=== PATIENT | female | born 1975 | race African-American/Black ===

== ENCOUNTER 2020-12-02 12:15 | Inpatient (IN) | payer OTHER ==
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
--- OUTSIDE RECORDS SUMMARY | 2020-12-02 21:16 | XMS REPORT | Clinical Summary ---
:1975 Author Organization [facility] Address [address] [place] [address] Care Team Providers Name Role Phone Kana Pablo Primary Care Provider Unavailable Allergies No Known Active Allergies Medications Medication Sig Dispensed Refills Start Date End Date Status insulin lispro Inject 4-7 Units 0 10/23/2018 Active (ADMELOG) 100 unit/mL under the skin. injection pen Tresiba FlexTouch U-100 0 10/27/2020 Active 100 unit/mL (3 mL) insulin pen rosuvastatin (CRESTOR) 10 mg nightly. 0 08/16/2020 Active 10 mg tablet amLODIPine (NORVASC) 10 0 11/02/2020 Active mg tablet metoprolol succinate XL TAKE 1 TABLET BY 0 7 Active (TOPROL-XL) 50 mg 24 hr MOUTH EVERY DAY tablet sevelamer (RENVELA) 800 Take 800 mg by 0 Active mg tablet mouth. minocycline (MINOCIN) TAKE 1 CAPSULE BY 0 10/28/2020 Active 100 MG capsule MOUTH EVERY 12 (TWELVE) HOURS FOR 90 DAYS. pregabalin (LYRICA) 75 Take 75 mg by 0 10/16/2020 Active MG capsule mouth daily. esomeprazole (NexIUM) Take 20 mg by 0 Active 20 MG capsule mouth daily before breakfast. Active Problems Problem Noted Date ESRD (end stage renal disease) 11/03/2020 Overview: Added automatically from request for bobby clinton [id number] Dialysis AV fistula malfunction, initial encounter Overview: Added automatically from request for bobby carlosy [id number] Encounters Date Type Specialty Care Team Description 11/30/2020 Telephone Cardiovascular Amanda Hamilton RN 11/03/2020 Office Visit Cardiovascular Rubén Clark Encounter r egrosa Rios MD vascular acces s for dialysis for en d-stage renal disease ( HCC) (Primary Dx) 11/03/2020 Prep for Surgery Cardiovascular Amanda Hamilton ESR D (end stage renal disease) (HCC) (Primary Dx); ceo ziff davis AV bartolo hudson malfunction, initial encounter (HCC) 11/03/2020 Travel 10/20/2020 Telephone Cardiovascular Amanda Hamilton RN after 12/02/2019 Medical History Medical History Date Comments HTN (hypertension) HLD (hyperlipidemia) DM (diabetes mellitus) (HCC) Social History Tobacco Use Types Packs/Day Years Used Date Never Assessed Sex Assigned at Date Recorded Not on file COVID-19 Exposure Response Date Recorded In the last month, have you been in contact with No / Unsure 11/03/2020 9:37 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 Respiratory Rate - - Oxygen Saturation 100% 11/03/2020 9:44 AM 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 Inhaled Oxygen Concentration - - Weight 104 kg (229 lb) 11/03/2020 9:44 AM 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 Height 167.6 cm (5' 6") 11/03/2020 9:44 AM 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 Body Mass Index 36.96 11/03/2020 9:44 AM 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 Plan of Treatment Health Maintenance Due Date Last Done Comments DIABETES: RETINAL EYE EXAM 1984 DIABETIC FOOT EXAM 1984 COVID-19 VACCINE (1 of 2) 1990 CERVICAL CANCER SCREENING 1995 INFLUENZA VACCINE 06/19/2020 Results Not on fileafter 12/02/2019 Insurance Payer Benefit Plan / Subscriber ID Effective Dates Phone Addre ss Type Group CIGNA CIGNA OPEN [id number] 2019-Present HMO ACCESS/NETWORK MEDICARE MEDICARE PART A [id number] 2020-Present [place], [place] Medicare AND B Advance Directives For more information, please contact: [phone] Type Date Recorded Patient Mri Special Procedures Technologist Explanati on Advance Directives, Living Will and Medical Power of Costume Seamstress
--- OUTSIDE RECORDS SUMMARY | 2020-12-02 21:17 | XMS REPORT | Clinical Summary ---
:1975 Author Organization [facility] Address [address] [place] [address] Care Team Providers Name Role Phone Meliza Pablo MD Primary Care Provider Allergies No Known Allergies Medications Medication Sig Dispensed Refills Start End Date Status Date metoprolol Take 50 mg by 0 Activ e succinate mouth daily. (TOPROL-XL) 50 MG 24 hr tablet insulin degludec Inject 44 Units 0 Active (TRESIBA FLEXTOUCH subcutaneously U-100 SUBQ) daily . rosuvastatin Take 10 mg by 0 Act nathan (CRESTOR) 10 MG mouth daily. tablet insulin lispro Inject 0 Activ e (HUMALOG) 100 subcutaneously 3 unit/mL InPn (three) times daily before meals Sliding scale . amLODIPine Take 10 mg by 0 Activ e (NORVASC) 10 MG mouth daily. tablet allopurinoL Take 100 mg by 0 Act nathan (ZYLOPRIM) 100 MG mouth daily. tablet fluticasone Inhale 1 puff by 0 A ctive propion-salmeteroL mouth via inhaler (ADVAIR) 100-50 every 12 (twelve) mcg/dose diskus hours. inhaler pregabalin (LYRICA) Take 75 mg by 0 Active 75 MG capsule mouth 2 (two) times daily. sevelamer (RENVELA) Take 800 mg by 0 Active 800 mg tablet mouth 3 (three) times daily with meals. esomeprazole Take 20 mg by 0 Act nathan (NexIUM) 20 MG mouth every other capsule day. mINOCYCLine Take 100 mg by 0 Act nathan (MINOCIN,DYNACIN) mouth 2 (two) 100 MG capsule times daily. hydrALAZINE Take 25 mg by 0 09/15/20 Disc ontinued (APRESOLINE) 25 MG mouth 3 (three) 20 tablet times daily. ondansetron Take 4 mg by mouth 0 09/15/20 Discontinued (ZOFRAN) 4 MG 2 (two) times 20 tablet daily as needed for Nausea. gabapentin Take 300 mg by 0 09/15/20 Disc ontinued (NEURONTIN) 300 MG mouth 3 (three) 20 capsule times daily. promethazine Place 25 mg 0 09/15/20 Disco ntinued (PHENERGAN) 25 MG rectally every 6 20 suppository (six) hours as needed for Nausea. traMADoL (ULTRAM) Take 50 mg by 0 09/15/20 Discontinued 50 mg tablet mouth every 6 20 (six) hours as needed for Pain. cyclobenzaprine Take 5 mg by mouth 0 09/15 Discontinued (FLEXERIL) 5 MG 3 (three) times 20 tablet daily as needed for Muscle spasms. magnesium gluconate Take 500 mg by 0 09/15 Discontinued (MAGONATE) 27.5 mg mouth 2 (two) 20 magne- sium (500 times daily. mg) tablet aspirin 81 MG EC Take 81 mg by 0 09/15/20 Discontinued tablet mouth daily. 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 09/21/2020 diabetes mellitus, unspecified proliferative retinopat hy type Secondary hyperparathyroidism of renal origin 09/21/20 20 Rheumatoid arthritis involving multiple sites, unspeci fied whether 09/21/2020 rheumatoid factor present H/O: gout 09/21/2020 Hydradenitis 09/21/2020 Hyperlipidemia, unspecified hyperlipidemia type 2019 Encounters Date Type Specialty Care Team Description 11/17/2020 Documentation Transplant Sim, Na Y 10/22/2020 Telephone Transplant Ginna Gagnon, Kidney Long splarmin RN Pre-evaluation 09/15/2020 Evaluation Transplant Marshall, Pre-transplant evaluation for chronic kidney disease (Primary Dx); Bhamidipati ESRD (end stage renal disease) ([facility]); MD Chilango Type 2 diabetes mellitus with other kidney complication, unspecified whether ad terminal makeup operator insulin use (HCC); Essential hyper tension; Proliferative d iabetic retinopathy of both eyes associated with type 2 diabetes mellitus, unspecified proliferative retinopathy type (HCC); Secondary hyper parathyroidism of renal origin (HCC); Rheumatoid arth ritis involving multiple sites, unspecified whether rheumatoid factor present (HCC); H/O: gout; Hydradenitis; Hyperlipidemia, unspecified hyperlipidemia type 09/15/2020 Orders Only Transplant Marshall, Pre-transplant evaluation for chronic kidney disease; Hepatology Bhamidipati Anemia of renal disease; MD [place] Type 2 diabetes mellitus with other kidney complication, unspecified whether ad terminal makeup operator insulin use (HCC); Hypertensive re nal disease 09/15/2020 Evaluation Transplant Marshall, Pre-transplant Bhamidipati evaluation for chronic MD [place]ilango kidney disease (Primary Teodoro, Rose Dx) ROULA Serrano 09/14/2020 Telephone Transplant Govea, Appointment (Isac ledbetter Mrs. Karla Song she will attend the appt on and she's aware true t she can bring one perso n with her to the appt and they both will need to wear there face mask to the appt. I went ov er the address for the appt.) 09/01/2020 Telephone Transplant Yuliet Ramirez Appointment L 09/01/2020 Telephone Transplant Yuliet Ramirez Appointment L 09/01/2020 Telephone Transplant Ирина Spencer Appointment (Pt called to r/s missed a ppt on 08/11/2020, for warded message to cortes [facility]. ) 08/12/2020 Documentation Transplant Lorena Joy 08/10/2020 Telephone Transplant Yuliet Ramirez Appointment L 07/28/2020 Documentation Pharmacy Shannan Goss, [facility] 07/20/2020 Telephone Transplant Yuliet Ramirez Appointment L 07/20/2020 Telephone Transplant Yuliet Ramirez Appointment L 07/18/2020 Video - Transplant Marshall, Pre-transplant Telemedicine Bhamidipati evaluation for chronic MD [place] kidney disease (Primary Dx) 07/15/2020 Documentation Transplant Ginna Gagnon, Pre-transp lant evaluation for chronic kidney disease (Primary Dx); RN Anemia of renal disease; Type 2 diabetes mellitus with other kidney complication, unspecified whether mcfp insulin use (HCC); Hypertensive re nal disease 07/15/2020 Documentation Transplant Cornelio Tristan 07/14/2020 Documentation Transplant Salcido, Tannereila 07/14/2020 Telephone Transplant Omari, Ladnoel Kidney Transp lant Pre-evaluation 07/12/2020 Documentation Transplant Salcido, Ladeila 07/12/2020 Telephone Transplant Salcido, Ladeila Kidney Transp lant Pre-evaluation 07/12/2020 Telephone Transplant Salcido, Ladonel Kidney Transp lant Pre-evaluation 07/02/2020 Documentation Transplant Salcido, Ladeila 07/02/2020 Telephone Transplant Salcido, Ladeitrina Kidney Transp lant Pre-evaluation 06/23/2020 Video - Transplant No Show Telemedicine 06/22/2020 Documentation Transplant Anjana Mabry 06/03/2020 Documentation Transplant Salcido, Darylla 06/03/2020 Telephone Transplant Salcido, Ladonel Kidney Transp lant Pre-evaluation 05/27/2020 Documentation Transplant Salcido, Ladeila 05/27/2020 Abstract Transplant Salcido, Ladeila 05/27/2020 Documentation Transplant Evonne Palacios RN 05/18/2020 Documentation Transplant Salcido, Ladeila 05/18/2020 Documentation Transplant Salcido, Ladeila 05/13/2020 Abstract Transplant Salcido, Ladeila 05/13/2020 Abstract Transplant Salcido, Ladjorjela after 12/02/2019 Family History Medical History Relation Name Comments Diabetes Brother Hypertension Brother Ulcers Father toe ulcer / gang diana Cancer Mother pancreatic Diabetes Mother Heart failure Mother Hyperlipidemia Mother Cancer Sister throat Hypertension Sister Diabetes Son Diabetes Son Relation Name Status Comments Brother Father Mother Sister Son Son Social History Tobacco Use Types Packs/Day Years Used Date Never Smoker Smokeless Tobacco: Never Used Alcohol Use Drinks/Week oz/Week Comments Never Alcohol Habits Answer Date Recorded How often do you have a drink containing alcohol? Never 09/15/2020 How many drinks containing alcohol do you have on a typical Not asked day when you are drinking? How often do you have six or more drinks on one occasion? No t asked Sex Assigned at Date Recorded Not on file Last Filed Vital Signs Vital Sign Reading Time Taken Comments Blood Pressure 113/73 09/15/2020 1:40 PM CDT Pulse 62 09/15/2020 1:40 PM CDT Temperature 36.5 C (97.7 F) 09/15/2020 1:40 PM CDT Respiratory Rate 16 09/15/2020 1:40 PM CDT Oxygen Saturation 100% 09/15/2020 1:40 PM CDT Inhaled Oxygen Concentration - - Weight 100.3 kg (221 lb 1.6 oz) 09/15/2020 1:40 PM CDT Height 166.5 cm (5' 5.55") 09/15/2020 1:40 PM CDT Body Mass Index 36.18 09/15/2020 1:40 PM CDT Plan of Treatment Not on file Procedures Procedure Name Priority Date/Time Associated Comments Diagnosis CBC W/PLT COUNT & AUTO Routine 09/15/2020 1:24 Pre-transplant Results for this DIFFERENTIAL PM CDT evaluation for procedure are in chronic kidney the results disease section. Anemia of renal disease Type 2 diabetes mellitus with other kidney complication, unspecified whether mcfp insulin use (HCC) Hypertensive renal disease DIRECT AHG (KATIE)/DIRECT Routine 09/15/2020 1:24 Pre-transplan t Results for this CARMINE PM CDT evaluation for procedure are in chronic kidney the results disease section. Anemia of renal disease Type 2 diabetes mellitus with other kidney complication, unspecified whether mcfp insulin use (HCC) Hypertensive renal disease TYPE AND SCREEN, Routine 09/15/2020 1:24 Pre-transplant Resul ts for this AUTOMATED PM CDT evaluation for procedure are in chronic kidney the results disease section. Anemia of renal disease Type 2 diabetes mellitus with other kidney complication, unspecified whether mcfp insulin use (HCC) Hypertensive renal disease HEMOGLOBIN A1C Routine 09/15/2020 1:24 Pre-transplant Results for this PM CDT evaluation for procedure are in chronic kidney the results disease section. Anemia of renal disease Type 2 diabetes mellitus with other kidney complication, unspecified whether mcfp insulin use (HCC) Hypertensive renal disease LIPID PANEL Routine 09/15/2020 1:24 Pre-transplant Results f or this PM CDT evaluation for procedure are in chronic kidney the results disease section. Anemia of renal disease Type 2 diabetes mellitus with other kidney complication, unspecified whether mcfp insulin use (HCC) Hypertensive renal disease URINALYSIS W/ Routine 09/15/2020 1:24 Pre-transplant Results for this MICROSCOPIC PM CDT evaluation for procedure are in chronic kidney the results disease section. Anemia of renal disease Type 2 diabetes mellitus with other kidney complication, unspecified whether ad terminal makeup operator insulin use (HCC) Hypertensive renal disease URIC ACID Routine 09/15/2020 1:24 Pre-transplant Results f or this PM CDT evaluation for procedure are in chronic kidney the results disease section. Anemia of renal disease Type 2 diabetes mellitus with other kidney complication, unspecified whether ad terminal makeup operator insulin use (HCC) Hypertensive renal disease T SPOT TB Routine 09/15/2020 1:24 Pre-transplant Results f or this PM CDT evaluation for procedure are in chronic kidney the results disease section. Anemia of renal disease Type 2 diabetes mellitus with other kidney complication, unspecified whether mcfp insulin use (HCC) Hypertensive renal disease PTH, INTACT Routine 09/15/2020 1:24 Pre-transplant Results f or this PM CDT evaluation for procedure are in chronic kidney the results disease section. Anemia of renal disease Type 2 diabetes mellitus with other kidney complication, unspecified whether mcfp insulin use (HCC) Hypertensive renal disease PHOSPHORUS Routine 09/15/2020 1:24 Pre-transplant Results f or this PM CDT evaluation for procedure are in chronic kidney the results disease section. Anemia of renal disease Type 2 diabetes mellitus with other kidney complication, unspecified whether ad terminal makeup operator insulin use (HCC) Hypertensive renal disease GAMMA GLUTAMYL Routine 09/15/2020 1:24 Pre-transplant Results for this TRANSFERASE (GGT) PM CDT evaluation for procedur e are in chronic kidney the results disease section. Anemia of renal disease Type 2 diabetes mellitus with other kidney complication, unspecified whether ad terminal makeup operator insulin use (HCC) Hypertensive renal disease COMPREHENSIVE METABOLIC Routine 09/15/2020 1:24 Pre-transplan t Results for this PANEL PM CDT evaluation for procedure are in chronic kidney the results disease section. Anemia of renal disease Type 2 diabetes mellitus with other kidney complication, unspecified whether ad terminal makeup operator insulin use (HCC) Hypertensive renal disease CBC W/PLT COUNT & AUTO Routine 09/15/2020 1:24 Pre-transplant Results for this DIFFERENTIAL PM CDT evaluation for procedure are in chronic kidney the results disease section. Anemia of renal disease Type 2 diabetes mellitus with other kidney complication, unspecified whether ad terminal makeup operator insulin use (HCC) Hypertensive renal disease HLA TYPING CI Routine 09/15/2020 1:24 Pre-transplant Results for this PM CDT evaluation for procedure are in chronic kidney the results disease section. Anemia of renal disease Type 2 diabetes mellitus with other kidney complication, unspecified whether mcfp insulin use (HCC) Hypertensive renal disease HLA TYPING CII Routine 09/15/2020 1:24 Pre-transplant Results for this PM CDT evaluation for procedure are in chronic kidney the results disease section. Anemia of renal disease Type 2 diabetes mellitus with other kidney complication, unspecified whether ad terminal makeup operator insulin use (HCC) Hypertensive renal disease URINE CULTURE Routine 09/15/2020 1:24 Pre-transplant Results for this PM CDT evaluation for procedure are in chronic kidney the results disease section. Anemia of renal disease Type 2 diabetes mellitus with other kidney complication, unspecified whether ad terminal makeup operator insulin use (HCC) Hypertensive renal disease AB SPECIFICITY CLASS I Routine 09/15/2020 1:23 Pre-transplant Results for this PM CDT evaluation for procedure are in chronic kidney the results disease section. Anemia of renal disease Type 2 diabetes mellitus with other kidney complication, unspecified whether mcfp insulin use (HCC) Hypertensive renal disease FLOW PRA CLASS II WITH Routine 09/15/2020 1:23 Pre-transplant Results for this REFLEX TO ANTIBODY PM CDT evaluation for procedu re are in SPECIFICITY chronic kidney the results disease section. Anemia of renal disease Type 2 diabetes mellitus with other kidney complication, unspecified whether mcfp insulin use (HCC) Hypertensive renal disease VARICELLA ZOSTER Routine 09/15/2020 1:23 Pre-transplant Resul ts for this ANTIBODY, IGG PM CDT evaluation for procedure ar e in chronic kidney the results disease section. Anemia of renal disease Type 2 diabetes mellitus with other kidney complication, unspecified whether mcfp insulin use (HCC) Hypertensive renal disease RPR Routine 09/15/2020 1:23 Pre-transplant Results f or this PM CDT evaluation for procedure are in chronic kidney the results disease section. Anemia of renal disease Type 2 diabetes mellitus with other kidney complication, unspecified whether ad terminal makeup operator insulin use (HCC) Hypertensive renal disease PT/APTT Routine 09/15/2020 1:23 Pre-transplant Results f or this PM CDT evaluation for procedure are in chronic kidney the results disease section. Anemia of renal disease Type 2 diabetes mellitus with other kidney complication, unspecified whether ad terminal makeup operator insulin use (HCC) Hypertensive renal disease HC LAB HIV-1 AG Routine 09/15/2020 1:23 Pre-transplant Result s for this W/HIV-1&2 AB PM CDT evaluation for procedure are in chronic kidney the results disease section. Anemia of renal disease Type 2 diabetes mellitus with other kidney complication, unspecified whether mcfp insulin use (HCC) Hypertensive renal disease HEPATITIS C ANTIBODY Routine 09/15/2020 1:23 Pre-transplant R esults for this PM CDT evaluation for procedure are in chronic kidney the results disease section. Anemia of renal disease Type 2 diabetes mellitus with other kidney complication, unspecified whether mcfp insulin use (HCC) Hypertensive renal disease HEPATITIS B CORE Routine 09/15/2020 1:23 Pre-transplant Resul ts for this ANTIBODY, IGM PM CDT evaluation for procedure ar e in chronic kidney the results disease section. Anemia of renal disease Type 2 diabetes mellitus with other kidney complication, unspecified whether ad terminal makeup operator insulin use (HCC) Hypertensive renal disease HEPATITIS B SURFACE Routine 09/15/2020 1:23 Pre-transplant Re sults for this ANTIGEN PM CDT evaluation for procedure are in chronic kidney the results disease section. Anemia of renal disease Type 2 diabetes mellitus with other kidney complication, unspecified whether mcfp insulin use (HCC) Hypertensive renal disease HEPATITIS B SURFACE Routine 09/15/2020 1:23 Pre-transplant Re sults for this ANTIBODY PM CDT evaluation for procedure are in chronic kidney the results disease section. Anemia of renal disease Type 2 diabetes mellitus with other kidney complication, unspecified whether mcfp insulin use (HCC) Hypertensive renal disease EBV ANTIBODY, IGM Routine 09/15/2020 1:23 Pre-transplant Resu lts for this PM CDT evaluation for procedure are in chronic kidney the results disease section. Anemia of renal disease Type 2 diabetes mellitus with other kidney complication, unspecified whether mcfp insulin use (HCC) Hypertensive renal disease EBV ANTIBODY, IGG Routine 09/15/2020 1:23 Pre-transplant Resu lts for this PM CDT evaluation for procedure are in chronic kidney the results disease section. Anemia of renal disease Type 2 diabetes mellitus with other kidney complication, unspecified whether mcfp insulin use (HCC) Hypertensive renal disease CYTOMEGALOVIRUS Routine 09/15/2020 1:23 Pre-transplant Result s for this ANTIBODY, IGM PM CDT evaluation for procedure ar e in chronic kidney the results disease section. Anemia of renal disease Type 2 diabetes mellitus with other kidney complication, unspecified whether mcfp insulin use (HCC) Hypertensive renal disease CYTOMEGALOVIRUS Routine 09/15/2020 1:23 Pre-transplant Result s for this ANTIBODY, IGG PM CDT evaluation for procedure ar e in chronic kidney the results disease section. Anemia of renal disease Type 2 diabetes mellitus with other kidney complication, unspecified whether mcfp insulin use (HCC) Hypertensive renal disease FLOW PRA CLASS I WITH Routine 09/15/2020 1:23 Pre-transplant Results for this REFLEX TO ANTIBODY PM CDT evaluation for procedu re are in SPECIFICITY chronic kidney the results disease section. Anemia of renal disease Type 2 diabetes mellitus with other kidney complication, unspecified whether ad terminal makeup operator insulin use (HCC) Hypertensive renal disease BLOOD TYPING, AUTOMATED Routine 09/15/2020 1:15 Pre-transplan t Results for this PM CDT evaluation for procedure are in chronic kidney the results disease section. Anemia of renal disease Type 2 diabetes mellitus with other kidney complication, unspecified whether mcfp insulin use (HCC) Hypertensive renal disease after 12/02/2019 Results HLA TYPING CII (09/15/2020 1:24 PM CDT) Pathologist [facility] nature HLA-DR AG1 12 [facility] HLA TESTING HLA-DR AG2 1 [facility] HLA TESTING HLA-DR AG3-1 52 [facility] HLA TESTING HLA-DQA1 AG 1-1 05 [facility] HLA TESTING HLA-DQA1 AG 1-2 01 [facility] HLA TESTING HLA-DQB1 AG 1-1 7 [facility] HLA TESTING HLA-DQB1 AG 1-2 5 [facility] HLA TESTING HLA-DPA1 AG 1-1 01 [facility] HLA TESTING HLA-DPA1 AG 1-2 01 [facility] HLA TESTING HLA-DPB1 AG 1-1 02:01 [facility] HLA TESTING HLA-DPB1 AG 1-2 02:01 [facility] HLA TESTING Specimen Blood Performing Organization Address City/[facility] Phone Number [facility] HLA TESTING [address], [place]: [place] [address] [id number], CLIA#[id number] CAP#[id number] UNOS#[id number] HLA TYPING CI (09/15/2020 1:24 PM CDT) Pathologist [facility] [place] nature HLA-A AG1 66 [facility] HLA TESTING HLA-A AG2 26 [facility] HLA TESTING HLA-B AG1 45 [facility] HLA TESTING HLA-B AG2 35 [facility] HLA TESTING HLA-C AG1 16 [facility] HLA TESTING HLA-C AG2 4 [facility] HLA TESTING HLA-B BW1 6 [facility] HLA TESTING HLA-B BW2 6 [facility] HLA TESTING Specimen Blood Performing Organization Address City/[facility] Hospitalcode Phone Number [facility] HLA TESTING [address], [place]: [place] [address] [id number], CLIA#[id number] CAP#[id number] [id number] Type and Screen, Automated (09/15/2020 1:24 PM CDT) Pathologist Sig nature ABO/RH AUTOMATED O POSITIVE [facility] ([facility]) [facility] Ab Scrn NEGATIVE [facility] Specimen Blood Performing Organization Address City/State/Zipcode Phone Number [facility] [address] [place] [address] T Spot TB (09/15/2020 1:24 PM CDT) Pathologist Sig nature T-Spot TB Negative [facility] Neg Ctrl Spot Count 0 [facility] Panel A Spot 0 [facility] Panel B Spot 0 [facility] Pos Ctrl Spot Ct 0 [facility] Scan Result 0 [facility] Specimen Blood Narrative Performed At This result has an attachment that is no t available. Performing Organization Address City/State/Zipcode Phone Number [facility] [address] [place] [address] LAB[address]ATOR[address] CBC with platelet count + automated diff (09/15/2020 1:24 PM CDT) Pathologist Sig nature WBC 10.2 3.5 - 10.5 [facility] K/L [facility] RBC 3.80 (L) 3.93 - 5.22 [facility] M/L [facility] Hemoglobin 10.6 (L) 11.2 - 15.7 [facility] GM/DL [facility] Hematocrit 33.8 (L) 34.1 - 44.9 % [facility] MCV 88.9 79.4 - 94.8 fL [facility] MCH 27.9 25.6 - 32.2 pg [facility] MCHC 31.4 (L) 32.2 - 35.5 [facility] GM/DL [facility] RDW 17.1 (H) 11.7 - 14.4 % [facility] Platelets 306 150 - 450 K/CU [facility] MPV 11.2 9.4 - 12.3 fL [facility] nRBC 0 0 - 0 /100 WBC [facility] % Neutros 65 % [facility] % Lymphs 25 % [facility] % Monos 8 % [facility] % Eos 2 % [facility] % Baso 1 % [facility] # Neutros 6.61 (H) 1.56 - 6.13 [facility] # Lymphs 2.49 1.18 - 3.74 [facility] # Monos 0.79 (H) 0.24 - 0.36 [facility] # Eos 0.17 0.04 - 0.36 [facility] # Baso 0.08 0.01 - 0.08 [facility] Immature 0 0 - 1 % [facility] Specimen Blood Performing Organization Address City/State/Zipcode Phone Number [facility] [address] [place] [id number] CENTER Urinalysis, Routine (09/15/2020 1:24 PM CDT) Color, UA Light Yellow [facility] Clarity, UA Clear [facility] Specific [place], 1.012 1.001 - 1.035 [facility] pH, UA 8.0 5.0 - 8.0 [facility] Protein, UA 300 mg/dL (A) Negative [facility] Glucose, UA 50 mg/dL (A) Negative [facility] Ketones, UA Negative Negative [facility] Bilirubin, UA Negative Negative [facility] Blood, UA Trace (A) Negative [facility] Nitrite, UA Negative Negative [facility] Leukocytes, UA Negative Negative [facility] Urobilinogen, UA 0.2 0.2 - 1.0 mg/dL [facility] RBC, UA <1 /HPF [facility] WBC, UA 2 /HPF [facility] Bacteria, UA Rare [facility] Squam Epithel, UA 4 /HPF [facility] Specimen Source [facility] Specimen Urine Narrative Performed At [employer] ID - [auto] [facility] [employer] ID - tech Performing Organization Address City/State/Zipcode Phone Number [address] [address] CENTER Direct AHG (KATIE)/Direct Carmine (09/15/2020 1:24 PM CDT) Pathologist Sig nature Direct AHG-IGG NEGATIVE [facility] Direct AHG-C3B, C3D NEGATVIE [facility] Specimen Blood Performing Organization Address City/[facility]/Zipcode Phone Number [address] [address] Urine Culture (09/15/2020 1:24 PM CDT) Pathologist Sig nature Result No growth [facility] Specimen Urine - Urine (substance) Performing Organization Address City/[facility]/Zipcode Phone Number [address] [address] CENTER Uric Acid (09/15/2020 1:24 PM CDT) Pathologist Sig nature Uric Acid 6.2 2.6 - 7.2 mg/dL [facility] Specimen Blood Narrative Performed At [employer] ID - PIAYA L [facility] Performing Organization Address City/[facility]/Zipcode Phone Number [address] [address] CENTER Phosphorus (09/15/2020 1:24 PM CDT) Pathologist Sig nature Phosphorus 5.6 (H) 2.3 - 4.7 mg/dL [facility] Specimen Blood Narrative Performed At [employer] ID - MICHAEL L [facility] Performing Organization Address [facility] Phone Number [address] [address] [place] PTH, Intact (09/15/2020 1:24 PM CDT) Pathologist Sig nature PTH 1,067.5 (H) 8.5 - 72.5 pg/mL [facility] Specimen Blood Narrative Performed At [employer] ID - MICHAEL L [facility] Performing Organization Address [facility] Phone Number [address] [address] [place] Hemoglobin A1c (09/15/2020 1:24 PM CDT) Pathologist Sig nature Hemoglobin A1C 8.7 (H) 4.3 - 6.1 % [facility] Specimen Blood Performing Organization Address [facility] Phone Number [address] [address] CENTER Gamma Glutamyl Transferase (GGT) (09/15/2020 1:24 PM CDT) Pathologist Sig nature GGT 33 9 - 64 U/L [facility] Specimen Blood Narrative Performed At [employer] ID - PIXUAN L [facility] Performing Organization Address City/[facility] Phone Number [address] [address] [place] Lipid panel (09/15/2020 1:24 PM CDT) Pathologist Sig nature Triglycerides 124 mg/dL [facility] [place] Cholesterol 135 mg/dL [facility] HDL 32 mg/dL [facility] LDL Calculated 78 mg/dL [facility] Specimen Blood Narrative Performed At Triglyceride Reference Range: [facility] Low Risk <150 Borderline 150-199 High Risk 200-499 Very High Risk >=500 Cholesterol Reference Range: Low Risk <200 Borderline 200-239 High Risk >240 HDL Cholesterol Reference Range: Low Risk >=60 High Risk <40 LDL Cholesterol Reference Range: Optimal <100 Near Optimal 100-129 Borderline 130-159 High 160-189 Very High >=190 [employer] ID - PIAYA L Performing Organization Address City/State/Zipcode Phone Number [facility] [address] [place] [address] [place] Comprehensive metabolic panel (09/15/2020 1:24 PM CDT) Protein, Total 8.6 (H) 6.0 - 8.3 [facility] gm/dL [facility] Albumin 4.2 3.5 - 5.0 [facility] g/dL [facility] Alkaline 204 (H) 40 - 150 U/L [facility] Phosphatase [facility] Total Bilirubin 0.7 0.2 - 1.2 [facility] mg/dL [facility] Sodium 136 136 - 145 [facility] meq/L [facility] Potassium 4.5 3.5 - 5.1 [facility] meq/L [facility] Chloride 96 (L) 98 - 107 [facility] meq/L [facility] CO2 27 22 - 29 meq/L [facility] BUN 41 (H) 7 - 21 mg/dL [facility] Creatinine 7.15 (H) 0.57 - 1.25 [facility] mg/dL [facility] Glucose 95 70 - 105 [facility] mg/dL [facility] Calcium 8.1 (L) 8.4 - 10.2 [facility] mg/dL [facility] AST 16 5 - 34 U/L [facility] ALT 21 6 - 55 U/L [facility] EGFR 8Comment: mL/min/1.73 [facility] ESTIMATED GFR IS sq [facility] NOT ACCURATE MEDICAL CENTER CREATININE CLEARANCE IN PREDICTING GLOMERULAR FILTRATION RATE. ESTIMATED GFR IS NOT APPLICABLE FOR DIALYSIS PATIENTS. Specimen Blood Narrative Performed At [employer] ID - PIAYA L [facility] Performing Organization Address City/[facility]/Zipcode Phone Number [facility] [address] [place] [address] CENTER FLOW PRA CLASS II WITH REFLEX TO ANTIBODY SPECIFICITY (09/15/2020 1:23 PM CDT) Pathologist Sig nature Flow Class II Percent 0 [facility] HLA TESTING Positive Specimen Blood Performing Organization Address City/[facility] Phone Number [facility] HLA TESTING ONE Bannerpatric [place]reyra, [place]: [place] [address] [id number], CLIA#[id number] CAP#[id number] UNOS#[id number] FLOW PRA CLASS I WITH REFLEX TO ANTIBODY SPECIFICITY (09/15/2020 1:23 PM CDT) Pathologist Sig nature Flow Class I Percent 18 [facility] HLA TESTING Positive Specimen Blood Performing Organization Address City/[facility] Phone Number [facility] HLA TESTING ONE Bjorn Pereyra, [place]: [place] [address] [id number], CLIA#[id number] CAP#[id number] [facility]#[id number] AB SPECIFICITY CLASS I (09/15/2020 1:23 PM CDT) Pathologist Sig nature AB Specificity Class I B:15:02 [facility] HLA TESTING AB Specificity Titr MFIs > 4000 [facility] HLA TESTING Class Report Specimen Blood Performing Organization Address City/[facility]/Zipcode Phone Number [facility] HLA TESTING ONE Banner [place], [place]: [place] [address] [id number], CLIA#[id number] CAP#[id number] [facility]#[id number] PT/aPTT (09/15/2020 1:23 PM CDT) Pathologist Sig nature Protime 13.9 11.9 - 14.2 seconds [facility] INR 1.10 <=5.90 [facility] PTT 29.8 22.5 - 36.0 seconds [facility] Specimen Blood Narrative Performed At Effective 04/16/2019: PT Reference Range [facility] Change New: 11.9-14.2 Previous: 11.7-14.7 RECOMMENDED COUMADIN/WARFARIN INR THERAPY RANGES STANDARD DOSE: 2.0-3.0 Includes: PROPHYLAXIS for venous thrombosis, systemic embolization; TREATMENT for venous thrombosis and/or pulmonary embolus. HIGH RISK: Target INR is 2.5-3.5 for patients wiht mechanical heart valves. Performing Organization Address City/State/Zipcode Phone Number [facility] [address] [place] [address] CENTER HIV-1 Antigen with HIV-1/2 Antibody (09/15/2020 1:23 PM CDT) Pathologist Sig nature HIV-1 Antigen with Nonreactive Nonreactive [facility] HIV 1&2 Antibody [facility] Specimen Blood Narrative Performed At [employer] ID - PIXUAN L [facility] Performing Organization Address City/[facility] Phone Number [address] [address] CENTER Hepatitis C Antibody (09/15/2020 1:23 PM CDT) Pathologist Sig nature Hepatitis C Ab Nonreactive Nonreactive [facility] Specimen Blood Narrative Performed At [employer] ID - XUAN L [facility] Performing Organization Address City/[facility] Phone Number [facility] [address] [place] [address] CENTER Cytomegalovirus antibody, IgM (09/15/2020 1:23 PM CDT) Pathologist Sig nature CMV IGM Negative Negative, Equivocal [facility] Specimen Blood Narrative Performed At CMV IgM Result Interpretation: [facility] </= 0.8 Al Negative 0.9-1.0 Al Equivocal >/= 1.1 Al Positive Performing Organization Address City/[facility] Phone Number [address] [address] CENTER Hepatitis B core antibody, IgM (09/15/2020 1:23 PM CDT) Pathologist Sig nature Hep B C IgM Nonreactive Nonreactive [facility] Specimen Blood Narrative Performed At [employer] ID - PIAYA L [facility] Performing Organization Address City/[facility] Phone Number [address] [address] CENTER EBV-VCA antibody, IgM (09/15/2020 1:23 PM CDT) JORGE VICK VIRAL Negative Negative, Equivocal [facility] CAPSID ANTIGEN IGM [facility] Specimen Blood Narrative Performed At Jorge Vick Viral Capsid Antigen IgM Result [facility] Interpretation: </= 0.8 Al Negative 0.9-1.0 Al Equivocal >/= 1.1 Al Positive Performing Organization Address City/[facility] Phone Number [address] [address] CENTER EBV-VCA antibody, IgG (09/15/2020 1:23 PM CDT) JORGE VICK VIRAL Positive (A) Negative, [facility] CAPSID ANTIGEN IGG Equivocal [facility] Specimen Blood Narrative Performed At Jorge Vick Viral Capsid Antigen IgG Result [facility] Interpretation: </= 0.8 Al Negative 0.9-1.0 Al Equivocal >/= 1.1 Al Positive Performing Organization Address City/State/Zipcode Phone Number [address] [address] CENTER RPR (09/15/2020 1:23 PM CDT) Pathologist Sig nature RPR Nonreactive Nonreactive [facility] Specimen Blood Performing Organization Address City/[facility]/Zipcode Phone Number [address] [address] CENTER Hepatitis B surface antibody (09/15/2020 1:23 PM CDT) Pathologist Sig nature Hep B S Ab 125.4 (H) <8.0 mIU/mL [facility] Specimen Blood Narrative Performed At [employer] FRANKIE Peña [facility] Performing Organization Address City/[facility] Phone Number [address] [address] [place] Hepatitis B surface antigen (09/15/2020 1:23 PM CDT) Pathologist Sig nature HBsAg Screen Nonreactive Nonreactive [facility] Specimen Blood Narrative Performed At Specimen is considered negative for HBsA g. [facility] Performing Organization Address [facility] Phone Number [address] [address] [place] Cytomegalovirus antibody, IgG (09/15/2020 1:23 PM CDT) CYTOMEGALOVIRUS, Positive (A) Negative, [facility] IGG Equivocal [facility] Specimen Blood Narrative Performed At CMV IgG Result Interpretation: [facility] </= 0.8 Al Negative 0.9-1.0 Al Equivocal >/=1.1 Al Positive Performing Organization Address [facility] Phone Number [address] [address] [place] Varicella Zoster Antibody, IgG (09/15/2020 1:23 PM CDT) Pathologist Sig nature Varicella IgG 3.4 [facility] Specimen Blood Narrative Performed At VARICELLA ZOSTER RESULT INTERPRETATIONS: [facility] <=0.8 Al Nonreactive: Presumed non-immune to VZV 0.9-1.0 Al Equivocal >=1.1 Al Reactive: Presumed immune to VZV Performing Organization Address [facility] Phone Number [address] [address] [place] Blood typing, automated (09/15/2020 1:15 PM CDT) Pathologist Sig nature ABO/RH AUTOMATED O POSITIVE [facility] (BEAKER) [facility] Specimen Blood Performing Organization Address City/State/Zipcode Phone Number [facility] [address] [place] [address] after 12/02/2019 Insurance Payer Benefit Plan / Subscriber ID Effective Phone Address T ype Group Dates CIGNA CIGNA [id number] 2013-Pres [place] [facility] TRANSPLANT TRANSPLANT MEDICARE MEDICARE A B [id number] 2020-Pres M edicare ent CIGNA - MGD CIGNA PPO [id number] 2019-Pres PP O CARE ent ([place]) [place] [address]
--- OUTSIDE RECORDS SUMMARY | 2020-12-02 21:17 | XMS REPORT | Summary of Care ---
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 Encounter Details Date Type Department Care Team Description 09/08/2020 Orders Only [facility] Doctor Unassigned, No [address] [facility] [place] [address] [address] [place] [address] Allergies Active Allergy Reactions Severity Noted Date Comments Insect Venom Anaphylaxis 09/02/2020 ALLERGIC TO ANT BITES documented as of this encounter (statuses as of 09/14/2020) Medications Medication Sig Dispensed Refills Start Date End Date Status ciprofloxacin HCl 500 mg Take 1 tablet by 20 tablet 0 08/21/20 20 Active tabletIndications: mouth 2 (two) Hydradenitis, Abscess times daily. TRESIBA FLEXTOUCH U-100 0 06/23/2020 Active 100 unit/mL (3 mL) InPn HUMALOG KWIKPEN INSULIN 0 08/18/2020 Active 100 unit/mL injection amLODIPine 10 mg tablet Take 10 mg by 0 Active mouth. allopurinoL 100 mg Take 100 mg by 0 Active tablet mouth. metoprolol succinate XL TK 1 T PO D 0 07/01/2020 Active 50 mg 24 hr tablet rosuvastatin 10 mg 1 tablet 0 A ctive tablet pregabalin 75 mg capsule TK 1 C PO D 0 08/18/2020 Active esomeprazole magnesium Take by mouth. 0 Active (NEXIUM ORAL) methylPREDNISolone Take by mouth 21 Each 0 08/28/2020 Active (MEDROL, LASHAWN,) 4 mg SEE-INSTRUCTIONS tabletsIndications: . follow package Insect bite, unspecified directions site, initial encounter fluticasone propionate Use 2 Sprays in 16 g 0 09/02/2020 Active 50 mcg/actuation nasal each nostril sprayIndications: Viral daily. URI loratadine 10 mg Take 1 tablet by 15 tablet 0 09/02/2020 Active tabletIndications: Viral mouth every URI other day. documented as of this encounter (statuses as of 09/14/2020) Active Problems Problem Noted Date Positive anti-CCP test 07/02/2020 Troponin I above reference range 04/27/2020 Other chest pain 04/26/2020 Stage 5 chronic kidney disease not on chronic dialysis 04/25/2020 Snores 04/25/2020 Anemia 04/25/2020 History of acute congestive heart failure 04/24/2020 Fatty liver 12/17/2019 Elevated alkaline phosphatase level 12/07/2019 Hidradenitis 07/28/2019 Overview: Added automatically from request for bobby clinton [id number] Arthritis, multiple joint involvement 03/06/2019 Hyperuricemia 03/06/2019 Abscess of axilla, right 01/16/2019 Overview: Added automatically from request for bobby clinton [id number] Abscess, groin 01/16/2019 Overview: Added automatically from request for bobby clinton [id number] Vision loss, left eye 09/17/2018 Multiple sweat gland abscesses 07/01/2018 Hidradenitis suppurativa 07/01/2018 HTN (hypertension) 07/01/2018 Type 2 diabetes mellitus with hyperglycemia, with long -term current use of 07/01/2018 insulin Hyperlipidemia 07/01/2018 Hypomagnesemia 07/01/2018 Obesity (BMI 30-39.9) 01/03/2017 Renal failure 01/03/2017 ESRD on dialysis documented as of this encounter (statuses as of 09/14/2020) Resolved Problems Problem Noted Date Resolved Date CKD (chronic kidney disease) 07/01/2018 05/23/2020 Infected pilonidal cyst 07/01/2018 10/22/2018 Hyponatremia 07/01/2018 10/22/2018 documented as of this encounter (statuses as of 09/14/2020) Immunizations Name Administration Dates Next Due Influenza Virus Vaccine Quad .5 mL IM 6+ MO 02/06/2020 Influenza Virus Vaccine Quad IM Multi-dose 6+ MO 10/23/2018 documented as of this encounter Social History Tobacco Use Types Packs/Day Years Used Date Never Smoker Smokeless Tobacco: Never Used Alcohol Use Drinks/Week oz/Week Comments Yes once or twice a month Sex Assigned at Date Recorded Not on file COVID-19 Exposure Response Date Recorded In the last month, have you been in contact with No / Unsure 08/28/2020 4:30 PM CDT someone who was confirmed or suspected to have Coronavirus / COVID-19? documented as of this encounter Last Filed Vital Signs Not on filedocumented in this encounter Plan of Treatment Date Type Specialty Care Team Description 10/01/2020 Office Visit Rheumatology Lydia Rodriguez MD [address] [place] [phone] 10/27/2020 Office Visit Endocrinology Diabetes & LacyMaik MD [address] [id number] 12/20/2020 Office Visit Infectious Disease Karen Diggs MD [address] [place] [phone] Health Maintenance Due Date Last Done Comments PNEUMOCOCCAL 0-64 YEARS 1980 COMBINED SERIES (1 of 3 - PCV13) DTaP,Tdap,and Td Vaccines 1993 (1 - Tdap) PAP SMEAR 1995 Breast Cancer Screening 2014 (MAMMOGRAM) HgA1C 10/25/2020 04/25/2020, 02/01/2020, 12/03/2019, Additional history exists LDL-C 12/01/2020 12/01/2019, 07/17/2019, 12/18/2018, Additional history exists FOOT EXAM 12/03/2020 12/03/2019, 12/03/2019, 04/18/2019, Additional history exists EYE EXAM 05/06/2021 05/06/2020, 09/17/2019 INFLUENZA VACCINE (#1) 2021 02/06/2020, 10/23/2018 Po stponed from 07/20/2020 (Refu sed) CREATININE (SERUM) 08/04/2021 08/04/2020, 08/02/2020, 05/01/2020, Additional history exists Depression Screening 08/04/2021 08/04/2020 Colorectal Cancer Screening 2024 documented as of this encounter Implants Implanted Type Area Button Tacker Device Shelf Model / Identifier Expiration Serial / Date Lot Catheter, Hemosplit Hemodialysis 23cm #[id number] - Sn/A Right: Bard 03/18/2021 [id number] / Implanted: Qty: 1 on 04/29/2020 by Faviola Morgan MD at [facility] Chest N/A / [id number] documented as of this encounter Procedures Procedure Name Priority Date/Time Associated Diagnosis Comme nts AUTHORIZATION FOR RELEASE Routine 09/08/2020 12:01 AM OF PHI CDT documented in this encounter Results Not on filedocumented in this encounter Insurance Payer Benefit Plan / Subscriber ID Effective Phone Address T ype Group Dates MEDICARE MEDICARE PART [id number] 2020-Prese [phone] [place] [employer] Medicare A & B nt [id number] [place] [id number] CIGNA CIGNA II [id number] 2019-Prese HMO /PPO/POS nt documented as of this encounter
--- OUTSIDE RECORDS SUMMARY | 2020-12-02 21:17 | XMS REPORT | Summary of Care ---
:1975 Author Organization [facility] - [facility] [place] Address [address] [place] [address] Care Team Providers Name Role Phone Pcp, Does Not Have A Unavailable Meliza Pablo MD Primary Care Provider Rakel Johnson DO Advanced Manufacturing Vice President Reason for Visit Reason Comments ER F/U abcess on legs Encounter Details Date Type Department Care Team Description 08/27/2020 Office Visit [facility] Family Kana Pablo Absc ess of multiple sites (Primary Dx); Medicine - James Haider MD Hidradenitis suppurativa; [address] [place] [address] Hemodialysis-[place] [address] [phone] Allergies Active Allergy Reactions Severity Noted Date Comments Insect Venom Anaphylaxis 09/02/2020 ALLERGIC TO ANT BITES documented as of this encounter (statuses as of 09/05/2020) Medications Medication Sig Dispensed Refills Start Date End Date Status ciprofloxacin HCl Take 1 tablet 20 tablet 0 08/21/2020 Active 500 mg by mouth 2 tabletIndications: (two) times Hydradenitis, daily. Abscess clindamycin 1 % Apply to 60 mL 0 08/21/2020 09/10/2020 Ac tive lotionIndications: area(s) 2 Hydradenitis, (two) times Abscess daily for 20 days. TRESIBA FLEXTOUCH 0 06/23/2020 A ctive U-100 100 unit/mL (3 mL) InPn HUMALOG KWIKPEN 0 08/18/2020 Act nathan INSULIN 100 unit/mL injection amLODIPine 10 mg Take 10 mg by 0 Active tablet mouth. allopurinoL 100 mg Take 100 mg 0 Active tablet by mouth. metoprolol TK 1 T PO D 0 07/01/2020 Active succinate XL 50 mg 24 hr tablet rosuvastatin 10 mg 1 tablet 0 A ctive tablet pregabalin 75 mg TK 1 C PO D 0 08/18/2020 Active capsule esomeprazole Take by 0 Active magnesium (NEXIUM mouth. ORAL) cefadroxil 500 mg Take 1 10 capsule 0 08/27/2020 09/10/2020 Active capsuleIndications: capsule by Abscess of multiple mouth every sites 36 (thirty-six) hours for 10 doses. hydrALAZINE 25 mg 1 tablet with 0 02/12/2020 020 Discontinued tablet food documented as of this encounter (statuses as of 09/05/2020) Active Problems Problem Noted Date Positive anti-CCP test 07/02/2020 Troponin I above reference range 04/27/2020 Other chest pain 04/26/2020 Stage 5 chronic kidney disease not on chronic dialysis 04/25/2020 Snores 04/25/2020 Anemia 04/25/2020 History of acute congestive heart failure 04/24/2020 Fatty liver 12/17/2019 Elevated alkaline phosphatase level 12/07/2019 Hidradenitis 07/28/2019 Overview: Added automatically from request for bobby mary beth [id number] Arthritis, multiple joint involvement 03/06/2019 Hyperuricemia 03/06/2019 Abscess of axilla, right 01/16/2019 Overview: Added automatically from request for bobby mary beth [id number] Abscess, groin 01/16/2019 Overview: Added automatically from request for bobby mary beth [id number] Vision loss, left eye 09/17/2018 Multiple sweat gland abscesses 07/01/2018 Hidradenitis suppurativa 07/01/2018 HTN (hypertension) 07/01/2018 Type 2 diabetes mellitus with hyperglycemia, with long -term current use of 07/01/2018 insulin Hyperlipidemia 07/01/2018 Hypomagnesemia 07/01/2018 Obesity (BMI 30-39.9) 01/03/2017 Renal failure 01/03/2017 ESRD on dialysis documented as of this encounter (statuses as of 09/05/2020) Resolved Problems Problem Noted Date Resolved Date CKD (chronic kidney disease) 07/01/2018 05/23/2020 Infected pilonidal cyst 07/01/2018 10/22/2018 Hyponatremia 07/01/2018 10/22/2018 documented as of this encounter (statuses as of 09/05/2020) Immunizations Name Administration Dates Next Due Influenza [...] of this encounter Last Filed Vital Signs Vital Sign Reading Time Taken Comments Blood Pressure 98/60 08/27/2020 11:27 AM CDT Pulse 95 08/27/2020 11:27 AM CDT Temperature 37 C (98.6 F) 08/27/2020 11:27 AM CDT Respiratory Rate - - Oxygen Saturation - - Inhaled Oxygen Concentration - - Weight 98.8 kg (217 lb 12.8 oz) 08/27/2020 11:27 AM CDT Height 170.2 cm (5' 7") 08/27/2020 11:27 AM CDT Body Mass Index 34.11 08/27/2020 11:27 AM CDT documented in this encounter Progress Notes Kana Pablo MD - 08/27/2020 10:45 AM CDT CC: Chief Complaint Patient presents with ER F/U abscess on thighs, buttocks HPI Sonia Song is a 44 year old female who presents for an ER follow-up visit. ER follow-up The patient presented to [facility] ER on 08/21/2020 with complaint of multiple abcesses. The patient underwent the following evaluations: Physical exam only. Treatments in the ER included: I&D ofa large abscess on her left upper thigh. At discharge the patient was instructed to take/use the following medications: Ciprofloxacin (oral) and clindamycin lotion. The patient was told to follow-up with herPCP. Since the ER visit the patient has experienced the following: She is developing new abscesses on her left buttock. She also reports consistently low bp readings of <100/<60. She asks if she should decrease or stop one of her antihypertensive medications. Abscess Location: Pelvis, leg and torso Torso abscess location: L axilla and R axilla Pelvic abscess location: L buttock Leg abscess location: left thigh. Abscess quality: draining, fluctuance, induration, painful, redness and warmth Duration: 1 week Progression: Worsening Pain details: Severity: Moderate Chronicity: Recurrent Context: diabetes Context comment: And ESRD on dialysis Exacerbated by: sitting/pressure on the area. Ineffective treatments: Draining/squeezing, topical antibiotics and oral antibiotics Associated symptoms: no anorexia, no fatigue, no fever, no headaches, no nausea and no vomiting Risk factors: prior abscess Risk factors comment: The patient has hidradenitis suppurativa No Known Allergies Current Outpatient Medications on File Prior to Visit Medication Sig Dispense Refill allopurinoL 100 mg tablet Take 100 mg by mouth. amLODIPine 10 mg tablet Take 10 mg by mouth. esomeprazole magnesium (NEXIUM ORAL) Take by mouth. HUMALOG KWIKPEN INSULIN 100 unit/mL injection metoprolol succinate XL 50 mg 24 hr tablet TK 1 T PO D pregabalin 75 mg capsule TK 1 C PO D rosuvastatin 10 mg tablet 1 tablet TRESIBA FLEXTOUCH U-100 100 unit/mL (3 mL) InPn ciprofloxacin HCl 500 mg tablet Take 1 tablet by mouth 2 (two) times daily. 20 tablet 0 clindamycin 1 % lotion Apply to area(s) 2 (two) times daily for 20 days. 60 mL 0 No current facility-administered medications on file prior to visit. Past Medical History: Diagnosis Date Arthritis, multiple joint involvement 03/06/2019 CKD (chronic kidney disease), stage V Diabetes Diastolic congestive heart failure Elevated alkaline phosphatase level 12/07/2019 ESRD on dialysis Fatty liver 12/17/2019 Hidradenitis suppurativa Hyperlipemia Hypertension Hyperuricemia 03/06/2019 Hypomagnesemia 07/01/2018 Positive anti-CCP test 07/02/2020 Vision loss, left eye 09/17/2018 Past Surgical History: Procedure Laterality Date ARTERIOVENOUS FISTULA CREATION Left 08/04/2020 Surgeon: Shahzad Collado MD; Location: [facility] OR Location CENTRAL VENOUS ACCESS CATHETER PLACEMENT Left 04/29/2020 Surgeon: Faviola Hernandez MD; Location: [facility] OR [facility] HYDRADENTITIS EXCISION Left 08/08/2019 Surgeon: All Emerson MD; Location: [facility] HYSTERECTOMY INCISION AND DRAINAGE OF ABSCESS Bilateral 01/20/2019 Surgeon: All Emerson MD; Location: [facility] INCISION AND DRAINAGE OF ABSCESS N/A 02/03/2020 Surgeon: Faviola Hernandez MD; Location: [facility] Family History Problem Relation Age of Onset Diabetes Mother Heart Mother CHF High cholesterol Mother Hypertension Mother Cancer Mother pancreatic Diabetes Son Social History Socioeconomic History Marital status: Spouse name: Not on file Number of children: Not on file Years of education: Not on file Highest education level: Not on file Occupational History Not on file Social Needs Financial resource strain: Not on file Food insecurity Worry: Not on file Inability: Not on file Transportation needs Medical: Not on file Non-medical: Not on file Tobacco Use Smoking status: Never Smoker Smokeless tobacco: Never Used Substance and Sexual Activity Alcohol use: Yes Comment: once or twice a month Drug use: No Sexual activity: Not on file Lifestyle Physical activity Days per week: Not on file Minutes per session: Not on file Stress: Not on file Relationships Social connections Talks on phone: Not on file Gets together: Not on file Attends jehovah's witness service: Not on file Active member of club or organization: Not on file Attends meetings of clubs or organizations: Not on file Relationship status: Not on file Intimate partner violence Fear of current or ex partner: Not on file Emotionally abused: Not on file Physically abused: Not on file Forced sexual activity: Not on file Other Topics Concern Not on file Social History Narrative She works as a [employer]. She is . Review of Systems Constitutional: Negative. Negative for fatigue and fever. Respiratory: Negative. Cardiovascular: Negative. Gastrointestinal: Negative. Negative for anorexia, nausea and vomiting. Genitourinary: Negative. Musculoskeletal: Negative. Skin: Positive for wound. + abscesses Neurological: Negative. Negative for headaches. Psychiatric/Behavioral: Negative. Endocrine: Endocrine negative Vital signs BP 98/60 | Pulse 95 | Temp 37 C (98.6 F) (Tympanic) | Ht 5' 7" (1.702 m) | Wt 217 lb 12.8 oz(98.8 kg) | BMI 34.11 kg/m Physical Exam Vitals signs and nursing note reviewed. Constitutional: General: She is not in acute distress. Skin: Findings: Abscess (multiple, all are draining and tender to palpation) present. Neurological: Mental Status: She is alert. Psychiatric: Mood and Affect: Mood normal. Behavior: Behavior normal. LABS: CBC CMP WBC (10*3/L) Date Value 08/02/2020 13.05 (H) NA (mmol/L) Date Value 08/04/2020 139 RBC (10*6/L) Date Value 08/02/2020 4.07 K (mmol/L) Date Value 08/04/2020 5.1 (H) PLT (10*3/L) Date Value 08/02/2020 337 CALCIUM (mg/dL) Date Value 08/04/2020 8.0 (L) HGB (g/dL) Date Value 08/02/2020 10.8 (L) CL (mmol/L) Date Value 08/04/2020 100 HCT (%) Date Value 08/02/2020 34.5 (L) BUN (mg/dL) Date Value 08/04/2020 42 (H) LIPID PANEL CREATININE (mg/dL) Date Value 08/04/2020 7.60 (H) CHOL (mg/dL) Date Value 12/01/2019 220 (H) GLUCOSE (mg/dL) Date Value 08/04/2020 72 LDL CHOL (mg/dL) Date Value 12/01/2019 132 CO2 TOTAL (mmol/L) Date Value 08/04/2020 26 HDL (mg/dL) Date Value 12/01/2019 35 (L) ALBUMIN Date Value Ref Range Status 04/24/2020 4.2 3.5 - 5.0 g/dL Final TRIG (mg/dL) Date Value 12/01/2019 264 (H) T PROTEIN Date Value Ref Range Status 04/24/2020 8.2 6.3 - 8.2 g/dL Final TSH TOTAL BILI Date Value Ref Range Status 04/24/2020 0.6 0.1 - 1.1 mg/dL Final TSH (mIU/L) Date Value 04/24/2020 2.79 No components found for: BILIUNCOM BILI CONJ Date Value Ref Range Status 04/11/2019 0.0 0.0 - 0.3 mg/dL Final ALT(SGPT) Date Value Ref Range Status 07/17/2019 17 9 - 51 U/L Final ALTv Date Value Ref Range Status 04/24/2020 34 5 - 35 U/L Final AST(SGOT) Date Value Ref Range Status 04/24/2020 33 13 - 40 U/L Final ALK PHOS Date Value Ref Range Status 04/24/2020 135 (H) 34 - 122 U/L Final ASSESSMENT/PLAN Diagnoses and all orders for this visit: Abscess of multiple sites, Hidradenitis suppurativa The ER records were reviewed. A change in antibiotic treatment is warranted given the physical examfinding of new abscesses. Stop ciprofloxacin and start cefadroxil as prescribed. The patient was told to be sure to complete the full antibiotic course. Continue clindamycin lotion. A wound culturewas obtained from one of her left buttock abscess wounds. I also recommended the following: Keep the area clean and dry. Wash hands regularly and avoid sharing personal hygiene items like towels to help prevent spread of certain bacterial infections (such as MRSA and MSSA) to others. Strong ER precautions were given for worsening symptoms. Follow-up with ID as scheduled. - cefadroxil 500 mg capsule; Take 1 capsule by mouth every 36 (thirty-six) hours for 10 doses. - WOUND CULTURE Hemodialysis-associated hypotension Given her blood pressure has been consistently <100/60 since starting hemodialysis, I recommendedthat she discontinue hydralazine but continue her other antihypertensive medications. The patient was instructed to self monitor his/her blood pressure once-twice daily varying the times when it is checked and to bring the record of readings to each office visit. The patient should follow-up sooner if the blood pressure is trending >/=130/80. The patient should seek immediate ER evaluation for acute symptoms such as persistent dizziness, persistent palpitations, chest pain, SOB, syncope, etc. Plan of care, desired health behaviors, goals, Ddx, and any prescribed medications were discussed with the patient. This visit did not involve counseling and coordination that comprised more than 50% of the visit time. Education resources and self-management tools were provided and reviewed with the AVS. Patient/guardian/family verbalized understanding and agrees to the plan of care. Barriers tocare: None. Ability to manage care: Good. Advanced care planning (living will) information was not given/offered to the patient to review for discussion at a future visit. If applicable, the [facility] database was accessed to review any controlled substance prescription claims data. If the patient is taking prescribed medications, the [employer] prescription claims data in [employer] was reviewed to assess patient compliance with the medication treatment plan. COVID-19 precautions given including frequent handwashing, social distancing, cleaning and disinfecting, indications for testing, etc. Follow-up: Return as previously advised/scheduled. Follow-up sooner if any problems or concerns. Scribe Attestation Jing Ram , howard scribing for, and in the presence of, Kana Pablo MD who performed the services described here-in. Jing Jiang, August 27, 2020, 11:39 AM Physician Attestation I, Kana Pablo MD, personally performed the services described in this documentation , as scribed by, Jing Jiang in my presence and it is both accurate and complete. Kana Pablo MD August 27, 2020, 11:39 AM documented in this encounter Plan of Treatment Date Type Specialty Care Team Description 09/13/2020 Office Visit Infectious Disease Karen Diggs MD [address] [place] [phone] 10/01/2020 Office Visit Rheumatology Lydia Rodriguez MD [address] [place] [phone] 10/27/2020 Office Visit Endocrinology Diabetes & Maik Lacy MD [address] [address] [phone] Health Maintenance Due Date Last Done Comments [...] of this encounter Implants Implanted Type Area Meat Grinder Device Shelf Model / Identifier Expiration Serial / Date Lot Catheter, Hemosplit Hemodialysis 23cm #[id number] - Sn/A Right: Bard 03/18/2021 [id number] / Implanted: Qty: 1 on 04/29/2020 by Faviola Morgan MD at [facility] Chest N/A / [id number] documented as of this encounter Procedures Procedure Name Priority Date/Time Associated Diagnosis Comme nts WOUND CULTURE Routine 08/27/2020 1:18 PM Abscess of multiple Results for this CDT sites procedure are i n the results section . documented in this encounter Results WOUND CULTURE (08/27/2020 1:18 PM CDT) Wound Culture 1+ Skin ana: [facility] Commensal skin SERVICES microorganisms only. Gram stain No Organisms seen [facility] Gram stain No PMNs or Mononuclear [facility] cells observed SERVICES Specimen Swab - BUTTOCK, LEFT Narrative Performed At Bacterial pathogens associated with wound infections w ere [facility] not identified, which include Pseudomonas aeruginosa a nd Staphylococcus aureus (MRSA or MSSA). Performing Organization Address City/State/Zipcode Phone Number [facility] CLIA: [id number] [place], [place] [id number] [address] [place] [address] documented in this encounter Visit Diagnoses Diagnosis Abscess of multiple sites - Primary Cellulitis and abscess of unspecified si te Hidradenitis suppurativa Hidradenitis Hemodialysis-associated hypotension Hypotension of hemodialysis documented in this encounter Insurance Payer Benefit Plan / Subscriber ID Effective Phone Address T ype Group Dates CIGNA CIGNA II [id number] 2019-Prese HMO /PPO/POS nt MEDICARE MEDICARE PART [id number] 2020-Prese [phone] [place] [place] Medicare A & B nt [id number] [place] [id number] [phone] (Work) documented as of this encounter
--- OUTSIDE RECORDS SUMMARY | 2020-12-02 21:17 | XMS REPORT | Summary of Care ---
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 Contractor Reason for Visit Reason Comments ER F/U abcess on legs Encounter Details Date Type Department Care Team Description 08/27/2020 Office Visit [facility] Family Kana Pablo Absc ess of multiple sites (Primary Dx); Medicine - James Haider MD Hidradenitis suppurativa; [address] [place] [address] [address]odialysis-[place] [address] [phone] Allergies Active Allergy Reactions Severity Noted Date [...] automatically from request for bobby mary beth [id number] Arthritis, multiple joint involvement 03/06/2019 Hyperuricemia 03/06/2019 Abscess of axilla, right 01/16/2019 Overview: Added automatically from request for bobby mary beth [id number] Abscess, groin 01/16/2019 Overview: Added automatically from request for bobby mary beth [id number] Vision loss, left eye 09/17/2018 Multiple sweat [...] visit. ER follow-up The patient presented to [facility] ER on 08/21/2020 with complaint [...] Left 08/04/2020 Surgeon: Shahzad Collado MD; Location: [facility] OR Location CENTRAL VENOUS ACCESS CATHETER PLACEMENT Left 04/29/2020 Surgeon: Faviola Hernandez MD; Location: [facility] OR [facility] HYDRADENTITIS EXCISION Left 08/08/2019 Surgeon: All Emerson MD; Location: [facility] OR [facility] HYSTERECTOMY INCISION AND DRAINAGE OF ABSCESS Bilateral 01/20/2019 Surgeon: All Emerson MD; Location: [facility] OR [facility] INCISION AND DRAINAGE OF ABSCESS N/A 02/03/2020 Surgeon: Faviola Hernandez MD; Location: [facility] OR [facility] Family History Problem Relation Age of Onset [...] file Gets together: Not on file Attends judaism service: Not on file Active member of [...] Social History Narrative She works as a [employer]. She is . Review of Systems Constitutional: [...] at a future visit. If applicable, the [facility] database was accessed to review any controlled substance prescription claims data. If the patient is taking prescribed medications, the [employer] prescription claims data in [employer] was reviewed to assess patient compliance with [...] Office Visit Infectious Disease Karen Diggs MD [address] [place] [phone] 10/01/2020 Office Visit Rheumatology Lydia Rodriguez MD [address] [place] [phone] 10/27/2020 Office Visit Endocrinology Diabetes & Maik Lacy MD [address] [address] [phone] Health Maintenance Due Date Last Done Comments [...] of this encounter Implants Implanted Type Area Art Framing Manager Device Shelf Model / Identifier Expiration Serial / Date Lot Catheter, Hemosplit Hemodialysis 23cm #[id number] - Sn/A Right: Bard 03/18/2021 [id number] / Implanted: Qty: 1 on 04/29/2020 by Faviola Morgan MD at [facility] Chest N/A / [id number] documented as of this encounter Procedures Procedure Name Priority Date/Time Associated Diagnosis Comme nts WOUND CULTURE Routine 08/27/2020 1:18 PM Abscess of multiple Results for this CDT sites procedure are i n the results section . documented in this encounter Results WOUND CULTURE (08/27/2020 1:18 PM CDT) Wound Culture 1+ Skin ana: [facility] Commensal skin SERVICES microorganisms only. Gram stain No Organisms seen [facility] Gram stain No PMNs or Mononuclear [facility] cells observed SERVICES Specimen Swab - BUTTOCK, LEFT Narrative Performed At Bacterial pathogens associated with wound infections w ere [facility] not identified, which include Pseudomonas aeruginosa a nd Staphylococcus aureus (MRSA or MSSA). Performing Organization Address City/State/Zipcode Phone Number [facility] CLIA: [id number] [place], [place] [id number] [address] [place] [address] documented in this encounter Visit Diagnoses Diagnosis Abscess of multiple sites - Primary Cellulitis and abscess of unspecified si te Hidradenitis suppurativa Hidradenitis Hemodialysis-associated hypotension Hypotension of hemodialysis documented in this encounter Insurance Payer Benefit Plan / Subscriber ID Effective Phone Address T ype Group Dates CIGNA CIGNA II [id number] 2019-Prese HMO /PPO/POS nt MEDICARE MEDICARE PART [id number] 2020-Prese [phone] [address] [place] Medicare A & B nt 82 [id number] [place] [id number] [phone] [id number] (Work) documented as of this encounter
--- OUTSIDE RECORDS SUMMARY | 2020-12-02 21:17 | XMS REPORT | Summary of Care ---
:1975 Author Organization [facility] Address [address] [place] [address] Care Team Providers Name Role Phone Pcp, Does Not Have A Unavailable Meliza Pablo MD Primary Care Provider Rakel Johnson DO Central Office Installer Reason for Visit Reason Comments RUNNY NOSE Encounter Details Date Type Department Care Team Description 09/02/2020 Telemedicine Visit [facility] Family SamyRomeotiffany johnson Viral URI (Primary Medicine - James Haider MD Dx) [address] [place] [address] [place] [phone] Allergies Active Allergy Reactions Severity Noted Date Comments Insect Venom Anaphylaxis 09/02/2020 ALLERGIC TO ANT BITES documented as of this encounter (statuses as of 09/06/2020) Medications Medication Sig Dispensed Refills Start Date End Date Status ciprofloxacin HCl 500 mg Take 1 tablet by 20 tablet 0 08/21/20 20 Active tabletIndications: mouth 2 (two) Hydradenitis, Abscess times daily. clindamycin 1 % Apply to 60 mL 0 08/21/2020 Act nathan lotionIndications: area(s) 2 (two) 0 Hydradenitis, Abscess times daily for 20 days. TRESIBA FLEXTOUCH U-100 0 06/23/2020 Active 100 [...] Take by mouth. 0 Active (NEXIUM ORAL) cefadroxil 500 mg Take 1 capsule 10 capsule 0 08/27/202009/10 Active capsuleIndications: by mouth every 0 Abscess of multiple 36 (thirty-six) sites hours for 10 doses. methylPREDNISolone Take by mouth 21 Each 0 [...] as of this encounter (statuses as of 09/06/2020) Active Problems Problem Noted Date Positive anti-CCP test 07/02/2020 Troponin I above reference range 04/27/2020 Other chest pain 04/26/2020 Stage 5 chronic kidney disease not on chronic dialysis 04/25/2020 Snores 04/25/2020 Anemia 04/25/2020 History of acute congestive heart failure 04/24/2020 Fatty liver 12/17/2019 Elevated alkaline phosphatase level 12/07/2019 Hidradenitis 07/28/2019 Overview: Added automatically from request for bobby clinton [id number] Arthritis, multiple joint involvement 03/06/2019 Hyperuricemia 03/06/2019 Abscess of axilla, right 01/16/2019 Overview: Added automatically from request for bobby clinton [id number] Abscess, groin 01/16/2019 Overview: Added automatically from request for bobby clinton [id number] Vision loss, left eye 09/17/2018 Multiple sweat gland abscesses 07/01/2018 Hidradenitis suppurativa 07/01/2018 HTN (hypertension) 07/01/2018 Type 2 diabetes mellitus with hyperglycemia, with long -term current use of 07/01/2018 insulin Hyperlipidemia 07/01/2018 Hypomagnesemia 07/01/2018 Obesity (BMI 30-39.9) 01/03/2017 Renal failure 01/03/2017 ESRD on dialysis documented as of this encounter (statuses as of 09/06/2020) Resolved Problems Problem Noted Date Resolved Date CKD (chronic kidney disease) 07/01/2018 05/23/2020 Infected pilonidal cyst 07/01/2018 10/22/2018 Hyponatremia 07/01/2018 10/22/2018 documented as of this encounter (statuses as of 09/06/2020) Immunizations Name Administration Dates Next Due Influenza [...] Signs Not on filedocumented in this encounter Patient Instructions Patient InstructionsKana Pablo MD - 09/02/2020 4:15 PM CDT Patient Education Viral Upper Respiratory Illness (Adult) You have a viral upper respiratory illness (URI), which is another term for the common cold. This illness is contagious during the first few days. It is spread through the air by coughing and sneezing.It may also be spread by direct contact (touching the sick person and then touching your own eyes, nose, or mouth). Frequent handwashing will decrease risk of spread. Most viral illnesses go away within 7 to 10 days with rest and simple home remedies. Sometimes the illness may last for several weeks. Antibiotics will not kill a virus, and they are generally not prescribed for this condition. Home care If symptoms are severe, rest at home for the first 2 to 3 days. When you resume activity, don't let yourself get too tired. Don't smoke. If you need help stopping, talk with your healthcare provider. Avoid being exposed to cigarette smoke (yours or others). You may use acetaminophen or ibuprofen to control pain and fever, unless another medicine was prescribed.If you have chronic liver or kidney disease, have ever had a stomach ulcer or gastrointestinal bleeding, or are taking blood- thinning medicines, talk with your healthcare provider before usingthese medicines. Aspirin should never be given to anyone under 18 years of age who is ill with a viral infection or fever. It may cause severe liver or brain damage. Your appetite may be poor, so a light diet is fine. Stay well hydrated by drinking 6 to 8 glassesof fluids per day (water, soft drinks, juices, tea, or soup). Extra fluids will help loosen secretions in the nose and lungs. Itpf-dbv-fbfmsov cold medicines will not shorten the length of time youre sick, but they may be helpful for the following symptoms: cough, sore throat, and nasal and sinus congestion. If you takeprescription medicines, ask your healthcare provider or pharmacist which zfkw-ivs-bdovoui medicines are safe to use. (Note: Don't use decongestants if you have high blood pressure.) Follow-up care Follow up with your healthcare provider, or as advised. When to seek medical advice Call your healthcare provider right away if any of these occur: Cough with lots of colored sputum (mucus) Severe headache; face, neck, or ear pain Difficultyswallowingdue to throat pain Fever of 100.4F (38C) or higher, or as directed by your healthcare provider Call 911 Call 911 if any of these occur: Chest pain, shortness of breath, wheezing, or difficulty breathing Coughing up blood Very severe pain with swallowing, especially if it goes along with a muffled voice Jignesh last reviewed this educational content on 04/19/201819992307-9921 [employer]. [address] [place] [address], [place] [address]. All rights reserved. This information is not intended as a substitute for professional medical care. Always follow your healthcare professional's instructions. documented in this encounter Progress Notes Kana Pablo MD - 09/02/2020 4:15 PM CDT TELEHEALTH NOTE Verbal consent obtained from Patient: Sonia Song due to the COVID-19 pandemic for telehealth services provided below. Communication with patient was conducted via Video Call. Location of Patient: Home Location of Provider: Office Date of Service: 09/02/2020 CC: Chief Complaint Patient presents with RUNNY NOSE HPI Sonia Song is a 44 year old female who participated in a Telehealth visit today for URI symptoms. RUNNY NOSE Presenting symptoms: congestion, rhinorrhea and sore throat (described as scratchy) Presenting symptoms: no cough, no fatigue and no fever Severity: Mild Onset quality: Sudden Duration: 5 days Timing: Constant Progression: Unchanged Chronicity: New Relieved by: None tried Worsened by: Nothing Ineffective treatments: None tried Associated symptoms: sneezing Associated symptoms: no headaches and no myalgias Risk factors: chronic kidney disease, diabetes mellitus, recent illness (multiple abscesses related to hidradenitis) and sick contacts (Son and grandson with URI symptoms, they tested negative for COVID-19) Allergies Allergen Reactions Insect Venom Anaphylaxis ALLERGIC TO ANT BITES Current Outpatient Medications on File Prior to Visit Medication Sig Dispense Refill methylPREDNISolone (MEDROL, LASHAWN,) 4 mg tablets Take by mouth SEE- INSTRUCTIONS. follow package directions 21 Each 0 allopurinoL 100 mg tablet Take 100 mg by mouth. amLODIPine 10 mg tablet Take 10 mg by mouth. cefadroxil 500 mg capsule Take 1 capsule by mouth every 36 (thirty-six) hours for 10 doses. 10 capsule 0 esomeprazole magnesium (NEXIUM ORAL) Take by mouth. [...] Left 08/04/2020 Surgeon: Shahzad Collado MD; Location: [facility] Location CENTRAL VENOUS ACCESS CATHETER PLACEMENT Left 04/29/2020 Surgeon: Faviola Hernandez MD; Location: [facility] OR [facility] HYDRADENTITIS EXCISION Left 08/08/2019 Surgeon: All Emerson MD; Location: [facility] OR [facility] HYSTERECTOMY INCISION AND DRAINAGE OF ABSCESS Bilateral 01/20/2019 Surgeon: All Emerson MD; Location: [facility] OR [facility] INCISION AND DRAINAGE OF ABSCESS N/A 02/03/2020 Surgeon: Faviola Hernandez MD; Location: [facility] OR [facility] Family History Problem Relation Age of Onset [...] file Gets together: Not on file Attends temple service: Not on file Active member of [...] Social History Narrative She works as a [employer]. She is . Review of Systems Constitutional: Negative. Negative for appetite change, chills, fatigue and fever. HENT: Positive for congestion, rhinorrhea, sneezing and sore throat (described as scratchy). - loss of taste or smell Eyes: Negative for discharge, redness and itching. Respiratory: Negative. Negative for cough and shortness of breath. Cardiovascular: Negative. Gastrointestinal: Negative. Negative for diarrhea, nausea and vomiting. Genitourinary: Negative. Musculoskeletal: Negative for myalgias. Neurological: Negative for headaches. Vital signs Level of pain 0. Physical Exam Constitutional: She is oriented to person, place, and time. She appears well- developed and well-nourished. No distress. Pulmonary/Chest: Effort normal. No stridor. No respiratory distress. No audible adventitious breath sounds Neurological: She is alert and oriented to person, place, and time. Skin: No rash noted. No pallor. Psychiatric: She has a normal mood and affect. Her speech is normal and behavior is normal. Judgmentand thought content normal. Cognition and memory are normal. LABS: CBC CMP WBC (10*3/L) Date [...] Diagnoses and all orders for this visit: ICD-10-CM ICD-9-CM 1. Viral URI J06.9 465.9 She refuses COVID-19 testing given all of her household contacts tested negative for COVID-19 this week. I explained to the patient that she likely has a viral condition and antibiotic tx is not necessary. Symptomatic therapy suggested: Medications as noted below, increase intake of non-caffeinatedfluids, gargle PRN sore throat, use mist at bedside PRN congestion, apply facial warm packs PRN sinus pain, Mucinex max strength 1200mg tabs q12hr PRN congestion, and may use acetaminophen prn. Returnfor re-evaluation if the symptoms worsen or persist. Orders: - fluticasone propionate 50 mcg/actuation nasal spray; Use 2 Sprays in each nostril daily. - loratadine 10 mg tablet; Take 1 tablet by mouth every other day. Plan of care, desired health behaviors, goals, Ddx, and any prescribed medications were discussed with the patient. Education resources and self- management tools were provided in the After Visit Summary (AVS) which is accessible through [employer]. A total of 15 minutes was spent on the Video Call, chart review, and coordination of care with specialists. Patient/guardian/family verbalized understanding and agrees to the plan of care. Barriers to care: None. Ability to manage care: Good. Advanced care planning (living will) information was not given/offered to the patient to review for discussion at a future visit. If applicable, the [place] [employer] database was accessed to review any controlled substance prescription claims data. If the patient is taking prescribed medications, the [employer] prescription claims data in [place] was reviewed to assess patient compliance with the medication treatment plan. COVID-19 precautions given including frequent handwashing, social distancing, cleaning and disinfecting, indications for testing, etc. Follow-up: Return if symptoms worsen or fail to improve. Return for routine care as scheduled or previously advised. Scribe Attestation Jing Rma , am scribing for, and in the presence of, Kana Pablo MD who performed the services described here-in. Jing Jiang, September 02, 2020, 4:15 PM Physician Attestation I, Kana Pablo MD, personally performed the services described in this documentation , as scribed by, Jing Jiang in my presence and it is both accurate and complete. Kana Pablo MD September 02, 2020, 4:15 PM documented in this encounter Plan of Treatment Date Type Specialty Care Team Description 09/13/2020 Office Visit Infectious Disease Karen Diggs MD [address] [place] [phone] 10/01/2020 Office Visit Rheumatology Lydia Rodriguez MD [address] [place] [phone] 10/27/2020 Office Visit Endocrinology Diabetes & Lacy, Maik fonseca MD [address] [address] [phone] Health Maintenance Due Date Last Done Comments [...] of this encounter Implants Implanted Type Area News Content Specialist Device Shelf Model / Identifier Expiration Serial / Date Lot Catheter, Hemosplit Hemodialysis 23cm #[id number] - Sn/A Right: Bard 03/18/2021 [id number] / Implanted: Qty: 1 on 04/29/2020 by Faviola Morgan MD at [facility] Chest N/A / [id number] documented as of this encounter Results Not on filedocumented in this encounter Visit Diagnoses Diagnosis Viral URI - Primary Acute upper respiratory infections of un specified site documented in this encounter Insurance Payer Benefit Plan / Subscriber ID Effective Phone Address T ype Group Dates MEDICARE MEDICARE PART [id number] 2020-Prese [phone] [address] [place] Medicare A & B nt [id number] [place] [id number] CIGNA CIGNA II [id number] 2019-Prese HMO /PPO/POS nt [phone] [id number] (Work) documented as of this encounter
--- OUTSIDE RECORDS SUMMARY | 2020-12-02 21:18 | XMS REPORT | Summary of Care ---
:1975 Author Organization [facility] Address [address] [place] [address] Care Team Providers Name Role Phone Pcp, Does Not Have A Unavailable Meliza Pablo MD Primary Care Provider Rakel Johnson DO Nailing Machine Feeder Reason for Visit Reason Comments Establish Care Encounter Details Date Type Department Care Team Description 09/13/2020 Office Visit [facility] Joseph Diggs MD Hidradenitis Infectious Diseases- [address] [place] [address] Blvd suppurativa (Primary [place], [place] Dx) [facility] [phone] [place] [address] Drive, [address] [place] [address] Allergies Active Allergy Reactions Severity Noted Date Comments Insect Venom Anaphylaxis 09/02/2020 ALLERGIC TO ANT BITES documented as of this encounter (statuses as of 09/20/2020) Medications Medication Sig Dispensed Refills Start Date End Date Status ciprofloxacin HCl 500 mg Take 1 tablet 20 tablet 0 08/21/2020 Active tabletIndications: by mouth 2 Hydradenitis, Abscess (two) times daily. TRESIBA FLEXTOUCH U-100 0 06/23/2020 [...] 0 08/28/2020 Active (MEDROL, LASHAWN,) 4 mg SEE-INSTRUCTION tabletsIndications: S. follow Insect bite, unspecified package site, initial encounter directions fluticasone propionate Use 2 Sprays in 16 g 0 09/02/2020 Active 50 mcg/actuation nasal each nostril sprayIndications: Viral daily. URI loratadine 10 mg Take 1 tablet 15 tablet 0 09/02/2020 Active tabletIndications: Viral by mouth every URI other day. cefadroxil 500 mg Take 500 mg by 0 Active capsule mouth every 36 (thirty-six) hours. Take 1 capsule by mouth every 36 (thirty-six) hours for 10 doses. MINOCYCLINE 100 mg Take 1 capsule 180 capsule 1 09/13/2020 Active capsuleIndications: by mouth every 1 Hidradenitis suppurativa 12 (twelve) hours for 90 days. documented as of this encounter (statuses as of 09/20/2020) Active Problems Problem Noted Date Positive anti-CCP test 07/02/2020 Troponin I above reference range 04/27/2020 Other chest pain 04/26/2020 Stage 5 chronic kidney disease not on chronic dialysis 04/25/2020 Snores 04/25/2020 Anemia 04/25/2020 History of acute congestive heart failure 04/24/2020 Fatty liver 12/17/2019 Elevated alkaline phosphatase level 12/07/2019 Hidradenitis 07/28/2019 Overview: Added automatically from request for bobby clinton [id number] Arthritis, multiple joint involvement 03/06/2019 Hyperuricemia 03/06/2019 Abscess of axilla, right 01/16/2019 Overview: Added automatically from request for bobby clinton [id number] Abscess, groin 01/16/2019 Overview: Added automatically from request for bobby clinton [id number] Vision loss, left eye 09/17/2018 Multiple sweat gland abscesses 07/01/2018 Hidradenitis suppurativa 07/01/2018 HTN (hypertension) 07/01/2018 Type 2 diabetes mellitus with hyperglycemia, with long -term current use of 07/01/2018 insulin Hyperlipidemia 07/01/2018 Hypomagnesemia 07/01/2018 Obesity (BMI 30-39.9) 01/03/2017 Renal failure 01/03/2017 ESRD on dialysis documented as of this encounter (statuses as of 09/20/2020) Resolved Problems Problem Noted Date Resolved Date CKD (chronic kidney disease) 07/01/2018 05/23/2020 Infected pilonidal cyst 07/01/2018 10/22/2018 Hyponatremia 07/01/2018 10/22/2018 documented as of this encounter (statuses as of 09/20/2020) Immunizations Name Administration Dates Next Due Influenza [...] Sign Reading Time Taken Comments Blood Pressure 147/86 09/13/2020 4:01 PM CDT Pulse 99 09/13/2020 4:01 PM CDT Temperature 36.9 C (98.4 F) 09/13/2020 3:55 PM CDT Respiratory Rate 16 09/13/2020 3:55 PM CDT Oxygen Saturation - - Inhaled Oxygen Concentration - - Weight 101.7 kg (224 lb 3.2 oz) 09/13/2020 3:55 PM CDT Height 167.6 cm (5' 6") 09/13/2020 3:55 PM CDT Body Mass Index 36.19 09/13/2020 3:55 PM CDT documented in this encounter Progress Notes Joseph Diggs MD - 09/13/2020 3:30 PM CDT Visit Type: ID New Outpatient Date of service: 09/13/2020 Referred by: No referring provider defined for this encounter. Chief Complaint: "I need an ID evaluation for abscess in groin " HPI: Sonia Song is a 44 year old female here today for infectious disease evaluation. Patient has history of hidradenitis suppuritiva comes here for the treatment of the same. She has pmh of esrd, dm, htn, hld, and has been on clindamycin in the past for the same. Recently she was started on cefadroxil for the same. She says the lesion on her axilla has healed up. She also c/o a lesion on her buttock. PMH: Past Medical History: Diagnosis Date Arthritis, multiple joint involvement 03/06/2019 CKD (chronic kidney disease), stage V Diabetes Diastolic congestive heart failure Elevated alkaline phosphatase level 12/07/2019 ESRD on dialysis Fatty liver 12/17/2019 Hidradenitis suppurativa Hyperlipemia Hypertension Hyperuricemia 03/06/2019 Hypomagnesemia 07/01/2018 Positive anti-CCP test 07/02/2020 Vision loss, left eye 09/17/2018 MEDICATIONS Current Outpatient Medications on File Prior to Visit Medication Sig Dispense Refill cefadroxil 500 mg capsule Take 500 mg by mouth every 36 (thirty-six) hours. Take 1 capsule by mouth every 36 (thirty-six) hours for 10 doses. loratadine 10 mg tablet Take 1 tablet by mouth every other day. 15 tablet 0 esomeprazole magnesium (NEXIUM ORAL) Take by mouth. fluticasone propionate 50 mcg/actuation nasal spray Use 2 Sprays in each nostril daily. 16 g 0 methylPREDNISolone (MEDROL, LASHAWN,) 4 mg tablets Take by mouth SEE- INSTRUCTIONS. follow package directions 21 Each 0 allopurinoL 100 mg tablet Take 100 mg by mouth. amLODIPine 10 mg tablet Take 10 mg by mouth. HUMALOG KWIKPEN INSULIN 100 unit/mL injection metoprolol succinate XL 50 mg 24 hr tablet TK 1 T PO D pregabalin 75 mg capsule TK 1 C PO D rosuvastatin 10 mg tablet 1 tablet TRESIBA FLEXTOUCH U-100 100 unit/mL (3 mL) InPn ciprofloxacin HCl 500 mg tablet Take 1 tablet by mouth 2 (two) times daily. 20 tablet 0 No current facility-administered medications on file prior to visit. ALLERGIES Allergies Allergen Reactions Insect Venom Anaphylaxis ALLERGIC TO ANT BITES SOCIAL HISTORY Social History Socioeconomic History Marital status: Spouse [...] file Gets together: Not on file Attends taoist service: Not on file Active member of [...] Social History Narrative She works as a [employer]. She is . FAMILY HISTORY Family History Problem Relation Age of Onset Diabetes Mother Heart Mother CHF High cholesterol Mother Hypertension Mother Cancer Mother pancreatic Diabetes Son REVIEW OF SYSTEMS Constitutional: no fever, malaise or weight loss Eyes: no vision changes ENT: no hearing loss or sorethroat Cardiovascular: No CP, palpitations, orthopnea Respiratory: no dyspnea, cough, sputum production Gastrointestinal: no heartburn, nausea, vomitting or diarhea Genitourinary: no dysuria, frequency or hesitancy Musculoskeletal: no joint pain or stiffness Skin: +lt thigh lesion, healed axilla lesion. Neuro: no RODRIGUEZ, seizures PHYSICAL EXAM Constitutional: alert and oriented x 4, no apparent distress. BP (!) 147/86 | Pulse 99 | Temp 36.9 C (98.4 F) (Oral) | Resp 16 | Ht 5' 6" (1.676 m) | Wt 224 lb 3.2 oz (101.7 kg) | BMI 36.19 kg/m Eyes: EOMI, anicteric sclerae. Moist pink conjunctivae ENT: exam is normal CV: RRR, S1, S2 normal; no murmurs, rubs or gallops Respiratory: clear to auscultation bilaterally, normal respiratory effort GI: abdomen soft; non-tender; non-distended; normoactive bowel sounds Musculoskeletal: no digital clubbing or cyanosis Skin: warm and dry. + rash as shown in picture. Neuro: no focal deficits Hem/lymphatic: no lymphadenopathy LABORATORY WBC (10*3/L) Date Value 08/02/2020 13.05 (H) HGB (g/dL) Date Value 08/02/2020 10.8 (L) PLT (10*3/L) Date Value 08/02/2020 337 CREATININE (mg/dL) Date Value 08/04/2020 7.60 (H) GLUCOSE (mg/dL) Date Value 08/04/2020 72 ALT(SGPT) (U/L) Date Value 07/17/2019 17 ALTv (U/L) Date Value 04/24/2020 34 AST(SGOT) (U/L) Date Value 04/24/2020 33 ALK PHOS (U/L) Date Value 04/24/2020 135 (H) ASSESSMENT 44 year-old female with pmh of obesity, dm, htn, hld, esrd comes to the clinic for chronic lesions in her axilla and groin. The lesions in the axilla have healed up however still has a discharging lesion on her left groin. She is also noted to have a nodule over her lower back. Hidradenitis suppurtiva with active lesion in lt thigh. Nodule over the lower back. ESRd DM HTN, HLD Obesity advised a calorie restricted diet. PLAN Start doxycycline 100mg bid for the next three months. Referral to dermatology for biopsy of the nodule over her lower back. Advised strict control of diabetes mellitus Patient already got flu shot with nephrology. Discussed importance of compliance with medications Keep follow up appointment with PCP Instructed patient to contact clinic or return if any new problems RTC in 3 months R CHECKER ROVING OR YARN documented in this encounter Plan of Treatment Date Type Specialty Care Team Description 10/01/2020 Office Visit Rheumatology Lydia Rodriguez MD [address] [place] [phone] 10/27/2020 Office Visit Endocrinology Diabetes & Lacy, Maik fonseca MD Metabolism [address] [place] [address] [phone] 12/20/2020 Office Visit Infectious Disease Karen Diggs MD [address] [place] [phone] Health Maintenance Due Date Last Done [...] of this encounter Implants Implanted Type Area Student Records Specialist Device Shelf Model / Identifier Expiration Serial / Date Lot Catheter, Hemosplit Hemodialysis 23cm #[id number] - Sn/A Right: Bard 03/18/2021 [id number] / Implanted: Qty: 1 on 04/29/2020 by Faviola Morgan MD at [facility] Chest N/A / [id number] documented as of this encounter Results Not on filedocumented in this encounter Visit Diagnoses Diagnosis Hidradenitis suppurativa - Primary Hidradenitis documented in this encounter Insurance Payer Benefit Plan / Subscriber ID Effective Phone Address T ype Group Dates CIGNA CIGNA II [id number] 2019-Prese HMO /PPO/POS nt MEDICARE MEDICARE PART [id number] 2020-Travis [phone] [address] Medicare A & B nt 82 [id number] [place] [id number] [phone] [id number] (Work) documented as of this encounter
--- OUTSIDE RECORDS SUMMARY | 2020-12-02 21:18 | XMS REPORT | Summary of Care ---
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 [facility] Lydia Rodriguez MD [address] [place] [address] Polyarthralgia; [facility] Pcp-Lab History of gout LAB Primary Care [address] [address] Allergies Active Allergy Reactions Severity Noted Date Comments Insect Venom Anaphylaxis 09/02/2020 ALLERGIC TO ANT BITES documented as of this encounter (statuses as of 10/01/2020) Medications Medication Sig Dispensed Refills Start Date End Date Status TRESIBA FLEXTOUCH 0 06/23/2020 A ctive U-100 100 unit/mL (3 mL) InPn HUMALOG KWIKPEN 0 08/18/2020 Act nathan INSULIN 100 unit/mL injection amLODIPine 10 mg Take 10 mg by 0 Active tablet mouth. allopurinoL 100 mg Take 100 mg by 0 Active tablet mouth. metoprolol succinate TK 1 T PO D 0 07/01/2020 Active XL 50 mg 24 hr tablet rosuvastatin 10 mg 1 tablet 0 A ctive tablet pregabalin 75 mg TK 1 C PO D 0 08/18/2020 Active capsule esomeprazole Take by mouth. 0 A ctive magnesium (NEXIUM ORAL) fluticasone Use 2 Sprays in 16 g 0 09/02/2020 A ctive propionate 50 each nostril mcg/actuation nasal daily. sprayIndications: Viral URI loratadine 10 mg Take 1 tablet 15 tablet 0 09/02/2020 Active tabletIndications: by mouth every Viral URI other day. MINOCYCLINE 100 mg Take 1 capsule 180 capsule 1 09/13/2020 Active capsuleIndications: by mouth every Hidradenitis 12 (twelve) suppurativa hours for 90 days. documented as of this encounter (statuses as of 10/01/2020) Active Problems Problem Noted Date Positive anti-CCP test 07/02/2020 Troponin I above reference range 04/27/2020 Other chest pain 04/26/2020 Stage 5 chronic kidney disease not on chronic dialysis 04/25/2020 Snores 04/25/2020 Anemia 04/25/2020 History of acute congestive heart failure 04/24/2020 Fatty liver 12/17/2019 Elevated alkaline phosphatase level 12/07/2019 Hidradenitis 07/28/2019 Overview: Added automatically from request for bobby clinton [id number] Arthritis, multiple joint involvement 03/06/2019 Hyperuricemia 03/06/2019 Abscess of axilla, right 01/16/2019 Overview: Added automatically from request for bobby clinton [id number] Abscess, groin 01/16/2019 Overview: Added automatically from request for bobby clinton [id number] Vision loss, left eye 09/17/2018 Multiple sweat gland abscesses 07/01/2018 Hidradenitis suppurativa 07/01/2018 HTN (hypertension) 07/01/2018 Type 2 diabetes mellitus with hyperglycemia, with long -term current use of 07/01/2018 insulin Hyperlipidemia 07/01/2018 Hypomagnesemia 07/01/2018 Obesity (BMI 30-39.9) 01/03/2017 Renal failure 01/03/2017 ESRD on dialysis documented as of this encounter (statuses as of 10/01/2020) Resolved Problems Problem Noted Date Resolved Date CKD (chronic kidney disease) 07/01/2018 05/23/2020 Infected pilonidal cyst 07/01/2018 10/22/2018 Hyponatremia 07/01/2018 10/22/2018 documented as of this encounter (statuses as of 10/01/2020) Immunizations Name Administration Dates Next Due Influenza [...] been in contact with No / Unsure 10/01/2020 10:22 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 documented as of this encounter Last Filed Vital Signs Not on filedocumented in this encounter Plan of Treatment Date Type Specialty Care Team Description 10/01/2020 Hospital Encounter Radiology Bharathi Espinoza, Antwon harrell MD [address] [place], [place] [address]VDRT[address] [address] [place] [address] 77 [phone] 10/27/2020 Office Visit Endocrinology Diabetes Champ Lacy MD & Metabolism [address] [place], [place] [phone] 12/20/2020 Office Visit Infectious Disease Karen Diggs MD [address] [place] [phone] Name Type Priority Associated Diagnoses Date/Ti me HCV ANTIBODY LAB Routine Polyarthralgia 10/01/2020 10 :50 AM FEDERAL AID COORDINATOR URIC ACID LAB Routine Polyarthralgia 10/01/2020 10:50 AM FEDERAL AID COORDINATOR History of gout Health Maintenance Due Date Last Done Comments [...] of this encounter Implants Implanted Type Area Help Desk Consultant Device Shelf Model / Identifier Expiration Serial / Date Lot Catheter, Hemosplit Hemodialysis 23cm #[id number] - Sn/A Right: Bard 03/18/2021 [id number] / Implanted: Qty: 1 on 04/29/2020 by Faviola Morgan MD at [facility] Chest N/A / [id number] documented as of this encounter Results Not on filedocumented in this encounter Visit Diagnoses Diagnosis Polyarthralgia Pain in joint, multiple sites History of gout Personal history of other endocrine, met abolic, and immunity disorders Polyarthralgia Pain in joint, multiple sites documented in this encounter Insurance Payer Benefit Plan / Subscriber ID Effective Phone Address T e Group Dates CIGNA CIGNA II [id number] 2019-Prese HMO /PPO/POS nt MEDICARE MEDICARE PART [id number] 2020-Prese [phone] [place] [place] Medicare A & B nt [id number] [place] [id number] [phone] (Work) documented as of this encounter
--- OUTSIDE RECORDS SUMMARY | 2020-12-02 21:18 | XMS REPORT | Summary of Care ---
:1975 Author Organization [facility] Address [address] [place] [address] Care Team Providers Name Role Phone Pcp, Does Not Have A Unavailable Meliza Pablo MD Primary Care Provider Rakel Johnson DO Fishing Tool Technician Oil Well Reason for Visit Reason Comments Establish Care Encounter Details Date Type Department Care Team Description 09/13/2020 Office Visit [facility] Joseph Diggs MD Hidradenitis Infectious Diseases- [address] [place] [address] Blvd suppurativa (Primary [place], [place] Dx) [facility] [phone] [place] [address] Drive, [address] [place] [address] Allergies Active Allergy Reactions Severity [...] Added automatically from request for bobby clinton [id number] Arthritis, multiple joint involvement 03/06/2019 Hyperuricemia 03/06/2019 Abscess of axilla, right 01/16/2019 Overview: Added automatically from request for bobby clinton [id number] Abscess, groin 01/16/2019 Overview: Added automatically from request for bobby clinton [id number] Vision loss, left eye 09/17/2018 Multiple sweat [...] file Gets together: Not on file Attends restorationism service: Not on file Active member of [...] Social History Narrative She works as a [employer]. She is . FAMILY HISTORY Family History [...] any new problems RTC in 3 months E ASSISTANT documented in this encounter Plan of Treatment Date Type Specialty Care Team Description 10/01/2020 Office Visit Rheumatology Lydia Rodriguez MD [address] [place] [phone] 10/27/2020 Office Visit Endocrinology Diabetes & Lacy, Maik fonseca MD Metabolism [address] [place] [address] [phone] 12/20/2020 Office Visit Infectious Disease Karen Diggs MD [address] [place] [phone] Health Maintenance Due Date Last Done [...] of this encounter Implants Implanted Type Area Concrete Mixing Plant Laborer Device Shelf Model / Identifier Expiration Serial / Date Lot Catheter, Hemosplit Hemodialysis 23cm #[id number] - Sn/A Right: Bard 03/18/2021 [id number] / Implanted: Qty: 1 on 04/29/2020 by Faviola Morgan MD at [facility] Chest N/A / [id number] documented as of this encounter Results Not on filedocumented in this encounter Visit Diagnoses Diagnosis Hidradenitis suppurativa - Primary Hidradenitis documented in this encounter Insurance Payer Benefit Plan / Subscriber ID Effective Phone Address T ype Group Dates CIGNA CIGNA II [id number] 2019-Prese HMO /PPO/POS nt MEDICARE MEDICARE PART [id number] 2020-Travis [phone] [employer] Medicare A & B nt 82 [id number] [place] [address] [phone] (Work) documented as of this encounter
--- OUTSIDE RECORDS SUMMARY | 2020-12-02 21:18 | XMS REPORT | Summary of Care ---
:1975 Author Organization [facility] Address [address] [place] [address] Care Team Providers Name Role Phone Pcp, Does Not Have A Unavailable Meliza Pablo MD Primary Care Provider Rakel Johnson DO Residential Youth Counselor Reason for Visit Reason Comments Rx Concern/Question Encounter Details Date Type Department Care Team Description 09/20/2020 Telephone [facility] Family Kana Pablo R x Concern/Question Medicine - James CLARK [address] [place] [address] Dr [address] [place] [address] [place] [address] [place] [address] [phone] Allergies Active Allergy Reactions Severity Noted Date Comments Insect Venom Anaphylaxis 09/02/2020 ALLERGIC TO ANT BITES documented as of this encounter (statuses as of 09/21/2020) Medications Medication Sig Dispensed Refills Start Date [...] suppurativa 12 (twelve) hours for 90 days. fluconazole 150 mg Take 1 tablet 2 tablet 0 09/21/2020 Active tabletIndications: Yeast by mouth once 0 vaginitis now for 1 dose. May repeat x 1 dose in 3-4 days if needed. documented as of this encounter (statuses as of 09/21/2020) Active Problems Problem Noted Date Positive anti-CCP test 07/02/2020 Troponin I above reference range 04/27/2020 Other chest pain 04/26/2020 Stage 5 chronic kidney disease not on chronic dialysis 04/25/2020 Snores 04/25/2020 Anemia 04/25/2020 History of acute congestive heart failure 04/24/2020 Fatty liver 12/17/2019 Elevated alkaline phosphatase level 12/07/2019 Hidradenitis 07/28/2019 Overview: Added automatically from request for bobby clinton [id number] Arthritis, multiple joint involvement 03/06/2019 Hyperuricemia 03/06/2019 Abscess of axilla, right 01/16/2019 Overview: Added automatically from request for bobby clinton [id number] Abscess, groin 01/16/2019 Overview: Added automatically from request for bobby clinton [id number] Vision loss, left eye 09/17/2018 Multiple sweat gland abscesses 07/01/2018 Hidradenitis suppurativa 07/01/2018 HTN (hypertension) 07/01/2018 Type 2 diabetes mellitus with hyperglycemia, with long -term current use of 07/01/2018 insulin Hyperlipidemia 07/01/2018 Hypomagnesemia 07/01/2018 Obesity (BMI 30-39.9) 01/03/2017 Renal failure 01/03/2017 ESRD on dialysis documented as of this encounter (statuses as of 09/21/2020) Resolved Problems Problem Noted Date Resolved Date CKD (chronic kidney disease) 07/01/2018 05/23/2020 Infected pilonidal cyst 07/01/2018 10/22/2018 Hyponatremia 07/01/2018 10/22/2018 documented as of this encounter (statuses as of 09/21/2020) Immunizations Name Administration Dates Next Due Influenza [...] Signs Not on filedocumented in this encounter Miscellaneous Notes Telephone Encounter - Kana Pablo MD - 09/21/2020 12:39 PM 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 elephone Encounter - Teagan Hinton - 09/20/2020 3:09 PM CSTPlease review elephone Encounter - Tammie Pacheco - 09/20/2020 10:08 AM CSTPt requesting a medication for yeast infection. documented in this encounter Plan of Treatment Date Type Specialty Care Team Description 10/01/2020 Office Visit Rheumatology Lydia Rodriguez MD [address] [place] [phone] 10/27/2020 Office Visit Endocrinology Diabetes & LacyMaik MD Metabolism [address] [place] [address] [phone] 12/20/2020 Office Visit Infectious Disease Karen Diggs MD [address] [place] [phone] Health Maintenance Due Date Last Done [...] of this encounter Implants Implanted Type Area Community Support Associate Device Shelf Model / Identifier Expiration Serial / Date Lot Catheter, Hemosplit Hemodialysis 23cm #[id number] - Sn/A Right: Bard 03/18/2021 [id number] / Implanted: Qty: 1 on 04/29/2020 by Faviola Morgan MD at [facility] Chest N/A / [id number] documented as of this encounter Results Not on filedocumented in this encounter Visit Diagnoses Diagnosis Yeast vaginitis - Primary Candidiasis of vulva and vagina documented in this encounter Insurance Payer Benefit Plan / Subscriber ID Effective Phone Address T ype Group Dates CIGNA CIGNA II [id number] 2019-Prese HMO /PPO/POS nt MEDICARE MEDICARE PART [id number] 2020-Prese [phone] [employer] Medicare A & B nt 82 [id number] [place] [id number] documented as of this encounter
--- OUTSIDE RECORDS SUMMARY | 2020-12-02 21:19 | XMS REPORT | Summary of Care ---
:1975 Author Organization [facility] - [facility] Address [address] [place] [id number] Care Team Providers Name Role Phone Pcp, Does Not Have A Unavailable Meliza Pablo MD Primary Care Provider Rakel Johnson DO Prison Psychiatrist Reason for Referral Radiology Services (Routine) Status Reason Specialty Diagnoses / Referred By Referred To Procedures Contact Contact New Request Diagnostic Diagnoses Polyarthralgia Alexis, Radiology Procedures XR FOOT 3+ VW BILATERAL Bharathi Laughlin MD [address] [place], [place] [id number] Radiology Services (Routine) Status Reason Specialty Diagnoses / Referred By Referred To Procedures Contact Contact New Request Diagnostic Diagnoses Polyarthralgia Alexis, Radiology Procedures XR HAND 3+ VW BILATERAL Bharathi Laughlin MD [address] [place], [place] [phone] Reason for Visit Reason Comments Establish Care Arthritis (NATHALIE) Status Reason Specialty Diagnoses / Procedures Referred By Pete calvoerred To Contact Contact Closed Rheumatology Diagnoses Arthritis, multiple joint involvement Positive anti-CCP test Kana Pablo Procedures CONSULT/REFERRAL RHEUMATOLOGY MD Meliza [address] [place] [address] [place] [address] Encounter Details Date Type Department Care Team Description 10/01/2020 Office Visit [facility] CAreLydia MD Polyarthralgia (Primary Dx); Internal Medicine [address] [place] [address] Positive anti-CCP test; Rheumatology[place], [place]emia [place] disease[place] [id number] Type 2 diabetes mellitus with hyperglyce dequan, with long-term current use of insulin; Primary Care [phone] History of gout; [facility] ESRD (end stage renal diseas e) on dialysis; [address] use of high-risk medication [address] [place] [address] Allergies Active Allergy Reactions Severity Noted Date Comments Insect Venom Anaphylaxis 09/02/2020 ALLERGIC TO ANT BITES documented as of this encounter (statuses as of 10/01/2020) Medications Medication Sig Dispensed Refills Start End Status Date Date TRESIBA FLEXTOUCH 0 Ac tive U-100 100 unit/mL (3 0 mL) InPn HUMALOG KWIKPEN 0 Acti ve INSULIN 100 unit/mL 0 injection amLODIPine 10 mg Take 10 mg by 0 Active tablet mouth. allopurinoL 100 mg Take 100 mg by 0 Active tablet mouth. metoprolol succinate TK 1 T PO D 0 Active XL 50 mg 24 hr tablet 0 rosuvastatin 10 mg 1 tablet 0 A ctive tablet pregabalin 75 mg TK 1 C PO D 0 A ctive capsule 0 esomeprazole magnesium Take by 0 Active (NEXIUM ORAL) mouth. fluticasone propionate Use 2 Sprays 16 g 0 Active 50 mcg/actuation nasal in each 0 sprayIndications: nostril daily. Viral URI loratadine 10 mg Take 1 tablet 15 tablet 0 Active tabletIndications: by mouth every 0 Viral URI other day. MINOCYCLINE 100 mg Take 1 capsule 180 capsule 1 11/20/ Active capsuleIndications: by mouth every 0 021 Hidradenitis 12 (twelve) suppurativa hours for 90 days. ciprofloxacin HCl 500 Take 1 tablet 20 tablet 0 09/19 3/2 Discontinued mg tabletIndications: by mouth 2 0 020 Hydradenitis, Abscess (two) times daily. methylPREDNISolone Take by mouth 21 Each 0 Discontinued (MEDROL, LASHAWN,) 4 mg SEE-INSTRUCTIO 0 020 tabletsIndications: NS. follow Insect bite, package unspecified site, directions initial encounter cefadroxil 500 mg Take 500 mg by 0 Discontinued capsule mouth every 36 020 (thirty-six) hours. Take 1 capsule by mouth every 36 (thirty-six) hours for 10 doses. documented as of this encounter (statuses as [...] Added automatically from request for bobby clinton [id number] Arthritis, multiple joint involvement 03/06/2019 Hyperuricemia 03/06/2019 Abscess of axilla, right 01/16/2019 Overview: Added automatically from request for bobby clinton [id number] Abscess, groin 01/16/2019 Overview: Added automatically from request for bobby clinton [id number] Vision loss, left eye 09/17/2018 Multiple sweat [...] with No / Unsure 10/01/2020 10:22 AM POLICE SHIFT COMMANDER someone who was confirmed or suspected to have Coronavirus / COVID-19? documented as of this encounter Last Filed Vital Signs Vital Sign Reading Time Taken Comments Blood Pressure 165/91 10/01/2020 10:23 AM POLICE SHIFT COMMANDER Pulse 93 10/01/2020 10:23 AM POLICE SHIFT COMMANDER Temperature 37.2 C (99 F) 10/01/2020 10:23 AM POLICE SHIFT COMMANDER Respiratory Rate 18 10/01/2020 10:23 AM POLICE SHIFT COMMANDER Oxygen Saturation - - Inhaled Oxygen Concentration - - Weight 100.7 kg (222 lb 1.6 oz) 10/01/2020 10:23 AM POLICE SHIFT COMMANDER Height 167.6 cm (5' 6") 10/01/2020 10:23 AM POLICE SHIFT COMMANDER Body Mass Index 35.85 10/01/2020 10:23 AM POLICE SHIFT COMMANDER documented in this encounter Progress Notes Lydia Rodriguez MD - 10/01/2020 9:30 AM CST 10/01/2020 Chief Complaint/Reason for Visit: New patient referred by Dr. Pablo for evaluation of arthralgias. HPI: She is a 44 year old Black or female with past medical history listed below. She has pain of her hands, elbows, shoulders, left hips, knees. No pain in ankles and toes. Has someswelling of hands and knuckles. Morning stiffness lasts for an hour. 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 She was diagnosed with gout a year ago and is on allopurinol 100 mg daily. History of 2 miscarriages at 3 months and 2 months of gestation. No family history of any arthritis or rheumatologic condition. REVIEW OF SYSTEMS General - Positive for fatigue and weight loss of 40 lbs in 5 months after being on HD. HEENT - Negative for dry eyes and dry mouth Cardiovascular - Negative for chest pain Respiratory - Negative for cough Gastrointestinal - Negative for abdominal pain Genitourinary - Negative for dysuria Skin - Negative for photosensitive rash Neuro - Negative for numbness, seizures and tingling Hematologic - Negative for blood clots and easy bruising Psych - Positive for anxiety HISTORY Past Medical History: Diagnosis Date Arthritis, multiple [...] Left 08/04/2020 Surgeon: Shahzad Collado MD; Location: [facility] OR Location CENTRAL VENOUS ACCESS CATHETER PLACEMENT Left 04/29/2020 Surgeon: Faviola Hernandez MD; Location: [facility] OR [facility] HYDRADENTITIS EXCISION Left 08/08/2019 Surgeon: All Emerson MD; Location: [facility] OR [facility] HYSTERECTOMY INCISION AND DRAINAGE OF ABSCESS Bilateral 01/20/2019 Surgeon: All Emerson MD; Location: [facility] OR [facility] INCISION AND DRAINAGE OF ABSCESS N/A 02/03/2020 Surgeon: Faviola Hernandez MD; Location: [facility] OR [facility] Family History Problem Relation Age of Onset Diabetes Mother Heart Mother CHF High cholesterol Mother Hypertension Mother Cancer Mother pancreatic Diabetes Son Allergies Allergen Reactions Insect Venom Anaphylaxis ALLERGIC TO ANT BITES Current Outpatient Medications on File Prior to Visit Medication Sig Dispense Refill MINOCYCLINE 100 mg capsule Take 1 capsule by mouth every 12 (twelve) hours for 90 days. 180 capsule 1 pregabalin 75 mg capsule TK 1 C PO D fluticasone propionate 50 mcg/actuation nasal spray Use 2 Sprays in each nostril daily. 16 g 0 loratadine 10 mg tablet Take 1 tablet by mouth every other day. 15 tablet 0 allopurinoL 100 mg tablet Take 100 mg by mouth. amLODIPine 10 mg tablet Take 10 mg by mouth. esomeprazole magnesium (NEXIUM ORAL) Take by mouth. HUMALOG KWIKPEN INSULIN 100 unit/mL injection metoprolol succinate XL 50 mg 24 hr tablet TK 1 T PO D rosuvastatin 10 mg tablet 1 tablet TRESIBA FLEXTOUCH U-100 100 unit/mL (3 mL) InPn No current facility-administered medications on file prior to visit. PHYSICAL EXAM BP (!) 165/91 (BP Location: Left arm, Patient Position: Sitting, BP CUFF SIZE: Adult Medium) | Pulse 93 | Temp 37.2 C (99 F) (Oral) | Resp 18 | Ht 5' 6" (1.676 m) | Wt 222 lb 1.6 oz (100.7 kg) | BMI 35.85 kg/m General: Alert, No apparent distress and Oriented to person, place, and time Psych: Affect euthymic Eyes: Sclera noninjected Ears, Nose, Throat, Mouth: Oral mucosa moist with normal salivary pool Skin: No rashes noted Neck: No lymphadenopathy Cardiovascular: Regular rate and rhythm, Normal S1 and S2 and No murmurs, rubs or gallops Respiratory: Clear to auscultation with no wheezing or crackles Abdomen: Soft, nontender, nondistended with normoactive bowel sounds Neuro: Normal gait and Able to arise from seated postion unassisted Musculoskeletal: Hands: Normal. Wrists: Normal. Elbows: Normal. Shoulders: Normal. Feet: Normal. Ankles: Normal. Knees: Normal. Hips: Normal. Spine: Normal. Tender points: Negative. No joint swelling, warmth or tenderness in the DIP, PIP, MCP, wrist, elbow, MTP, ankle or knee joints bilaterally. Full ROM of these joints, hips and shoulders bilaterally. LABS Jul 2020 CBC - low hb 10.8 CMP - creatinine 7.6 Results for SONIA SONG ( ) as of 10/01/2020 08:10 Ref. Range 03/11/2019 10:01 04/25/2020 14:50 06/23/2020 12:39 OBDULIA Latest Ref Range: Negative Negative Negative ANTI-SSA Latest Ref Range: Negative Negative ANTI-SSB Latest Ref Range: Negative Negative Results for SONIA SONG ( ) as of 10/01/2020 08:10 Ref. Range 06/23/2020 12:39 CCP Latest Ref Range: 0.0 - 20.0 U 81.0 (H) RF < 20 ASSESSMENT ICD-10-CM ICD-9-CM 1. Polyarthralgia M25.50 719.49 2. Positive anti-CCP test R76.8 795.79 3. Anemia of chronic disease D63.8 285.29 4. Type 2 diabetes mellitus with hyperglycemia, with long-term current use of insulin E11.65 250.00 Z79.4 790.29 V58.67 5. History of gout Z87.39 V12.29 6. ESRD (end stage renal disease) on dialysis N18.6 585.6 Z99.2 V45.11 7. Long-term use of high-risk medication Z79.899 V58.69 Polyarthralgia (primary encounter diagnosis) Positive anti-CCP test Comment: Though patient has polyarthralgia and positive anti CCP, she does not have any synovitis onexam. We do not suspect an inflammatory arthritis. However, will do additional eval as below. Plan: Check X ray hands and feet Check HLA B 5801 Check HCV. Check Tb quantiferon test. Stage 5 chronic kidney disease not on chronic dialysis Comment: On HD Plan: per nephrology History of gout Comment : Not crystal proven. On allopurinol 100 mg. Last uric acid in Jun was 5.1.Doubt if she really had Plan : Check serum uric acid and X ray hands and feet b/l. Check HLA B 5801 Upto facing baster whether or not the patient needs allopurinol. Lydia Rodriguez MD Rheumatology fellow Bharathi Corey MD - 10/01/2020 9:30 AM [facility] [address] Rodriguez, I interviewed and examined the patient with Dr. Rodriguez today in the clinic. Sonia Song is a 44 year old AA female from [place], a new patient. She was referred because of a positive anti-CCP at 81. A RA factor was negative. She denies hand swelling and morning stiffness. She carries a diagnosis of gout, based on left sided LE pain, involving her leg, knee, and foot pain over a year ago, without joint swelling. She denies intermittent, episodic, monarticular joint attacks. The highest uric acid determination was only 6.1 mg/dl in 2017, and this was 2 years prior to her going on allopurinol. She has multiple medical problems, as follows: diabetes, HTN, hyperlipidemia, CKD, leading to ESRD on dialysis, hyperuricemia, fatty liver, hydradenitis suppurativa, diastolic CHF, polyarticular joint pains, and vision loss in the left eye since 2018. She is a never smoker, and drinks some alcohol. Medications: Humalog insulin, metoprolol, Medrol dose pack, Claritin, allopurinol, 100 mg, Norvasc, Nexium, Lyrica, rosuvastatin, Tresiba, and recent courses of oral antibiotics. Her labs are from JUL 2020: a CBC shows mild chronic anemia, likely from the ESRD; a creatinineis elevated, at expected; LFTs look basically normal. A RA factor, ferritin, and TSH are normal. An OBDULIA and anti-Ro/La are negative. We don't have a hep C screen, a recent serum uric acid, a Quantiferon test, and an HLA-B58*01 gene. An anti-CCP is 81, foot and hand films. A L-S spine, knee and hip films have shown mild OA. PE: there is no synovitis, subcutaneous nodules, Raynaud's, butterfly rash, etc. Her fist making is 100%. A Prayer sign is negative. There are no acutely swollen joints. Her lungs are clear. For a diagnosis of RA, we need clinical arthritis and/or synovitis, not just a positive anti-CCP test, as explained. Has she ever had gout? It is hard to say in retrospect. I suspect she does not have gout. Today, we are ordering a hep C screen, an HLA-B58*01, a serum uric acid, and a Quantiferon test (a positive anti-CCP test has been described in mycobacterial infections). In addition, we are x-raying both hands and feet. Therapeutically, we are not initiating any new therapies at this time. The question is whether she should continue the allopurinol. We discussed that this decision perhaps should be left up to her facing baster and herself. I agree with Dr. Rodriguez's impressions & recommendations, as written. documented in this encounter Plan of Treatment Date Type Specialty Care Team Description 10/27/2020 Office Visit Endocrinology Diabetes & Regino, Maik fonseca MD Metabolism [address] [place] [address] [phone] 12/20/2020 Office Visit Infectious Disease Karen Diggs MD [address] [place] [phone] Name Type Priority Associated Diagnoses Order S chedule HLA-ABC-DR TYPING LAB Routine Polyarthralgia Expected : 10/01/2020, X-RENAL Expires: 2020 QUANTIFERON-TB ASSAY LAB Routine Polyarthral dante Expected: 10/01/2020, Positive anti-CC P test Expires: 10/01/2021 Anemia of chroni c disease Type 2 diabetes mellitus with hyperglycemia, with long-term current use of insulin History of gout ESRD (end stage renal disease) on dialysis Health Maintenance Due Date Last Done Comments [...] of this encounter Implants Implanted Type Area Packing House Laborer Device Shelf Model / Identifier Expiration Serial / Date Lot Catheter, Hemosplit Hemodialysis 23cm #[id number] - Sn/A Right: Bard 03/18/2021 [id number] / Implanted: Qty: 1 on 04/29/2020 by Faviola Morgan MD at [facility] Chest N/A / [id number] documented as of this encounter Results XR FOOT 3+ VW BILATERAL (10/01/2020 11:27 AM POLICE SHIFT COMMANDER) Specimen Impressions Performed At PACS/VR/DOSE 1. No inflammatory arthritis changes. RL: 1105 Narrative Performed At HISTORY: history of gout bilateral foot pain PACS/VR/DOSE COMPARISON: None. FINDINGS: 3 views of the bilateral feet demonstrate normal align ment. No fracture, foreign body, or focal osseous lesion is identified. Inflammatory changes seen. Procedure Note [facility], Radiant Results Inft User - 2019 11:52 AM POLICE SHIFT COMMANDER HISTORY: history of gout bilateral foot pain COMPARISON: None. FINDINGS: 3 views of the bilateral feet demonstrat e normal alignment. No fracture, foreign body, or focal osseous lesion is identified. Inflammatory changes seen. IMPRESSION 1. No inflammatory arthritis changes. RL: 1105 Performing Organization Address City/State/Zipcode Phone Number PACS/VR/DOSE XR HAND 3+ VW BILATERAL (10/01/2020 11:27 AM POLICE SHIFT COMMANDER) Specimen Impressions Performed At PACS/VR/DOSE 1. No inflammatory arthritis changes. RL: 1105 Narrative Performed At HISTORY: bilateral hand pain and swell ing PACS/VR/DOSE COMPARISON: None FINDINGS: 3 views bilateral hands. Normal mineralization demonstrated. No evidence of inf lammatory arthritis. No fracture, foreign body, or focal osse ous lesion seen. There are postsurgical changes adjacent to the distal left radial diaphysis. Procedure Note [place], Radiant Results Inft User - 2019 11:51 AM POLICE SHIFT COMMANDER HISTORY: bilateral hand pain and swelling COMPARISON: None FINDINGS: 3 views bilateral hands. Normal mineralization demonstrated. No e vidence of inflammatory arthritis. No fracture, foreign body, or focal osse ous lesion seen. There are postsurgical changes adjacent to the distal left radial diaphysis. IMPRESSION 1. No inflammatory arthritis changes. RL: 1105 Performing Organization Address City/State/Zipcode Phone Number PACS/VR/DOSE URIC ACID (10/01/2020 10:50 AM POLICE SHIFT COMMANDER) Pathologist Sig nature URIC ACID 4.2 2.9 - 6.0 mg/dL [facility] Specimen Blood Performing Organization Address City/State/Zipcode Phone Number [facility] CLIA: [id number] [place], [place] [address] [address] [facility] HCV ANTIBODY (10/01/2020 10:50 AM POLICE SHIFT COMMANDER) Pathologist Sig nature HCV Ab Negative [facility] HCV Semi-Quantitative 0.26 [facility] Specimen Blood Performing Organization Address City/[facility]/Zipcode Phone Number [facility] CLIA: [id number] [place], [place] [id number] [address] [place] [address] documented in this encounter Visit Diagnoses Diagnosis Polyarthralgia - Primary Pain in joint, multiple sites Positive anti-CCP test Other and unspecified nonspecific immuno logical findings Anemia of chronic disease Anemia of other chronic disease Type 2 diabetes mellitus with hyperglyce dequan, with long-term current use of insulin History of gout Personal history of other endocrine, met abolic, and immunity disorders ESRD (end stage renal disease) on dialys is End stage renal disease Long-term use of high-risk medication documented in this encounter Insurance Payer Benefit Plan / Subscriber ID Effective Phone Address T e Group Dates CIGNA CIGNA II [id number] 2019-Prese HMO /PPO/POS nt MEDICARE MEDICARE PART [id number] 2020-Prese [phone] [place] Medicare A & B nt [id number] [place] [phone] [phone] [id number] (Work) documented as of this encounter
--- OUTSIDE RECORDS SUMMARY | 2020-12-02 21:19 | XMS REPORT | Summary of Care ---
:1975 Author Organization [facility] Address [address] [place] [address] Care Team Providers Name Role Phone Pcp, Does Not Have A Unavailable Meliza Pablo MD Primary Care Provider Rakel Johnson DO Grid Molder Reason for Referral Radiology Services (Routine) Status Reason Specialty Diagnoses / Referred By Referred To Procedures Contact Contact New Request Diagnostic Diagnoses Polyarthralgia Alexis, Radiology Procedures XR FOOT 3+ VW BILATERAL Bharathi Laughlin MD [address] [place], [place] [id number] Radiology Services (Routine) Status Reason Specialty Diagnoses / Referred By Referred To Procedures Contact Contact New Request Diagnostic Diagnoses Polyarthralgia Alexis, Radiology Procedures XR HAND 3+ VW BILATERAL Bharathi Laughlin MD [address] [place], [place] [phone] Reason for Visit Reason Comments Establish Care Arthritis (NATHALIE) Status Reason Specialty Diagnoses / Procedures Referred By Pete calvoerred To Contact Contact Closed Rheumatology Diagnoses Arthritis, multiple joint involvement Positive anti-CCP test Kana Pablo Procedures CONSULT/REFERRAL RHEUMATOLOGY MD Meliza [address] [place] [address] [place] [address] Encounter Details Date Type Department Care Team Description 10/01[facility]2020 [facility]gia (Primary Dx); Internal Medicine [address] [place] [address] Positive anti-CCP test; Rheumatology[place], [place] Anemia of chronic disease; [place] [phone] Type 2 diabetes mellitus with hyperglyce dequan, with long-term current use of insulin; Primary Care [phone] History of gout; [facility] ESRD (end stage renal diseas e) on dialysis; [address] [place] use of high-risk medication [address] [place] [address] Allergies Active Allergy Reactions Severity [...] Added automatically from request for bobby clinton [id number] Arthritis, multiple joint involvement 03/06/2019 Hyperuricemia 03/06/2019 Abscess of axilla, right 01/16/2019 Overview: Added automatically from request for bobby clinton [id number] Abscess, groin 01/16/2019 Overview: Added automatically from request for bobby clinton [id number] Vision loss, left eye 09/17/2018 Multiple sweat [...] with No / Unsure 10/01/2020 10:22 AM OENOLOGIST someone who was confirmed or suspected to have Coronavirus / COVID-19? documented as of this encounter Last Filed Vital Signs Vital Sign Reading Time Taken Comments Blood Pressure 165/91 10/01/2020 10:23 AM OENOLOGIST Pulse 93 10/01/2020 10:23 AM OENOLOGIST Temperature 37.2 C (99 F) 10/01/2020 10:23 AM OENOLOGIST Respiratory Rate 18 10/01/2020 10:23 AM OENOLOGIST Oxygen Saturation - - Inhaled Oxygen Concentration - - Weight 100.7 kg (222 lb 1.6 oz) 10/01/2020 10:23 AM OENOLOGIST Height 167.6 cm (5' 6") 10/01/2020 10:23 AM OENOLOGIST Body Mass Index 35.85 10/01/2020 10:23 AM OENOLOGIST documented in this encounter Progress Notes Lydia [...] lasts for an hour. 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.Her pain [...] Left 08/04/2020 Surgeon: Shahzad Collado MD; Location: [facility] OR Location CENTRAL VENOUS ACCESS CATHETER PLACEMENT Left 04/29/2020 Surgeon: Faviola Hernandez MD; Location: [facility] OR [facility] HYDRADENTITIS EXCISION Left 08/08/2019 Surgeon: All Emerson MD; Location: [facility] OR [facility] HYSTERECTOMY INCISION AND DRAINAGE OF ABSCESS Bilateral 01/20/2019 Surgeon: All Emerson MD; Location: [facility] OR [facility] INCISION AND DRAINAGE OF ABSCESS N/A 02/03/2020 Surgeon: Faviola Hernandez MD; Location: [facility] OR [facility] Family History Problem Relation Age of Onset [...] feet b/l. Check HLA B 5801 Upto dynamite reclaimer whether or not the patient needs allopurinol. Lydia Rodriguez MD Rheumatology fellow Bharathi Corey MD - 10/01/2020 9:30 AM [facility] [address] Rodriguez, I interviewed and examined the patient with Dr. Rodriguez today in the clinic. Sonia Song is a 44 year old AA female from [place], a new patient. She was referred because [...] perhaps should be left up to her dynamite reclaimer and herself. I agree with Dr. Rodriguez's impressions & recommendations, as written. documented in this encounter Plan of Treatment Date Type Specialty Care Team Description 10/27/2020 Office Visit Endocrinology Diabetes & Regino, Maik fonseca MD Metabolism [address] [place] [address] [phone] 12/20/2020 Office Visit Infectious Disease Karen Diggs MD [address] [place] [phone] Name Type Priority Associated Diagnoses Order [...] of this encounter Implants Implanted Type Area Drafter Civil Device Shelf Model / Identifier Expiration Serial / Date Lot Catheter, Hemosplit Hemodialysis 23cm #[id number] - Sn/A Right: Bard 03/18/2021 [id number] / Implanted: Qty: 1 on 04/29/2020 by Faviola Morgan MD at [facility] Chest N/A / [id number] documented as of this encounter Results XR FOOT 3+ VW BILATERAL (10/01/2020 11:27 AM OENOLOGIST) Specimen Impressions Performed At PACS/VR/DOSE 1. No inflammatory arthritis changes. RL: 1105 Narrative Performed At HISTORY: history of gout bilateral foot pain PACS/VR/DOSE COMPARISON: None. FINDINGS: 3 views of the bilateral feet demonstrate normal align ment. No fracture, foreign body, or focal osseous lesion is identified. Inflammatory changes seen. Procedure Note [facility], Radiant Results Inft User - 2019 11:52 AM OENOLOGIST HISTORY: history of gout bilateral foot pain COMPARISON: None. FINDINGS: 3 views of the bilateral feet demonstrat e normal alignment. No fracture, foreign body, or focal osseous lesion is identified. Inflammatory changes seen. IMPRESSION 1. No inflammatory arthritis changes. RL: 1105 Performing Organization Address City/State/Zipcode Phone Number PACS/VR/DOSE XR HAND 3+ VW BILATERAL (10/01/2020 11:27 AM OENOLOGIST) Specimen Impressions Performed At PACS/VR/DOSE 1. No [...] Results Inft User - 2019 11:51 AM OENOLOGIST HISTORY: bilateral hand pain and swelling COMPARISON: None FINDINGS: 3 views bilateral hands. Normal mineralization demonstrated. No e vidence of inflammatory arthritis. No fracture, foreign body, or focal osse ous lesion seen. There are postsurgical changes adjacent to the distal left radial diaphysis. IMPRESSION 1. No inflammatory arthritis changes. RL: 1105 Performing Organization Address City/State/Zipcode Phone Number PACS/VR/DOSE URIC ACID (10/01/2020 10:50 AM OENOLOGIST) Pathologist Sig nature URIC ACID 4.2 2.9 - 6.0 mg/dL [facility] Specimen Blood Performing Organization Address City/State/Zipcode Phone Number [facility] CLIA: [id number] [place], [place] [address] [address] [facility] HCV ANTIBODY (10/01/2020 10:50 AM OENOLOGIST) Pathologist Sig nature HCV Ab Negative [facility] HCV Semi-Quantitative 0.26 [facility] Specimen Blood Performing Organization Address City/[facility]/Zipcode Phone Number [facility] CLIA: [id number] [place], [place] [address] [address] [place] [address] documented in this encounter Visit Diagnoses Diagnosis [...] T e Group Dates CIGNA CIGNA II [id number] 2019-Prese HMO /PPO/POS nt MEDICARE MEDICARE PART [id number] 2020-Prese [phone] [place] Medicare A & B nt 82 [id number] [place] [id number] [phone] (Work) documented as of this encounter
--- OUTSIDE RECORDS SUMMARY | 2020-12-02 21:19 | XMS REPORT | Summary of Care ---
:1975 Author Organization [facility] - [facility] Address [address] [place] [address] Care Team Providers Name Role Phone Pcp, Does Not Have A Unavailable Meliza Pablo MD Primary Care Provider Rakel Johnson DO Inspector Coated Fabrics Reason for Visit Reason Comments Refill Request Encounter Details Date Type Department Care Team Description 10/07/2020 Refill [facility] Family Medicine Kana Amaro MD Refill Request - [address] [place] [address] [place] [address] [phone] Allergies Active Allergy Reactions Severity Noted Date Comments Insect Venom Anaphylaxis 09/02/2020 ALLERGIC TO ANT BITES documented as of this encounter (statuses as of 10/08/2020) Medications Medication Sig Dispensed Refills Start Date End Date Status TRESIBA FLEXTOUCH 0 06/23/2020 A ctive U-100 100 unit/mL (3 mL) InPn HUMALOG KWIKPEN 0 08/18/2020 Act nathan INSULIN 100 unit/mL injection amLODIPine 10 mg Take 10 mg by 0 Active tablet mouth. rosuvastatin 10 mg 1 tablet 0 A ctive tablet pregabalin 75 mg TK 1 C PO D 0 08/18/2020 Active capsule esomeprazole Take by 0 Active magnesium (NEXIUM mouth. ORAL) fluticasone Use 2 Sprays 16 g 0 09/02/2020 Acti ve propionate 50 in each mcg/actuation nasal nostril sprayIndications: daily. Viral URI loratadine 10 mg Take 1 tablet 15 tablet 0 09/02/2020 Active tabletIndications: by mouth Viral URI every other day. MINOCYCLINE 100 mg Take 1 180 capsule 1 09/13/2020 12/12/19 2 Active capsuleIndications: capsule by 1 Hidradenitis mouth every suppurativa 12 (twelve) hours for 90 days. METOPROLOL TAKE 1 TABLET 30 tablet 5 10/08/2020 Acti ve SUCCINATE XL 50 mg BY MOUTH 24 hr EVERY DAY tabletIndications: Essential hypertension ALLOPURINOL 100 mg TAKE 1 TABLET 30 tablet 5 10/08/2020 Active tabletIndications: BY MOUTH Hyperuricemia EVERY DAY allopurinoL 100 mg Take 100 mg 0 Discontinued tablet by mouth. 0 metoprolol TK 1 T PO D 0 07/01/2020 Discon tinued succinate XL 50 mg 0 24 hr tablet documented as of this encounter (statuses as of 10/08/2020) Active Problems Problem Noted Date Positive anti-CCP test 07/02/2020 Troponin I above reference range 04/27/2020 Other chest pain 04/26/2020 Stage 5 chronic kidney disease not on chronic dialysis 04/25/2020 Snores 04/25/2020 Anemia 04/25/2020 History of acute congestive heart failure 04/24/2020 Fatty liver 12/17/2019 Elevated alkaline phosphatase level 12/07/2019 Hidradenitis 07/28/2019 Overview: Added automatically from request for bobby clinton [id number] Arthritis, multiple joint involvement 03/06/2019 Hyperuricemia 03/06/2019 Abscess of axilla, right 01/16/2019 Overview: Added automatically from request for bobby clinton [id number] Abscess, groin 01/16/2019 Overview: Added automatically from request for bobby clinton [id number] Vision loss, left eye 09/17/2018 Multiple sweat gland abscesses 07/01/2018 Hidradenitis suppurativa 07/01/2018 HTN (hypertension) 07/01/2018 Type 2 diabetes mellitus with hyperglycemia, with long -term current use of 07/01/2018 insulin Hyperlipidemia 07/01/2018 Hypomagnesemia 07/01/2018 Obesity (BMI 30-39.9) 01/03/2017 Renal failure 01/03/2017 ESRD on dialysis documented as of this encounter (statuses as of 10/08/2020) Resolved Problems Problem Noted Date Resolved Date CKD (chronic kidney disease) 07/01/2018 05/23/2020 Infected pilonidal cyst 07/01/2018 10/22/2018 Hyponatremia 07/01/2018 10/22/2018 documented as of this encounter (statuses as of 10/08/2020) Immunizations Name Administration Dates Next Due Influenza [...] with No / Unsure 10/01/2020 10:22 AM THRESHING OPERATOR someone who was confirmed or suspected to have Coronavirus / COVID-19? documented as of this encounter Last Filed Vital Signs Not on filedocumented in this encounter Plan of Treatment Date Type Specialty Care Team Description 10/27/2020 Office Visit Endocrinology Diabetes & Maik Lacy MD Metabolism [address] [place] [address] [phone] 12/20/2020 Office Visit Infectious Disease Karen Diggs MD [address] [place] [phone] Health Maintenance Due Date Last Done [...] of this encounter Implants Implanted Type Area Child Care Giver Device Shelf Model / Identifier Expiration Serial / Date Lot Catheter, Hemosplit Hemodialysis 23cm #[id number] - Sn/A Right: Bard 03/18/2021 [id number] / Implanted: Qty: 1 on 04/29/2020 by Faviola Morgan MD at [facility] Chest N/A / [id number] documented as of this encounter Results Not on filedocumented in this encounter Visit Diagnoses Diagnosis Essential hypertension - Primary Unspecified essential hypertension Hyperuricemia Other abnormal blood chemistry documented in this encounter Insurance Payer Benefit Plan / Subscriber ID Effective Phone Address T ype Group Dates CIGNA CIGNA II [id number] 2019-Prese HMO /PPO/POS nt MEDICARE MEDICARE PART [id number] 2020-Prese [phone] [address] [place] Medicare A & B nt 82 [id number] [place] [phone] documented as of this encounter
--- OUTSIDE RECORDS SUMMARY | 2020-12-02 21:19 | XMS REPORT | Summary of Care ---
:1975 Author Organization [facility] - [facility] Address [address] [place] [address] Care Team Providers Name Role Phone Pcp, Does Not Have A Unavailable Meliza Pablo MD Primary Care Provider Rakel Johnson DO Community Living Specialist Reason for Referral Radiology Services (Routine) Status Reason Specialty Diagnoses / Referred By Referred To Procedures Contact Contact New Request Diagnostic Diagnoses Polyarthralgia Alexis, Radiology Procedures XR HAND 3+ VW BILATERAL Bharathi Laughlin MD [address] [place] [address] Radiology Services (Routine) Status Reason Specialty Diagnoses / Referred By Referred To Procedures Contact Contact New Request Diagnostic Diagnoses Polyarthralgia Alexis, Radiology Procedures XR FOOT 3+ VW BILATERAL Bharathi Laughlin MD [address] [place] [address] Reason for Visit Radiology Services (Routine) Status Reason Specialty Diagnoses / Referred By Referred To Procedures Contact Contact New Request Diagnostic Diagnoses Polyarthralgia Alexis, Radiology Procedures XR FOOT 3+ VW BILATERAL Bharathi Laughlin MD [address] [place] [address] Encounter Details Date Type Department Care Team Description 10/01/2020 Hospital Encounter [facility] Primary Care Bharathi Espinoza, Fercho Cro[place]ett Radiology [address] [facility] [id number] [address] [place] [address] [place], [place] [address] Allergies Active Allergy Reactions Severity Noted Date Comments Insect Venom Anaphylaxis 09/02/2020 ALLERGIC TO ANT BITES documented as of this encounter (statuses as of 10/02/2020) Medications Medication Sig Dispensed Refills Start Date [...] as of this encounter (statuses as of 10/02/2020) Active Problems Problem Noted Date Positive anti-CCP test 07/02/2020 Troponin I above reference range 04/27/2020 Other chest pain 04/26/2020 Stage 5 chronic kidney disease not on chronic dialysis 04/25/2020 Snores 04/25/2020 Anemia 04/25/2020 History of acute congestive heart failure 04/24/2020 Fatty liver 12/17/2019 Elevated alkaline phosphatase level 12/07/2019 Hidradenitis 07/28/2019 Overview: Added automatically from request for bobby clinton [id number] Arthritis, multiple joint involvement 03/06/2019 Hyperuricemia 03/06/2019 Abscess of axilla, right 01/16/2019 Overview: Added automatically from request for bobby clinton [id number] Abscess, groin 01/16/2019 Overview: Added automatically from request for bobby clinton [id number] Vision loss, left eye 09/17/2018 Multiple sweat gland abscesses 07/01/2018 Hidradenitis suppurativa 07/01/2018 HTN (hypertension) 07/01/2018 Type 2 diabetes mellitus with hyperglycemia, with long -term current use of 07/01/2018 insulin Hyperlipidemia 07/01/2018 Hypomagnesemia 07/01/2018 Obesity (BMI 30-39.9) 01/03/2017 Renal failure 01/03/2017 ESRD on dialysis documented as of this encounter (statuses as of 10/02/2020) Resolved Problems Problem Noted Date Resolved Date CKD (chronic kidney disease) 07/01/2018 05/23/2020 Infected pilonidal cyst 07/01/2018 10/22/2018 Hyponatremia 07/01/2018 10/22/2018 documented as of this encounter (statuses as of 10/02/2020) Immunizations Name Administration Dates Next Due Influenza [...] with No / Unsure 10/01/2020 10:22 AM 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 documented as of this encounter Last Filed Vital Signs Not on filedocumented in this encounter Plan of Treatment Date Type Specialty Care Team Description 10/27/2020 Office Visit Endocrinology Diabetes & Maik Lacy MD Metabolism [address] [place] [address] [phone] 12/20/2020 Office Visit Infectious Disease Karen Diggs MD [address] [place], [place] [address] [place] [phone] Health Maintenance Due Date Last Done Comments [...] of this encounter Implants Implanted Type Area Real Estate Utilization Officer Device Shelf Model / Identifier Expiration Serial / Date Lot Catheter, Hemosplit Hemodialysis 23cm #[id number] - Sn/A Right: Bard 03/18/2021 [id number] / Implanted: Qty: 1 on 04/29/2020 by Faviola Morgan MD at [facility] Chest N/A / [id number] documented as of this encounter Procedures Procedure Name Priority Date/Time Associated Diagnosis Comme nts XR HAND 3+ VW Routine 10/01/2020 11:27 Polyarthralgia Results for this BILATERAL AM MEDICAL ADMINISTRATIVE TECHNICIAN procedure are i n the results section. XR FOOT 3+ VW Routine 10/01/2020 11:27 Polyarthralgia Results for this BILATERAL AM MEDICAL ADMINISTRATIVE TECHNICIAN procedure are i n the results section. documented in this encounter Results XR HAND 3+ VW BILATERAL (10/01/2020 11:27 AM MEDICAL ADMINISTRATIVE TECHNICIAN) Specimen Impressions Performed At PACS/VR/DOSE 1. No inflammatory arthritis changes. RL: 1105 Narrative Performed At HISTORY: bilateral hand pain and swell ing PACS/VR/DOSE COMPARISON: None FINDINGS: 3 views bilateral hands. Normal mineralization demonstrated. No evidence of inf lammatory arthritis. No fracture, foreign body, or focal osse ous lesion seen. There are postsurgical changes adjacent to the distal left radial diaphysis. Procedure Note [facility], Radiant Results Inft User - 2019 11:51 AM MEDICAL ADMINISTRATIVE TECHNICIAN HISTORY: bilateral hand pain and swelling COMPARISON: None FINDINGS: 3 views bilateral hands. Normal mineralization demonstrated. No e vidence of inflammatory arthritis. No fracture, foreign body, or focal osse ous lesion seen. There are postsurgical changes adjacent to the distal left radial diaphysis. IMPRESSION 1. No inflammatory arthritis changes. RL: 1105 Performing Organization Address City/[facility] [facility] Phone Number PACS/VR/DOSE XR FOOT 3+ VW BILATERAL (10/01/2020 11:27 AM MEDICAL ADMINISTRATIVE TECHNICIAN) Specimen Impressions Performed At PACS/VR/DOSE 1. No inflammatory arthritis changes. RL: 1105 Narrative Performed At HISTORY: history of gout bilateral foot pain PACS/VR/DOSE COMPARISON: None. FINDINGS: 3 views of the bilateral feet demonstrate normal align ment. No fracture, foreign body, or focal osseous lesion is identified. Inflammatory changes seen. Procedure Note [facility], Radiant Results Inft User - 2019 11:52 AM MEDICAL ADMINISTRATIVE TECHNICIAN HISTORY: history of gout bilateral foot pain COMPARISON: None. FINDINGS: 3 views of the bilateral feet demonstrat e normal alignment. No fracture, foreign body, or focal osseous lesion is identified. Inflammatory changes seen. IMPRESSION 1. No inflammatory arthritis changes. RL: 1105 Performing Organization Address City/State/[employer] Phone Number PACS/VR/DOSE documented in this encounter Visit Diagnoses Diagnosis Polyarthralgia Pain in joint, multiple sites documented in this encounter Insurance Payer Benefit Plan / Subscriber ID Effective Phone Address T [facility] Group Dates CIGNA CIGNA II [id number] 2019-Prese HMO /PPO/POS nt MEDICARE MEDICARE PART [id number] 2020-Travis [phone] [place] [employer] [place] Medicare A & B nt [id number] [place] [id number] [phone] (Work) documented as of this encounter
--- OUTSIDE RECORDS SUMMARY | 2020-12-02 21:20 | XMS REPORT | Summary of Care ---
:1975 Author Organization [facility] Address [address] [place] [address] Care Team Providers Name Role Phone Pcp, Does Not Have A Unavailable Meliza Pablo MD Primary Care Provider Rakel Johnson DO Rn Cardiac Rehab Reason for Referral Radiology Services (Routine) Status Reason Specialty Diagnoses / Referred By Referred To Procedures Contact Contact New Request Diagnostic Diagnoses Encounter for screening mammogram for malignant neoplasm of breast Samy, Radiology Procedures BI SCREENING MAMMOGRAM BILATERAL Kana Haider MD [address] [place] [address] [place] [address] Reason for Visit Reason Comments Orders Refill Request Encounter Details Date Type Department Care Team Description 10/22/2020 Telephone [facility] Family Kana Pablo O rders; Refill Request Medicine - James CLARK [address] [place] [address] [place] [phone] Allergies Active Allergy Reactions Severity Noted Date Comments Insect Venom Anaphylaxis 09/02/2020 ALLERGIC TO ANT BITES documented as of this encounter (statuses as of 10/25/2020) Medications Medication Sig Dispensed Refills Start Date End Date Status TRESIBA FLEXTOUCH 0 06/23/2020 A ctive U-100 100 unit/mL (3 mL) InPn HUMALOG KWIKPEN 0 08/18/2020 Act nathan INSULIN 100 unit/mL injection amLODIPine 10 mg Take 10 mg 0 Ac tive tablet by mouth. rosuvastatin 10 mg 1 tablet 0 A ctive tablet pregabalin 75 mg TK 1 C PO D 0 08/18/2020 Active capsule esomeprazole Take by 0 Active magnesium (NEXIUM mouth. ORAL) MINOCYCLINE 100 mg Take 1 180 capsule 1 09/13/2020 12/12/19 2 Active capsuleIndications capsule by 1 : Hidradenitis mouth every suppurativa 12 (twelve) hours for 90 days. METOPROLOL TAKE 1 30 tablet 5 10/08/2020 Active SUCCINATE XL 50 mg TABLET BY 24 hr MOUTH EVERY tabletIndications: DAY Essential hypertension ALLOPURINOL 100 mg TAKE 1 30 tablet 5 10/08/2020 Active tabletIndications: TABLET BY Hyperuricemia MOUTH EVERY DAY loratadine 10 mg Take 1 15 tablet 5 10/24/2020 Ac tive tabletIndications: tablet by Chronic allergic mouth every rhinitis other day. fluticasone Use 2 Sprays 16 g 5 10/24/2020 Acti ve propionate 50 in each mcg/actuation nostril nasal daily. sprayIndications: Chronic allergic rhinitis fluticasone Use 2 Sprays 16 g 0 09/02/2020 Disc ontinued propionate 50 in each 0 (Reord er) mcg/actuation nostril nasal daily. sprayIndications: Viral URI loratadine 10 mg Take 1 15 tablet 0 09/02/2020 Di scontinued tabletIndications: tablet by 0 ( Reorder) Viral URI mouth every other day. documented as of this encounter (statuses as of 10/25/2020) Active Problems Problem Noted Date Chronic allergic rhinitis 10/24/2020 Positive anti-CCP test 07/02/2020 Troponin I above reference range 04/27/2020 Other chest pain 04/26/2020 Stage 5 chronic kidney disease not on chronic dialysis 04/25/2020 Snores 04/25/2020 Anemia 04/25/2020 History of acute congestive heart failure 04/24/2020 Fatty liver 12/17/2019 Elevated alkaline phosphatase level 12/07/2019 Hidradenitis 07/28/2019 Overview: Added automatically from request for bobby clinton [id number] Arthritis, multiple joint involvement 03/06/2019 Hyperuricemia 03/06/2019 Abscess of axilla, right 01/16/2019 Overview: Added automatically from request for bobby clinton [id number] Abscess, groin 01/16/2019 Overview: Added automatically from request for bobby clinton [id number] Vision loss, left eye 09/17/2018 Multiple sweat gland abscesses 07/01/2018 Hidradenitis suppurativa 07/01/2018 HTN (hypertension) 07/01/2018 Type 2 diabetes mellitus with hyperglycemia, with long -term current use of 07/01/2018 insulin Hyperlipidemia 07/01/2018 Hypomagnesemia 07/01/2018 Obesity (BMI 30-39.9) 01/03/2017 Renal failure 01/03/2017 ESRD on dialysis documented as of this encounter (statuses as of 10/25/2020) Resolved Problems Problem Noted Date Resolved Date CKD (chronic kidney disease) 07/01/2018 05/23/2020 Infected pilonidal cyst 07/01/2018 10/22/2018 Hyponatremia 07/01/2018 10/22/2018 documented as of this encounter (statuses as of 10/25/2020) Immunizations Name Administration Dates Next Due Influenza [...] with No / Unsure 10/01/2020 10:22 AM REAL ESTATE BRANCH MANAGER someone who was confirmed or suspected to have Coronavirus / COVID-19? documented as of this encounter Last Filed Vital Signs Not on filedocumented in this encounter Miscellaneous Notes Telephone Encounter - Kana Pablo MD - 10/24/2020 9:24 PM CSTMeds sent to pharmacy and mammo order has been entered. elephone Encounter - Micki Sharp MA - 10/22/2020 3:32 PM CST10/22/20 3:32 PM Routing to correct clinic Micki Sharp MA 10/22/2020 3:32 PM elephone Encounter - Stan Gardner - 10/22/2020 2:22 PM CSTPatient needs an order for a mammogram. She also need refill for allergy medicine. documented in this encounter Plan of Treatment Date Type Specialty Care Team Description 10/27/2020 Office Visit Endocrinology Diabetes & Maik Lacy MD [address] [id number] 11/17/2020 Appointment Radiology Marcus Pablo MD [address] [place] [phone] 12/20/2020 Office Visit Infectious Disease Karen Diggs MD [address] [place] [phone] Name Type Priority Associated Diagnoses Order S chedule BI SCREENING MAMMOGRAM IMAGING Routine Encounter for scre ening Expected: 10/24/2020, BILATERAL mammogram for malignant Expi res: 10/24/2021 neoplasm of breast Health Maintenance Due Date Last Done Comments [...] of this encounter Implants Implanted Type Area Life Sciences Director Device Shelf Model / Identifier Expiration Serial / Date Lot Catheter, Hemosplit Hemodialysis 23cm #[id number] - Sn/A Right: Bard 03/18/2021 [id number] / Implanted: Qty: 1 on 04/29/2020 by Faviola Morgan MD at [facility] Chest N/A / [id number] documented as of this encounter Results Not on filedocumented in this encounter Visit Diagnoses Diagnosis Encounter for screening mammogram for ma lignant neoplasm of breast - Primary Other screening mammogram Chronic allergic rhinitis Allergic rhinitis, cause unspecified documented in this encounter Insurance Payer Benefit Plan / Subscriber ID Effective Phone Address T ype Group Dates CIGNA CIGNA II [id number] 2019-Prese HMO /PPO/POS nt MEDICARE MEDICARE PART [id number] 2020-Prese [phone] [place] [place] [place] Medicare A & B nt 82 [id number] [place] [phone] documented as of this encounter
--- OUTSIDE RECORDS SUMMARY | 2020-12-02 21:20 | XMS REPORT | Summary of Care ---
:1975 Author Organization [facility] - [facility] Address [address] [place] [address] Care Team Providers Name Role Phone Pcp, Does Not Have A Unavailable Meliza Pablo MD Primary Care Provider Rakel Johnson DO Field Representative Encounter Details Date Type Department Care Team Description 10/25/2020 Hospital Encounter [facility] Tissue Antigen Lab Sudarshan Randolph, Registration [address] [place] [phone] Allergies Active Allergy Reactions Severity Noted Date Comments Insect Venom Anaphylaxis 09/02/2020 ALLERGIC TO ANT BITES documented as of this encounter (statuses as of 10/28/2020) Medications Medication Sig Dispensed Refills Start Date End Date Status amLODIPine 10 mg Take 10 mg by 0 Active tablet mouth. rosuvastatin 10 mg 1 tablet 0 A ctive tablet pregabalin 75 mg TK 1 C PO D 0 08/18/2020 Active capsule esomeprazole Take by mouth. 0 A ctive magnesium (NEXIUM ORAL) MINOCYCLINE 100 mg Take 1 capsule 180 capsule 1 09/13/2020 Active capsuleIndications: by mouth every Hidradenitis 12 (twelve) suppurativa hours for 90 days. METOPROLOL SUCCINATE TAKE 1 TABLET 30 tablet 5 10/08/2020 Active XL 50 mg 24 hr BY MOUTH EVERY tabletIndications: DAY Essential hypertension ALLOPURINOL 100 mg TAKE 1 TABLET 30 tablet 5 10/08/2020 Active tabletIndications: BY MOUTH EVERY Hyperuricemia DAY loratadine 10 mg Take 1 tablet 15 tablet 5 10/24/2020 Active tabletIndications: by mouth every Chronic allergic other day. rhinitis fluticasone Use 2 Sprays in 16 g 5 10/24/2020 A ctive propionate 50 each nostril mcg/actuation nasal daily. sprayIndications: Chronic allergic rhinitis documented as of this encounter (statuses as of 10/28/2020) Active Problems Problem Noted Date Chronic allergic rhinitis 10/24/2020 Positive anti-CCP test 07/02/2020 Troponin I above reference range 04/27/2020 Other chest pain 04/26/2020 Stage 5 chronic kidney disease not on chronic dialysis 04/25/2020 Snores 04/25/2020 Anemia 04/25/2020 History of acute congestive heart failure 04/24/2020 Fatty liver 12/17/2019 Elevated alkaline phosphatase level 12/07/2019 Hidradenitis 07/28/2019 Overview: Added automatically from request for bobby clinton [id number] Arthritis, multiple joint involvement 03/06/2019 Hyperuricemia 03/06/2019 Abscess of axilla, right 01/16/2019 Overview: Added automatically from request for bobby carlosy [id number] Abscess, groin 01/16/2019 Overview: Added automatically from request for bobby mary beth [id number] Vision loss, left eye 09/17/2018 Multiple sweat gland abscesses 07/01/2018 Hidradenitis suppurativa 07/01/2018 HTN (hypertension) 07/01/2018 Type 2 diabetes mellitus with hyperglycemia, with long -term current use of 07/01/2018 insulin Hyperlipidemia 07/01/2018 Hypomagnesemia 07/01/2018 Obesity (BMI 30-39.9) 01/03/2017 Renal failure 01/03/2017 ESRD on dialysis documented as of this encounter (statuses as of 10/28/2020) Resolved Problems Problem Noted Date Resolved Date CKD (chronic kidney disease) 07/01/2018 05/23/2020 Infected pilonidal cyst 07/01/2018 10/22/2018 Hyponatremia 07/01/2018 10/22/2018 documented as of this encounter (statuses as of 10/28/2020) Immunizations Name Administration Dates Next Due Influenza [...] been in contact with No / Unsure 10/25/2020 12:14 PM DIRECTOR ASSET someone who was confirmed or suspected to have Coronavirus / COVID-19? documented as of this encounter Last Filed Vital Signs Not on filedocumented in this encounter Plan of Treatment Date Type Specialty Care Team Description 11/17/2020 Appointment Radiology Marcus Pablo MD [address] [place], [place] [phone] 12/20/2020 Office Visit Infectious Disease Karen Diggs MD [address] [place] [phone] 02/16/2021 Office Visit Endocrinology Diabetes & Maik Lacy MD [address] [phone] Health Maintenance Due Date Last Done Comments [...] of this encounter Implants Implanted Type Area Surface Mount Technology Operator Device Shelf Model / Identifier Expiration Serial / Date Lot Catheter, Hemosplit Hemodialysis 23cm #[id number] - Sn/A Right: Bard 03/18/2021 [id number] / Implanted: Qty: 1 on 04/29/2020 by Faviola Morgan MD at [facility] Chest N/A / [id number] documented as of this encounter Results Not on filedocumented in this encounter Insurance Payer Benefit Plan / Subscriber ID Effective Phone Address T ype Group Dates CIGNA CIGNA II [id number] 2019-Prese HMO /PPO/POS nt MEDICARE MEDICARE PART [id number] 2020-Prese [phone] [employer] Medicare A & B nt 82 [id number] [place] [phone] [id number] (Work) documented as of this encounter
--- OUTSIDE RECORDS SUMMARY | 2020-12-02 21:20 | XMS REPORT | Summary of Care ---
:1975 Author Organization [facility] Address [address] [place] [address] Care Team Providers Name Role Phone Pcp, Does Not Have A Unavailable Meliza Pablo MD Primary Care Provider Rakel Johnson DO Fax Machine Repairer Reason for Visit Reason Comments Intake Referral Encounter Details Date Type Department Care Team Description 09/01/2020 Telephone [facility] Transplant- Arlen Randolph, Intake Referral [facility] [address] [place] [address] Entrance B [phone] [place], [place] [phone] Allergies Active Allergy Reactions Severity Noted Date Comments Insect Venom Anaphylaxis 09/02/2020 ALLERGIC TO ANT BITES documented as of this encounter (statuses as of 10/25/2020) Medications Medication Sig Dispensed Refills Start End Date Status Date TRESIBA FLEXTOUCH 0 Ac tive U-100 [...] Take by 0 Active (NEXIUM ORAL) mouth. ciprofloxacin HCl 500 Take 1 tablet 20 tablet 0 09/19 3/20 Discontinued mg tabletIndications: by mouth 2 0 20 Hydradenitis, Abscess (two) times daily. clindamycin 1 % Apply to 60 mL 0 09/10/20 Expi red lotionIndications: area(s) 2 0 20 Hydradenitis, Abscess (two) times daily for 20 days. allopurinoL 100 mg Take 100 mg by 0 Discontinued tablet mouth. 20 metoprolol succinate TK 1 T PO D 0 0 Discontinued XL 50 mg 24 hr tablet 0 20 cefadroxil 500 mg Take 1 capsule 10 capsule 0 capsuleIndications: by mouth every 0 20 Abscess of multiple 36 sites (thirty-six) hours for 10 doses. methylPREDNISolone Take by mouth 21 Each 0 Discontinued (MEDROL, LASHAWN,) 4 mg SEE-INSTRUCTIO 0 20 tabletsIndications: NS. follow Insect bite, package unspecified site, directions initial encounter documented as of this encounter (statuses as [...] Added automatically from request for bobby clinton [id number] Arthritis, multiple joint involvement 03/06/2019 Hyperuricemia 03/06/2019 Abscess of axilla, right 01/16/2019 Overview: Added automatically from request for bobby clinton [id number] Abscess, groin 01/16/2019 Overview: Added automatically from request for bobby clinton [id number] Vision loss, left eye 09/17/2018 Multiple sweat [...] with No / Unsure 10/25/2020 12:14 PM REFERENCE ASSISTANT someone who was confirmed or suspected to have Coronavirus / COVID-19? documented as of this encounter Last Filed Vital Signs Not on filedocumented in this encounter Miscellaneous Notes Telephone Encounter - Maria Elena Jackson - 10/25/2020 4:04 PM CSTNON- CONTRACTED//REDIRECTED//LETTER SENT elephone Encounter - Maria Elena Jackson - 09/01/2020 2:19 PM CDTSubmitted for Financial Clearance Referral received via: Phone How did the patient hear about our program: HIM TECH Which organ are you referring the patient for transplant or liver surgery? Kidney Does the patient have HIV/AIDS: no Does the patient have cancer: no Does the patient have any potential living donors: yes Is the patient listed for transplant at this time: yes, when and where [facility] Has the patient had a previous transplant (s): no What caused the patients' disease? Diagnosis: Diabetes Does the patient have diabetes: If yes, when were you diagnosed? Adult, 25 yrs old Does the patient use assistive devices: No Does the patient have any special needs? Oxygen? no Patient Height: 5'6" Patient Weight: 217 lbs Referring MD: Artur Johnson Specialty: Fax Machine Repairer (Kidney) Care Team Physician spark plug assembler: Kana Pablo Address: [address] [place] [address] Currently on dialysis: yes What type of dialysis: Hemodialysis (HD) Dialysis Center: [facility] Insurance Information: Medicare [id number] Cigna Policy: [id number] Group: [id number] [facility] [phone] signed by Maria Elena Jackson at 09/01/2020 3:14 PM CDT documented in this encounter Plan of Treatment Date Type Specialty Care Team Description 10/27/2020 Office Visit Endocrinology Diabetes & Maik Lacy MD Metabolism [facility] [place], [place] [address] 11/17/2020 Appointment Radiology Marcus Pablo MD [address] [place] [phone] 12/20/2020 Office Visit Infectious Disease Karen Diggs MD [address] [place] [phone] Health Maintenance Due Date Last Done [...] of this encounter Implants Implanted Type Area It Program Manager Device Shelf Model / Identifier Expiration Serial / Date Lot Catheter, Hemosplit Hemodialysis 23cm #[id number] - Sn/A Right: Bard 03/18/2021 [id number] / Implanted: Qty: 1 on 04/29/2020 by Faviola Morgan MD at [facility] Chest N/A / [id number] documented as of this encounter Results Not on filedocumented in this encounter Insurance Payer Benefit Plan / Subscriber ID Effective Phone Address T ype Group Dates CIGNA CIGNA II [id number] 2019-Prese HMO /PPO/POS nt MEDICARE MEDICARE PART [id number] 2020-Prese [phone] [employer] Medicare A & B nt 82 [id number] [place] [id number] documented as of this encounter
--- OUTSIDE RECORDS SUMMARY | 2020-12-02 21:20 | XMS REPORT | Summary of Care ---
:1975 Author Organization [facility] - [facility] Address [address] [place] [address] Care Team Providers Name Role Phone Pcp, Does Not Have A Unavailable Meliza Pablo MD Primary Care Provider Rakel Johnson DO Salvage Inspector Encounter Details Date Type Department Care Team Description 10/25/2020 Letter (Out) [facility] Transplant- [facility] [address] Entrance B [phone] [place] [phone] Allergies Active Allergy Reactions Severity Noted Date [...] automatically from request for bobby mary beth [id number] Arthritis, multiple joint involvement 03/06/2019 Hyperuricemia 03/06/2019 Abscess of axilla, right 01/16/2019 Overview: Added automatically from request for bobby mary beth [id number] Abscess, groin 01/16/2019 Overview: Added automatically from request for bobby mary beth [id number] Vision loss, left eye 09/17/2018 Multiple sweat [...] with No / Unsure 10/01/2020 10:22 AM EMERGENCY ROOM RN someone who was confirmed or suspected to have Coronavirus / COVID-19? documented as of this encounter Last Filed Vital Signs Not on filedocumented in this encounter Plan of Treatment Date Type Specialty Care Team Description 10/27/2020 Office Visit Endocrinology Diabetes & Maik Lacy MD [facility] [address] [place], [place] [address] 12/20/2020 Office Visit Infectious Disease Karen Diggs MD [address] [place] [phone] Health Maintenance Due Date Last Done [...] of this encounter Implants Implanted Type Area Design Eng Device Shelf Model / Identifier Expiration Serial / Date Lot Catheter, Hemosplit Hemodialysis 23cm #[id number] - Sn/A Right: Bard 03/18/2021 [id number] / Implanted: Qty: 1 on 04/29/2020 by Faviola Morgan MD at [facility] Chest N/A / [id number] documented as of this encounter Results Not on filedocumented in this encounter Insurance Payer Benefit Plan / Subscriber ID Effective Phone Address T ype Group Dates CIGNA CIGNA II [id number] 2019-Prese HMO /PPO/POS nt MEDICARE MEDICARE PART [id number] 2020-Prese [phone] [employer] Medicare A & B nt 82 [id number] [place] [phone] documented as of this encounter
--- OUTSIDE RECORDS SUMMARY | 2020-12-02 21:20 | XMS REPORT | Summary of Care ---
:1975 Author Organization [facility] Address [address] [place] [address] Care Team Providers Name Role Phone Pcp, Does Not Have A Unavailable Meliza Pablo MD Primary Care Provider Rakel Johnson DO Risk Control Director Reason for Referral Radiology Services (Routine) Status Reason Specialty Diagnoses / Referred By Referred To Procedures Contact Contact New Request Diagnostic Diagnoses Encounter for screening mammogram for malignant neoplasm of breast Samy, Radiology Procedures BI SCREENING MAMMOGRAM BILATERAL Kaan Haider MD [address] [place] [address] [place] [address] Reason for Visit Reason Comments Orders Refill Request Encounter Details Date Type Department Care Team Description 10/22/2020 Telephone [facility] Family Kana Pablo O rders; Refill Request Medicine - James CLARK [address] [place] [address] [place] [phone] Allergies Active Allergy Reactions Severity Noted Date Comments Insect Venom Anaphylaxis 09/02/2020 ALLERGIC TO ANT BITES documented as of this encounter (statuses as of 10/24/2020) Medications Medication Sig Dispensed Refills Start Date [...] as of this encounter (statuses as of 10/24/2020) Active Problems Problem Noted Date Chronic allergic rhinitis 10/24/2020 Positive anti-CCP test 07/02/2020 Troponin I above reference range 04/27/2020 Other chest pain 04/26/2020 Stage 5 chronic kidney disease not on chronic dialysis 04/25/2020 Snores 04/25/2020 Anemia 04/25/2020 History of acute congestive heart failure 04/24/2020 Fatty liver 12/17/2019 Elevated alkaline phosphatase level 12/07/2019 Hidradenitis 07/28/2019 Overview: Added automatically from request for bobby clinton [id number] Arthritis, multiple joint involvement 03/06/2019 Hyperuricemia 03/06/2019 Abscess of axilla, right 01/16/2019 Overview: Added automatically from request for bobby clinton [id number] Abscess, groin 01/16/2019 Overview: Added automatically from request for bobby clinton [id number] Vision loss, left eye 09/17/2018 Multiple sweat gland abscesses 07/01/2018 Hidradenitis suppurativa 07/01/2018 HTN (hypertension) 07/01/2018 Type 2 diabetes mellitus with hyperglycemia, with long -term current use of 07/01/2018 insulin Hyperlipidemia 07/01/2018 Hypomagnesemia 07/01/2018 Obesity (BMI 30-39.9) 01/03/2017 Renal failure 01/03/2017 ESRD on dialysis documented as of this encounter (statuses as of 10/24/2020) Resolved Problems Problem Noted Date Resolved Date CKD (chronic kidney disease) 07/01/2018 05/23/2020 Infected pilonidal cyst 07/01/2018 10/22/2018 Hyponatremia 07/01/2018 10/22/2018 documented as of this encounter (statuses as of 10/24/2020) Immunizations Name Administration Dates Next Due Influenza [...] with No / Unsure 10/01/2020 10:22 AM CURATOR ZOOLOGICAL MUSEUM someone who was confirmed or suspected to [...] Description 10/27/2020 Office Visit Endocrinology Diabetes & Lacy, Maik fonseca MD [address] [phone] 12/20/2020 Office Visit Infectious Disease Karen Diggs MD [address] [place] [phone] Name Type Priority Associated Diagnoses Order [...] of this encounter Implants Implanted Type Area Manager Merchandise Device Shelf Model / Identifier Expiration Serial / Date Lot Catheter, Hemosplit Hemodialysis 23cm #[id number] - Sn/A Right: Bard 03/18/2021 [id number] / Implanted: Qty: 1 on 04/29/2020 by Faviola Morgan MD at [facility] Chest N/A / [id number] documented as of this encounter Results Not on filedocumented in this encounter Visit Diagnoses Diagnosis Encounter for screening mammogram for ma lignant neoplasm of breast - Primary Other screening mammogram Chronic allergic rhinitis Allergic rhinitis, cause unspecified documented in this encounter Insurance Payer Benefit Plan / Subscriber ID Effective Phone Address T ype Group Dates CIGNA CIGNA II [id number] 2019-Prese HMO /PPO/POS nt MEDICARE MEDICARE PART [id number] 2020-Prese [phone] [employer] Medicare A & B nt 82 [id number] [place] [phone] documented as of this encounter
--- OUTSIDE RECORDS SUMMARY | 2020-12-02 21:21 | XMS REPORT | Summary of Care ---
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 rosuvastatin 10 mg 1 tablet 0 A ctive tablet pregabalin 75 mg TK 1 C PO D 0 08/18/2020 Active capsule esomeprazole Take by 0 Active magnesium (NEXIUM mouth. ORAL) MINOCYCLINE 100 mg Take 1 180 capsule 1 09/13/2020 12/12/19 Active capsuleIndications: capsule by 21 Hidradenitis mouth every suppurativa 12 (twelve) hours [...] in each mcg/actuation nasal nostril sprayIndications: daily. Chronic allergic rhinitis insulin degludec inject 36 36 mL 2 10/27/2020 Ac tive (TRESIBA FLEXTOUCH Units under U-100) 100 unit/mL the skin (3 mL) daily. InPnIndications: Type 2 diabetes mellitus with renal manifestations not at goal insulin lispro inject 4-7 24 mL 2 10/27/2020 Act nathan (HUMALOG KWIKPEN Units under INSULIN) 100 the skin 3 unit/mL pen (three) injectorIndications times daily : Type 2 diabetes before mellitus with renal meals. manifestations not at goal TRESIBA FLEXTOUCH 0 06/23/2020 10/27/20 D iscontinued U-100 100 unit/mL 20 (R eorder) (3 mL) InPn HUMALOG KWIKPEN 0 08/18/2020 10/27/20 Dis continued INSULIN 100 unit/mL 20 (Reorder) injection documented as of this encounter (statuses as of 11/22/2020) Active Problems Problem Noted Date Chronic allergic rhinitis 10/24/2020 Positive anti-CCP test 07/02/2020 Troponin I above reference range 04/27/2020 Other chest pain 04/26/2020 Stage 5 chronic kidney disease not on chronic dialysis 04/25/2020 Snores 04/25/2020 Anemia 04/25/2020 History of acute congestive heart failure 04/24/2020 Fatty liver 12/17/2019 Elevated alkaline phosphatase level 12/07/2019 Hidradenitis 07/28/2019 Overview: Added automatically from request for bobby clinton [id number] Arthritis, multiple joint involvement 03/06/2019 Hyperuricemia 03/06/2019 Abscess of axilla, right 01/16/2019 Overview: Added automatically from request for bobby clinton [id number] Abscess, groin 01/16/2019 Overview: Added automatically from request for bobby clinton [id number] Vision loss, left eye 09/17/2018 Multiple sweat gland abscesses 07/01/2018 Hidradenitis suppurativa 07/01/2018 HTN (hypertension) 07/01/2018 Type 2 diabetes mellitus with hyperglycemia, with long -term current use of 07/01/2018 insulin Hyperlipidemia 07/01/2018 Hypomagnesemia 07/01/2018 Obesity (BMI 30-39.9) 01/03/2017 Renal failure 01/03/2017 ESRD on dialysis documented as of this encounter (statuses as of 11/22/2020) Resolved Problems Problem Noted Date Resolved Date CKD (chronic kidney disease) 07/01/2018 05/23/2020 Infected pilonidal cyst 07/01/2018 10/22/2018 Hyponatremia 07/01/2018 10/22/2018 documented as of this encounter (statuses as of 11/22/2020) Immunizations Name Administration Dates Next Due Influenza [...] been in contact with No / Unsure 11/17/2020 11:02 AM NEUROSURGICAL NURSE someone who was confirmed or suspected to have Coronavirus / COVID-19? documented as of this encounter Last Filed Vital Signs Vital Sign Reading Time Taken Comments Blood Pressure 173/93 10/27/2020 9:19 AM NEUROSURGICAL NURSE Pulse 102 10/27/2020 9:19 AM NEUROSURGICAL NURSE Temperature - - Respiratory Rate - - Oxygen Saturation 100% 10/27/2020 9:19 AM NEUROSURGICAL NURSE Inhaled Oxygen Concentration - - Weight 102.1 kg (225 lb) 10/27/2020 9:19 AM NEUROSURGICAL NURSE Height 167.6 cm (5' 6") 10/27/2020 9:19 AM NEUROSURGICAL NURSE Body Mass Index 36.32 10/27/2020 9:19 AM NEUROSURGICAL NURSE documented in this encounter Patient Instructions Patient InstructionsJudit Lacy MD - 10/27/2020 9:00 AM CSTreduceTresiba to 36units daily on you non dialysis day And 20 units daily on your dialysis day reduce Humalog to Sliding Scale Insulin with meal Blood glucose less than 100 give 0units. Blood glucose 101 - 150 give 3 units. Blood glucose 151 - 200 give 4 units.. Blood glucose greater than 200 give 6 units. Do not Humalog at bedtime OSURGICAL NURSE documented in this encounter Progress Notes Judit Lacy MD - 10/27/2020 9:00 AM CST chief complaint: Type 2 diabetes mellitus- follow up HPI Patient is a 45 year old Black or female who is here today for Diabetes Mellitus Type 2. Patient's diabetes is complicated by atherogenic diet, hyperlipidemia, hypertension , nephropathy: with chronic kidney disease stage 5,started in HD [facility] on 04/30/20, sedentary lifestyle and multiple skin abscesses which she had multiple admission for I and D or flare of infection. Most recent admission in 08/2020 Type 2 diabetes mellitus: Diagnosed in late 20's after gestational diabetes Last visit was in 06/2020 with A1c at 7.5 . Patient was advised to continueTresibato 44units daily and titrate.down if needed Also continueHumalog to SSIwith full meal( Eats 1-2 meals daily). Reports semicompliance with medication. However, she has been taking Humalog 3units with smal meal and 6 u with bigger meal only instead of SSI. She is compliant with Tresiba 40 units daily Glucose readings:not checking regularly. Checks only when she on HD, AM fasting 96-120s but this week she had 40-50s in morning since starting a low carbs diet 2 weeks ago patient is better compliant with low carbs diet as above. She is unable to exercise due to leg pain. ESRD: on HD Neuropathy: Takes [id number] mg daily Dyslipidemia: on [id number] DIABETIC HEALTH MAINTENANCE Last Ophthalmology visit was09/2020, Left eye surgery Patient on SHERRY/ARB therapy - No Patient on ASA therapy - Yes. Patient on Statin/Fibrate therapy - Yes. Patient received Flu shot this season - Yes Patient instructed about daily feet exams, last sensation exam was 11/2019 Patient has received Nutrition/Diet/Diabetes Education on today and referred. Patient's Medications START taking these medications No medications on file CONTINUE taking these medications which have NOT CHANGED ALLOPURINOL 100 MG TABLET TAKE 1 TABLET BY MOUTH EVERY DAY AMLODIPINE 10 MG TABLET Take 10 mg by mouth. ESOMEPRAZOLE MAGNESIUM (NEXIUM ORAL) Take by mouth. FLUTICASONE PROPIONATE 50 MCG/ACTUATION NASAL SPRAY Use 2 Sprays in each nostril daily. HUMALOG KWIKPEN INSULIN 100 UNIT/ML INJECTION LORATADINE 10 MG TABLET Take 1 tablet by mouth every other day. METOPROLOL SUCCINATE XL 50 MG 24 HR TABLET TAKE 1 TABLET BY MOUTH EVERY DAY MINOCYCLINE 100 MG CAPSULE Take 1 capsule by mouth every 12 (twelve) hours for 90 days. PREGABALIN 75 MG CAPSULE TK 1 C PO D ROSUVASTATIN 10 MG TABLET 1 tablet TRESIBA FLEXTOUCH U-100 100 UNIT/ML (3 ML) INPN START taking Modified Medications as Prescribed No medications on file STOP taking these medications No medications on file HISTORY Past Medical History: Diagnosis Date Arthritis, multiple joint involvement 03/06/2019 Chronic allergic rhinitis 10/24/2020 CKD (chronic kidney disease), stage V Diabetes Diastolic congestive heart failure Elevated alkaline phosphatase level 12/07/2019 ESRD on dialysis Fatty liver 12/17/2019 Hidradenitis suppurativa Hyperlipemia Hypertension Hyperuricemia 03/06/2019 Hypomagnesemia 07/01/2018 Positive anti-CCP test 07/02/2020 Vision loss, left eye 09/17/2018 Past Surgical History: Procedure Laterality Date ARTERIOVENOUS FISTULA CREATION Left 08/04/2020 Surgeon: Shahzad Collado MD; Location: [facility] OR Location CENTRAL VENOUS ACCESS CATHETER PLACEMENT Left 04/29/2020 Surgeon: Faviola Hernandez MD; Location: [facility] OR [facility] HYDRADENTITIS EXCISION Left 08/08/2019 Surgeon: All Emerson MD; Location: [facility] OR [facility] HYSTERECTOMY INCISION AND DRAINAGE OF ABSCESS Bilateral 01/20/2019 Surgeon: All Emerson MD; Location: [facility] INCISION AND DRAINAGE OF ABSCESS N/A 02/03/2020 Surgeon: Faviola Hernandez MD; Location: [facility] Family History Problem Relation Age of Onset [...] file Gets together: Not on file Attends religion service: Not on file Active member of [...] Social History Narrative She works as a [employer]. She is . REVIEW OF SYSTEMS Constitutional: + weight gain Eyes: + left blurry vision Nose/Sinuses: Denies congestion Mouth/Throat: denies dysphagia and denies hoarseness. Cardiovascular: denies chest pain and denies palpitations. Respiratory: denies chest congestion and denies shortness of breath. Gastrointestinal: denies abdominal pain, denies constipation, denies diarrhea and denies nausea. Genitourinary: denies dysuria. Skin: S/p surgery for Hidradenitis suppurativa Neuro: denies numbness or pain in feet Endocrine: Denies intolerance to cold or heat PHYSICAL EXAM POCT GLU (mg/dL) Date Value 08/04/2020 83 CREATININE (mg/dL) Date Value 08/04/2020 7.60 (H) CHOL (mg/dL) Date Value 12/01/2019 220 (H) HDL (mg/dL) Date Value 12/01/2019 35 (L) LDL CHOL (mg/dL) Date Value 12/01/2019 132 TRIG (mg/dL) Date Value 12/01/2019 264 (H) MICROAL/CR (ug/mmol creatinine) Date Value 03/21/2019 615,431 (H) POCT HBA1C (%) Date Value 10/27/2020 7.1 (A) 12/03/2019 9.4 (A) HGB A1C (% NGSP) Date Value 04/25/2020 8.2 (H) BP (!) 173/93 (BP Location: Right arm, Patient Position: Sitting, BP CUFF SIZE: Adult Medium) | Pulse 102 | Ht 5' 6" (1.676 m) | Wt 225 lb (102.1 kg) | SpO2 100% | BMI 36.32 kg/m General: alert, oriented times three, no apparent distress, appearing age appropriate. Skin: skin color and turgor are normal Head: normocephalic, no masses, lesions, tenderness or abnormalities. Eyes: anicteric sclera Neck: +acanthosis nigricans + right carotid bruit Thyroid: normal size and consistency to palaption Lungs: good diaphragmatic excursion, lungs clear to auscultation bilaterally. Heart: regular rate and rhythm, no murmurs, gallops or rubs. Abdomen: abdomen soft, Neuro: unremarkable without focal findings. Extremities/Musculoskeletal: no cyanosis, trace edema . Sensory exam of the foot is abnormal. Monofilament exam with sensation Right: 5/5, Left: 4/5. Lesions absent Ulcers Absent Peripheral pulses present 2+. ASSESSMENT/Plan 1. Type 2 diabetes mellitus with renal manifestations not at goal -A1C (target=6-7%): 7.9(06/06) i-->9.4(12/08)--8.6(02/05) -->7.5(06/07)-->7.1(11/07) -glucose range:not checling -concern risk for hypoglycemia 2/2 noncompliance with insulin SSI -complication: +neuropathy +retinopathy +nephropathy -medication limitation: metformin cause GI symptoms -diet:better compliant -exercise: limited by foot pain Plan -reinterated to check glucose BID alternating fasting and 2 hours post meals -urged compliance with diet/exercise - POCT HEMOGLOBIN A1C TEST - insulin degludec (TRESIBA FLEXTOUCH U-100) 100 unit/mL (3 mL) InPn; inject 36 Units under the skindaily. Dispense: 36 mL; Refill: 2 - insulin lispro (HUMALOG KWIKPEN INSULIN) 100 unit/mL pen injector; inject 4-7 Units under the skin3 (three) times daily before meals. Dispense: 24 mL; Refill: 2 Patient Instructions reduceTresiba to 36units daily on you non dialysis day And 20 units daily on your dialysis day reduce Humalog to Sliding Scale Insulin with meal Blood glucose less than 100 give 0units. Blood glucose 101 - 150 give 3 units. Blood glucose 151 - 200 give 4 units.. Blood glucose greater than 200 give 6 units. Do not Humalog at bedtime 2. Neuropathy Comment: takes gabapentin 100 mmg daily 3. Dyslipidemia Comment: lipid was at goal plan continueCrestor 5mg daily documented in this encounter Plan of Treatment Date Type Specialty Care Team Description 12/20/2020 Office Visit Infectious Disease Karen Diggs MD [address] [place] [phone] 02/16/2021 Office Visit Endocrinology Diabetes & Maik Lacy MD Metabolism [address] [place], [place] [address] Health Maintenance Due Date Last Done Comments PNEUMOCOCCAL 0-64 YEARS 1980 COMBINED SERIES (1 of 3 - PCV13) DTaP,Tdap,and Td Vaccines 1993 (1 - Tdap) PAP SMEAR 1995 LDL-C 12/01/2020 12/01/2019, 07/17/2019, 12/18/2018, Additional history exists FOOT EXAM 12/03/2020 12/03/2019, 12/03/2019, 04/18/2019, Additional history exists HgA1C 04/27/2021 10/27/2020, 04/25/2020, 02/01/2020, Additional history exists EYE EXAM 05/06/2021 05/06/2020, 09/17/2019 INFLUENZA VACCINE (#1) 2021 02/06/2020, 10/23/2018 Po stponed from 07/20/2020 (Refu sed) CREATININE (SERUM) 08/04/2021 08/04/2020, 08/02/2020, 05/01/2020, Additional history exists Depression Screening 08/04/2021 08/04/2020 Breast Cancer Screening 11/17/2021 11/17/2020 (MAMMOGRAM) Colorectal Cancer Screening 2024 documented as of this encounter Implants Implanted Type Area Box Office Attendant Device Shelf Model / Identifier Expiration Serial / Date Lot Catheter, Hemosplit Hemodialysis 23cm #[id number] - Sn/A Right: Bard 03/18/2021 [id number] / Implanted: Qty: 1 on 04/29/2020 by Faviola Morgan MD at [facility] Chest N/A / [id number] documented as of this encounter Procedures Procedure Name Priority Date/Time Associated Diagnosis Comme nts POCT HEMOGLOBIN A1C Routine 10/27/2020 9:19 Type 2 diabetes R esults for this TEST AM NEUROSURGICAL NURSE mellitus with renal procedur e are in manifestations not at the re sults goal section. 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 [place] Medicare A & B nt 82 [id number] [place] [id number] [phone] [id number] (Work) documented as of this encounter
--- OUTSIDE RECORDS SUMMARY | 2020-12-02 21:21 | XMS REPORT | Summary of Care ---
:1975 Author Organization [facility] Address [address] [place] [address] Care Team Providers Name Role Phone Pcp, Does Not Have A Unavailable Meliza Pablo MD Primary Care Provider Rakel Johnson DO Diabetes Physician Reason for Referral Radiology Services (Routine) Status Reason Specialty Diagnoses / Referred By Referred To Procedures Contact Contact New Request Diagnostic Diagnoses Abnormal screening mammogram Samy, Radiology Procedures BI ULTRASOUND BREAST COMPLETE BILATERAL Kana Haider MD [address] [place] [address] [place] [address] Radiology Services (Routine) Status Reason Specialty Diagnoses / Referred By Referred To Procedures Contact Contact New Request Diagnostic Diagnoses Abnormal screening mammogram Samy, Radiology Procedures BI DIAGNOSTIC TOMOSYNTHESIS BILATERAL Kana Haider MD [address] [place] [address] [place] [address] Reason for Visit Reason Comments Orders Encounter Details Date Type Department Care Team Description 11/25/2020 Case Management [facility] Kana Pablo Orders Medicine - James CLARK [address] [place] [address] Dr evans [address] [place] [address] [place] [address] [place] [phone] Allergies Active Allergy Reactions Severity Noted Date Comments Insect Venom Anaphylaxis 09/02/2020 ALLERGIC TO ANT BITES documented as of this encounter (statuses as of 11/25/2020) Medications Medication Sig Dispensed Refills Start Date End Date Status amLODIPine 10 mg Take 10 mg by 0 Active tablet mouth. rosuvastatin 10 mg 1 tablet 0 A ctive tablet pregabalin 75 mg TK 1 C PO D 0 08/18/2020 Active capsule esomeprazole magnesium Take by 0 Active (NEXIUM ORAL) mouth. MINOCYCLINE 100 mg Take 1 capsule 180 [...] every Chronic allergic other day. rhinitis fluticasone propionate Use 2 Sprays 16 g 5 10/24/2020 Active 50 mcg/actuation nasal in each sprayIndications: nostril daily. Chronic allergic rhinitis insulin degludec inject 36 36 mL 2 10/27/2020 Ac tive (TRESIBA FLEXTOUCH Units under U-100) 100 unit/mL (3 the skin mL) InPnIndications: daily. Type 2 diabetes mellitus with renal manifestations not at goal insulin lispro inject 4-7 24 mL 2 10/27/2020 Act nathan (HUMALOG KWIKPEN Units under INSULIN) 100 unit/mL the skin 3 pen (three) times injectorIndications: daily before Type 2 diabetes meals. mellitus with renal manifestations not at goal documented as of this encounter (statuses as of 11/25/2020) Active Problems Problem Noted Date Chronic allergic rhinitis 10/24/2020 Positive anti-CCP test 07/02/2020 Troponin I above reference range 04/27/2020 Other chest pain 04/26/2020 Stage 5 chronic kidney disease not on chronic dialysis 04/25/2020 Snores 04/25/2020 Anemia 04/25/2020 History of acute congestive heart failure 04/24/2020 Fatty liver 12/17/2019 Elevated alkaline phosphatase level 12/07/2019 Hidradenitis 07/28/2019 Overview: Added automatically from request for bobby clinton [id number] Arthritis, multiple joint involvement 03/06/2019 Hyperuricemia 03/06/2019 Abscess of axilla, right 01/16/2019 Overview: Added automatically from request for bobby clinton [id number] Abscess, groin 01/16/2019 Overview: Added automatically from request for bobby clinton [id number] Vision loss, left eye 09/17/2018 Multiple sweat gland abscesses 07/01/2018 Hidradenitis suppurativa 07/01/2018 HTN (hypertension) 07/01/2018 Type 2 diabetes mellitus with hyperglycemia, with long -term current use of 07/01/2018 insulin Hyperlipidemia 07/01/2018 Hypomagnesemia 07/01/2018 Obesity (BMI 30-39.9) 01/03/2017 Renal failure 01/03/2017 ESRD on dialysis documented as of this encounter (statuses as of 11/25/2020) Resolved Problems Problem Noted Date Resolved Date CKD (chronic kidney disease) 07/01/2018 05/23/2020 Infected pilonidal cyst 07/01/2018 10/22/2018 Hyponatremia 07/01/2018 10/22/2018 documented as of this encounter (statuses as of 11/25/2020) Immunizations Name Administration Dates Next Due Influenza [...] with No / Unsure 11/17/2020 11:02 AM SHAKER FLATWORK someone who was confirmed or suspected to have Coronavirus / COVID-19? documented as of this encounter Last Filed Vital Signs Not on filedocumented in this encounter Plan of Treatment Date Type Specialty Care Team Description 12/20/2020 Office Visit Infectious Disease Karen Diggs MD [address] [place] [address] 02/16/2021 Office Visit Endocrinology Diabetes & Lacy, Maik fonseca MD Metabolism [address] [place] [address] [phone] Name Type Priority Associated Diagnoses Order S chedule BI DIAGNOSTIC IMAGING Routine Abnormal screening Expected : TOMOSYNTHESIS BILATERAL mammogram 05/2021, Expires: 11/25/2021 BI ULTRASOUND BREAST IMAGING Routine Abnormal screening E xpected: COMPLETE BILATERAL mammogram , Expires: 11/25/2021 Health Maintenance Due Date Last Done Comments PNEUMOCOCCAL 0-64 YEARS 1980 COMBINED SERIES (1 of 3 - PCV13) DTaP,Tdap,and Td Vaccines 1993 (1 - Tdap) PAP SMEAR 1995 LDL-C 12/01/2020 12/01/2019, 07/17/2019, 12/18/2018, Additional history exists HgA1C 04/27/2021 10/27/2020, 04/25/2020, 02/01/2020, Additional history exists EYE EXAM 05/06/2021 05/06/2020, 09/17/2019 INFLUENZA VACCINE (#1) 2021 02/06/2020, 10/23/2018 Po stponed from 07/20/2020 (Refu sed) CREATININE (SERUM) 08/04/2021 08/04/2020, 08/02/2020, 05/01/2020, Additional history exists Depression Screening 08/04/2021 08/04/2020 FOOT EXAM 10/27/2021 10/27/2020, 10/27/2020, 12/03/2019, Additional history exists Breast Cancer Screening 11/17/2021 11/17/2020 (MAMMOGRAM) Colorectal Cancer Screening 2024 documented as of this encounter Implants Implanted Type Area Music Education Director Device Shelf Model / Identifier Expiration Serial / Date Lot Catheter, Hemosplit Hemodialysis 23cm #[id number] - Sn/A Right: Bard 03/18/2021 [id number] / Implanted: Qty: 1 on 04/29/2020 by Faviola Morgan MD at [facility] Chest N/A / [id number] documented as of this encounter Results Not on filedocumented in this encounter Visit Diagnoses Diagnosis Abnormal screening mammogram - Primary documented in this encounter Insurance Payer Benefit Plan / Subscriber ID Effective Phone Address T ype Group Dates CIGNA CIGSOLA II [id number] 2019-Prese HMO /PPO/POS nt MEDICARE MEDICARE PART [id number] 2020-Prese [phone] [place] [address] [place] Medicare A & B nt 82 [id number] [place] [phone] documented as of this encounter
--- OUTSIDE RECORDS SUMMARY | 2020-12-02 21:21 | XMS REPORT | Summary of Care ---
:1975 Author Organization [facility] Address [address] [place] [address] Care Team Providers Name Role Phone Pcp, Does Not Have A Unavailable Meliza Pablo MD Primary Care Provider Rakel Johnson DO Civil Engineering Drafter Reason for Visit Reason Comments Refill Request Encounter Details Date Type Department Care Team Description 10/28/2020 Refill [facility] Family Medicine Kana Amaro MD Refill Request - [address] [place] [address] [place] [address] [phone] Allergies Active Allergy Reactions Severity Noted Date Comments Insect Venom Anaphylaxis 09/02/2020 ALLERGIC TO ANT BITES documented as of this encounter (statuses as of 10/29/2020) Medications Medication Sig Dispensed Refills Start Date [...] as of this encounter (statuses as of 10/29/2020) Active Problems Problem Noted Date Chronic allergic rhinitis 10/24/2020 Positive anti-CCP test 07/02/2020 Troponin I above reference range 04/27/2020 Other chest pain 04/26/2020 Stage 5 chronic kidney disease not on chronic dialysis 04/25/2020 Snores 04/25/2020 Anemia 04/25/2020 History of acute congestive heart failure 04/24/2020 Fatty liver 12/17/2019 Elevated alkaline phosphatase level 12/07/2019 Hidradenitis 07/28/2019 Overview: Added automatically from request for bobby mary beth [id number] Arthritis, multiple joint involvement 03/06/2019 Hyperuricemia 03/06/2019 Abscess of axilla, right 01/16/2019 Overview: Added automatically from request for bobby mary beth [id number] Abscess, groin 01/16/2019 Overview: Added automatically from request for bobby mary beth [id number] Vision loss, left eye 09/17/2018 Multiple sweat gland abscesses 07/01/2018 Hidradenitis suppurativa 07/01/2018 HTN (hypertension) 07/01/2018 Type 2 diabetes mellitus with hyperglycemia, with long -term current use of 07/01/2018 insulin Hyperlipidemia 07/01/2018 Hypomagnesemia 07/01/2018 Obesity (BMI 30-39.9) 01/03/2017 Renal failure 01/03/2017 ESRD on dialysis documented as of this encounter (statuses as of 10/29/2020) Resolved Problems Problem Noted Date Resolved Date CKD (chronic kidney disease) 07/01/2018 05/23/2020 Infected pilonidal cyst 07/01/2018 10/22/2018 Hyponatremia 07/01/2018 10/22/2018 documented as of this encounter (statuses as of 10/29/2020) Immunizations Name Administration Dates Next Due Influenza [...] been in contact with No / Unsure 10/27/2020 8:59 AM KELP OR SEAGRASS GATHERER someone who was confirmed or suspected to have Coronavirus / COVID-19? documented as of this encounter Last Filed Vital Signs Not on filedocumented in this encounter Plan of Treatment Date Type Specialty Care Team Description 11/17/2020 Appointment Radiology Marcus Pablo MD [address] [place], [place] [phone] 12/20/2020 Office Visit Infectious Disease Karen Diggs MD [address] [place] [phone] 02/16/2021 Office Visit Endocrinology Diabetes & Maik Lacy MD Metabolism [address] [place] [address] Health Maintenance Due Date Last Done Comments PNEUMOCOCCAL 0-64 YEARS 1980 COMBINED SERIES (1 of 3 - PCV13) DTaP,Tdap,and Td Vaccines 1993 (1 - Tdap) PAP SMEAR 1995 Breast Cancer Screening 2014 (MAMMOGRAM) LDL-C 12/01/2020 12/01/2019, 07/17/2019, 12/18/2018, Additional history [...] of this encounter Implants Implanted Type Area Water Fabricator Operator Device Shelf Model / Identifier Expiration Serial / Date Lot Catheter, Hemosplit Hemodialysis 23cm #[id number] - Sn/A Right: Bard 03/18/2021 [id number] / Implanted: Qty: 1 on 04/29/2020 by Faviola Morgan MD at [facility] Chest N/A / [id number] documented as of this encounter Results Not on filedocumented in this encounter Visit Diagnoses Diagnosis Chronic allergic rhinitis Allergic rhinitis, cause unspecified documented in this encounter Insurance Payer Benefit Plan / Subscriber ID Effective Phone Address T ype Group Dates CIGNA CIGNA II [id number] 2019-Prese HMO /PPO/POS nt MEDICARE MEDICARE PART [id number] 2020-Prese [phone] [place] [place] [place] Medicare A & B nt 82 [id number] [place] [phone] documented as of this encounter
--- OUTSIDE RECORDS SUMMARY | 2020-12-02 21:21 | XMS REPORT | Summary of Care ---
:1975 Author Organization [facility] - Health Address [address] [place] [address] Care Team Providers Name Role Phone Pcp, Does Not Have A Unavailable Meliza Pablo MD Primary Care Provider Rakel Johnson DO Laundry Laborer Encounter Details Date Type Department Care Team Description 11/17/2020 Orders Only [facility] Doctor Unassigned, No [address] [facility] [place] [address] [address] [place] [address] Allergies Active Allergy Reactions Severity Noted Date Comments Insect Venom Anaphylaxis 09/02/2020 ALLERGIC TO ANT BITES documented as of this encounter (statuses as of 11/17/2020) Medications Medication Sig Dispensed Refills Start Date [...] as of this encounter (statuses as of 11/17/2020) Active Problems Problem Noted Date Chronic allergic rhinitis 10/24/2020 Positive anti-CCP test 07/02/2020 Troponin I above reference range 04/27/2020 Other chest pain 04/26/2020 Stage 5 chronic kidney disease not on chronic dialysis 04/25/2020 Snores 04/25/2020 Anemia 04/25/2020 History of acute congestive heart failure 04/24/2020 Fatty liver 12/17/2019 Elevated alkaline phosphatase level 12/07/2019 Hidradenitis 07/28/2019 Overview: Added automatically from request for bobby clinton [id number] Arthritis, multiple joint involvement 03/06/2019 Hyperuricemia 03/06/2019 Abscess of axilla, right 01/16/2019 Overview: Added automatically from request for bobby carlosy [id number] Abscess, groin 01/16/2019 Overview: Added automatically from request for bobby mary beth [id number] Vision loss, left eye 09/17/2018 Multiple sweat gland abscesses 07/01/2018 Hidradenitis suppurativa 07/01/2018 HTN (hypertension) 07/01/2018 Type 2 diabetes mellitus with hyperglycemia, with long -term current use of 07/01/2018 insulin Hyperlipidemia 07/01/2018 Hypomagnesemia 07/01/2018 Obesity (BMI 30-39.9) 01/03/2017 Renal failure 01/03/2017 ESRD on dialysis documented as of this encounter (statuses as of 11/17/2020) Resolved Problems Problem Noted Date Resolved Date CKD (chronic kidney disease) 07/01/2018 05/23/2020 Infected pilonidal cyst 07/01/2018 10/22/2018 Hyponatremia 07/01/2018 10/22/2018 documented as of this encounter (statuses as of 11/17/2020) Immunizations Name Administration Dates Next Due Influenza [...] with No / Unsure 10/27/2020 8:59 AM SCHOOL AGE PROGRAM ASSOCIATE someone who was confirmed or suspected to have Coronavirus / COVID-19? documented as of this encounter Last Filed Vital Signs Not on filedocumented in this encounter Plan of Treatment Date Type Specialty Care Team Description 12/20/2020 Office Visit Infectious Disease Karen Diggs MD [address] [place] [phone] 02/16/2021 Office Visit Endocrinology Diabetes & Maik Lacy MD Metabolism [address] [place] [address] [phone] Health Maintenance Due Date Last Done Comments [...] of this encounter Implants Implanted Type Area Poultry Processing Supervisor Device Shelf Model / Identifier Expiration Serial / Date Lot Catheter, Hemosplit Hemodialysis 23cm #[id number] - Sn/A Right: Bard 03/18/2021 [id number] / Implanted: Qty: 1 on 04/29/2020 by Faviola Morgan MD at [facility] Chest N/A / [id number] documented as of this encounter Procedures Procedure Name Priority Date/Time Associated Diagnosis Comme nts ASSIGNMENT OF BENEFITS Routine 11/17/2020 10:56 AM SCHOOL AGE PROGRAM ASSOCIATE documented in this encounter Results Not on filedocumented in this encounter Insurance Payer Benefit Plan / Subscriber ID Effective Phone Address T ype Group Dates CIGNA CIGNA II [id number] 2019-Prese HMO /PPO/POS nt MEDICARE MEDICARE PART [id number] 2020-Prese [phone] [place] [place] [place] Medicare A & B nt 82 [id number] [place] [phone] documented as of this encounter
--- OUTSIDE RECORDS SUMMARY | 2020-12-02 21:21 | XMS REPORT | Summary of Care ---
:1975 Author Organization [facility] Address [address] [place] [address] Care Team Providers Name Role Phone Pcp, Does Not Have A Unavailable Meliza Pablo MD Primary Care Provider Rakel Johnson DO Occ Therapy Asst Reason for Visit Reason Comments Follow-up DMII management Encounter Details Date Type Department Care Team Description 10/27/2020 Office Visit [facility] Judit Lacy MD Type 2 diabetes mellitus with renal flaca festations not at goal (Primary Dx); Endocrinology- [address] [facility] Neuropat hy; [facility] Dyslipidemia [address] [place] [phone] [place] [address] [phone] [address] Allergies Active Allergy Reactions Severity Noted [...] Added automatically from request for bobby clinton [id number] Arthritis, multiple joint involvement 03/06/2019 Hyperuricemia 03/06/2019 Abscess of axilla, right 01/16/2019 Overview: Added automatically from request for bobby clinton [id number] Abscess, groin 01/16/2019 Overview: Added automatically from request for bobby clinton [id number] Vision loss, left eye 09/17/2018 Multiple sweat [...] with No / Unsure 11/17/2020 11:02 AM CONTRACT SPECIALIST someone who was confirmed or suspected to have Coronavirus / COVID-19? documented as of this encounter Last Filed Vital Signs Vital Sign Reading Time Taken Comments Blood Pressure 173/93 10/27/2020 9:19 AM CONTRACT SPECIALIST Pulse 102 10/27/2020 9:19 AM CONTRACT SPECIALIST Temperature - - Respiratory Rate - - Oxygen Saturation 100% 10/27/2020 9:19 AM CONTRACT SPECIALIST Inhaled Oxygen Concentration - - Weight 102.1 kg (225 lb) 10/27/2020 9:19 AM CONTRACT SPECIALIST Height 167.6 cm (5' 6") 10/27/2020 9:19 AM CONTRACT SPECIALIST Body Mass Index 36.32 10/27/2020 9:19 AM CONTRACT SPECIALIST documented in this encounter Patient Instructions Patient [...] 6 units. Do not Humalog at bedtime RACT SPECIALIST documented in this encounter Progress Notes Judit [...] leg pain. ESRD: on HD Neuropathy: Takes [id number] mg daily Dyslipidemia: on [id number] DIABETIC HEALTH MAINTENANCE Last Ophthalmology visit was09/2020, [...] Left 08/04/2020 Surgeon: Shahzad Collado MD; Location: [facility] OR Location CENTRAL VENOUS ACCESS CATHETER PLACEMENT Left 04/29/2020 Surgeon: Faviola Hernandez MD; Location: [facility] OR [facility] HYDRADENTITIS EXCISION Left 08/08/2019 Surgeon: All Emerson MD; Location: [facility] OR [facility] HYSTERECTOMY INCISION AND DRAINAGE OF ABSCESS Bilateral 01/20/2019 Surgeon: All Emerson MD; Location: [facility] OR [facility] INCISION AND DRAINAGE OF ABSCESS N/A 02/03/2020 Surgeon: Faviola Hernandez MD; Location: [facility] OR [facility] Family History Problem Relation Age of Onset [...] file Gets together: Not on file Attends druze service: Not on file Active member of [...] Social History Narrative She works as a [employer]. She is . REVIEW OF SYSTEMS Constitutional: [...] Office Visit Infectious Disease Karen Diggs MD [address] [place] [phone] 02/16/2021 Office Visit Endocrinology Diabetes & Maik Lacy MD Metabolism [address] [place], [place] [phone] Health Maintenance Due Date Last Done Comments [...] of this encounter Implants Implanted Type Area Environmental Health Physician Device Shelf Model / Identifier Expiration Serial / Date Lot Catheter, Hemosplit Hemodialysis 23cm #[id number] - Sn/A Right: Bard 03/18/2021 [id number] / Implanted: Qty: 1 on 04/29/2020 by Faviola Morgan MD at [facility] Chest N/A / [id number] documented as of this encounter Procedures Procedure Name Priority Date/Time Associated Diagnosis Comme nts POCT HEMOGLOBIN A1C Routine 10/27/2020 9:19 Type 2 diabetes R esults for this TEST AM CONTRACT SPECIALIST mellitus with renal procedur e are in manifestations not at the re sults goal section. documented in this encounter Results POCT HEMOGLOBIN A1C TEST (10/27/2020 9:19 AM CONTRACT SPECIALIST) Pathologist Sig nature POCT HBA1C 7.1 (A) [...] T ype Group Dates CIGNA CIGNA II [id number] 2019-Prese HMO /PPO/POS nt MEDICARE MEDICARE PART [id number] 2020-Prese [phone] [employer] Medicare A & B nt 82 [id number] [place] [id number] [phone] (Work) documented as of this encounter
--- OUTSIDE RECORDS SUMMARY | 2020-12-02 21:21 | XMS REPORT | Summary of Care ---
:[address] [facility] Address [address] [place] [address] Care Team Providers Name Role Phone Pcp, Does Not Have A Unavailable Meliza Pablo MD Primary Care Provider Rakel Johnson DO Shoemaking Cutter Reason for Referral Radiology Services (Routine) Status Reason Specialty Diagnoses / Referred By Referred To Procedures Contact Contact Closed Diagnostic Diagnoses Encounter for screening mammogram for malignant neoplasm of breast Kana Pablo Radiology Procedures BI SCREENING MAMMOGRAM BILATERAL MD Meliza [address] [facility] [place] [place] [address] Reason for Visit Radiology Services (Routine) Status Reason Specialty Diagnoses / Referred By Referred To Procedures Contact Contact Closed Diagnostic Diagnoses Encounter for screening mammogram for malignant neoplasm of breast Kana Pablo Radiology Procedures BI SCREENING MAMMOGRAM BILATERAL MD Meliza [address] [facility] [place] [address] Encounter Details Date Type Department Care Team Description 11/17/2020 Hospital Encounter [facility] Paz Pablo Arrived [place] [facility] Jean-Paul delong MD [address] [facility] [address] [facility] [place] [address] [place], [place] [address]105[address]-848-9160 [address] [phone] Allergies Active Allergy Reactions Severity Noted Date Comments Insect Venom Anaphylaxis 09/02/2020 ALLERGIC TO ANT BITES documented as of this encounter (statuses as of 11/18/2020) Medications Medication Sig Dispensed Refills Start Date [...] as of this encounter (statuses as of 11/18/2020) Active Problems Problem Noted Date Chronic allergic rhinitis 10/24/2020 Positive anti-CCP test 07/02/2020 Troponin I above reference range 04/27/2020 Other chest pain 04/26/2020 Stage 5 chronic kidney disease not on chronic dialysis 04/25/2020 Snores 04/25/2020 Anemia 04/25/2020 History of acute congestive heart failure 04/24/2020 Fatty liver 12/17/2019 Elevated alkaline phosphatase level 12/07/2019 Hidradenitis 07/28/2019 Overview: Added automatically from request for bobby clinton [id number] Arthritis, multiple joint involvement 03/06/2019 Hyperuricemia 03/06/2019 Abscess of axilla, right 01/16/2019 Overview: Added automatically from request for bobby clinton [id number] Abscess, groin 01/16/2019 Overview: Added automatically from request for bobby clinton [id number] Vision loss, left eye 09/17/2018 Multiple sweat gland abscesses 07/01/2018 Hidradenitis suppurativa 07/01/2018 HTN (hypertension) 07/01/2018 Type 2 diabetes mellitus with hyperglycemia, with long -term current use of 07/01/2018 insulin Hyperlipidemia 07/01/2018 Hypomagnesemia 07/01/2018 Obesity (BMI 30-39.9) 01/03/2017 Renal failure 01/03/2017 ESRD on dialysis documented as of this encounter (statuses as of 11/18/2020) Resolved Problems Problem Noted Date Resolved Date CKD (chronic kidney disease) 07/01/2018 05/23/2020 Infected pilonidal cyst 07/01/2018 10/22/2018 Hyponatremia 07/01/2018 10/22/2018 documented as of this encounter (statuses as of 11/18/2020) Immunizations Name Administration Dates Next Due Influenza [...] with No / Unsure 11/17/2020 11:02 AM PHOTORESIST CONTACT PRINTER someone who was confirmed or suspected to have Coronavirus / COVID-19? documented as of this encounter Last Filed Vital Signs Not on filedocumented in this encounter Plan of Treatment Date Type Specialty Care Team Description 12/20/2020 Office Visit Infectious Disease Karen Diggs MD [address] [place] [phone] 02/16/2021 Office Visit Endocrinology Diabetes & LacyMaik MD Metabolism [address] [place] [address] [phone] Name Type Priority Associated Diagnoses Date/Ti me BI SCREENING MAMMOGRAM IMAGING Routine Encounter for scre ening 11/17/2020 11:43 AM BILATERAL mammogram for malignant PHOTORESIST CONTACT PRINTER neoplasm of breast Name Type Priority Associated Diagnoses Order S chedule BI SCREENING MAMMOGRAM IMAGING Routine Encounter for scre ening ONCE for 1 Occurrences BILATERAL mammogram for malignant star ting 11/17/2020 neoplasm of breast until Health Maintenance Due Date Last Done Comments [...] of this encounter Implants Implanted Type Area Catering Attendant Device Shelf Model / Identifier Expiration Serial / Date Lot Catheter, Hemosplit Hemodialysis 23cm #[id number] - Sn/A Right: Bard 03/18/2021 [id number] / Implanted: Qty: 1 on 04/29/2020 by Faviola Morgan MD at [facility] Chest N/A / [id number] documented as of this encounter Results Not on filedocumented in this encounter Visit Diagnoses Diagnosis Encounter for screening mammogram for ma lignant neoplasm of breast Other screening mammogram documented in this encounter Insurance Payer Benefit Plan / Subscriber ID Effective Phone Address T ype Group Dates CIGNA CIGNA II [id number] 2019-Prese HMO /PPO/POS nt MEDICARE MEDICARE PART [id number] 2020-Prese [phone] [employer] Medicare A & B nt 82 [id number] [place] [id number] [phone] (Work) documented as of this encounter
--- OUTSIDE RECORDS SUMMARY | 2020-12-02 21:22 | XMS REPORT | Summary of Care ---
:1975 Author Organization [facility] Address [address] [place] [address] Care Team Providers Name Role Phone Pcp, Does Not Have A Unavailable Meliza Pablo MD Primary Care Provider Rakel Johnson DO Customer Program Specialist Reason for Referral Radiology Services (Routine) Status Reason Specialty Diagnoses / Referred By Referred To Procedures Contact Contact New Request Diagnostic Diagnoses Abnormal screening mammogram Samy, Radiology Procedures BI ULTRASOUND BREAST COMPLETE BILATERAL Kana Haider MD [address] [place] [address] [place] [address] Radiology Services (Routine) Status Reason Specialty Diagnoses / Referred By Referred To Procedures Contact Contact New Request Diagnostic Diagnoses Abnormal screening mammogram Samy, Radiology Procedures BI DIAGNOSTIC TOMOSYNTHESIS BILATERAL Kana Haider MD [address] [place] [address] [place] [address] Reason for Visit Reason Comments Orders Encounter Details Date Type Department Care Team Description 11/25/2020 Case Management [facility] Kana Pablo Orders Medicine - James CLARK [address] [place] [address] Dr ev[address] [place] [address] [place] [address] [place] [phone] Allergies Active Allergy Reactions Severity Noted Date [...] Added automatically from request for bobby clinton [id number] Arthritis, multiple joint involvement 03/06/2019 Hyperuricemia 03/06/2019 Abscess of axilla, right 01/16/2019 Overview: Added automatically from request for bobby clinton [id number] Abscess, groin 01/16/2019 Overview: Added automatically from request for bobby clinton [id number] Vision loss, left eye 09/17/2018 Multiple sweat [...] with No / Unsure 11/17/2020 11:02 AM BAGGING MACHINE OPERATOR someone who was confirmed or suspected to have Coronavirus / COVID-19? documented as of this encounter Last Filed Vital Signs Not on filedocumented in this encounter Progress Notes Kana Pablo MD - 11/25/2020 1:17 AM CST Result Communications Result Notes Kana Pablo MD 11/25/2020 1:17 AM BAGGING MACHINE OPERATOR She needs and a follow-up ultrasound and possible further mammogram images of both sides. Orders are in. ING MACHINE OPERATOR documented in this encounter Plan of Treatment Date Type Specialty Care Team Description 12/20/2020 Office Visit Infectious Disease Karen Diggs MD [address] [place] [phone] 02/16/2021 Office Visit Endocrinology Diabetes & Maik Lacy MD [address] [address] Name Type Priority Associated Diagnoses Order S [...] of this encounter Implants Implanted Type Area Edge Brusher Device Shelf Model / Identifier Expiration Serial / Date Lot Catheter, Hemosplit Hemodialysis 23cm #[id number] - Sn/A Right: Bard 03/18/2021 [id number] / Implanted: Qty: 1 on 04/29/2020 by Faviola Morgan MD at [facility] Chest N/A / [id number] documented as of this encounter Results Not on filedocumented in this encounter Visit Diagnoses Diagnosis Abnormal screening mammogram - Primary documented in this encounter Insurance Payer Benefit Plan / Subscriber ID Effective Phone Address T ype Group Dates CIGNA CIGNA II [id number] 2019-Prese HMO /PPO/POS nt MEDICARE MEDICARE PART [id number] 2020-Prese [phone] [employer] Medicare A & B nt 82 [id number] [place] [phone] documented as of this encounter
--- OUTSIDE RECORDS SUMMARY | 2020-12-02 21:24 | XMS REPORT | Continuity of Care Document ---
:1975 Author Organization [facility] t Address [address] [place] [address] Care Team Providers Name Role Phone CarvilleRomeo brucemadai Primary Care Physician Unavailable Alfonso RN, Amanda Attending Clinician Unavailable Sim, Na Y Attending Clinician Unavailable Eduardo CLARK, Gabriel Attending Clinician Chelsi CUMMINGS Attending Clinician Unavailable Andree Olivares MD Attending Clinician Maggie Valerio LCSW Attending Clinician ANDREE OLIVARES Attending Clinician Unavailable Jeferson Attending Clinician Unavailable Casey Ramirez Attending Clinician Unavailable Camacho Spencer Attending Clinician Unavailable Benita Attending Clinician Unavailable Truman Goss RPH Attending Clinician Unavailable Azalea Attending Clinician Unavailable Omari Attending Clinician Unavailable Negrita Mabry Attending Clinician Unavailable Philip CUMMINGS, Pasha Attending Clinician Unavailable Payers Payer Name Policy Type Policy Effective Date Expiration Date Sour ce Number CIGNACIGNA OPEN [id number] 2019 [place] ACCESS/NETWORKxxxxxxx 00:00:00 Met lea 1331 2019-[facility] MEDICAREMEDICARE PART [id number] 2020 Wilver joseph A AND 00:00:00 Confucianist [id number][place]IF[place] [id number] 2013 [facility] [place] TRANSPLANTCIGNA 00:00:00 [facility] [place] [id number] 2013-[facility] MEDICAREMEDICARE A [id number] 2020 C[facility] [place] [id number] 2019- 00:00:00 - M edical PresentMedicare [place] CIGNA - MGD CARECIGNA [id number] 2019 Leanna Cooley [id number] 00:00:00 - M edical 0-PresentPPO Center Problems Condition Condition Condition Status Onset Resolution Last Treating Co mments Source Name Details Category Date Date Treatment Clinician Date ESRD (end ESRD (end Disease Active 2019-11 Overview: Armendariz stage stage 2-16 Added Methodi renal renal 00:00: automatic st disease) disease) 00 ally from request for surgery [id number] Dialysis Dialysis Disease Active 2019-11 Overview: Wilver ruiz AV fistula AV fistula 2-16 Added Me prince malfunctio malfunctio 00:00: automatic st n, initial n, initial 00 ally from encounter encounter request for surgery [id number] Pre-transp Pre-transp Disease Active 2019-[address] lant lant 11-21 [facility] - evaluation evaluation 00:00: Me dical for for 00 Center chronic chronic kidney kidney disease disease ESRD (end ESRD (end Disease Active 2019-11 [facility] stage stage 1-03 [facility] - renal renal 00:00: Medical disease) disease) 00 Center Type 2 Type 2 Disease Active 2019-11 [facility] diabetes diabetes - [facility] - mellitus mellitus 00:00: Medica l with other with other 00 Ce nter kidney kidney complicati complicati on, on, unspecifie unspecifie d whether d 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 use Essential Essential Disease Active 2019-11 [facility] hypertensi hypertensi -03 Gianna kes - on on 00:00: Medical 00 Center Proliferat Proliferat Disease Active 2019-[address] nathan nathan -03 [facility] - diabetic diabetic 00:00: Medica l retinopath retinopath 00 Ce nter 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 associated associated with type with type 2 diabetes 2 diabetes mellitus, mellitus, unspecifie unspecifie d d proliferat proliferat nathan nathan retinopath retinopath y type y type 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[address] [facility] [address] hyperparat hyperparat -03 Gianna kes - hyroidism hyroidism 00:00: Medi ayleen of renal of renal 00 Center origin origin Rheumatoid Rheumatoid Disease Active 2019-[address] arthritis arthritis 11-21 [facility] - involving involving 00:00: Medi ayleen multiple multiple 00 Center sites, sites, unspecifie unspecifie d whether d whether rheumatoid rheumatoid factor factor present present H/O: gout H/O: gout Disease Active 2019-[address] 11[facility] 00:[facility]: Medical 00 [place] Hydradenit Hydradenit Disease Active 2019-[address] is is 11-21 [facility] - 00:[facility]: Medical 00 [place] Hyperlipid Hyperlipid Disease Active 2019-[address] emia, emia, 11-21 [facility] - unspecifie unspecifie 00:00: Me dical d d 00 Center hyperlipid hyperlipid emia type emia type Allergies, Adverse Reactions, Alerts This patient has no known allergies or adverse reactions. Family History Family Member Diagnosis Comments Start Date Stop Date Source Natural brother Diabetes [facility] Natural brother Hypertension [facility] Natural father Ulcers [facility] Natural mother Cancer [facility] Natural mother Diabetes [facility] Natural mother Heart failure [facility] Natural mother Hyperlipidemia [facility] Natural sister Cancer [facility] Natural sister Hypertension [facility] Natural son Diabetes [facility] Social History Social Habit Start Date Stop Date Quantity Comments Source Exposure to Not sure [place] [facility] SARS[facility]2 [facility]) [facility] - Alcohol Binge Medical Mayuri ter Sex Assigned At [facility] Tobacco use and 2020-09-15 2020-09-15 Never used [facility] - exposure 00:00:00 00:00:00 [facility] Alcohol intake 2020-09-15 2020-09-15 [facility] - 00:00:00 00:00:00 non-drinker Medical Cente r (finding) History [facility] 2020-09-15 2020-09-15 1 [facility] - Alcohol Frequency 00:00:00 00:00:00 [facility] Smoking Status Start Date Stop Date Source Never smoker [facility] edical [place] Medications Ordered Filled Start Stop Current Ordering Indication Dosage Frequency Signature Comments Components Source Medication Medication Date Date Medication? Clinician (SIG) Name Name sevelamer 2019-11 Yes 800mg Take [address] (RENVELA) 2-16 mg by Methodi 800 mg 09:49: mouth. st tablet 12 esomeprazol 2019-11 Yes 20mg QD Take 20 mg Armendariz e (NexIUM) 2-16 by mouth Metho di 20 MG 09:49: daily st capsule 12 before breakfast. amLODIPine 2019-11 Yes Armendariz (NORVASC) 2-15 Methodi 10 mg 00:00: st tablet 00 minocycline 2019-11 Yes TAKE 1 [place] (MINOCIN) 2-10 CAPSULE BY Meth xiao 100 MG 00:00: MOUTH st capsule 00 EVERY 12 (TWELVE) HOURS FOR 90 DAYS. Tresiba 2019-11 Yes Armendariz FlexTouch 2-09 Methodi U-100 100 00:00: st unit/mL (3 00 mL) insulin pen pregabalin 2019-11 Yes 75mg QD Take 75 mg [place] (LYRICA) 75 1-28 by mouth Meth xiao MG capsule 00:00: daily. st 00 mINOCYCLine 2019-11 Yes 100mg Q.5D Take [address] (MINOCIN,DY 0-28 mg by [facility] - NACIN) 100 14:59: mouth 2 Medi ayleen MG capsule 50 (two) Center times daily. pregabalin 2019-11 Yes 75mg Q.5D Take [address] (LYRICA) 75 0-28 by mouth 2 Gianna kes - MG capsule 14:52: (two) Medica l 57 times Center daily. sevelamer 2019-11 Yes 800mg Take [address] (RENVELA) 0-28 mg by [facility] - 800 mg 14:52: mouth 3 Medical tablet 57 (three) Center times daily with meals. esomeprazol 2019-11 Yes 20mg Take [address] e (NexIUM) 0-28 by mouth [facility] - 20 MG 14:52: every Medical capsule 57 other day. Center traMADoL 2019-11 No 50mg Take [address] (ULTRAM) 50 0-28 10-28 by mouth Dakotah es - mg tablet 14:51: 00:00 every 6 Medi ayleen 01 :00 (six) Center hours as needed for Pain. metoprolol 2019-11 Yes 50mg QD Take [address] succinate 0-28 by mouth [facility] - (TOPROL-XL) 14:51: daily. Medi ayleen 50 MG 24 hr 00 Center tablet insulin 2019-11 Yes 44U QD Inject 44 [facility] degludec 0-28 Units [facility] - (TRESIBA 14:51: subcutaneo Med ical FLEXTOUCH 00 usly daily Cent er U-100 SUBQ) . rosuvastati 2019-11 Yes 10mg QD Take [address] n (CRESTOR) 0-28 by mouth Luke s - 10 MG 14:51: daily. Medical tablet 00 [place] insulin 2019-[address] [facility] lispro 0-28 subcutaneo [facility] - (HUMALOG) 14:51: usly 3 Medica l 100 unit/mL 00 (three) Cente r InPn times daily before meals Sliding scale . amLODIPine 2019-11 Yes 10mg QD Take [address] (NORVASC) 0-28 by mouth [facility] - 10 MG 14:51: daily. Medical tablet 00 [place] allopurinoL 2019-11 Yes 100mg QD Take [address] (ZYLOPRIM) 0-28 mg by [facility] - 100 MG 14:51: mouth Medical tablet 00 daily. [place] fluticasone 2019-11 Yes 1{puff} Inhale [address] propion-avelino 0-28 puff by [facility] - meteroL 14:51: mouth via Medic al (ADVAIR) 00 inhaler Center 100-50 every 12 mcg/dose (twelve) diskus hours. inhaler cyclobenzap 2019-11 2020- No 5mg Take [address] rine 0-28 10-28 by mouth 3 [facility] - (FLEXERIL) 14:51: 00:00 (three) Med ical 5 MG tablet 00 :00 times Center daily as needed for Muscle spasms. aspirin 81 2019-11 2020- No 81mg QD Take [address] MG EC 0-28 10-28 by mouth [facility] - tablet 14:51: 00:00 daily. Medical 00 :00 Center promethazin 2019-11 2020- No 25mg Place [address] e 0-28 10-28 mg [facility] - (PHENERGAN) 14:50: 00:00 rectally M edical 25 MG 39 :00 every 6 Center suppository (six) hours as needed for Nausea. ondansetron 2019-11 No 4mg Take [address] (ZOFRAN) 4 0-28 10-28 by mouth 2 Gianna kes - MG tablet 14:50: 00:00 (two) Medica l 30 :00 times Center daily as needed for Nausea. magnesium 2019-11 No 500mg Q.5D Take [address] gluconate 0-28 10-28 mg by [facility] - (MAGONATE) 14:50: 00:00 mouth 2 Med ical 27.5 mg 11 :00 (two) Center magne- sium times (500 mg) daily. tablet hydrALAZINE 2019-11 No 25mg Q.[id number] Take [address] (APRESOLINE 0-28 10-28 [id number] by mouth 3 [facility] - ) 25 MG 14:49: 00:00 3D (three) Medica l tablet 21 :00 times Center daily. gabapentin 2019-11 No 300mg Q.[id number] Take [address] (NEURONTIN) 0-28 10-28 [id number] mg by [facility] - 300 MG 14:47: 00:00 3D mouth 3 Medical capsule 24 :00 (three) Center times daily. rosuvastati Yes 10mg QD 10 mg [place] (CRESTOR) 9- nightly. Meth xiao 10 mg 00:00: st tablet 00 insulin 2017-11 Yes 4U Inject 4-7 [place] lispro 2-05 Units Methodi (ADMELOG) 00:00: under the st 100 unit/mL 00 skin. injection pen metoprolol Yes TAKE 1 [place] succinate 4-19 TABLET BY Metho di XL 00:00: MOUTH st (TOPROL-XL) 00 EVERY DAY 50 mg 24 hr tablet Vital Signs Vital Name Observation Time Observation Value Comments Source Systolic blood 2020-11-03 09:44:00 164 mm[Hg] [place] [facility] pressure Diastolic blood 2020-11-03 09:44:00 103 mm[Hg] [place] [facility] pressure Heart rate 2020-11-03 09:44:00 83 /min [facility] Body temperature 2020-11-03 09:44:00 36.56 Melina [place] [facility] Body height 2020-11-03 09:44:00 167.6 cm [facility] Body weight 2020-11-03 09:44:00 103.874 kg Marcello Confucianist BMI 2020-11-03 09:44:00 36.96 kg/m2 Armendar[facility] Confucianist Oxygen saturation in 2020-11-03 09:44:00 100 /min Armendariz Confucianist Arterial blood by Pulse oximetry Systolic blood 2020-09-15 13:40:00 113 mm[Hg] [facility] Diastolic blood 2020-09-15 13:40:00 73 mm[Hg] [facility] Heart rate 2020-09-15 13:40:00 62 /min [facility] Body temperature 2020-09-15 13:40:00 36.5 Melina [facility] Respiratory rate 2020-09-15 13:40:00 16 /min [facility] Body height 2020-09-15 13:40:00 166.5 cm [facility] Body weight 2020-09-15 13:40:00 100.29 kg [facility] BMI 2020-09-15 13:40:00 36.18 kg/m2 [facility] Oxygen saturation in 2020-09-15 13:40:00 100 /min [facility] Arterial blood by Medical Ce nter Pulse oximetry Procedures Procedure Date / Time Performing Clinician Source Performed URINE CULTURE 2020-09-15 13:24:[address] [facility] HLA TYPING CII 2020-09-15 13:24:[address] [facility] HLA TYPING CI 2020-09-15 13:24:00 Marshall, Bhamidipati [facility] COMPREHENSIVE METABOLIC 2020-09-15 13:24:00 Marshall, Bhamidipati [facility] PANEL [facility] GAMMA GLUTAMYL TRANSFERASE 2020-09-15 13:24:[address] [facility] (GGT) [facility] PHOSPHORUS 2020-09-15 13:24:00 Marshall, amidipati [facility] PTH, INTACT 2020-09-15 13:24:00 Marshall, Bhamidipati [facility] T SPOT TB 2020-09-15 13:24:00 [facility] URIC ACID 2020-09-15 13:24:00 Marshall, Bhamidipati [facility] URINALYSIS W/ MICROSCOPIC 2020-09-15 13:24:00 Marshall, Bhamidipat i [facility] LIPID PANEL 2020-09-15 13:24:00 Marshall[facility] HEMOGLOBIN A1C 2020-09-15 13:24:00 Marshall, [facility] TYPE AND SCREEN, AUTOMATED 2020-09-15 13:24:00 Marshall, Bhamidipa ti [facility] DIRECT AHG (KATIE)/DIRECT 2020-09-15 13:24:00 Marshall, Bhamidipati [facility] MINERVA [facility] CBC W/PLT COUNT & AUTO 2020-09-15 13:24:00 Marshall, Bhamidipati C HI [facility] DIFFERENTIAL [facility] FLOW PRA CLASS I WITH 2020-09-15 13:23:00 Marshall, Bhamidipati CH I [facility] - REFLEX TO ANTIBODY [facility] SPECIFICITY CYTOMEGALOVIRUS ANTIBODY, 2020-09-15 13:23:00 Marshall, Bhamidipat i [facility] - IGG [facility] CYTOMEGALOVIRUS ANTIBODY, 2020-09-15 13:23:00 Marshall, Bhamidipat i [facility] - IGM [facility] EBV ANTIBODY, IGM 2020-09-15 13:23:00 Marshall, Bhamidipati [facility] HEPATITIS B SURFACE 2020-09-15 13:23:00 Marshall, Bhamidipati [facility] ANTIBODY [facility] HEPATITIS B SURFACE 2020-09-15 13:23:00 Marshall, Bhamidipati [facility] - ANTIGEN [facility] HEPATITIS B CORE ANTIBODY, 2020-09-15 13:23:00 Marshall, Bhamidipa ti [facility] - IGM [facility] HEPATITIS C ANTIBODY 2020-09-15 13:23:00 Marshall, Bhamidipati [facility] HC LAB HIV-1 AG W/HIV-1&2 2020-09-15 13:23:[address] [facility] AB [facility] PT/APTT 2020-09-15 13:23:00 Marshall, Bhamidipati [facility] RPR 2020-09-15 13:23:00 Marshall, Bhamidipati [facility] VARICELLA ZOSTER ANTIBODY, 2020-09-15 13:23:00 Marshall, Bhamidipa ti [facility] IGG [facility] FLOW PRA CLASS II WITH 2020-09-15 13:23:00 Marshall, Bhamidipati C [facility] - REFLEX TO ANTIBODY [facility] SPECIFICITY AB SPECIFICITY CLASS I 2020-09-15 13:23:00 Marshall, Bhamidipati C [facility] BLOOD TYPING, AUTOMATED 2020-09-15 13:15:00 Marshall, Bhamidipati [facility] Plan of Care Planned Activity Planned Date Details Comments Source Future Scheduled 2020-06-19 INFLUENZA VACCINE [place] [facility] Test 00:00:00 [code = INFLUENZA VACCINE] Future Scheduled 1995 Screening for [place] [facility] Test 00:00:00 malignant neoplasm of cervix (procedure) [code = 752523145] Future Scheduled 1990 COVID-19 VACCINE (1 [place] [facility] Test 00:00:00 of 2) [code = COVID-19 VACCINE (1 of 2)] Future Scheduled 1984 DIABETES: RETINAL [place] [facility] 00:00:00 EYE EXAM [code = DIABETES: RETINAL EYE EXAM] Future Scheduled 1984 DIABETIC FOOT EXAM [place] [facility] Test 00:00:00 [code = DIABETIC FOOT EXAM] Encounters Start End Encounter Admission Attending Care Care Encounter Source Date/Time Date/Time Type Type Clinicians Facility Department ID 2020-11-03 2020-11-03 Outpatient [facility] [id number] 860 [place] 00:00:00 00:00:00 CLEMENTINE [address] Results Test Description Test Time Test Comments Results Result Comments Source HLA TYPING I 2020-09-28 23:00:00 Test Item Value Reference Range Interpretation Comme nts HLA-DR AG1 (test code = 3465) 12 HLA-DR AG2 (test code = 3472) 1 HLA-DR AG3-1 (test code = 3238) 52 HLA-DQA1 AG 1-1 (test code = 3463) 5 HLA-DQA1 AG 1-2 (test code = 3464) 1 HLA-DQB1 AG 1-1 (test code = 3244) 7 HLA-DQB1 AG 1-2 (test code = 3245) 5 HLA-DPA1 AG 1-1 (test code = 3246) 1 HLA-DPA1 AG 1-2 (test code = 3247) 1 HLA-DPB1 AG 1-1 (test code = 3248) 02:01 HLA-DPB1 AG 1-2 (test code = 3249) 02:01 [facility] [id number] 22:59:00 Test Item Value Reference Range Interpretation Comments HLA-A AG1 (test code = 3466) 66 HLA-A AG2 (test code = 3467) 26 HLA-B AG1 (test code = 3468) 45 HLA-B AG2 (test code = 3469) 35 HLA-C AG1 (test code = 3470) 16 HLA-C AG2 (test code = 3471) 4 HLA-B BW1 (test code = 3234) 6 HLA-B BW2 (test code = 3235) 6 [facility] SPE[facility]IFICITY CLASS [id number] 13:23:00 Test Item Value Reference Range Interpretation Comments AB Specificity Class I (test code B:15:02 = 3457) AB Specificity Titr Class Report MFIs > 4000 (test code = 3251) [facility] CenterT Spot [id number] 12:26:00 Test Item Value Reference Range Interpretation Comments T-Spot TB (test code = 98859-1) Negative Neg Ctrl Spot Count (test code = 0 48189-2) Panel A Spot (test code = 53832-7) 0 Panel B Spot (test code = 89517-5) [address] (test code = 0 60446-0) Scan Result (test code = 3382301) 0 [facility] SPOT [id number] 12:26:00 Test Item Value Reference Range Interpretation Comments T-SPOT TB (BEAKER) (test code = Negative 1683) NEG CONTROL SPOT COUNT (BEAKER) 0 (test code = 1684) PANEL A SPOT (BEAKER) (test code = 0 1685) PANEL B SPOT (BEAKER) (test code = 0 1686) POS CONTROL SPOT CT (BEAKER) (test 0 code = 1687) SCAN RESULT (test code = 6864276) 0 FLOW PRA CLASS I WITH REFLEX TO ANTIBODY [id number] 08:00:00 Test Item Value Reference Range Interpretation Comments Flow Class I Percent Positive (test 18 code = 3229) [facility] CenterFL[facility] CLASS II WITH REFLEX TO ANTIBODY [id number] 08:00:00 Test Item Value Reference Range Interpretation Comments Flow Class II Percent Positive (test 0 code = 3231) [facility] CenterVaricella Zoster Antibody, [id number] 11:47:00 Test Item Value Reference Range Interpretation Comments Varicella IgG (test 3.4 code = 01568-4) WILLIAMS (test code = WILLIAMS) VARICELLA ZOSTER RESULT INTERPRETATIONS: <=0.8 Al Nonreactive: Presumed non-immune to VZV 0.9-1.0 Al Equivocal >=1.1 Al Reactive: Presumed immune to VZV [facility] CenterVARICELLA ZOSTER ANTIBODY, [id number] 11:47:00 Test Item Value Reference Range Interpretation Comments VARICELLA ZOSTER IGG (AL) (BEAKER) 3.4 (test code = 3197) VARICELLA ZOSTER RESULT INTERPRETATIONS: <=0.8 Al Nonreactive: Presumed non-immune to VZV 0.9-1.0 Al Equivocal >=1.1 Al Reactive: Presumed immune to VZVCytomegalovirus antibody, [id number] 11:03:00 Test Item Value Reference Range Interpretation Comments CYTOMEGALOVIRUS, IGG Positive Negative, A (test code = 3429) Equivocal WILLIAMS (test code = WILLIAMS) CMV IgG Result Interpretation: </= 0.8 Al Negative 0.9-1.0 Al Equivocal >/=1.1 Al Positive Lab Interpretation (test Abnormal code = 11818-8) [facility] CenterEBV-VCA antibody, [id number] 11:03:00 Test Item Value Reference Range Interpretation Comments JORGE VICK VIRAL Positive Negative, A CAPSID ANTIGEN IGG (test Equivocal code = 3415) WILLIAMS (test code = WILLIAMS) Jorge Vick Viral Capsid Antigen IgG Result Interpretation: </= 0.8 Al Negative 0.9-1.0 Al Equivocal >/= 1.1 Al Positive Lab Interpretation (test Abnormal code = 53203-1) [facility] CenterEBV-VCA antibody, [id number] 11:03:00 Test Item Value Reference Range Interpretation Comments JORGE VICK VIRAL Negative Negative, CAPSID ANTIGEN IGM (test Equivocal code = 3418) WILLIAMS (test code = WILLIAMS) Jorge Vick Viral Capsid Antigen IgM Result Interpretation: </= 0.8 Al Negative 0.9-1.0 Al Equivocal >/= 1.1 Al Positive Lab Interpretation (test Normal code = 35380-9) [facility] CenterCytomegalovirus antibody, [id number] 11:03:00 Test Item Value Reference Range Interpretation Comments CMV IGM (test code = Negative Negative, 3437) Equivocal WILLIAMS (test code = WILLIAMS) CMV IgM Result Interpretation: </= 0.8 Al Negative 0.9-1.0 Al Equivocal >/= 1.1 Al Positive Lab Interpretation (test Normal code = 86140-3) [facility] CenterCYTOMEGALOVIRUS ANTIBODY, [id number] 11:03:00 Test Item Value Reference Range Interpretation Comments CYTOMEGALOVIRUS, IGG (BEAKER) Positive Negative, Equivocal A (test code = 3429) CMV IgG Result Interpretation: </= 0.8 Al Negative 0.9-1.0 Al Equivocal >/=1.1 Al PositiveCYTOMEGALOVIRUS ANTIBODY, [id number] 11:03:00 Test Item Value Reference Range Interpretation Comments CYTOMEGALOVIRUS IGM ANTIBODY Negative Negative, Equivocal (BEAKER) (test code = 3437) CMV IgM Result Interpretation: </= 0.8 Al Negative 0.9-1.0 Al Equivocal >/= 1.1 Al PositiveEBV ANTIBODY, [id number] 11:03:00 Test Item Value Reference Range Interpretation Comments JORGE VICK VIRAL CAPSID Positive Negative, Equivocal A ANTIGEN IGG (BEAKER) (test code = 3415) Jorge Vick Viral Capsid Antigen IgG Result Interpretation: </= 0.8 Al Negative 0.9-1.0 Al Equivocal >/= 1.1 Al PositiveEBV ANTIBODY, IGM 2020-09-17 11:03:00 Test Item Value Reference Range Interpretation Comments JORGE VICK VIRAL CAPSID Negative Negative, Equivocal ANTIGEN IGM (BEAKER) (test code = 3418) Jorge Vick Viral Capsid Antigen IgM Result Interpretation: </= 0.8 Al Negative 0.9-1.0 Al Equivocal >/= 1.1 Al PositiveUrine [id number] 10:52:00 Test Item Value Reference Range Interpretation Comments Result (test code = 6463-4) No growth [facility] CenterURINE [id number] 10:52:00 Test Item Value Reference Range Interpretation Comments CULTURE (BEAKER) (test code = 1095) No growth [id number] 11:49:00 Test Item Value Reference Range Interpretation Comments RPR (test code = 72447-7) Nonreactive Nonreactive Lab Interpretation (test code = Normal 22115-8) [facility] [id number] 11:49:00 Test Item Value Reference Range Interpretation Comments RPR SCREEN (BEAKER) (test code = Nonreactive Nonreactive 420) Direct AHG (KATIE)/Direct [id number] 15:11:00 Test Item Value Reference Range Interpretation Comments Direct AHG-IGG (test code = 1006-6) NEGATIVE Direct AHG-C3B, C3D (test code = NEGATVIE 1003-3) [facility] CenterBlood typing, [id number] 14:36:00 Test Item Value Reference Range Interpretation Comments ABO/RH AUTOMATED (BEAKER) (test O POSITIVE code = 2260) [facility] CenterType and Screen, [id number] 14:36:00 Test Item Value Reference Range Interpretation Comments ABO/RH AUTOMATED (BEAKER) (test O POSITIVE code = 2260) Ab Scrn (test code = 890-4) NEGATIVE [facility] CenterHemoglobin [id number] 14:32:00 Test Item Value Reference Range Interpretation Comments Hemoglobin A1C (test code = 4548-4) 8.7 % 4.3-6.1 H Lab Interpretation (test code = Abnormal 40892-4) [facility] CenterHEMOGLOBIN [id number] 14:32:00 Test Item Value Reference Range Interpretation Comments HEMOGLOBIN A1C (BEAKER) (test code = 8.7 % 4.3-6.1 H 368) Urinalysis, [id number] 14:29:00 Test Item Value Reference Range Interpretation Comments Color, UA (test code = Light Yellow 5778-6) Clarity, UA (test code = Clear 5767-9) Specific [place], UA (test 1.012 1.001-1.035 code = 5811-5) pH, UA (test code = 8.0 5.0-8.0 5803-2) Protein, UA (test code = 300 mg/dL Negative A 48781-0) Glucose, UA (test code = 50 mg/dL Negative A 365) Ketones, UA (test code = Negative Negative 2514-8) Bilirubin, UA (test code = Negative Negative 34575-4) Blood, UA (test code = Trace Negative A 49004-0) Nitrite, UA (test code = Negative Negative 5802-4) Leukocytes, UA (test code Negative Negative = 5799-2) Urobilinogen, UA (test 0.2 mg/dL 0.2-1 code = 46861-1) RBC, UA (test code = <1 /HPF 27042-8) WBC, UA (test code = 2 /HPF 5821-4) Bacteria, UA (test code = Rare 71459-2) Squam Epithel, UA (test 4 /HPF code = 99748-2) Specimen Source (test code = 2795) WILLIAMS (test code = WILLIAMS) Boiler Or Engine Operator ID - [auto]Boiler Or Engine Operator ID - tech Lab Interpretation (test Abnormal code = 54049-9) [facility] Center[facility] surface [id number] 14:29:00 Test Item Value Reference Range Interpretation Comments HBsAg Screen (test code Nonreactive Nonreactive = 5195-3) WILLIAMS (test code = WILLIAMS) Specimen is considered negative for HBsAg. Lab Interpretation (test Normal code = 82327-8) [facility] CenterHepatitis B surface [id number] 14:29:00 Test Item Value Reference Range Interpretation Comments Hep B S Ab (test code = 125.4 <8.0 mIU/mL H 03476-6) WILLIAMS (test code = WILLIAMS) Boiler Or Engine Operator ID - PIAYA L Lab Interpretation (test Abnormal code = 84581-4) [facility] core antibody, [id number] 14:29:00 Test Item Value Reference Range Interpretation Comments Hep B C IgM (test code = Nonreactive Nonreactive 66610-5) WILLIAMS (test code = WILLIAMS) Boiler Or Engine Operator ID - PIAYA L Lab Interpretation (test Normal code = 50876-1) [facility] CenterHepatitis C [id number] 14:29:00 Test Item Value Reference Range Interpretation Comments Hepatitis C Ab (test Nonreactive Nonreactive code = 62947-1) WILLIAMS (test code = WILLIAMS) Boiler Or Engine Operator ID - PIAYA L Lab Interpretation (test Normal code = 18894-7) [facility] CenterHIV-1 Antigen with HIV-1/2 [id number] 14:29:00 Test Item Value Reference Range Interpretation Comments HIV-1 Antigen with HIV Nonreactive Nonreactive 1&2 Antibody (test code = 09242-3) WILLIAMS (test code = WILLIAMS) Boiler Or Engine Operator ID - PIAYA L Lab Interpretation (test Normal code = 02615-6) [facility] CenterURINALYSIS W/ [id number] 14:29:00 Test Item Value Reference Range Interpretation Comments COLOR (BEAKER) (test code = 470) Light Yellow CLARITY (BEAKER) (test code = Clear 469) SPECIFIC GRAVITY UA (BEAKER) 1.012 1.001-1.035 (test code = 468) PH UA (BEAKER) (test code = 467) 8.0 5.0-8.0 PROTEIN UA (BEAKER) (test code = 300 mg/dL Negative A 464) GLUCOSE UA (BEAKER) (test code = 50 mg/dL Negative A 365) KETONES UA (BEAKER) (test code = Negative Negative 371) BILIRUBIN UA (BEAKER) (test code Negative Negative = 462) BLOOD UA (BEAKER) (test code = Trace Negative A 461) NITRITE UA (BEAKER) (test code = Negative Negative 465) LEUKOCYTE ESTERASE UA (BEAKER) Negative Negative (test code = 466) UROBILINOGEN UA (BEAKER) (test 0.2 mg/dL 0.2-1.0 code = 463) RBC UA (BEAKER) (test code = < /HPF 519) WBC UA (BEAKER) (test code = 2 /HPF 520) BACTERIA (BEAKER) (test code = Rare 517) SQUAMOUS EPITHELIAL (BEAKER) 4 /HPF (test code = 516) SOURCE(BEAKER) (test code = 2795) Bo[employer] Or Engine Operator ID - [auto]Boiler Or Engine Operator ID - techHEPATITIS B SURFACE [id number] 14:29:00 Test Item Value Reference Range Interpretation Comments HEPATITIS B SURFACE ANTIGEN (2) Nonreactive Nonreactive (BEAKER) (test code = 2585) Specimen is considered negative for HBsAg.HEPATITIS B SURFACE [id number] 14:29:00 Test Item Value Reference Range Interpretation Comments HEPATITIS B SURFACE ANTIBODY 125.4 mIU/mL <8.0 H (BEAKER) (test code = 647) Boiler Or Engine Operator ID - MICHAEL LHEPATITIS B CORE ANTIBODY, [id number] 14:29:00 Test Item Value Reference Range Interpretation Comments HEPATITIS B CORE IGM ANTIBODY Nonreactive Nonreactive (BEAKER) (test code = 645) Boiler Or Engine Operator ID - PIXUAN LHEPATITIS C [id number] 14:29:00 Test Item Value Reference Range Interpretation Comments HEPATITIS C ANTIBODY (BEAKER) Nonreactive Nonreactive (test code = 367) Boiler Or Engine Operator ID - MICHAEL LHIV-1 ANTIGEN WITH HIV-1/2 [id number] 14:29:00 Test Item Value Reference Range Interpretation Comments HIV-1 ANTIGEN WITH HIV 1\T\2 Nonreactive Nonreactive ANTIBODY (2) (BEAKER) (test code = 2586) Boiler Or Engine Operator ID - MICHAEL LPTH, [id number] 14:13:00 Test Item Value Reference Range Interpretation Comments PTH (test code = 2731-8) 1067.5 pg/mL 8.5-72.5 H WILLIAMS (test code = WILLIAMS) Boiler Or Engine Operator ID - MICHAEL L Lab Interpretation (test Abnormal code = 53784-6) [facility] CenterPTH, [id number] 14:13:00 Test Item Value Reference Range Interpretation Comments PARATHYROID HORMONE INTACT 1067.5 pg/mL 8.5-72.5 H (BEAKER) (test code = 577) Boiler Or Engine Operator ID - PIAYA [id number] 14:09:00 Test Item Value Reference Range Interpretation Comments Protime (test code = 13.9 11.9- 14.2 5902-2) seconds INR (test code = 1.10 <=5.90 6301-6) PTT (test code = 29.8 22.5- 36.0 38633-8) seconds WILLIAMS (test code = WILLIAMS) Effective 04/16/2019: PT Reference Range ChangeNew: 11.9-14.2 Previous: 11.7-14.7 RECOMMENDED COUMADIN/WARFARIN INR THERAPY RANGESSTANDARD DOSE: 2.0-3.0 Includes: PROPHYLAXIS for venous thrombosis, systemic embolization; TREATMENT for venous thrombosis and/or pulmonary embolus.HIGH RISK: Target INR is 2.5-3.5 for patients wiht mechanical heart valves. Lab Interpretation Normal (test code = 75950-2) [facility] CenterPT/[id number] 14:09:00 Test Item Value Reference Range Interpretation Comments PROTIME (BEAKER) (test code = 13.9 seconds 11.9-14.2 759) INR (BEAKER) (test code = 370) 1.10 <=5.90 PARTIAL THROMBOPLASTIN TIME 29.8 seconds 22.5-36.0 (BEAKER) (test code = 760) Effective 04/16/2019: PT Reference Range ChangeNew: 11.9-14.2 Previous: 11.7- 14.7RECOMMENDED COUMADIN/WARFARIN INR THERAPY RANGESSTANDARD DOSE: 2.0-3.0 Includes: PROPHYLAXIS for venous thrombosis, systemic embolization; TREATMENT for venous thrombosis and/or pulmonary embolus.HIGH RISK: Target INR is2.5-3.5 for patients wiht mechanical heart valves.Comprehensive metabolic panel 2020-09-15 14:08:00 Test Item Value Reference Range Interpretation Comments Protein, Total (test 8.6 6.0- 8.3 gm/dL H code = 2885-2) Albumin (test code = 4.2 g/dL 3.5-5 95093-2) Alkaline Phosphatase 204 U/L 40-150 H (test code = 6768-6) Total Bilirubin (test 0.7 mg/dL 0.2-1.2 code = 1975-2) Sodium (test code = 136 meq/L 763-402 6817-2) Potassium (test code = 4.5 meq/L 3.5-5.1 3-3) Chloride (test code = 96 meq/L 98-107 L 2074-0) CO2 (test code = 27 meq/L 22-29 2027-9) BUN (test code = 41 mg/dL 7-21 H 3094-0) Creatinine (test code 7.15 mg/dL 0.57-1.25 H = 2160-0) Glucose (test code = 95 mg/dL 70-105 2345-7) Calcium (test code = 8.1 mg/dL 8.4-10.2 L 77928-3) AST (test code = 16 U/L 5-34 1920-8) ALT (test code = 21 U/L 6-55 1742-6) EGFR (test code = 8 mL/min/1.73 [place] [address]-2) NOT ACCURATE CREATININE CLEARANCE IN PREDICTING GLOMERULAR FILTRATION RATE . ESTIMATED GFR I S NOT APPLICABLE FOR DIALYSIS PATIENTS. WILLIAMS (test code = WILLIAMS) Boiler Or Engine Operator ID - PIAYA L Lab Interpretation Abnormal (test code = 58427-1) [facility] CenterCOMPREHENSIVE METABOLIC [id number] 14:08:00 Test Item Value Reference Range Interpretation Comments TOTAL PROTEIN 8.6 gm/dL 6.0-8.3 H (BEAKER) (test code = 770) ALBUMIN (BEAKER) 4.2 g/dL 3.5-5.0 (test code = 1145) ALKALINE PHOSPHATASE 204 U/L 40-150 H (BEAKER) (test code = 346) BILIRUBIN TOTAL 0.7 mg/dL 0.2-1.2 (BEAKER) (test code = 377) SODIUM (BEAKER) (test 136 meq/L 136-145 code = 381) POTASSIUM (BEAKER) 4.5 meq/L 3.5-5.1 (test code = 379) CHLORIDE (BEAKER) 96 meq/L 98-107 L (test code = 382) CO2 (BEAKER) (test 27 meq/L - code = 355) BLOOD UREA NITROGEN 41 mg/dL 7-21 H (BEAKER) (test code = 354) CREATININE (BEAKER) 7.15 mg/dL 0.57-1.25 H (test code = 358) GLUCOSE RANDOM 95 mg/dL 70-105 (BEAKER) (test code = 652) CALCIUM (BEAKER) 8.1 mg/dL 8.4-10.2 L (test code = 697) AST (SGOT) (BEAKER) 16 U/L 5-34 (test code = 353) ALT (SGPT) (BEAKER) 21 U/L 6-55 (test code = 347) EGFR (BEAKER) (test 8 mL/min/1.73 ESTIMAT ED GFR IS code = 1092) sq m NOT ACCURATE CREATININE CLEARANCE IN PREDICTING GLOMERULAR FILTRATION RATE . ESTIMATED GFR I S NOT APPLICABLE FOR DIALYSIS PATIEN TS. Boiler Or Engine Operator ID - MICHAEL PEDERSONipid [id number] 14:07:00 Test Item Value Reference Range Interpretation Comments Triglycerides (test 124 mg/dL code = 2571-8) Cholesterol (test code 135 mg/dL = 2093-3) HDL (test code = 32 mg/dL 2084-9) LDL Calculated (test 78 mg/dL code = 00365-5) WILLIAMS (test code = WILLIAMS) Triglyceride Reference Range: Low Risk <150 Borderline 150-199 High Risk 200-499 Very High Risk >=500 Cholesterol Reference Range: Low Risk <200 Borderline 200-239 High Risk >240 HDL Cholesterol Reference Range: Low Risk >=60 High Risk <40 LDL Cholesterol Reference Range: Optimal <100 Near Optimal 100-129 Borderline 130-159 High 160-189 Very High >=190 Boiler Or Engine Operator ID - PIXUAN L [facility] CenterGamma Glutamyl Transferase (GGT)2020-09-15 14:07:00 Test Item Value Reference Range Interpretation Comments GGT (test code = 2324-2) 33 U/L 9-64 WILLIAMS (test code = WILLIAMS) Boiler Or Engine Operator ID - MICHAEL L Lab Interpretation (test Normal code = 13100-6) [facility] CenterPhosphorus2020-10-28 14:07:00 Test Item Value Reference Range Interpretation Comments Phosphorus (test code = 5.6 mg/dL 2.3-4.7 H 2777-1) WILLIAMS (test code = WILLIAMS) Boiler Or Engine Operator ID - MICHAEL L Lab Interpretation (test Abnormal code = 79433-5) [facility] CenterUric [id number] 14:07:00 Test Item Value Reference Range Interpretation Comments Uric Acid (test code = 6.2 mg/dL 2.6-7.2 3084-1) WILLIAMS (test code = WILLIAMS) Boiler Or Engine Operator ID Sascha RODRIGUEZ L Lab Interpretation (test Normal code = 65582-5) [facility] CenterPHOSPHORUS2020-10-28 14:07:00 Test Item Value Reference Range Interpretation Comments PHOSPHORUS (BEAKER) (test code = 5.6 mg/dL 2.3-4.7 H 604) Boiler Or Engine Operator ID Sascha RODRIGUEZ LURIC [id number] 14:07:00 Test Item Value Reference Range Interpretation Comments URIC ACID (BEAKER) (test code = 6.2 mg/dL 2.6-7.2 773) Boiler Or Engine Operator ID Sascha RODRIGUEZ LLIPID [id number] 14:07:00 Test Item Value Reference Range Interpretation Comments TRIGLYCERIDES (BEAKER) (test code = 124 mg/dL 540) CHOLESTEROL (BEAKER) (test code = 135 mg/dL 631) HDL CHOLESTEROL (BEAKER) (test code 32 mg/dL = 976) LDL CHOLESTEROL CALCULATED (BEAKER) 78 mg/dL (test code = 633) Triglyceride Reference Range: Low Risk <150 Borderline 150-199 High Risk 200-499 Very High Risk >=500Cholesterol Reference Range: Low Risk <200 Borderline 200-239 High Risk >240HDL Cholesterol Reference Range: Low Risk >=60 High Risk <40LDL Cholesterol Reference Range: Optimal <100 Near Optimal 100-129 Borderline 130-159 High 160-189 Very High >=190 Boiler Or Engine Operator ID - MICHAELLGAMMA GLUTAMYL TRANSFERASE (GGT)2020-09-15 14:07:00 Test Item Value Reference Range Interpretation Comments GAMMA GLUTAMYL TRANSFERASE (BEAKER) 33 U/L 9-64 (test code = 364) Boiler Or Engine Operator ID - MICHAEL LCBC with platelet count + automated [id number] 13:50:00 Test Item Value Reference Range Interpretation Comments WBC (test code = 6690-2) 10.2 3.5- 10.5 K/L RBC (test code = 789-8) 3.80 3.93- 5.22 M/L L MCHC (test code = 786-4) 31.4 32.2- 35.5 GM/DL L Hematocrit (test code = 4544-3) 33.8 % 34.1-44.9 L MCV (test code = 787-2) 88.9 fL 79.4-94.8 MCH (test code = 785-6) 27.9 pg 25.6-32.2 RDW (test code = 788-0) 17.1 % 11.7-14.4 H Platelets (test code = 777-3) 306 150- 450 K/CU MM MPV (test code = 96496-8) 11.2 fL 9.4-12.3 nRBC (test code = 413) 0 0- 0 /100 WBC % Neutros (test code = 429) 65 % % Lymphs (test code = 430) 25 % % Monos (test code = 431) 8 % % Eos (test code = 432) 2 % % Baso (test code = 437) 1 % # Neutros (test code = 670) 6.61 1.56- 6.13 K/L H # Lymphs (test code = 414) 2.49 1.18- 3.74 K/L # Monos (test code = 415) 0.79 0.24- 0.36 K/L H # Eos (test code = 416) 0.17 0.04- 0.36 K/L # Baso (test code = 417) 0.08 0.01- 0.08 K/L Immature Granulocytes-Relative 0 % 0-1 (test code = 2801) Lab Interpretation (test code = Abnormal 29145-9) [facility] W/PLT COUNT & AUTO [id number] 13:50:00 Test Item Value Reference Range Interpretation Comments WHITE BLOOD CELL COUNT (BEAKER) 10.2 K/ L 3.5-10.5 (test code = 775) RED BLOOD CELL COUNT (BEAKER) 3.80 M/ L 3.93-5.22 L (test code = 761) HEMOGLOBIN (BEAKER) (test code = 10.6 GM/DL 11.2-15.7 L 410) HEMATOCRIT (BEAKER) (test code = 33.8 % 34.1-44.9 L 411) MEAN CORPUSCULAR VOLUME (BEAKER) 88.9 fL 79.4-94.8 (test code = 753) MEAN CORPUSCULAR HEMOGLOBIN 27.9 pg 25.6-32.2 (BEAKER) (test code = 751) MEAN CORPUSCULAR HEMOGLOBIN CONC 31.4 GM/DL 32.2-35.5 L (BEAKER) (test code = 752) RED CELL DISTRIBUTION WIDTH 17.1 % 11.7-14.4 H (BEAKER) (test code = 412) PLATELET COUNT (BEAKER) (test 306 K/CU MM 150-450 code = 756) MEAN PLATELET VOLUME (BEAKER) 11.2 fL 9.4-12.3 (test code = 754) NUCLEATED RED BLOOD CELLS 0 /100 WBC 0-0 (BEAKER) (test code = 413) NEUTROPHILS RELATIVE PERCENT 65 % (BEAKER) (test code = 429) LYMPHOCYTES RELATIVE PERCENT 25 % (BEAKER) (test code = 430) MONOCYTES RELATIVE PERCENT 8 % (BEAKER) (test code = 431) EOSINOPHILS RELATIVE PERCENT 2 % (BEAKER) (test code = 432) BASOPHILS RELATIVE PERCENT 1 % (BEAKER) (test code = 437) NEUTROPHILS ABSOLUTE COUNT 6.61 K/ L 1.56-6.13 H (BEAKER) (test code = 670) LYMPHOCYTES ABSOLUTE COUNT 2.49 K/ L 1.18-3.74 (BEAKER) (test code = 414) MONOCYTES ABSOLUTE COUNT (BEAKER) 0.79 K/ L 0.24-0.36 H (test code = 415) EOSINOPHILS ABSOLUTE COUNT 0.17 K/ L 0.04-0.36 (BEAKER) (test code = 416) BASOPHILS ABSOLUTE COUNT (BEAKER) 0.08 K/ L 0.01-0.08 (test code = 417) IMMATURE GRANULOCYTES-RELATIVE 0 % 0-1 PERCENT (BEAKER) (test code = 6743)
[2020-12-02] MEDS: ONDANSETRON 4 MG (ODT) TAB PO PRN (21:53)
[2020-12-02] MEDS: methocarbamoL 750 MG TAB PO PRN (21:53)
[2020-12-02] MEDS: OXYCODONE HCL 5 MG TAB PO PRN (21:53)
[2020-12-03] MEDS: HEPARIN 5000 UNIT/ML 1 ML VIAL SQ SCH ×2 (06:06→19:39)
[2020-12-03] MEDS ORDERED: D50W 25 GM/50 ML SYRINGE IV PRN (06:31)
[2020-12-03] MEDS ORDERED: GLUCAGON 1 MG/VIAL IM PRN (06:31)
[2020-12-03] MEDS: OXYCODONE HCL 5 MG TAB PO PRN ×2 (07:00→13:18)
[2020-12-03] MEDS: ONDANSETRON 4 MG (ODT) TAB PO PRN ×2 (07:00→13:19)
[2020-12-03 07:31] LABS: Absolute Lymphocytes (CBC) 2.1 K/uL (0.7-4.9); Basophils % 0.4 % (0-1.3); Hematocrit 24.2 % (36.0-45.0); Lymphocytes % 20.1 % (15.3-44.8); MPV 9.3 fL (7.6-11.3); RBC Red Blood Cell Count 2.62 M/uL (3.86-4.86)
[2020-12-03 07:58] LABS: Albumin 2.7 g/dL (3.4-5.0); Magnesium 2.7 mg/dL (1.8-2.4); Prealbumin 22.4 mg/dL (20-40)
[2020-12-03] MEDS: FLUTICASONE 50MCG NASAL SPRAY NAS SCH ×3 (08:00→20:00)
[2020-12-03] MEDS: INSULIN LISPRO 100 UNIT/1 ML SQ SCH ×4 (08:26→17:08)
[2020-12-03] MEDS: AMLODIPINE 10 MG TAB PO SCH (08:27)
[2020-12-03] MEDS: METOPROLOL XL 50 MG TAB PO SCH (08:27)
[2020-12-03] MEDS: SEVELAMER CARBONATE 800 MG TABLET PO SCH ×3 (08:27→17:09)
[2020-12-03] MEDS: MINOCYCLINE HCL 50 MG CAP PO SCH ×2 (08:28→22:32)
[2020-12-03] MEDS ORDERED: TRAMADOL HCL 50 MG TAB PO PRN (10:08)
--- NOTE | 2020-12-03 10:10 | P.RH.PN ---
Estimated Length of Stay: 14 Expected Discharge Date: 12/15/20 Discharge Disposition Plan: Home Family Support: Yes Half-Way Goal: Mobility, Transfers, Self Care Vital Signs: Last Vital Signs Temp 98.3 F 12/03/20 08:00 Pulse 83 12/03/20 08:27 Resp 16 12/03/20 08:00 BP 144/71 H 12/03/20 08:27 Pulse Ox 95 12/03/20 08:00 Laboratory: Laboratory Last Values WBC 10.5 K/uL (4.3-10.9) 12/03/20 06:57 RBC 2.62 M/uL (3.86-4.86) L 12/03/20 06:57 Hgb 8.0 g/dL (12.0-15.0) L 12/03/20 06:57 Hct 24.2 % (36.0-45.0) L 12/03/20 06:57 MCV 92.3 fL (80-100) 12/03/20 06:57 MCH 30.7 pg (27.0-35.0) 12/03/20 06:57 MCHC 33.2 g/dL (32.0-36.0) 12/03/20 06:57 RDW 14.2 % (12.1-15.2) 12/03/20 06:57 Plt Count 272 K/uL (152-406) 12/03/20 06:57 MPV 9.3 fL (7.6-11.3) 12/03/20 06:57 Neutrophils % 68.8 % (41.7-73.7) 12/03/20 06:57 Lymphocytes % 20.1 % (15.3-44.8) 12/03/20 06:57 Monocytes % 7.9 % (3.3-12.3) 12/03/20 06:57 Eosinophils % 2.8 % (0-4.4) 12/03/20 06:57 Basophils % 0.4 % (0-1.3) 12/03/20 06:57 Absolute Neutrophils 7.2 K/uL (1.8-8.0) 12/03/20 06:57 Absolute Lymphocytes 2.1 K/uL (0.7-4.9) 12/03/20 06:57 Absolute Monocytes 0.8 K/uL (0.1-1.3) 12/03/20 06:57 Absolute Eosinophils 0.3 K/uL (0-0.5) 12/03/20 06:57 Absolute Basophils 0.0 K/uL (0-0.5) 12/03/20 06:57 Sodium 134 mmol/L (136-145) L 12/03/20 06:57 Potassium 5.0 mmol/L (3.5-5.1) 12/03/20 06:57 Chloride 102 mmol/L (98-107) 12/03/20 06:57 Carbon Dioxide 24 mmol/L (21-32) 12/03/20 06:57 BUN 37 mg/dL (7-18) H 12/03/20 06:57 Creatinine 7.11 mg/dL (0.55-1.3) H* 12/03/20 06:57 Estimated GFR 6 mL/min (=/>90) L 12/03/20 06:57 Glucose 138 mg/dL (74-106) H 12/03/20 06:57 POC Glucose 141 mg/dL (65-120) H 12/03/20 06:54 Calcium 8.5 mg/dL (8.5-10.1) 12/03/20 06:57 Magnesium 2.7 mg/dL (1.8-2.4) H 12/03/20 06:57 Albumin 2.7 g/dL (3.4-5.0) L 12/03/20 06:57 Prealbumin 22.4 mg/dL (20-40) 12/03/20 06:57 SARS-CoV-2 RNA (RT-PCR) Negative (NEGATIVE) 12/03/20 21:00 Weight: 229 lb 11.2 oz Physician Update: Labs reviewed and are stable. She has apparent severe pain but can still do t therapy. Walkede 20' with contact guard. She needed physical help getting out of bed and the toilet. She was emotional and will start Cymbalta. She is max assistance with some ADLs. Summary: Patient's care plan and senior living goals have been reviewed and revised as necessary. Please see the Rehabilitation Signature page for all necessary signatures.
[2020-12-03] MEDS ORDERED: MELATONIN 3 MG TABLET PO PRN (10:11)
[2020-12-03] MEDS ORDERED: DOCUSATE NA/SENNA CONC 1 TAB PO PRN (10:12)
[2020-12-03] MEDS: methocarbamoL 750 MG TAB PO PRN (13:18)
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
[2020-12-03] MEDS: PREGABALIN 50 MG CAP PO SCH ×2 (14:37→21:32)
[2020-12-03] MEDS: MAGNESIUM OXIDE 400 MG TAB PO SCH ×2 (14:38→21:32)
[2020-12-03] MEDS: POLYETHYL GLY 3350 17 GM/DOSE PO PRN (16:12)
[2020-12-03] MEDS ORDERED: D50W 25 GM/50 ML VIAL IV PRN (17:21)
[2020-12-03] MEDS ORDERED: GABAPENTIN 300 MG CAP PO SCH (20:00)
[2020-12-03 20:01] LABS: Urine Appearance CLEAR; Urine Bilirubin NEGATIVE (NEG); Urine Blood 1+ (NEG); Urine Color YELLOW; Urine Glucose 1+ (NEG); Urine Protein 3+ (NEG); Urine Urobilinogen 0.2 mg/dL (0.2-1.0); Urine pH 6.5 (5.0-7.0)
[2020-12-03 21:03] LABS: Urine Bacteria 20-50 /HPF (<20); Urine Yeast PRESENT (NONE SEEN)
[2020-12-03] MEDS: ROSUVASTATIN 10 MG TAB PO SCH (21:32)
[2020-12-03] MEDS: INSULIN GLARGINE 100 UNITS/ML SQ SCH (21:32)
[2020-12-04] MEDS ORDERED: GLUCAGON 1 MG/VIAL IM PRN (06:03)
[2020-12-04] MEDS ORDERED: D50W 25 GM/50 ML SYRINGE IV PRN (06:03)
[2020-12-04] MEDS: HEPARIN 5000 UNIT/ML 1 ML VIAL SQ SCH (07:30)
[2020-12-04] MEDS: INSULIN -REGULAR HUMAN 50 UNIT/0.5 ML ML SQ SCH ×4 (07:30→20:40)
[2020-12-04] MEDS: MAGNESIUM OXIDE 400 MG TAB PO SCH (08:00)
[2020-12-04] MEDS: FLUTICASONE 50MCG NASAL SPRAY NAS SCH ×2 (08:00→20:00)
[2020-12-04] MEDS: METOPROLOL XL 50 MG TAB PO SCH (08:00)
[2020-12-04] MEDS: DULOXETINE 20 MG CAP PO SCH (08:29)
[2020-12-04] MEDS: SEVELAMER CARBONATE 800 MG TABLET PO SCH ×4 (08:29→18:34)
[2020-12-04] MEDS: MINOCYCLINE HCL 50 MG CAP PO SCH ×2 (08:30→20:38)
[2020-12-04] MEDS: PREGABALIN 50 MG CAP PO SCH ×2 (08:30→20:38)
[2020-12-04] MEDS: AMLODIPINE 10 MG TAB PO SCH (08:30)
[2020-12-04] MEDS: OXYCODONE HCL 5 MG TAB PO PRN (08:35)
[2020-12-04] MEDS: ONDANSETRON 4 MG (ODT) TAB PO PRN ×2 (08:35→12:30)
[2020-12-04] MEDS: INSULIN LISPRO 100 UNIT/1 ML SQ SCH ×3 (08:35→17:00)
[2020-12-04] MEDS ORDERED: EPOETIN ALFA-EPBX 10,000 UNIT/ML VIAL SQ ONE (13:14)
[2020-12-04] MEDS ORDERED: LACTULOSE 20 GM/30 ML UCUP PO ONE (13:14)
[2020-12-04] MEDS ORDERED: MANNITOL 25% 12.5 GM/50 ML VIAL IV PRN (13:17)
[2020-12-04] MEDS ORDERED: NA CHLORIDE 0.9% 1,000 ML IV PRN (13:17)
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
[2020-12-04] MEDS ORDERED: ALBUMIN HUMAN 25% 50 ML IV SCH (14:00)
[2020-12-04] MEDS: ROSUVASTATIN 10 MG TAB PO SCH (20:38)
[2020-12-04] MEDS: INSULIN GLARGINE 100 UNITS/ML SQ SCH (20:40)
[2020-12-04] MEDS ORDERED: PANTOPRAZOLE 40MG TABLET PO SCH ×2 (21:41→22:00)
[2020-12-04] MEDS: PANTOPRAZOLE 40MG TABLET PO SCH (22:24)
[2020-12-05] MEDS: HEPARIN 5000 UNIT/ML 1 ML VIAL SQ SCH ×3 (05:48→20:00)
[2020-12-05] MEDS: PANTOPRAZOLE 40MG TABLET PO SCH (06:47)
[2020-12-05] MEDS: INSULIN -REGULAR HUMAN 50 UNIT/0.5 ML ML SQ SCH ×4 (06:58→20:37)
[2020-12-05] MEDS ORDERED: FERROUS SULFATE 325 MG TAB PO SCH (08:00)
[2020-12-05] MEDS: FLUTICASONE 50MCG NASAL SPRAY NAS SCH ×3 (08:00→20:00)
[2020-12-05] MEDS: MINOCYCLINE HCL 50 MG CAP PO SCH ×2 (08:28→20:29)
[2020-12-05] MEDS: SEVELAMER CARBONATE 800 MG TABLET PO SCH ×3 (08:29→17:01)
[2020-12-05] MEDS: ACETAMINOPHEN 500 MG TAB PO PRN ×2 (08:29→17:04)
[2020-12-05] MEDS: AMLODIPINE 10 MG TAB PO SCH (08:29)
[2020-12-05] MEDS: INSULIN LISPRO 100 UNIT/1 ML SQ SCH ×3 (08:30→17:20)
[2020-12-05] MEDS: PREGABALIN 50 MG CAP PO SCH ×2 (08:35→20:30)
[2020-12-05] MEDS ORDERED: TRAMADOL HCL 50 MG TAB PO PRN (09:10)
[2020-12-05] MEDS ORDERED: LACTULOSE 20 GM/30 ML UCUP PO PRN (09:11)
[2020-12-05] MEDS: CALCITROL 0.25 MCG CAP PO SCH (10:28)
[2020-12-05] MEDS: DULOXETINE 20 MG CAP PO SCH (10:28)
[2020-12-05] MEDS: MULTIVITAMINS,THERAPEUT 1 TAB PO SCH (10:28)
[2020-12-05] MEDS: METOPROLOL XL 50 MG TAB PO SCH (10:28)
[2020-12-05] MEDS: VITAMIN D 5,000 UNIT CAP PO SCH (10:28)
[2020-12-05] MEDS: INSULIN GLARGINE 100 UNITS/ML SQ SCH (20:30)
[2020-12-05] MEDS: ROSUVASTATIN 10 MG TAB PO SCH (20:30)
[2020-12-06 05:53] LABS: Basophils % 0.9 % (0-1.3); Hematocrit 25.1 % (36.0-45.0); Lymphocytes % 29.3 % (15.3-44.8); MPV 9.1 fL (7.6-11.3); RBC Red Blood Cell Count 2.71 M/uL (3.86-4.86)
[2020-12-06] MEDS: HEPARIN 5000 UNIT/ML 1 ML VIAL SQ SCH ×2 (06:28→19:06)
[2020-12-06] MEDS: PANTOPRAZOLE 40MG TABLET PO SCH (06:36)
[2020-12-06 06:38] LABS: Folic Acid, (Folate) 5.8 ng/mL (3.1-17.5)
[2020-12-06] MEDS: OXYCODONE HCL 5 MG TAB PO PRN ×2 (06:41→12:37)
[2020-12-06] MEDS: ONDANSETRON 4 MG (ODT) TAB PO PRN ×2 (06:41→12:38)
[2020-12-06] MEDS: INSULIN -REGULAR HUMAN 50 UNIT/0.5 ML ML SQ SCH ×4 (07:30→20:04)
[2020-12-06] MEDS: FLUTICASONE 50MCG NASAL SPRAY NAS SCH ×2 (08:00→20:00)
[2020-12-06] MEDS: SEVELAMER CARBONATE 800 MG TABLET PO SCH ×3 (08:08→16:55)
[2020-12-06] MEDS: METOPROLOL XL 50 MG TAB PO SCH (08:09)
[2020-12-06] MEDS: VITAMIN D 5,000 UNIT CAP PO SCH (08:09)
[2020-12-06] MEDS: MINOCYCLINE HCL 50 MG CAP PO SCH ×2 (08:09→20:03)
[2020-12-06] MEDS: AMLODIPINE 10 MG TAB PO SCH (08:13)
[2020-12-06] MEDS: MULTIVITAMINS,THERAPEUT 1 TAB PO SCH (08:13)
[2020-12-06] MEDS: PREGABALIN 50 MG CAP PO SCH ×2 (08:13→20:03)
[2020-12-06] MEDS: DULOXETINE 20 MG CAP PO SCH (08:13)
[2020-12-06] MEDS: CALCITROL 0.25 MCG CAP PO SCH (08:13)
[2020-12-06] MEDS: INSULIN LISPRO 100 UNIT/1 ML SQ SCH ×3 (08:14→16:55)
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
[2020-12-06] MEDS: POLYETHYL GLY 3350 17 GM/DOSE PO PRN (15:28)
[2020-12-06] MEDS: EPOETIN ALFA-EPBX 4,000 UNIT/ML VIAL SQ SCH (17:11)
[2020-12-06] MEDS: ROSUVASTATIN 10 MG TAB PO SCH (20:03)
[2020-12-06] MEDS: INSULIN GLARGINE 100 UNITS/ML SQ SCH (20:03)
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
[2020-12-07] MEDS: PANTOPRAZOLE 40MG TABLET PO SCH (06:15)
[2020-12-07] MEDS: HEPARIN 5000 UNIT/ML 1 ML VIAL SQ SCH ×2 (06:16→18:27)
[2020-12-07] MEDS: ONDANSETRON 4 MG (ODT) TAB PO PRN ×3 (06:40→21:24)
[2020-12-07] MEDS: OXYCODONE HCL 5 MG TAB PO PRN ×2 (06:41→12:29)
[2020-12-07] MEDS: INSULIN -REGULAR HUMAN 50 UNIT/0.5 ML ML SQ SCH ×5 (07:30→21:00)
[2020-12-07] MEDS: FLUTICASONE 50MCG NASAL SPRAY NAS SCH ×2 (08:00→20:00)
[2020-12-07] MEDS: AMLODIPINE 10 MG TAB PO SCH (08:00)
[2020-12-07] MEDS: METOPROLOL XL 50 MG TAB PO SCH (08:00)
[2020-12-07] MEDS: INSULIN LISPRO 100 UNIT/1 ML SQ SCH ×3 (08:14→18:07)
[2020-12-07] MEDS: DULOXETINE 20 MG CAP PO SCH (08:14)
[2020-12-07] MEDS: VITAMIN D 5,000 UNIT CAP PO SCH (08:14)
[2020-12-07] MEDS: MULTIVITAMINS,THERAPEUT 1 TAB PO SCH (08:14)
[2020-12-07] MEDS: SEVELAMER CARBONATE 800 MG TABLET PO SCH ×3 (08:15→18:08)
[2020-12-07] MEDS: MINOCYCLINE HCL 50 MG CAP PO SCH ×2 (08:15→20:12)
[2020-12-07] MEDS: PREGABALIN 50 MG CAP PO SCH ×2 (08:15→20:12)
[2020-12-07] MEDS: CALCITROL 0.25 MCG CAP PO SCH (08:15)
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
--- NOTE | 2020-12-07 18:44 | P.PN ---
Date of Service: 12/07/20 Vital Signs Temp Pulse Resp BP Pulse Ox 98.1 F 83 18 158/69 H 95 12/07/20 07:00 12/07/20 07:00 12/07/20 13:29 12/07/20 07:00 12/07/20 13:29 Medications Acetaminophen (Acetaminophen 500 Mg Tab) 1,000 mg PO Q6H PRN PRN Reason: Pain scale 5-7 (Moderate) Stop: 01/01/21 22:01 Last Admin: 12/05/20 17:04 Dose: 1,000 mg Documented by: Amlodipine Besylate (Amlodipine 10 Mg Tab) 10 mg PO DAILY [facility] Stop: 01/02/21 08:01 Last Admin: 12/07/20 08:00 Dose: Not Given Documented by: Calcitriol (Calcitrol 0.25 Mcg Cap) 0.5 mcg PO DAILY [facility] Stop: 01/04/21 08:01 Last Admin: 12/07/20 08:15 Dose: 0.5 mcg Documented by: Cholecalciferol (Vitamin D 5,000 Unit Cap) 5,000 unit PO DAILY [facility] Stop: 01/04/21 08:01 Last Admin: 12/07/20 08:14 Dose: 5,000 unit Documented by: Dextrose (D50w 25 Gm/50 Ml Vial) 12.5 gm IV PRN PRN; Protocol PRN Reason: HYPOGLYCEMIA Stop: 01/02/21 17:22 Duloxetine HCl (Duloxetine 20 Mg Cap) 20 mg PO DAILY [facility] Stop: 01/03/21 08:01 Last Admin: 12/07/20 08:14 Dose: 20 mg Documented by: Fluticasone Propionate (Fluticasone 50mcg Nasal [place]) 2 sprays RON BID [facility] Stop: 01/02/21 08:01 Last Admin: 12/07/20 08:00 Dose: Not Given Documented by: Glucagon (Glucagon 1 Mg/Vial) 1 mg IM 1X PRN; Protocol PRN Reason: HYPOGLYCEMIA Stop: 01/03/21 06:04 Heparin Sodium (Porcine) (Heparin 5000 Unit/Ml 1 Ml Vial) 5,000 unit SQ Q12HR [facility] Stop: 01/02/21 08:01 Last Admin: 12/07/20 18:27 Dose: 5,000 unit Documented by: Heparin Sodium (Porcine) (Heparin 1,000 Unit/Ml Vial) 6,000 unit IV EVERY HD PRN PRN Reason: AFTER EACH Stop: 01/03/21 13:18 Last Admin: 12/07/20 17:25 Dose: 6,000 unit Documented by: Albumin Human (Albumin 25%) 50 mls @ 100 mls/hr IV EVERY HD [facility] Stop: 01/03/21 14:01 Insulin Glargine (Insulin Glargine 100 Units/Ml) 25 units SQ BEDTIME [facility] Stop: 01/02/21 21:01 Last Admin: 12/06/20 20:03 Dose: 25 units Documented by: Insulin Human Lispro (Insulin Lispro 100 Unit/1 Ml) 4 unit SQ TIDWM [facility] Stop: 01/02/21 08:01 Last Admin: 12/07/20 18:07 Dose: 4 unit Documented by: Insulin Human Regular (Insulin -Regular Human 50 Unit/0.5 Ml Ml) 0 unit SQ ACHS [facility]; Protocol Stop: 01/03/21 07:31 Last Admin: 12/07/20 11:30 Dose: Not Given Documented by: Lactulose (Lactulose 20 Gm/30 Ml Ucup) 20 gm PO BID PRN PRN Reason: CONSTIPATION Stop: 01/04/21 20:01 Last Admin: 12/07/20 08:16 Dose: 20 gm Documented by: Mannitol (Mannitol 25% 12.5 Gm/50 Ml Vial) 12.5 gm IV EVERY HD PRN PRN Reason: Titrate to SBP (MUST DEFINE) Stop: 01/03/21 13:18 Melatonin (Melatonin 3 Mg Tablet) 3 mg PO BEDTIME PRN PRN PRN Reason: INSOMNIA Stop: 01/02/21 10:12 Methocarbamol (Methocarbamol 750 Mg Tab) 750 mg PO TID PRN PRN Reason: MUSCLE SPASMS Stop: 01/01/21 21:31 Last Admin: 12/03/20 13:18 Dose: 750 mg Documented by: Metoprolol Succinate (Metoprolol Xl 50 Mg Tab) 50 mg PO DAILY [facility] Stop: 01/02/21 08:01 Last Admin: 12/07/20 08:00 Dose: Not Given Documented by: Minocycline HCl (Minocycline Hcl 50 Mg Cap) 100 mg PO BID [facility] Stop: 01/02/21 08:01 Last Admin: 12/07/20 08:15 Dose: 100 mg Documented by: Ondansetron HCl (Ondansetron 4 Mg (Odt) Tab) 4 mg PO Q4H PRN PRN Reason: NAUSEA / VOMITING Stop: 01/01/21 21:31 Last Admin: 12/07/20 12:30 Dose: 4 mg Documented by: Oxycodone HCl (Oxycodone Hcl 5 Mg Tab) 2.5 mg PO Q6H PRN PRN Reason: Pain scale 8-10 (Severe) Stop: 01/01/21 21:31 Last Admin: 12/07/20 12:29 Dose: 2.5 mg Documented by: Pantoprazole Sodium (Pantoprazole 40mg Tablet) 40 mg PO DAILYAC [facility]UR[facility]; Protocol Stop: 01/03/21 22:15 Last Admin: 12/07/20 06:15 Dose: 40 mg Documented by: Polyethylene Glycol (Polyethyl Gly 3350 17 Gm/Dose) 17 gm PO DAILY PRN PRN Reason: CONSTIPATION Stop: 01/01/21 21:31 Last Admin: 12/03/20 16:12 Dose: 17 gm Documented by: Pregabalin (Pregabalin 50 Mg Cap) 100 mg PO BID [facility] Stop: 01/02/21 14:01 Last Admin: 12/07/20 08:15 Dose: 100 mg Documented by: Rosuvastatin Calcium (Rosuvastatin 10 Mg Tab) 10 mg PO BEDTIME [facility] Stop: 01/02/21 21:01 Last Admin: 12/06/20 20:03 Dose: 10 mg Documented by: Senna/Docusate Sodium (Docusate Na/Senna Conc 1 Tab) 2 tab PO BEDTIME PRN PRN Reason: CONSTIPATION Stop: 01/02/21 10:13 Sevelamer Carbonate (Sevelamer Carbonate 800 Mg Tablet) 800 mg PO TIDWM [facility] Stop: 01/02/21 08:01 Last Admin: 12/07/20 18:08 Dose: 800 mg Documented by: Vitamin B Complex/Vit C/Folic Acid (Multivitamins,Therapeut 1 Tab) 1 tab PO DAILY [facility] Stop: 01/04/21 08:01 Last Admin: 12/07/20 08:14 Dose: 1 tab Documented by: Lab Results (last 24 hrs) 12/07/20 18:05: POC Glucose 124 H 12/07/20 11:31: POC Glucose 170 H 12/07/20 07:13: POC Glucose 117 12/06/20 19:54: POC Glucose 216 H Microbiology Results 12/03/20 18:00 Clean Catch Urine [place] Count - Final >100,000 CFU/ML. 12/03/20 18:00 Clean Catch Urine - Final MIXED DUY. Assessment/ Plan: Nephrology CPS stable without CP or SOB. +Appetite No acute events overnight. Vitals, medications, blood work and imaging reviewed in the chart. General: Oriented x3, Cooperative HEENT: Atraumatic Neck: Supple Respiratory: Clear to auscultation bilaterally Cardiovascular: Regular rate/rhythm, Edema Gastrointestinal: Soft and benign, Non-distended Musculoskeletal: No clubbing, No contractures Integumentary: No rashes, No cyanosis Neurological: Normal speech Blood work reviewed in the chart. Conclusions/Impression: A/ ESRD on HD Hyperkalemia HTN with CKD/ CHF Diastolic CHF, chronic LE edema DM II with CKD [place]/ Secondary HyperPTH Anemia in CKD Moderate malnutrition Right pelvic fx with associated pain. Slow transit constipation complicated by iron and opiates. P/ Continue current POC and Medications. HD TTS. Lactulose for constipation prn. Continue Retacrit. Continue Renvela and Vitamin D. Wean opiate therapy as tolerated. Will titrate insulin as needed to improve BG Continue PT. No NSAIDs. AM labs prn. Daily weight.
[2020-12-07] MEDS: ACETAMINOPHEN 500 MG TAB PO PRN (20:11)
[2020-12-07] MEDS: INSULIN GLARGINE 100 UNITS/ML SQ SCH (20:12)
[2020-12-07] MEDS: ROSUVASTATIN 10 MG TAB PO SCH (20:12)
[2020-12-08] MEDS: HEPARIN 5000 UNIT/ML 1 ML VIAL SQ SCH ×2 (06:10→20:50)
[2020-12-08] MEDS: PANTOPRAZOLE 40MG TABLET PO SCH (06:24)
[2020-12-08] MEDS: ACETAMINOPHEN 500 MG TAB PO PRN (06:42)
[2020-12-08] MEDS: ONDANSETRON 4 MG (ODT) TAB PO PRN ×2 (06:42→22:04)
[2020-12-08] MEDS: INSULIN -REGULAR HUMAN 50 UNIT/0.5 ML ML SQ SCH ×4 (07:30→21:00)
[2020-12-08] MEDS: FLUTICASONE 50MCG NASAL SPRAY NAS SCH ×2 (08:00→20:00)
[2020-12-08] MEDS: CALCITROL 0.25 MCG CAP PO SCH (08:50)
[2020-12-08] MEDS: SEVELAMER CARBONATE 800 MG TABLET PO SCH ×3 (08:50→17:48)
[2020-12-08] MEDS: PREGABALIN 50 MG CAP PO SCH ×2 (08:50→21:59)
[2020-12-08] MEDS: AMLODIPINE 10 MG TAB PO SCH (08:51)
[2020-12-08] MEDS: VITAMIN D 5,000 UNIT CAP PO SCH (08:52)
[2020-12-08] MEDS: METOPROLOL XL 50 MG TAB PO SCH (08:52)
[2020-12-08] MEDS: DULOXETINE 20 MG CAP PO SCH (08:52)
[2020-12-08] MEDS: MULTIVITAMINS,THERAPEUT 1 TAB PO SCH (08:52)
[2020-12-08] MEDS: INSULIN LISPRO 100 UNIT/1 ML SQ SCH ×3 (08:55→17:49)
[2020-12-08] MEDS: MINOCYCLINE HCL 50 MG CAP PO SCH ×2 (09:47→21:59)
[2020-12-08] MEDS: EPOETIN ALFA-EPBX 4,000 UNIT/ML VIAL SQ SCH (17:49)
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
[2020-12-08 20:05] LABS: HBsAG Nonreactive (Nonreactive)
[2020-12-08] MEDS: OXYCODONE HCL 5 MG TAB PO PRN (21:57)
[2020-12-08] MEDS: INSULIN GLARGINE 100 UNITS/ML SQ SCH (21:59)
[2020-12-08] MEDS: ROSUVASTATIN 10 MG TAB PO SCH (21:59)
[2020-12-09 06:16] LABS: Absolute Lymphocytes (CBC) 2.2 K/uL (0.7-4.9); Basophils % 0.6 % (0-1.3); Hematocrit 25.4 % (36.0-45.0); Lymphocytes % 17.9 % (15.3-44.8); RBC Red Blood Cell Count 2.72 M/uL (3.86-4.86)
[2020-12-09 06:23] LABS: Albumin 2.7 g/dL (3.4-5.0); Magnesium 2.6 mg/dL (1.8-2.4); Potassium 4.7 mmol/L (3.5-5.1); Prealbumin 18.9 mg/dL (20-40)
[2020-12-09] MEDS: PANTOPRAZOLE 40MG TABLET PO SCH (06:48)
[2020-12-09] MEDS: ACETAMINOPHEN 500 MG TAB PO PRN ×2 (06:56→19:22)
[2020-12-09] MEDS: ONDANSETRON 4 MG (ODT) TAB PO PRN ×3 (06:57→21:10)
[2020-12-09] MEDS: HEPARIN 5000 UNIT/ML 1 ML VIAL SQ SCH ×2 (07:21→20:00)
[2020-12-09] MEDS: INSULIN -REGULAR HUMAN 50 UNIT/0.5 ML ML SQ SCH ×4 (07:30→21:00)
[2020-12-09] MEDS: METOPROLOL XL 50 MG TAB PO SCH ×2 (08:00→21:21)
[2020-12-09] MEDS: AMLODIPINE 10 MG TAB PO SCH ×2 (08:00→21:21)
[2020-12-09] MEDS: FLUTICASONE 50MCG NASAL SPRAY NAS SCH ×2 (08:00→21:09)
[2020-12-09] MEDS: DULOXETINE 20 MG CAP PO SCH (08:51)
[2020-12-09] MEDS: MULTIVITAMINS,THERAPEUT 1 TAB PO SCH (08:51)
[2020-12-09] MEDS: CALCITROL 0.25 MCG CAP PO SCH (08:51)
[2020-12-09] MEDS: MINOCYCLINE HCL 50 MG CAP PO SCH ×2 (08:51→21:08)
[2020-12-09] MEDS: VITAMIN D 5,000 UNIT CAP PO SCH (08:51)
[2020-12-09] MEDS: PREGABALIN 50 MG CAP PO SCH ×2 (08:52→21:09)
[2020-12-09] MEDS: SEVELAMER CARBONATE 800 MG TABLET PO SCH ×3 (08:53→17:00)
[2020-12-09] MEDS: INSULIN LISPRO 100 UNIT/1 ML SQ SCH ×3 (12:23→17:00)
[2020-12-09] MEDS: OXYCODONE HCL 5 MG TAB PO PRN ×2 (13:20→21:10)
--- NOTE | 2020-12-09 14:25 | P.PN ---
Date of Service: 12/09/20 Vital Signs Temp Pulse Resp BP Pulse Ox 99 F 82 18 147/73 H 92 12/09/20 07:46 12/09/20 07:46 12/09/20 13:20 12/09/20 07:46 12/09/20 13:20 Medications Acetaminophen (Acetaminophen 500 Mg Tab) 1,000 mg PO Q6H PRN PRN Reason: Pain scale 5-7 (Moderate) Stop: 01/01/21 22:01 Last Admin: 12/09/20 06:56 Dose: 1,000 mg Documented by: Amlodipine Besylate (Amlodipine 10 Mg Tab) 10 mg PO DAILY LAURA Stop: 01/02/21 08:01 Last Admin: 12/09/20 08:00 Dose: Not Given Documented by: Calcitriol (Calcitrol 0.25 Mcg Cap) 0.5 mcg PO DAILY LAURA Stop: 01/04/21 08:01 Last Admin: 12/09/20 08:51 Dose: 0.5 mcg Documented by: Cholecalciferol (Vitamin D 5,000 Unit Cap) 5,000 unit PO DAILY LAURA Stop: 01/04/21 08:01 Last Admin: 12/09/20 08:51 Dose: 5,000 unit Documented by: Dextrose (D50w 25 Gm/50 Ml Vial) 12.5 gm IV PRN PRN; Protocol PRN Reason: HYPOGLYCEMIA Stop: 01/02/21 17:22 Duloxetine HCl (Duloxetine 20 Mg Cap) 20 mg PO DAILY LAURA Stop: 01/03/21 08:01 Last Admin: 12/09/20 08:51 Dose: 20 mg Documented by: Fluticasone Propionate (Fluticasone 50mcg Nasal [place]) 2 sprays RON BID LAURA Stop: 01/02/21 08:01 Last Admin: 12/09/20 08:00 Dose: Not Given Documented by: Glucagon (Glucagon 1 Mg/Vial) 1 mg IM 1X PRN; Protocol PRN Reason: HYPOGLYCEMIA Stop: 01/03/21 06:04 Heparin Sodium (Porcine) (Heparin 5000 Unit/Ml 1 Ml Vial) 5,000 unit SQ Q12HR LAURA Stop: 01/02/21 08:01 Last Admin: 12/09/20 07:21 Dose: 5,000 unit Documented by: Heparin Sodium (Porcine) (Heparin 1,000 Unit/Ml Vial) 6,000 unit IV EVERY HD PRN PRN Reason: AFTER EACH Stop: 01/03/21 13:18 Last Admin: 12/07/20 17:25 Dose: 6,000 unit Documented by: Albumin Human (Albumin 25%) 50 mls @ 100 mls/hr IV EVERY HD [facility] Stop: 01/03/21 14:01 Insulin Glargine (Insulin Glargine 100 Units/Ml) 25 units SQ BEDTIME [facility]URA Stop: 01/02/21 21:01 Last Admin: 12/08/20 21:59 Dose: 25 units Documented by: Insulin Human Lispro (Insulin Lispro 100 Unit/1 Ml) 4 unit SQ TIDWM [facility] Stop: 01/02/21 08:01 Last Admin: 12/09/20 12:27 Dose: 4 unit Documented by: Insulin Human Regular (Insulin -Regular Human 50 Unit/0.5 Ml Ml) 0 unit SQ ACHS [facility]; Protocol Stop: 01/03/21 07:31 Last Admin: 12/09/20 11:30 Dose: Not Given Documented by: Lactulose (Lactulose 20 Gm/30 Ml Ucup) 20 gm PO BID PRN PRN Reason: CONSTIPATION Stop: 01/04/21 20:01 Last Admin: 12/07/20 08:16 Dose: 20 gm Documented by: Mannitol (Mannitol 25% 12.5 Gm/50 Ml Vial) 12.5 gm IV EVERY HD PRN PRN Reason: Titrate to SBP (MUST DEFINE) Stop: 01/03/21 13:18 Melatonin (Melatonin 3 Mg Tablet) 3 mg PO BEDTIME PRN PRN PRN Reason: INSOMNIA Stop: 01/02/21 10:12 Methocarbamol (Methocarbamol 750 Mg Tab) 750 mg PO TID PRN PRN Reason: MUSCLE SPASMS Stop: 01/01/21 21:31 Last Admin: 12/03/20 13:18 Dose: 750 mg Documented by: Metoprolol Succinate (Metoprolol Xl 50 Mg Tab) 50 mg PO DAILY [facility] Stop: 01/02/21 08:01 Last Admin: 12/09/20 08:00 Dose: Not Given Documented by: Minocycline HCl (Minocycline Hcl 50 Mg Cap) 100 mg PO BID [facility] Stop: 01/02/21 08:01 Last Admin: 12/09/20 08:51 Dose: 100 mg Documented by: Ondansetron HCl (Ondansetron 4 Mg (Odt) Tab) 4 mg PO Q4H PRN PRN Reason: NAUSEA / VOMITING Stop: 01/01/21 21:31 Last Admin: 12/09/20 13:20 Dose: 4 mg Documented by: Oxycodone HCl (Oxycodone Hcl 5 Mg Tab) 2.5 mg PO Q6H PRN PRN Reason: Pain scale 8-10 (Severe) Stop: 01/01/21 21:31 Last Admin: 12/09/20 13:20 Dose: 2.5 mg Documented by: Pantoprazole Sodium (Pantoprazole 40mg Tablet) 40 mg PO DAILYAC [facility]; Protocol Stop: 01/03/21 22:15 Last Admin: 12/09/20 06:48 Dose: 40 mg Documented by: Polyethylene Glycol (Polyethyl Gly 3350 17 Gm/Dose) 17 gm PO DAILY PRN PRN Reason: CONSTIPATION Stop: 01/01/21 21:31 Last Admin: 12/03/20 16:12 Dose: 17 gm Documented by: Pregabalin (Pregabalin 50 Mg Cap) 100 mg PO BID [facility] Stop: 01/02/21 14:01 Last Admin: 12/09/20 08:52 Dose: 100 mg Documented by: Rosuvastatin Calcium (Rosuvastatin 10 Mg Tab) 10 mg PO BEDTIME [facility] Stop: 01/02/21 21:01 Last Admin: 12/08/20 21:59 Dose: 10 mg Documented by: Senna/Docusate Sodium (Docusate Na/Senna Conc 1 Tab) 2 tab PO BEDTIME PRN PRN Reason: CONSTIPATION Stop: 01/02/21 10:13 Sevelamer Carbonate (Sevelamer Carbonate 800 Mg Tablet) 800 mg PO TIDWM [facility] Stop: 01/02/21 08:01 Last Admin: 12/09/20 12:23 Dose: 800 mg Documented by: Vitamin B Complex/Vit C/Folic Acid (Multivitamins,Therapeut 1 Tab) 1 tab PO DAILY [facility] Stop: 01/04/21 08:01 Last Admin: 12/09/20 08:51 Dose: 1 tab Documented by: Lab Results (last 24 hrs) 12/09/20 : Sodium Cancelled, Potassium Cancelled, Chloride Cancelled, Carbon Dioxide Cancelled, BUN Cancelled, Creatinine Cancelled, Estimated GFR Cancelled, Glucose Cancelled, Calcium Cancelled, Magnesium Cancelled, Albumin Cancelled, Prealbumin Cancelled 12/09/20 12:10: POC Glucose 125 H 12/09/20 08:02: POC Glucose 100 12/09/20 07:06: POC Glucose 70 12/09/20 05:50: Sodium 138, Potassium 4.7, Chloride 107, Carbon Dioxide 25, BUN 52 H, Creatinine 7.16 H*, Estimated GFR 6 L, Glucose 67 L, Calcium 8.8, Magnesium 2.6 H, Albumin 2.7 L, Prealbumin 18.9 L 12/09/20 05:50: WBC 12.2 H D, RBC 2.72 L, Hgb 8.2 L, Hct 25.4 L, MCV 93.6, MCH 30.2, MCHC 32.3, RDW 14.5, Plt Count 292, MPV 9.0, Neutrophils % 71.3, Lymphocytes % 17.9, Monocytes % 8.3, Eosinophils % 1.9, Basophils % 0.6, Absolu te Neutrophils 8.7 H, Absolute Lymphocytes 2.2, Absolute Monocytes 1.0, Absolute Eosinophils 0.2, Absolute Basophils 0.1 12/08/20 19:57: POC Glucose 144 H 12/08/20 16:34: POC Glucose 150 H 12/04/20 15:20: Hep Bs Antigen Nonreactive, Hep Bs Antibody, Quant >1000, Hep B Core IgM Ab Nonreactive Microbiology Results 12/03/20 18:00 Clean Catch Urine [place] Count - Final >100,000 CFU/ML. 12/03/20 18:00 Clean Catch Urine - Final MIXED DUY. Assessment/ Plan: Nephrology CPS stable without CP or SOB. +Appetite Left inner thigh pain due to a boil No acute events overnight. Vitals, medications, blood work and imaging reviewed in the chart. General: Oriented x3, Cooperative HEENT: Atraumatic Neck: Supple Respiratory: Clear to auscultation bilaterally Cardiovascular: Regular rate/rhythm, Edema Gastrointestinal: Soft and benign, Non-distended Musculoskeletal: No clubbing, No contractures Integumentary: No rashes, No cyanosis Neurological: Normal speech Blood work reviewed in the chart. Conclusions/Impression: A/ ESRD on HD Hyperkalemia HTN with CKD/ CHF Diastolic CHF, chronic LE edema DM II with CKD [place]/ Secondary HyperPTH Anemia in CKD Moderate malnutrition Right pelvic fx with associated pain. Slow transit constipation complicated by iron and opiates. P/ Continue current POC and Medications. HD TTS. Lactulose for constipation prn. Continue Retacrit. Continue Renvela and Vitamin D. Wean opiate therapy as tolerated. Will titrate insulin as needed to improve BG Continue PT. Consult surgery for the left thigh boil No NSAIDs. AM labs prn. Daily weight.
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
[2020-12-09] MEDS: INSULIN GLARGINE 100 UNITS/ML SQ SCH (21:08)
[2020-12-09] MEDS: ROSUVASTATIN 10 MG TAB PO SCH (21:09)
[2020-12-10] MEDS: OXYCODONE HCL 5 MG TAB PO PRN ×2 (05:24→12:35)
[2020-12-10] MEDS: ONDANSETRON 4 MG (ODT) TAB PO PRN ×2 (05:24→12:36)
[2020-12-10] MEDS: HEPARIN 5000 UNIT/ML 1 ML VIAL SQ SCH ×2 (06:11→19:24)
[2020-12-10] MEDS: PANTOPRAZOLE 40MG TABLET PO SCH (06:50)
[2020-12-10] MEDS: INSULIN -REGULAR HUMAN 50 UNIT/0.5 ML ML SQ SCH ×4 (07:30→21:08)
[2020-12-10] MEDS: FLUTICASONE 50MCG NASAL SPRAY NAS SCH ×2 (08:00→20:00)
[2020-12-10] MEDS: AMLODIPINE 10 MG TAB PO SCH (08:14)
[2020-12-10] MEDS: METOPROLOL XL 50 MG TAB PO SCH (08:15)
[2020-12-10] MEDS: INSULIN LISPRO 100 UNIT/1 ML SQ SCH ×3 (08:15→17:10)
[2020-12-10] MEDS: CALCITROL 0.25 MCG CAP PO SCH (08:15)
[2020-12-10] MEDS: DULOXETINE 20 MG CAP PO SCH (08:16)
[2020-12-10] MEDS: PREGABALIN 50 MG CAP PO SCH ×2 (08:16→21:07)
[2020-12-10] MEDS: SEVELAMER CARBONATE 800 MG TABLET PO SCH ×3 (08:17→17:09)
[2020-12-10] MEDS: MULTIVITAMINS,THERAPEUT 1 TAB PO SCH (08:17)
[2020-12-10] MEDS: MINOCYCLINE HCL 50 MG CAP PO SCH ×2 (08:17→21:07)
[2020-12-10] MEDS: VITAMIN D 5,000 UNIT CAP PO SCH (08:19)
--- NOTE | 2020-12-10 10:05 | P.RH.PN ---
Estimated Length of Stay: 21 Expected Discharge Date: 12/22/20 Discharge Disposition Plan: Home Family Support: Yes Custodial Goal: Mobility, Transfers, Self Care Vital Signs: Last Vital Signs Temp 98.5 F 12/10/20 07:00 Pulse 78 12/10/20 08:15 Resp 16 12/10/20 07:00 BP 144/65 H 12/10/20 08:15 Pulse Ox 95 12/10/20 07:00 Laboratory: Laboratory Last Values WBC 12.2 K/uL (4.3-10.9) H D 12/09/20 05:50 RBC 2.72 M/uL (3.86-4.86) L 12/09/20 05:50 Hgb 8.2 g/dL (12.0-15.0) L 12/09/20 05:50 Hct 25.4 % (36.0-45.0) L 12/09/20 05:50 MCV 93.6 fL (80-100) 12/09/20 05:50 MCH 30.2 pg (27.0-35.0) 12/09/20 05:50 MCHC 32.3 g/dL (32.0-36.0) 12/09/20 05:50 RDW 14.5 % (12.1-15.2) 12/09/20 05:50 Plt Count 292 K/uL (152-406) 12/09/20 05:50 MPV 9.0 fL (7.6-11.3) 12/09/20 05:50 Neutrophils % 71.3 % (41.7-73.7) 12/09/20 05:50 Lymphocytes % 17.9 % (15.3-44.8) 12/09/20 05:50 Monocytes % 8.3 % (3.3-12.3) 12/09/20 05:50 Eosinophils % 1.9 % (0-4.4) 12/09/20 05:50 Basophils % 0.6 % (0-1.3) 12/09/20 05:50 Absolute Neutrophils 8.7 K/uL (1.8-8.0) H 12/09/20 05:50 Absolute Lymphocytes 2.2 K/uL (0.7-4.9) 12/09/20 05:50 Absolute Monocytes 1.0 K/uL (0.1-1.3) 12/09/20 05:50 Absolute Eosinophils 0.2 K/uL (0-0.5) 12/09/20 05:50 Absolute Basophils 0.1 K/uL (0-0.5) 12/09/20 05:50 Sodium Cancelled 12/09/20 Unknown Potassium Cancelled 12/09/20 Unknown Chloride Cancelled 12/09/20 Unknown Carbon Dioxide Cancelled 12/09/20 Unknown BUN Cancelled 12/09/20 Unknown Creatinine Cancelled 12/09/20 Unknown Estimated GFR Cancelled 12/09/20 Unknown Glucose Cancelled 12/09/20 Unknown POC Glucose 90 mg/dL (65-120) 12/10/20 06:57 Calcium Cancelled 12/09/20 Unknown Magnesium Cancelled 12/09/20 Unknown Iron 99.0 ug/dL (50-170) 12/06/20 05:39 TIBC 227 ug/dL (250-460) L 12/06/20 05:39 Transferrin 162 mg/dL (200-360) L 12/06/20 05:39 Transferrin % Sat 43.6 % (20.0-50.0) 12/06/20 05:39 Albumin Cancelled 12/09/20 Unknown Prealbumin Cancelled 12/09/20 Unknown Vitamin B12 819 pg/mL (193-986) 12/06/20 05:39 Serum Folate 5.8 ng/mL (3.1-17.5) 12/06/20 05:39 Urine Color Yellow 12/03/20 18:00 Urine Appearance Clear 12/03/20 18:00 Urine pH 6.5 (5.0-7.0) 12/03/20 18:00 Ur Specific [place] 1.010 (1.005-1.030) 12/03/20 18:00 Glucose (UA)(Auto) 1+ (NEG) H 12/03/20 18:00 Urine Ketones Negative (NEG) 12/03/20 18:00 Urine Blood 1+ (NEG) H 12/03/20 18:00 Urine Nitrite Negative (NEG) 12/03/20 18:00 Urine Bilirubin Negative (NEG) 12/03/20 18:00 Urine Urobilinogen 0.2 mg/dL (0.2-1.0) 12/03/20 18:00 Ur Leukocyte Esterase 1+ (NEG) H 12/03/20 18:00 Urine RBC 5-10 /HPF (NONE SEEN) H 12/03/20 18:00 Urine WBC 5-10 /HPF (<5) H 12/03/20 18:00 Ur Squamous Epith Cells 10-20 /HPF (NONE SEEN) H 12/03/20 18:00 Urine Bacteria 20-50 /HPF (<20) H 12/03/20 18:00 Urine Yeast Present (NONE SEEN) H 12/03/20 18:00 Urine Culture Reflexed Not needed 12/03/20 18:00 Urine Total Protein 3+ (NEG) H 12/03/20 18:00 Hep Bs Antigen Nonreactive (Nonreactive) 12/04/20 15:20 Hep Bs Antibody, Quant >1000 mIU/mL (>=10) 12/04/20 15:20 Hep B Core IgM Ab Nonreactive (Nonreactive) 12/04/20 15:20 SARS-CoV-2 RNA (RT-PCR) Negative (NEGATIVE) 12/03/20 21:00 Weight: 233 lb 8 oz Wound Present: No Closed Surgical Incision Present: No Negative Pressure Wound Therapy Present: No Physician Update: Labs reviewed and are stable. She requires minimum assistance with transfers. Walking 30 to 40 feet with difficulty maintaining TDWB status. Functional Improvement: pt is demonstrating progress towards functional goals. She is demonstrating increased strength and toelrance to functional activity. pt does struggle at times to maintain TDWB and this will continue to be addressed in the upcoming week. 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 Please see the Rehabilitation Signature page for all necessary signatures.
[2020-12-10] MEDS: POLYETHYL GLY 3350 17 GM/DOSE PO PRN (15:06)
[2020-12-10] MEDS: EPOETIN ALFA-EPBX 4,000 UNIT/ML VIAL SQ SCH (17:12)
[2020-12-10] MEDS: INSULIN GLARGINE 100 UNITS/ML SQ SCH (21:07)
[2020-12-10] MEDS: ROSUVASTATIN 10 MG TAB PO SCH (21:07)
--- NOTE | 2020-12-10 21:55 | P.PN ---
Date of Service: 12/10/20 Vital Signs Temp Pulse Resp BP Pulse Ox 98.3 F 83 18 141/68 H 98 12/10/20 20:00 12/10/20 20:00 12/10/20 20:00 12/10/20 20:00 12/10/20 20:00 Medications Acetaminophen (Acetaminophen 500 Mg Tab) 1,000 mg PO Q6H PRN PRN Reason: Pain scale 5-7 (Moderate) Stop: 01/01/21 22:01 Last Admin: 12/09/20 19:22 Dose: 1,000 mg Documented by: Amlodipine Besylate (Amlodipine 10 Mg Tab) 10 mg PO DAILY LAURA Stop: 01/02/21 08:01 Last Admin: 12/10/20 08:14 Dose: 10 mg Documented by: Calcitriol (Calcitrol 0.25 Mcg Cap) 0.5 mcg PO DAILY LAURA Stop: 01/04/21 08:01 Last Admin: 12/10/20 08:15 Dose: 0.5 mcg Documented by: Cholecalciferol (Vitamin D 5,000 Unit Cap) 5,000 unit PO DAILY LAURA Stop: 01/04/21 08:01 Last Admin: 12/10/20 08:19 Dose: 5,000 unit Documented by: Dextrose (D50w 25 Gm/50 Ml Vial) 12.5 gm IV PRN PRN; Protocol PRN Reason: HYPOGLYCEMIA Stop: 01/02/21 17:22 Duloxetine HCl (Duloxetine 20 Mg Cap) 20 mg PO DAILY LAURA Stop: 01/03/21 08:01 Last Admin: 12/10/20 08:16 Dose: 20 mg Documented by: Fluticasone Propionate (Fluticasone 50mcg Nasal [place]) 2 sprays RON BID LAURA Stop: 01/02/21 08:01 Last Admin: 12/10/20 20:00 Dose: Not Given Documented by: Glucagon (Glucagon 1 Mg/Vial) 1 mg IM 1X PRN; Protocol PRN Reason: HYPOGLYCEMIA Stop: 01/03/21 06:04 Heparin Sodium (Porcine) (Heparin 5000 Unit/Ml 1 Ml Vial) 5,000 unit SQ Q12HR LAURA Stop: 01/02/21 08:01 Last Admin: 12/10/20 19:24 Dose: 5,000 unit Documented by: Heparin Sodium (Porcine) (Heparin 1,000 Unit/Ml Vial) 6,000 unit IV EVERY HD PRN PRN Reason: AFTER EACH Stop: 01/03/21 13:18 Last Admin: 12/09/20 17:53 Dose: 6,000 unit Documented by: Albumin Human (Albumin 25%) 50 mls @ 100 mls/hr IV EVERY HD [facility] Stop: 01/03/21 14:01 Insulin Glargine (Insulin Glargine 100 Units/Ml) 25 units SQ BEDTIME LAURA Stop: 01/02/21 21:01 Last Admin: 12/10/20 21:07 Dose: 25 units Documented by: Insulin Human Lispro (Insulin Lispro 100 Unit/1 Ml) 4 unit SQ TIDWM [facility] Stop: 01/02/21 08:01 Last Admin: 12/10/20 17:10 Dose: 4 unit Documented by: Insulin Human Regular (Insulin -Regular Human 50 Unit/0.5 Ml Ml) 0 unit SQ ACHS [facility]; Protocol Stop: 01/03/21 07:31 Last Admin: 12/10/20 21:08 Dose: 2 unit Documented by: Lactulose (Lactulose 20 Gm/30 Ml Ucup) 20 gm PO BID PRN PRN Reason: CONSTIPATION Stop: 01/04/21 20:01 Last Admin: 12/07/20 08:16 Dose: 20 gm Documented by: Mannitol (Mannitol 25% 12.5 Gm/50 Ml Vial) 12.5 gm IV EVERY HD PRN PRN Reason: Titrate to SBP (MUST DEFINE) Stop: 01/03/21 13:18 Melatonin (Melatonin 3 Mg Tablet) 3 mg PO BEDTIME PRN PRN PRN Reason: INSOMNIA Stop: 01/02/21 10:12 Methocarbamol (Methocarbamol 750 Mg Tab) 750 mg PO TID PRN PRN Reason: MUSCLE SPASMS Stop: 01/01/21 21:31 Last Admin: 12/03/20 13:18 Dose: 750 mg Documented by: Metoprolol Succinate (Metoprolol Xl 50 Mg Tab) 50 mg PO DAILY [facility] Stop: 01/02/21 08:01 Last Admin: 12/10/20 08:15 Dose: 50 mg Documented by: Minocycline HCl (Minocycline Hcl 50 Mg Cap) 100 mg PO BID [facility] Stop: 01/02/21 08:01 Last Admin: 12/10/20 21:07 Dose: 100 mg Documented by: Ondansetron HCl (Ondansetron 4 Mg (Odt) Tab) 4 mg PO Q4H PRN PRN Reason: NAUSEA / VOMITING Stop: 01/01/21 21:31 Last Admin: 12/10/20 12:36 Dose: 4 mg Documented by: Oxycodone HCl (Oxycodone Hcl 5 Mg Tab) 2.5 mg PO Q6H PRN PRN Reason: Pain scale 8-10 (Severe) Stop: 01/01/21 21:31 Last Admin: 12/10/20 12:35 Dose: 2.5 mg Documented by: Pantoprazole Sodium (Pantoprazole 40mg Tablet) 40 mg PO DAILYAC LAURA; Protocol Stop: 01/03/21 22:15 Last Admin: 12/10/20 06:50 Dose: 40 mg Documented by: Polyethylene Glycol (Polyethyl Gly 3350 17 Gm/Dose) 17 gm PO DAILY PRN PRN Reason: CONSTIPATION Stop: 01/01/21 21:31 Last Admin: 12/10/20 15:06 Dose: 17 gm Documented by: Pregabalin (Pregabalin 50 Mg Cap) 100 mg PO BID [facility] Stop: 01/02/21 14:01 Last Admin: 12/10/20 21:07 Dose: 100 mg Documented by: Rosuvastatin Calcium (Rosuvastatin 10 Mg Tab) 10 mg PO BEDTIME LAURA Stop: 01/02/21 21:01 Last Admin: 12/10/20 21:07 Dose: 10 mg Documented by: Senna/Docusate Sodium (Docusate Na/Senna Conc 1 Tab) 2 tab PO BEDTIME PRN PRN Reason: CONSTIPATION Stop: 01/02/21 10:13 Last Admin: 12/10/20 21:09 Dose: 2 tab Documented by: Sevelamer Carbonate (Sevelamer Carbonate 800 Mg Tablet) 800 mg PO TIDWM [facility] Stop: 01/02/21 08:01 Last Admin: 12/10/20 17:09 Dose: 800 mg Documented by: Vitamin B Complex/Vit C/Folic Acid (Multivitamins,Therapeut 1 Tab) 1 tab PO VJ LY [facility] Stop: 01/04/21 08:01 Last Admin: 12/10/20 08:17 Dose: 1 tab Documented by: Lab Results (last 24 hrs) 12/10/20 18:49: POC Glucose 201 H 12/10/20 16:52: POC Glucose 110 12/10/20 11:12: POC Glucose 79 12/10/20 06:57: POC Glucose 90 Microbiology Results 12/03/20 18:00 Clean Catch Urine [place] Count - Final >100,000 CFU/ML. 12/03/20 18:00 Clean Catch Urine - Final MIXED DUY. Assessment/ Plan: Nephrology CPS stable without CP or SOB. +Appetite Left inner thigh pain due to a draining boil No acute events overnight. Vitals, medications, blood work and imaging reviewed in the chart. General: Oriented x3, Cooperative HEENT: Atraumatic Neck: Supple Respiratory: Clear to auscultation bilaterally Cardiovascular: Regular rate/rhythm, Edema Gastrointestinal: Soft and benign, Non-distended Musculoskeletal: No clubbing, No contractures Integumentary: No rashes, No cyanosis Neurological: Normal speech Blood work reviewed in the chart. Conclusions/Impression: A/ ESRD on HD Hyperkalemia HTN with CKD/ CHF Diastolic CHF, chronic LE edema DM II with CKD [place]/ Secondary HyperPTH Anemia in CKD Moderate malnutrition Right pelvic fx with associated pain. Slow transit constipation complicated by iron and opiates. P/ Continue current POC and Medications. HD TTS. Lactulose for constipation prn. Continue Retacrit. Continue Renvela and Vitamin D. Wean opiate therapy as tolerated. Will titrate insulin as needed to improve BG Continue PT. No NSAIDs. AM labs prn. Daily weight.
[2020-12-11] MEDS: PANTOPRAZOLE 40MG TABLET PO SCH (07:11)
[2020-12-11] MEDS: INSULIN -REGULAR HUMAN 50 UNIT/0.5 ML ML SQ SCH ×4 (07:11→20:29)
[2020-12-11] MEDS: HEPARIN 5000 UNIT/ML 1 ML VIAL SQ SCH ×2 (07:41→20:00)
[2020-12-11] MEDS: FLUTICASONE 50MCG NASAL SPRAY NAS SCH ×2 (08:00→20:00)
[2020-12-11] MEDS: METOPROLOL XL 50 MG TAB PO SCH (08:00)
[2020-12-11] MEDS: AMLODIPINE 10 MG TAB PO SCH (08:00)
[2020-12-11] MEDS: OXYCODONE HCL 5 MG TAB PO PRN (08:13)
[2020-12-11] MEDS: ONDANSETRON 4 MG (ODT) TAB PO PRN (08:13)
[2020-12-11] MEDS: VITAMIN D 5,000 UNIT CAP PO SCH (08:14)
[2020-12-11] MEDS: MINOCYCLINE HCL 50 MG CAP PO SCH ×2 (08:15→20:27)
[2020-12-11] MEDS: SEVELAMER CARBONATE 800 MG TABLET PO SCH ×3 (08:15→16:25)
[2020-12-11] MEDS: CALCITROL 0.25 MCG CAP PO SCH (08:15)
[2020-12-11] MEDS: DULOXETINE 20 MG CAP PO SCH (08:15)
[2020-12-11] MEDS: MULTIVITAMINS,THERAPEUT 1 TAB PO SCH (08:15)
[2020-12-11] MEDS: PREGABALIN 50 MG CAP PO SCH ×2 (08:15→20:28)
[2020-12-11] MEDS: INSULIN LISPRO 100 UNIT/1 ML SQ SCH ×3 (08:16→16:25)
[2020-12-11] MEDS: ACETAMINOPHEN 500 MG TAB PO PRN (20:27)
[2020-12-11] MEDS: INSULIN GLARGINE 100 UNITS/ML SQ SCH (20:28)
[2020-12-11] MEDS: ROSUVASTATIN 10 MG TAB PO SCH (20:28)
[2020-12-11] MEDS: POLYETHYL GLY 3350 17 GM/DOSE PO PRN (23:21)
[2020-12-12] MEDS: PANTOPRAZOLE 40MG TABLET PO SCH (06:54)
[2020-12-12] MEDS: INSULIN -REGULAR HUMAN 50 UNIT/0.5 ML ML SQ SCH ×4 (07:30→21:00)
[2020-12-12] MEDS: HEPARIN 5000 UNIT/ML 1 ML VIAL SQ SCH ×2 (08:00→18:00)
[2020-12-12] MEDS: FLUTICASONE 50MCG NASAL SPRAY NAS SCH ×2 (08:00→19:03)
[2020-12-12] MEDS: MULTIVITAMINS,THERAPEUT 1 TAB PO SCH (08:23)
[2020-12-12] MEDS: CALCITROL 0.25 MCG CAP PO SCH (08:23)
[2020-12-12] MEDS: DULOXETINE 20 MG CAP PO SCH (08:23)
[2020-12-12] MEDS: SEVELAMER CARBONATE 800 MG TABLET PO SCH ×3 (08:23→17:11)
[2020-12-12] MEDS: MINOCYCLINE HCL 50 MG CAP PO SCH ×2 (08:23→19:02)
[2020-12-12] MEDS: VITAMIN D 5,000 UNIT CAP PO SCH (08:24)
[2020-12-12] MEDS: METOPROLOL XL 50 MG TAB PO SCH (08:24)
[2020-12-12] MEDS: PREGABALIN 50 MG CAP PO SCH ×2 (08:24→19:03)
[2020-12-12] MEDS: INSULIN LISPRO 100 UNIT/1 ML SQ SCH ×3 (08:25→17:11)
[2020-12-12] MEDS: AMLODIPINE 10 MG TAB PO SCH (10:17)
[2020-12-12] MEDS: ACETAMINOPHEN 500 MG TAB PO PRN (15:39)
[2020-12-12 17:01] LABS: Absolute Lymphocytes (CBC) 2.2 K/uL (0.7-4.9); Basophils % 0.6 % (0-1.3); Hematocrit 27.5 % (36.0-45.0); Lymphocytes % 20.9 % (15.3-44.8); MPV 8.9 fL (7.6-11.3); RBC Red Blood Cell Count 2.92 M/uL (3.86-4.86)
[2020-12-12 17:28] LABS: Potassium 5.6 mmol/L (3.5-5.1)
[2020-12-12] MEDS ORDERED: SOD POLYSTYREN SUL 15 GM/60 ML UCUP PO ONE (18:03)
[2020-12-12] MEDS: ROSUVASTATIN 10 MG TAB PO SCH (19:02)
[2020-12-12] MEDS: ONDANSETRON 4 MG (ODT) TAB PO PRN (19:05)
[2020-12-12 20:52] LABS: Urine Appearance CLEAR; Urine Bilirubin NEGATIVE (NEG); Urine Blood NEGATIVE (NEG); Urine Color YELLOW; Urine Glucose NEGATIVE (NEG); Urine Protein 2+ (NEG); Urine Urobilinogen 0.2 mg/dL (0.2-1.0); Urine pH 6.5 (5.0-7.0)
[2020-12-12] MEDS: INSULIN GLARGINE 100 UNITS/ML SQ SCH (21:00)
[2020-12-12 21:41] LABS: Urine Bacteria 20-50 /HPF (<20); Urine RBC <5 /HPF (NONE SEEN); Urine Urothelial Cells <5 /HPF (NONE SEEN)
[2020-12-13] MEDS: ONDANSETRON 4 MG (ODT) TAB PO PRN ×2 (05:33→12:23)
[2020-12-13] MEDS: OXYCODONE HCL 5 MG TAB PO PRN ×3 (05:34→19:28)
[2020-12-13] MEDS: HEPARIN 5000 UNIT/ML 1 ML VIAL SQ SCH ×2 (06:27→18:36)
[2020-12-13] MEDS: PANTOPRAZOLE 40MG TABLET PO SCH (06:46)
[2020-12-13 07:13] LABS: Potassium 5.4 mmol/L (3.5-5.1)
[2020-12-13] MEDS: methocarbamoL 750 MG TAB PO PRN ×2 (07:13→16:57)
[2020-12-13] MEDS: INSULIN -REGULAR HUMAN 50 UNIT/0.5 ML ML SQ SCH ×4 (07:30→20:19)
[2020-12-13] MEDS: METOPROLOL XL 50 MG TAB PO SCH (08:00)
[2020-12-13] MEDS: FLUTICASONE 50MCG NASAL SPRAY NAS SCH ×2 (08:00→20:00)
[2020-12-13] MEDS: AMLODIPINE 10 MG TAB PO SCH (08:00)
[2020-12-13] MEDS: SEVELAMER CARBONATE 800 MG TABLET PO SCH ×3 (08:20→16:58)
[2020-12-13] MEDS: MINOCYCLINE HCL 50 MG CAP PO SCH ×2 (08:20→19:23)
[2020-12-13] MEDS: CALCITROL 0.25 MCG CAP PO SCH (08:20)
[2020-12-13] MEDS: INSULIN LISPRO 100 UNIT/1 ML SQ SCH ×3 (08:20→16:58)
[2020-12-13] MEDS: PREGABALIN 50 MG CAP PO SCH ×2 (08:21→19:23)
[2020-12-13] MEDS: DULOXETINE 20 MG CAP PO SCH (08:21)
[2020-12-13] MEDS: MULTIVITAMINS,THERAPEUT 1 TAB PO SCH (08:21)
[2020-12-13] MEDS: VITAMIN D 5,000 UNIT CAP PO SCH (08:21)
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
[2020-12-13] MEDS ORDERED: D50W 25 GM/50 ML SYRINGE IV PRN (14:52)
[2020-12-13] MEDS ORDERED: GLUCAGON 1 MG/VIAL IM PRN (14:52)
[2020-12-13] MEDS: EPOETIN ALFA-EPBX 4,000 UNIT/ML VIAL SQ SCH (17:00)
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
[2020-12-13] MEDS: INSULIN GLARGINE 100 UNITS/ML SQ SCH (20:53)
[2020-12-13] MEDS: ROSUVASTATIN 10 MG TAB PO SCH (20:54)
[2020-12-14] MEDS: OXYCODONE HCL 5 MG TAB PO PRN ×3 (02:45→17:15)
[2020-12-14] MEDS: ONDANSETRON 4 MG (ODT) TAB PO PRN ×3 (02:49→17:15)
[2020-12-14] MEDS: HEPARIN 5000 UNIT/ML 1 ML VIAL SQ SCH ×2 (06:13→19:07)
[2020-12-14] MEDS: PANTOPRAZOLE 40MG TABLET PO SCH (06:42)
[2020-12-14] MEDS: INSULIN -REGULAR HUMAN 50 UNIT/0.5 ML ML SQ SCH ×4 (07:30→21:00)
[2020-12-14] MEDS: METOPROLOL XL 50 MG TAB PO SCH (08:00)
[2020-12-14] MEDS: FLUTICASONE 50MCG NASAL SPRAY NAS SCH ×2 (08:00→20:00)
[2020-12-14] MEDS: AMLODIPINE 10 MG TAB PO SCH (08:00)
[2020-12-14] MEDS: PREGABALIN 50 MG CAP PO SCH ×2 (08:31→21:09)
[2020-12-14] MEDS: INSULIN LISPRO 100 UNIT/1 ML SQ SCH ×3 (08:31→17:14)
[2020-12-14] MEDS: DULOXETINE 20 MG CAP PO SCH (08:32)
[2020-12-14] MEDS: SEVELAMER CARBONATE 800 MG TABLET PO SCH ×3 (08:32→17:15)
[2020-12-14] MEDS: VITAMIN D 5,000 UNIT CAP PO SCH (08:32)
[2020-12-14] MEDS: MINOCYCLINE HCL 50 MG CAP PO SCH ×2 (08:32→21:10)
[2020-12-14] MEDS: MULTIVITAMINS,THERAPEUT 1 TAB PO SCH (08:32)
[2020-12-14] MEDS: CALCITROL 0.25 MCG CAP PO SCH (08:32)
[2020-12-14 11:37] LABS: Potassium 4.3 mmol/L (3.5-5.1)
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
[2020-12-14] MEDS: ROSUVASTATIN 10 MG TAB PO SCH (21:09)
[2020-12-14] MEDS: INSULIN GLARGINE 100 UNITS/ML SQ SCH (21:10)
[2020-12-15 06:01] LABS: Absolute Lymphocytes (CBC) 1.7 K/uL (0.7-4.9); Basophils % 0.5 % (0-1.3); Hematocrit 26.1 % (36.0-45.0); Lymphocytes % 17.4 % (15.3-44.8); MPV 8.8 fL (7.6-11.3); RBC Red Blood Cell Count 2.82 M/uL (3.86-4.86)
[2020-12-15 06:12] LABS: Potassium 4.4 mmol/L (3.5-5.1)
[2020-12-15] MEDS: OXYCODONE HCL 5 MG TAB PO PRN (06:40)
[2020-12-15] MEDS: PANTOPRAZOLE 40MG TABLET PO SCH (06:40)
[2020-12-15] MEDS: ONDANSETRON 4 MG (ODT) TAB PO PRN (06:40)
[2020-12-15] MEDS: HEPARIN 5000 UNIT/ML 1 ML VIAL SQ SCH ×2 (06:56→19:00)
[2020-12-15] MEDS: INSULIN -REGULAR HUMAN 50 UNIT/0.5 ML ML SQ SCH ×4 (07:30→21:00)
[2020-12-15] MEDS: FLUTICASONE 50MCG NASAL SPRAY NAS SCH ×2 (08:00→20:00)
[2020-12-15] MEDS: INSULIN LISPRO 100 UNIT/1 ML SQ SCH ×3 (08:07→18:12)
[2020-12-15] MEDS: MINOCYCLINE HCL 50 MG CAP PO SCH ×2 (08:08→22:05)
[2020-12-15] MEDS: PREGABALIN 50 MG CAP PO SCH ×2 (08:08→22:05)
[2020-12-15] MEDS: SEVELAMER CARBONATE 800 MG TABLET PO SCH ×3 (08:08→17:15)
[2020-12-15] MEDS: MULTIVITAMINS,THERAPEUT 1 TAB PO SCH (08:09)
[2020-12-15] MEDS: METOPROLOL XL 50 MG TAB PO SCH (08:09)
[2020-12-15] MEDS: VITAMIN D 5,000 UNIT CAP PO SCH (08:09)
[2020-12-15] MEDS: DULOXETINE 20 MG CAP PO SCH (08:10)
[2020-12-15] MEDS: CALCITROL 0.25 MCG CAP PO SCH (08:10)
[2020-12-15] MEDS: AMLODIPINE 10 MG TAB PO SCH (08:10)
[2020-12-15] MEDS: methocarbamoL 750 MG TAB PO PRN (10:12)
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
[2020-12-15] MEDS: EPOETIN ALFA-EPBX 10,000 UNIT/ML VIAL SQ SCH (16:28)
[2020-12-15] MEDS ORDERED: EPOETIN ALFA-EPBX 4,000 UNIT/ML VIAL SQ SCH (17:00)
[2020-12-15] MEDS: INSULIN GLARGINE 100 UNITS/ML SQ SCH (22:05)
[2020-12-15] MEDS: ROSUVASTATIN 10 MG TAB PO SCH (22:05)
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
[2020-12-16] MEDS: ACETAMINOPHEN 500 MG TAB PO PRN (05:15)
[2020-12-16] MEDS: HEPARIN 5000 UNIT/ML 1 ML VIAL SQ SCH ×2 (06:20→18:44)
[2020-12-16] MEDS: OXYCODONE HCL 5 MG TAB PO PRN ×2 (06:31→13:28)
[2020-12-16] MEDS: PANTOPRAZOLE 40MG TABLET PO SCH (06:32)
[2020-12-16] MEDS: ONDANSETRON 4 MG (ODT) TAB PO PRN ×2 (06:32→13:27)
[2020-12-16 06:49] LABS: Albumin 2.8 g/dL (3.4-5.0); Prealbumin 15.7 mg/dL (20-40)
[2020-12-16] MEDS: INSULIN -REGULAR HUMAN 50 UNIT/0.5 ML ML SQ SCH ×4 (07:30→20:59)
[2020-12-16] MEDS: AMLODIPINE 10 MG TAB PO SCH (08:00)
[2020-12-16] MEDS: FLUTICASONE 50MCG NASAL SPRAY NAS SCH ×2 (08:00→20:00)
[2020-12-16] MEDS: METOPROLOL XL 50 MG TAB PO SCH (08:00)
[2020-12-16] MEDS: SEVELAMER CARBONATE 800 MG TABLET PO SCH ×3 (08:15→16:29)
[2020-12-16] MEDS: PREGABALIN 50 MG CAP PO SCH ×2 (08:39→20:58)
[2020-12-16] MEDS: VITAMIN D 5,000 UNIT CAP PO SCH (08:39)
[2020-12-16] MEDS: MINOCYCLINE HCL 50 MG CAP PO SCH ×2 (08:39→20:58)
[2020-12-16] MEDS: CALCITROL 0.25 MCG CAP PO SCH (08:40)
[2020-12-16] MEDS: MULTIVITAMINS,THERAPEUT 1 TAB PO SCH (08:40)
[2020-12-16] MEDS: DULOXETINE 20 MG CAP PO SCH (08:41)
[2020-12-16] MEDS: INSULIN LISPRO 100 UNIT/1 ML SQ SCH ×3 (08:41→16:28)
[2020-12-16] MEDS: CIPROFLOXACIN HCL 500 MG TAB PO SCH ×2 (14:30→14:54)
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
[2020-12-16] MEDS: ROSUVASTATIN 10 MG TAB PO SCH (20:59)
[2020-12-16] MEDS: INSULIN GLARGINE 100 UNITS/ML SQ SCH (20:59)
[2020-12-16] MEDS: CEFTRIAXONE/SWI 1gm 1 GM/10 ML SYR IV SCH (21:31)
[2020-12-17] MEDS: HEPARIN 5000 UNIT/ML 1 ML VIAL SQ SCH ×2 (06:27→19:05)
[2020-12-17] MEDS: PANTOPRAZOLE 40MG TABLET PO SCH (06:46)
[2020-12-17] MEDS: OXYCODONE HCL 5 MG TAB PO PRN ×3 (06:49→21:02)
[2020-12-17] MEDS: ONDANSETRON 4 MG (ODT) TAB PO PRN ×3 (06:50→21:03)
[2020-12-17] MEDS: INSULIN -REGULAR HUMAN 50 UNIT/0.5 ML ML SQ SCH ×4 (07:30→20:27)
[2020-12-17] MEDS: FLUTICASONE 50MCG NASAL SPRAY NAS SCH ×2 (08:00→20:28)
[2020-12-17] MEDS ORDERED: CEFTRIAXONE 1 GM/NS 50 ML 1 GM/50 ML BAG IV SCH (08:00)
[2020-12-17] MEDS: PREGABALIN 50 MG CAP PO SCH ×2 (08:15→20:33)
[2020-12-17] MEDS: INSULIN LISPRO 100 UNIT/1 ML SQ SCH ×3 (08:15→17:11)
[2020-12-17] MEDS: VITAMIN D 5,000 UNIT CAP PO SCH (08:16)
[2020-12-17] MEDS: CALCITROL 0.25 MCG CAP PO SCH (08:16)
[2020-12-17] MEDS: DULOXETINE 20 MG CAP PO SCH (08:16)
[2020-12-17] MEDS: MINOCYCLINE HCL 50 MG CAP PO SCH ×2 (08:16→20:28)
[2020-12-17] MEDS: SEVELAMER CARBONATE 800 MG TABLET PO SCH ×3 (08:16→17:11)
[2020-12-17] MEDS: METOPROLOL XL 50 MG TAB PO SCH (08:16)
[2020-12-17] MEDS: MULTIVITAMINS,THERAPEUT 1 TAB PO SCH (08:17)
[2020-12-17] MEDS: AMLODIPINE 10 MG TAB PO SCH (08:17)
--- NOTE | 2020-12-17 09:56 | P.RH.PN ---
Estimated Length of Stay: 21 Expected Discharge Date: 12/22/20 Discharge Disposition Plan: Home Family Support: Yes Fdc Goal: Mobility, Transfers, Self Care Vital Signs: Last Vital Signs Temp 97.5 F 12/17/20 09:04 Pulse 73 12/17/20 09:04 Resp 14 12/17/20 09:04 BP 153/79 H 12/17/20 09:04 Pulse Ox 97 12/17/20 09:04 Laboratory: Laboratory Last Values WBC 9.80 K/uL (4.3-10.9) 12/15/20 05:45 RBC 2.82 M/uL (3.86-4.86) L 12/15/20 05:45 Hgb 8.7 g/dL (12.0-15.0) L 12/15/20 05:45 Hct 26.1 % (36.0-45.0) L 12/15/20 05:45 MCV 92.5 fL (80-100) 12/15/20 05:45 MCH 30.7 pg (27.0-35.0) 12/15/20 05:45 MCHC 33.2 g/dL (32.0-36.0) 12/15/20 05:45 RDW 14.3 % (12.1-15.2) 12/15/20 05:45 Plt Count 177 K/uL (152-406) D 12/15/20 05:45 MPV 8.8 fL (7.6-11.3) 12/15/20 05:45 Neutrophils % 73.7 % (41.7-73.7) 12/15/20 05:45 Lymphocytes % 17.4 % (15.3-44.8) 12/15/20 05:45 Monocytes % 7.2 % (3.3-12.3) 12/15/20 05:45 Eosinophils % 1.2 % (0-4.4) 12/15/20 05:45 Basophils % 0.5 % (0-1.3) 12/15/20 05:45 Absolute Neutrophils 7.2 K/uL (1.8-8.0) 12/15/20 05:45 Absolute Lymphocytes 1.7 K/uL (0.7-4.9) 12/15/20 05:45 Absolute Monocytes 0.7 K/uL (0.1-1.3) 12/15/20 05:45 Absolute Eosinophils 0.1 K/uL (0-0.5) 12/15/20 05:45 Absolute Basophils 0.1 K/uL (0-0.5) 12/15/20 05:45 Sodium 135 mmol/L (136-145) L 12/15/20 05:45 Potassium 4.4 mmol/L (3.5-5.1) 12/15/20 05:45 Chloride 101 mmol/L (98-107) 12/15/20 05:45 Carbon Dioxide 28 mmol/L (21-32) 12/15/20 05:45 BUN 42 mg/dL (7-18) H 12/15/20 05:45 Creatinine 6.00 mg/dL (0.55-1.3) H* 12/15/20 05:45 Estimated GFR 8 mL/min (=/>90) L 12/15/20 05:45 Glucose 121 mg/dL (74-106) H 12/15/20 05:45 POC Glucose 95 mg/dL (65-120) 12/17/20 06:35 Calcium 8.9 mg/dL (8.5-10.1) 12/15/20 05:45 Magnesium 2.2 mg/dL (1.8-2.4) 12/16/20 06:21 Iron 99.0 ug/dL (50-170) 12/06/20 05:39 TIBC 227 ug/dL (250-460) L 12/06/20 05:39 Transferrin 162 mg/dL (200-360) L 12/06/20 05:39 Transferrin % Sat 43.6 % (20.0-50.0) 12/06/20 05:39 Albumin 2.8 g/dL (3.4-5.0) L 12/16/20 06:21 Prealbumin 15.7 mg/dL (20-40) L 12/16/20 06:21 Vitamin B12 819 pg/mL (193-986) 12/06/20 05:39 Serum Folate 5.8 ng/mL (3.1-17.5) 12/06/20 05:39 Urine Color Yellow 12/12/20 19:30 Urine Appearance Clear 12/12/20 19:30 Urine pH 6.5 (5.0-7.0) 12/12/20 19:30 Ur Specific [place] 1.010 (1.005-1.030) 12/12/20 19:30 Glucose (UA)(Auto) Negative (NEG) 12/12/20 19:30 Urine Ketones Negative (NEG) 12/12/20 19:30 Urine Blood Negative (NEG) 12/12/20 19:30 Urine Nitrite Negative (NEG) 12/12/20 19:30 Urine Bilirubin Negative (NEG) 12/12/20 19: Urine Urobilinogen 0.2 mg/dL (0.2-1.0) 12/12/20 19:30 Ur Leukocyte Esterase Negative (NEG) 12/12/20 19: Urine RBC <5 /HPF (NONE SEEN) 12/12/20 19: Urine WBC <5 /HPF (<5) 12/12/20 19:30 Ur Squamous Epith Cells <5 /HPF (NONE SEEN) 12/12/20 19:30 Ur Urothelial Cells <5 /HPF (NONE SEEN) 12/12/20 19:30 Urine Bacteria 20-50 /HPF (<20) H 12/12/20 19:30 Urine Yeast Present (NONE SEEN) H 12/03/20 18:00 Urine Culture Reflexed Reflexed 12/12/20 19:30 Urine Total Protein 2+ (NEG) H 12/12/20 19:30 Hep Bs Antigen Nonreactive (Nonreactive) 12/04/20 15:20 Hep Bs Antibody, Quant >1000 mIU/mL (>=10) 12/04/20 15:20 Hep B Core IgM Ab Nonreactive (Nonreactive) 12/04/20 15:20 SARS-CoV-2 RNA (RT-PCR) Negative (NEGATIVE) 12/03/20 21:00 Weight: 229 lb 9.6 oz Wound Present: No Closed Surgical Incision Present: No Negative Pressure Wound Therapy Present: No Physician Update: She is making good progress with all therapy. She is followed by the renal group. Functional Improvement: pt is demonstrating progress towards functional goals. She is demonstrating increased strength and toelrance to functional activity. pt does struggle at times to maintain TDWB and this will continue to be addressed in the upcoming week. Summary: Patient's care plan and terminal clerk goals have been reviewed and revised as necessary. Please see the Rehabilitation Signature page for all necessary signatures.
[2020-12-17] MEDS: LIDOCAINE 4% PATCH TOP SCH (09:59)
[2020-12-17] MEDS: methocarbamoL 750 MG TAB PO PRN ×2 (10:40→21:03)
[2020-12-17] MEDS: EPOETIN ALFA-EPBX 10,000 UNIT/ML VIAL SQ SCH (17:12)
[2020-12-17] MEDS: ROSUVASTATIN 10 MG TAB PO SCH (20:28)
[2020-12-17] MEDS: CEFTRIAXONE/SWI 1gm 1 GM/10 ML SYR IV SCH (20:33)
[2020-12-17] MEDS: INSULIN GLARGINE 100 UNITS/ML SQ SCH (20:34)
[2020-12-18] MEDS: PANTOPRAZOLE 40MG TABLET PO SCH (07:03)
[2020-12-18] MEDS: INSULIN -REGULAR HUMAN 50 UNIT/0.5 ML ML SQ SCH ×4 (07:30→19:43)
[2020-12-18] MEDS: HEPARIN 5000 UNIT/ML 1 ML VIAL SQ SCH ×3 (07:45→20:35)
[2020-12-18] MEDS: AMLODIPINE 10 MG TAB PO SCH (08:00)
[2020-12-18] MEDS: LIDOCAINE 4% PATCH TOP SCH ×2 (08:00→10:58)
[2020-12-18] MEDS: METOPROLOL XL 50 MG TAB PO SCH (08:00)
[2020-12-18] MEDS: FLUTICASONE 50MCG NASAL SPRAY NAS SCH ×2 (08:00→19:42)
[2020-12-18] MEDS: SEVELAMER CARBONATE 800 MG TABLET PO SCH ×3 (08:37→17:03)
[2020-12-18] MEDS: DULOXETINE 20 MG CAP PO SCH (08:38)
[2020-12-18] MEDS: VITAMIN D 5,000 UNIT CAP PO SCH (08:38)
[2020-12-18] MEDS: MULTIVITAMINS,THERAPEUT 1 TAB PO SCH (08:38)
[2020-12-18] MEDS: MINOCYCLINE HCL 50 MG CAP PO SCH ×2 (08:38→19:41)
[2020-12-18] MEDS: INSULIN LISPRO 100 UNIT/1 ML SQ SCH ×3 (08:38→17:03)
[2020-12-18] MEDS: CALCITROL 0.25 MCG CAP PO SCH (08:42)
[2020-12-18] MEDS: PREGABALIN 50 MG CAP PO SCH ×2 (09:47→19:41)
[2020-12-18 10:09] LABS: Absolute Lymphocytes (CBC) 1.9 K/uL (0.7-4.9); Basophils % 0.9 % (0-1.3); Hematocrit 31.7 % (36.0-45.0); Lymphocytes % 15.1 % (15.3-44.8); MPV 9.6 fL (7.6-11.3); RBC Red Blood Cell Count 3.38 M/uL (3.86-4.86)
[2020-12-18 10:23] LABS: Potassium 5.2 mmol/L (3.5-5.1)
[2020-12-18] MEDS: ACETAMINOPHEN 500 MG TAB PO PRN (18:12)
[2020-12-18] MEDS: CEFTRIAXONE/SWI 1gm 1 GM/10 ML SYR IV SCH (19:40)
[2020-12-18] MEDS: ROSUVASTATIN 10 MG TAB PO SCH (19:41)
[2020-12-18] MEDS: INSULIN GLARGINE 100 UNITS/ML SQ SCH (19:42)
[2020-12-19] MEDS: INSULIN -REGULAR HUMAN 50 UNIT/0.5 ML ML SQ SCH ×4 (07:30→21:00)
[2020-12-19] MEDS: PANTOPRAZOLE 40MG TABLET PO SCH (07:33)
[2020-12-19] MEDS: FLUTICASONE 50MCG NASAL SPRAY NAS SCH ×2 (08:00→20:00)
[2020-12-19] MEDS: HEPARIN 5000 UNIT/ML 1 ML VIAL SQ SCH ×2 (08:30→20:05)
[2020-12-19] MEDS: LIDOCAINE 4% PATCH TOP SCH (09:14)
[2020-12-19] MEDS: SEVELAMER CARBONATE 800 MG TABLET PO SCH ×3 (09:14→17:05)
[2020-12-19] MEDS: MINOCYCLINE HCL 50 MG CAP PO SCH ×2 (09:15→19:17)
[2020-12-19] MEDS: METOPROLOL XL 50 MG TAB PO SCH (09:19)
[2020-12-19] MEDS: MULTIVITAMINS,THERAPEUT 1 TAB PO SCH (09:19)
[2020-12-19] MEDS: PREGABALIN 50 MG CAP PO SCH ×2 (09:19→19:17)
[2020-12-19] MEDS: CALCITROL 0.25 MCG CAP PO SCH (09:19)
[2020-12-19] MEDS: DULOXETINE 20 MG CAP PO SCH (09:20)
[2020-12-19] MEDS: VITAMIN D 5,000 UNIT CAP PO SCH (09:20)
[2020-12-19] MEDS: AMLODIPINE 10 MG TAB PO SCH (09:20)
[2020-12-19] MEDS: INSULIN LISPRO 100 UNIT/1 ML SQ SCH ×3 (09:21→17:48)
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
[2020-12-19] MEDS: CEFTRIAXONE/SWI 1gm 1 GM/10 ML SYR IV SCH (19:18)
[2020-12-19] MEDS: ROSUVASTATIN 10 MG TAB PO SCH (19:18)
[2020-12-19] MEDS: INSULIN GLARGINE 100 UNITS/ML SQ SCH (21:17)
[2020-12-20 05:48] LABS: Absolute Lymphocytes (CBC) 2.2 K/uL (0.7-4.9); Basophils % 0.9 % (0-1.3); Hematocrit 26.6 % (36.0-45.0); Lymphocytes % 22.2 % (15.3-44.8); MPV 9.7 fL (7.6-11.3); RBC Red Blood Cell Count 2.86 M/uL (3.86-4.86)
[2020-12-20 05:56] VITALS: BMI 36.5
[2020-12-20 06:16] LABS: Potassium 4.7 mmol/L (3.5-5.1)
[2020-12-20] MEDS: HEPARIN 5000 UNIT/ML 1 ML VIAL SQ SCH ×2 (06:42→18:12)
[2020-12-20] MEDS: PANTOPRAZOLE 40MG TABLET PO SCH (06:57)
[2020-12-20] MEDS: INSULIN -REGULAR HUMAN 50 UNIT/0.5 ML ML SQ SCH ×4 (07:30→19:13)
[2020-12-20] MEDS: FLUTICASONE 50MCG NASAL SPRAY NAS SCH ×2 (08:00→19:00)
[2020-12-20] MEDS: LIDOCAINE 4% PATCH TOP SCH (08:00)
[2020-12-20] MEDS: INSULIN LISPRO 100 UNIT/1 ML SQ SCH ×3 (08:10→16:28)
[2020-12-20] MEDS: VITAMIN D 5,000 UNIT CAP PO SCH (08:11)
[2020-12-20] MEDS: MULTIVITAMINS,THERAPEUT 1 TAB PO SCH (08:11)
[2020-12-20] MEDS: MINOCYCLINE HCL 50 MG CAP PO SCH ×2 (08:11→19:00)
[2020-12-20] MEDS: PREGABALIN 50 MG CAP PO SCH ×2 (08:11→19:00)
[2020-12-20] MEDS: DULOXETINE 20 MG CAP PO SCH (08:11)
[2020-12-20] MEDS: CALCITROL 0.25 MCG CAP PO SCH (08:12)
[2020-12-20] MEDS: SEVELAMER CARBONATE 800 MG TABLET PO SCH ×3 (08:12→16:34)
[2020-12-20] MEDS: METOPROLOL XL 50 MG TAB PO SCH (08:53)
[2020-12-20] MEDS: AMLODIPINE 10 MG TAB PO SCH (08:53)
[2020-12-20] MEDS: EPOETIN ALFA-EPBX 10,000 UNIT/ML VIAL SQ SCH (16:28)
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
[2020-12-20] MEDS: CEFTRIAXONE/SWI 1gm 1 GM/10 ML SYR IV SCH (19:00)
[2020-12-20] MEDS: ROSUVASTATIN 10 MG TAB PO SCH (19:00)
[2020-12-20] MEDS: INSULIN GLARGINE 100 UNITS/ML SQ SCH (19:12)
--- NOTE | 2020-12-20 21:06 | P.PN ---
Date of Service: 12/20/20 Vital Signs Temp Pulse Resp BP Pulse Ox 98.2 F 81 16 138/64 96 12/20/20 20:13 12/20/20 20:13 12/20/20 20:13 12/20/20 20:13 12/20/20 20:13 Medications Acetaminophen (Acetaminophen 500 Mg Tab) 1,000 mg PO Q6H PRN PRN Reason: Pain scale 5-7 (Moderate) Stop: 01/01/21 22:01 Last Admin: 12/18/20 18:12 Dose: 1,000 mg Documented by: Amlodipine Besylate (Amlodipine 10 Mg Tab) 10 mg PO DAILY [facility] Stop: 01/02/21 08:01 Last Admin: 12/20/20 08:53 Dose: 10 mg Documented by: Calcitriol (Calcitrol 0.25 Mcg Cap) 0.5 mcg PO DAILY [facility] Stop: 01/04/21 08:01 Last Admin: 12/20/20 08:12 Dose: 0.5 mcg Documented by: Cholecalciferol (Vitamin D 5,000 Unit Cap) 5,000 unit PO DAILY [facility] Stop: 01/04/21 08:01 Last Admin: 12/20/20 08:11 Dose: 5,000 unit Documented by: Dextrose (D50w 25 Gm/50 Ml Vial) 12.5 gm IV PRN PRN; Protocol PRN Reason: HYPOGLYCEMIA Stop: 01/02/21 17:22 Duloxetine HCl (Duloxetine 20 Mg Cap) 20 mg PO DAILY [facility] Stop: 01/03/21 08:01 Last Admin: 12/20/20 08:11 Dose: 20 mg Documented by: Fluticasone Propionate (Fluticasone 50mcg Nasal [place]) 2 sprays RON BID [facility] Stop: 01/02/21 08:01 Last Admin: 12/20/20 19:00 Dose: Not Given Documented by: Glucagon (Glucagon 1 Mg/Vial) 1 mg IM 1X PRN; Protocol PRN Reason: HYPOGLYCEMIA Stop: 01/03/21 06:04 Heparin Sodium (Porcine) (Heparin 5000 Unit/Ml 1 Ml Vial) 5,000 unit SQ Q12HR [facility] Stop: 01/02/21 08:01 Last Admin: 12/20/20 18:12 Dose: 5,000 unit Documented by: Heparin Sodium (Porcine) (Heparin 1,000 Unit/Ml Vial) 6,000 unit IV EVERY HD PRN PRN Reason: dialysis Last Admin: 12/18/20 15:05 Dose: 6,000 unit Documented by: Albumin Human (Albumin 25%) 50 mls @ 100 mls/hr IV EVERY HD [facility] Stop: 01/03/21 14:01 Ceftriaxone Sodium/Sodium Chloride (Rocephin 1 Gm/10 Ml Swi Ivp) 1 gm in 10 mls @ 60 mls/hr IV Q24H [facility] Stop: 01/15/21 19:01 Last Admin: 12/20/20 19:00 Dose: 10 mls Documented by: Insulin Glargine (Insulin Glargine 100 Units/Ml) 20 units SQ BEDTIME [facility] Stop: 01/12/21 21:01 Last Admin: 12/20/20 19:12 Dose: 20 units Documented by: Insulin Human Lispro (Insulin Lispro 100 Unit/1 Ml) 4 unit SQ TIDWM [facility] Stop: 01/02/21 08:01 Last Admin: 12/20/20 16:28 Dose: 4 unit Documented by: Insulin Human Regular (Insulin -Regular Human 50 Unit/0.5 Ml Ml) 0 unit SQ ACHS [facility]; Protocol Stop: 01/03/21 07:31 Last Admin: 12/20/20 19:13 Dose: Not Given Documented by: Lactulose (Lactulose 20 Gm/30 Ml Ucup) 20 gm PO BID PRN PRN Reason: CONSTIPATION Stop: 01/04/21 20:01 Last Admin: 12/07/20 08:16 Dose: 20 gm Documented by: Lidocaine (Lidocaine 4% Patch) 1 patch TOP DAILY [facility] Stop: 01/16/21 09:31 Last Admin: 12/20/20 08:00 Dose: Not Given Documented by: Mannitol (Mannitol 25% 12.5 Gm/50 Ml Vial) 12.5 gm IV EVERY HD PRN PRN Reason: Titrate to SBP (MUST DEFINE) Stop: 01/03/21 13:18 Melatonin (Melatonin 3 Mg Tablet) 3 mg PO BEDTIME PRN PRN PRN Reason: INSOMNIA Stop: 01/02/21 10:12 Methocarbamol (Methocarbamol 750 Mg Tab) 750 mg PO TID PRN PRN Reason: MUSCLE SPASMS Stop: 01/01/21 21:31 Last Admin: 12/17/20 21:03 Dose: 750 mg Documented by: Metoprolol Succinate (Metoprolol Xl 50 Mg Tab) 50 mg PO DAILY [facility] Stop: 01/02/21 08:01 Last Admin: 12/20/20 08:53 Dose: 50 mg Documented by: Minocycline HCl (Minocycline Hcl 50 Mg Cap) 100 mg PO BID [facility] Stop: 01/15/21 20:01 Last Admin: 12/20/20 19:00 Dose: 100 mg Documented by: Ondansetron HCl (Ondansetron 4 Mg (Odt) Tab) 4 mg PO Q4H PRN PRN Reason: NAUSEA / VOMITING Stop: 01/01/21 21:31 Last Admin: 12/17/20 21:03 Dose: 4 mg Documented by: Oxycodone HCl (Oxycodone Hcl 5 Mg Tab) 2.5 mg PO Q6H PRN PRN Reason: Pain scale 8-10 (Severe) Stop: 01/01/21 21:31 Last Admin: 12/17/20 21:02 Dose: 2.5 mg Documented by: Pantoprazole Sodium (Pantoprazole 40mg Tablet) [facility]; Protocol Stop: 01/03/21 22:15 Last Admin: 12/20/20 06:57 Dose: 40 mg Documented by: Polyethylene Glycol (Polyethyl Gly 3350 17 Gm/Dose) 17 gm PO DAILY PRN PRN Reason: CONSTIPATION Stop: 01/01/21 21:31 Last Admin: 12/11/20 23:21 Dose: 17 gm Documented by: Pregabalin (Pregabalin 50 Mg Cap) 100 mg PO BID [facility] Stop: 01/02/21 14:01 Last Admin: 12/20/20 19:00 Dose: 100 mg Documented by: Rosuvastatin Calcium (Rosuvastatin 10 Mg Tab) 10 mg PO BEDTIME [facility] Stop: 01/02/21 21:01 Last Admin: 12/20/20 19:00 Dose: 10 mg Documented by: Senna/Docusate Sodium (Docusate Na/Senna Conc 1 Tab) 2 tab PO BEDTIME PRN PRN Reason: CONSTIPATION Stop: 01/02/21 10:13 Last Admin: 12/10/20 21:09 Dose: 2 tab Documented by: Sevelamer Carbonate (Sevelamer Carbonate 800 Mg Tablet) 800 mg PO TIDWM [facility] Stop: 01/02/21 08:01 Last Admin: 12/20/20 16:34 Dose: 800 mg Documented by: Vitamin B Complex/Vit C/Folic Acid (Multivitamins,Therapeut 1 Tab) 1 tab PO DAILY [facility] Stop: 01/04/21 08:01 Last Admin: 12/20/20 08:11 Dose: 1 tab Documented by: Lab Results (last 24 hrs) 12/20/20 19:51: POC Glucose 121 H 12/20/20 16:03: POC Glucose 161 H 12/20/20 11:13: POC Glucose 89 12/20/20 07:06: POC Glucose 109 12/20/20 05:30: Sodium 134 L, Potassium 4.7, Chloride 101, Carbon Dioxide 26, BUN 58 H, Creatinine 7.56 H*, Estimated GFR 6 L, Glucose 100, Calcium 8.5 12/20/20 05:30: WBC 9.90 D, RBC 2.86 L, Hgb 8.7 L, Hct 26.6 L D, MCV 92.8, MCH 30.3, MCHC 32.6, RDW 14.3, Plt Count 206, MPV 9.7, Neutrophils % 67.3, Lymphocytes % 22.2, Monocytes % 7.2, Eosinophils % 2.4, Basophils % 0.9, Absolute Neutrophils 6.7, Absolute Lymphocytes 2.2, Absolute Monocytes 0.7, Absolute Eosinophils 0.2, Absolute Basophils 0.1 12/19/20 21:15: POC Glucose 166 H Microbiology Results 12/16/20 06:45 Nasopharnyx Coronavirus COVID-19 PCR - Final 12/12/20 19:30 Clean Catch Urine [place] Count - Final BETWEEN 10,000 & 100,000 CFU/ML 12/12/20 19:30 Clean Catch Urine - Final Pseudomonas Aeruginosa 12/10/20 14:30 Wound - Other Gram Stain - Final 12/10/20 14:30 Wound - Other Culture & Sensitivity - Final Enterobacter Cloacae 12/03/20 18:00 Clean Catch Urine [place] Count - Final >100,000 CFU/ML. 12/03/20 18:00 Clean Catch Urine - Final MIXED DUY. Assessment/ Plan: Nephrology CPS stable without CP or SOB. Multiple boils, draining Doing well with PT No acute events overnight. Vitals, medications, blood work and imaging reviewed in the chart. General: Oriented x3, Cooperative HEENT: Atraumatic Neck: Supple Respiratory: Clear to auscultation bilaterally Cardiovascular: Regular rate/rhythm, Edema Gastrointestinal: Soft and benign, Non-distended Musculoskeletal: No clubbing, No contractures Integumentary: No rashes, No cyanosis Neurological: Normal speech Blood work reviewed in the chart. Conclusions/Impression: A/ ESRD on HD Hyperkalemia HTN with CKD/ CHF Diastolic CHF, chronic LE edema DM II with CKD [place]/ Secondary HyperPTH Anemia in CKD Moderate malnutrition Right pelvic fx with associated pain. Slow transit constipation complicated by iron and opiates. P/ Continue current POC and Medications. HD TTS. Lactulose for constipation prn. Continue Retacrit. Continue Renvela and Vitamin D. Wean opiate therapy as tolerated. Will titrate insulin as needed to improve BG Continue PT. No NSAIDs. AM labs prn. Daily weight.
[2020-12-21] MEDS: HEPARIN 5000 UNIT/ML 1 ML VIAL SQ SCH ×2 (06:01→18:03)
[2020-12-21] MEDS: PANTOPRAZOLE 40MG TABLET PO SCH (06:42)
[2020-12-21] MEDS: INSULIN -REGULAR HUMAN 50 UNIT/0.5 ML ML SQ SCH ×4 (07:30→20:08)
[2020-12-21] MEDS: METOPROLOL XL 50 MG TAB PO SCH ×2 (08:00→20:15)
[2020-12-21] MEDS: LIDOCAINE 4% PATCH TOP SCH (08:00)
[2020-12-21] MEDS: AMLODIPINE 10 MG TAB PO SCH ×2 (08:00→20:15)
[2020-12-21] MEDS: FLUTICASONE 50MCG NASAL SPRAY NAS SCH ×2 (08:00→19:42)
[2020-12-21] MEDS: MULTIVITAMINS,THERAPEUT 1 TAB PO SCH (08:19)
[2020-12-21] MEDS: SEVELAMER CARBONATE 800 MG TABLET PO SCH ×3 (08:19→18:17)
[2020-12-21] MEDS: PREGABALIN 50 MG CAP PO SCH ×2 (08:19→19:44)
[2020-12-21] MEDS: DULOXETINE 20 MG CAP PO SCH (08:20)
[2020-12-21] MEDS: CALCITROL 0.25 MCG CAP PO SCH (08:20)
[2020-12-21] MEDS: VITAMIN D 5,000 UNIT CAP PO SCH (08:20)
[2020-12-21] MEDS: MINOCYCLINE HCL 50 MG CAP PO SCH ×2 (08:20→19:44)
[2020-12-21] MEDS: INSULIN LISPRO 100 UNIT/1 ML SQ SCH ×3 (08:21→17:00)
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
[2020-12-21] MEDS: ROSUVASTATIN 10 MG TAB PO SCH (19:44)
[2020-12-21] MEDS: INSULIN GLARGINE 100 UNITS/ML SQ SCH (20:08)
--- NOTE | 2020-12-21 20:15 | P.PN ---
Date of Service: 12/21/20 Vital Signs Temp Pulse Resp BP Pulse Ox 97.5 F 84 16 145/68 H 96 12/21/20 07:00 12/21/20 07:00 12/21/20 07:00 12/21/20 07:00 12/21/20 07:00 Medications Acetaminophen (Acetaminophen 500 Mg Tab) 1,000 mg PO Q6H PRN PRN Reason: Pain scale 5-7 (Moderate) Stop: 01/01/21 22:01 Last Admin: 12/18/20 18:12 Dose: 1,000 mg Documented by: Amlodipine Besylate (Amlodipine 10 Mg Tab) 10 mg PO DAILY LAURA Stop: 01/02/21 08:01 Last Admin: 12/21/20 08:00 Dose: Not Given Documented by: Calcitriol (Calcitrol 0.25 Mcg Cap) 0.5 mcg PO DAILY LAURA Stop: 01/04/21 08:01 Last Admin: 12/21/20 08:20 Dose: 0.5 mcg Documented by: Cholecalciferol (Vitamin D 5,000 Unit Cap) 5,000 unit PO DAILY LAURA Stop: 01/04/21 08:01 Last Admin: 12/21/20 08:20 Dose: 5,000 unit Documented by: Dextrose (D50w 25 Gm/50 Ml Vial) 12.5 gm IV PRN PRN; Protocol PRN Reason: HYPOGLYCEMIA Stop: 01/02/21 17:22 Duloxetine HCl (Duloxetine 20 Mg Cap) 20 mg PO DAILY LAURA Stop: 01/03/21 08:01 Last Admin: 12/21/20 08:20 Dose: 20 mg Documented by: Fluticasone Propionate (Fluticasone 50mcg Nasal [place]) 2 sprays RON BID LAURA Stop: 01/02/21 08:01 Last Admin: 12/21/20 19:42 Dose: Not Given Documented by: Glucagon (Glucagon 1 Mg/Vial) 1 mg IM 1X PRN; Protocol PRN Reason: HYPOGLYCEMIA Stop: 01/03/21 06:04 Heparin Sodium (Porcine) (Heparin 5000 Unit/Ml 1 Ml Vial) 5,000 unit SQ Q12HR LAURA Stop: 01/02/21 08:01 Last Admin: 12/21/20 18:03 Dose: 5,000 unit Documented by: Heparin Sodium (Porcine) (Heparin 1,000 Unit/Ml Vial) 6,000 unit IV EVERY HD PRN PRN Reason: dialysis Last Admin: 12/21/20 17:38 Dose: 6,000 unit Documented by: Albumin Human (Albumin 25%) 50 mls @ 100 mls/hr IV EVERY HD LAURA Stop: 01/03/21 14:01 Insulin Glargine (Insulin Glargine 100 Units/Ml) 20 units SQ BEDTIME LAURA Stop: 01/12/21 21:01 Last Admin: 12/21/20 20:08 Dose: 20 units Documented by: Insulin Human Lispro (Insulin Lispro 100 Unit/1 Ml) 4 unit SQ TIDWM LAURA Stop: 01/02/21 08:01 Last Admin: 12/21/20 17:00 Dose: Not Given Documented by: Insulin Human Regular (Insulin -Regular Human 50 Unit/0.5 Ml Ml) 0 unit SQ ACHS [facility]; Protocol Stop: 01/03/21 07:31 Last Admin: 12/21/20 20:08 Dose: Not Given Documented by: Lactulose (Lactulose 20 Gm/30 Ml Ucup) 20 gm PO BID PRN PRN Reason: CONSTIPATION Stop: 01/04/21 20:01 Last Admin: 12/07/20 08:16 Dose: 20 gm Documented by: Lidocaine (Lidocaine 4% Patch) 1 patch TOP DAILY [facility] Stop: 01/16/21 09:31 Last Admin: 12/21/20 08:00 Dose: Not Given Documented by: Mannitol (Mannitol 25% 12.5 Gm/50 Ml Vial) 12.5 gm IV EVERY HD PRN PRN Reason: Titrate to SBP (MUST DEFINE) Stop: 01/03/21 13:18 Melatonin (Melatonin 3 Mg Tablet) 3 mg PO BEDTIME PRN PRN PRN Reason: INSOMNIA Stop: 01/02/21 10:12 Methocarbamol (Methocarbamol 750 Mg Tab) 750 mg PO TID PRN PRN Reason: MUSCLE SPASMS Stop: 01/01/21 21:31 Last Admin: 12/17/20 21:03 Dose: 750 mg Documented by: Metoprolol Succinate (Metoprolol Xl 50 Mg Tab) 50 mg PO DAILY [facility] Stop: 01/02/21 08:01 Last Admin: 12/21/20 08:00 Dose: Not Given Documented by: Minocycline HCl (Minocycline Hcl 50 Mg Cap) 100 mg PO BID [facility] Stop: 01/15/21 20:01 Last Admin: 12/21/20 19:44 Dose: 100 mg Documented by: Ondansetron HCl (Ondansetron 4 Mg (Odt) Tab) 4 mg PO Q4H PRN PRN Reason: NAUSEA / VOMITING Stop: 01/01/21 21:31 Last Admin: 12/17/20 21:03 Dose: 4 mg Documented by: Oxycodone HCl (Oxycodone Hcl 5 Mg Tab) 2.5 mg PO Q6H PRN PRN Reason: Pain scale 8-10 (Severe) Stop: 01/01/21 21:31 Last Admin: 12/17/20 21:02 Dose: 2.5 mg Documented by: Pantoprazole Sodium (Pantoprazole 40mg Tablet) 40 mg PO DAILYAC [facility]; Protocol Stop: 01/03/21 22:15 Last Admin: 12/21/20 06:42 Dose: 40 mg Documented by: Polyethylene Glycol (Polyethyl Gly 3350 17 Gm/Dose) 17 gm PO DAILY PRN PRN Reason: CONSTIPATION Stop: 01/01/21 21:31 Last Admin: 12/11/20 23:21 Dose: 17 gm Documented by: Pregabalin (Pregabalin 50 Mg Cap) 100 mg PO BID [facility] Stop: 01/02/21 14:01 Last Admin: 12/21/20 19:44 Dose: 100 mg Documented by: Rosuvastatin Calcium (Rosuvastatin 10 Mg Tab) 10 mg PO BEDTIME [facility] Stop: 01/02/21 21:01 Last Admin: 12/21/20 19:44 Dose: 10 mg Documented by: Senna/Docusate Sodium (Docusate Na/Senna Conc 1 Tab) 2 tab PO BEDTIME PRN PRN Reason: CONSTIPATION Stop: 01/02/21 10:13 Last Admin: 12/10/20 21:09 Dose: 2 tab Documented by: Sevelamer Carbonate (Sevelamer Carbonate 800 Mg Tablet) 800 mg PO TIDWM [facility] Stop: 01/02/21 08:01 Last Admin: 12/21/20 18:17 Dose: 800 mg Documented by: Vitamin B Complex/Vit C/Folic Acid (Multivitamins,Therapeut 1 Tab) 1 tab PO DAILY [facility] Stop: 01/04/21 08:01 Last Admin: 12/21/20 08:19 Dose: 1 tab Documented by: Lab Results (last 24 hrs) 12/21/20 19:54: POC Glucose 162 H 12/21/20 18:11: POC Glucose 98 12/21/20 11:14: POC Glucose 171 H 12/21/20 10:27: POC Glucose 190 H 12/21/20 07:11: POC Glucose 151 H Microbiology Results 12/16/20 06:45 Nasopharnyx Coronavirus COVID-19 PCR - Final 12/12/20 19:30 Clean Catch Urine [place] Count - Final BETWEEN 10,000 & 100,000 CFU/ML 12/12/20 19:30 Clean Catch Urine - Final Pseudomonas Aeruginosa 12/10/20 14:30 Wound - Other Gram Stain - Final 12/10/20 14:30 Wound - Other Culture & Sensitivity - Final Enterobacter Cloacae 12/03/20 18:00 Clean Catch Urine [place] Count - Final >100,000 CFU/ML. 12/03/20 18:00 Clean Catch Urine - Final MIXED DUY. Assessment/ Plan: Nephrology CPS stable without CP or SOB. Multiple boils, draining Doing well with PT No acute events overnight. Vitals, medications, blood work and imaging reviewed in the chart. General: Oriented x3, Cooperative HEENT: Atraumatic Neck: Supple Respiratory: Clear to auscultation bilaterally Cardiovascular: Regular rate/rhythm, Edema Gastrointestinal: Soft and benign, Non-distended Musculoskeletal: No clubbing, No contractures Integumentary: No rashes, No cyanosis Neurological: Normal speech Blood work reviewed in the chart. Conclusions/Impression: A/ ESRD on HD Hyperkalemia HTN with CKD/ CHF Diastolic CHF, chronic LE edema DM II with CKD [place]/ Secondary HyperPTH Anemia in CKD Moderate malnutrition Right pelvic fx with associated pain. Slow transit constipation complicated by iron and opiates. P/ Continue current POC and Medications. HD TTS. Lactulose for constipation prn. Continue Retacrit. Continue Renvela and Vitamin D. Wean opiate therapy as tolerated. Will titrate insulin as needed to improve BG Continue PT. No NSAIDs. AM labs prn. Daily weight.
[2020-12-21 21:04] VITALS: TEMP 98.5
[2020-12-22] MEDS: HEPARIN 5000 UNIT/ML 1 ML VIAL SQ SCH ×2 (06:21→08:00)
[2020-12-22] MEDS: PANTOPRAZOLE 40MG TABLET PO SCH (07:12)
[2020-12-22] MEDS: INSULIN -REGULAR HUMAN 50 UNIT/0.5 ML ML SQ SCH ×2 (07:30→11:30)
[2020-12-22] MEDS: LIDOCAINE 4% PATCH TOP SCH (08:00)
[2020-12-22] MEDS: FLUTICASONE 50MCG NASAL SPRAY NAS SCH (08:00)
[2020-12-22] MEDS: PREGABALIN 50 MG CAP PO SCH (08:30)
[2020-12-22] MEDS: MINOCYCLINE HCL 50 MG CAP PO SCH (08:30)
[2020-12-22] MEDS: DULOXETINE 20 MG CAP PO SCH (08:30)
[2020-12-22] MEDS: MULTIVITAMINS,THERAPEUT 1 TAB PO SCH (08:30)
[2020-12-22] MEDS: VITAMIN D 5,000 UNIT CAP PO SCH (08:30)
[2020-12-22] MEDS: CALCITROL 0.25 MCG CAP PO SCH (08:30)
[2020-12-22] MEDS: INSULIN LISPRO 100 UNIT/1 ML SQ SCH ×2 (08:32→12:32)
[2020-12-22] MEDS: SEVELAMER CARBONATE 800 MG TABLET PO SCH ×2 (08:35→12:10)
[2020-12-22] MEDS: METOPROLOL XL 50 MG TAB PO SCH (12:31)
[2020-12-22] MEDS: AMLODIPINE 10 MG TAB PO SCH (12:31)
[2020-12-22 12:33] VITALS: BP 153/71
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
--- NOTE | 2020-12-22 19:28 | P.PN ---
Date of Service: 12/22/20 Vital Signs Temp Pulse Resp BP Pulse Ox 98.5 F 81 16 153/71 H 97 12/22/20 08:32 12/22/20 12:31 12/22/20 08:32 12/22/20 12:31 12/22/20 08:32 Lab Results (last 24 hrs) 12/22/20 12:03: POC Glucose 116 12/22/20 07:45: POC Glucose 104 12/21/20 19:54: POC Glucose 162 H Microbiology Results 12/16/20 06:45 Nasopharnyx Coronavirus COVID-19 PCR - Final 12/12/20 19:30 Clean Catch Urine [place] Count - Final BETWEEN 10,000 & 100,000 CFU/ML 12/12/20 19:30 Clean Catch Urine - Final Pseudomonas Aeruginosa 12/10/20 14:30 Wound - Other Gram Stain - Final 12/10/20 14:30 Wound - Other Culture & Sensitivity - Final Enterobacter Cloacae 12/03/20 18:00 Clean Catch Urine [place] Count - Final >100,000 CFU/ML. 12/03/20 18:00 Clean Catch Urine - Final MIXED DUY. Assessment/ Plan: Nephrology CPS stable without CP or SOB. Multiple boils, draining Doing well with PT No acute events overnight. Vitals, medications, blood work and imaging reviewed in the chart. General: Oriented x3, Cooperative HEENT: Atraumatic Neck: Supple Respiratory: Clear to auscultation bilaterally Cardiovascular: Regular rate/rhythm, Edema Gastrointestinal: Soft and benign, Non-distended Musculoskeletal: No clubbing, No contractures Integumentary: No rashes, No cyanosis Neurological: Normal speech Blood work reviewed in the chart. Conclusions/Impression: A/ ESRD on HD Hyperkalemia HTN with CKD/ CHF Diastolic CHF, chronic LE edema DM II with CKD [place]/ Secondary HyperPTH Anemia in CKD Moderate malnutrition Right pelvic fx with associated pain. Slow transit constipation complicated by iron and opiates. P/ Continue current POC and Medications. HD TTS. Lactulose for constipation prn. Continue Retacrit. Continue Renvela and Vitamin D. Wean opiate therapy as tolerated. Will titrate insulin as needed to improve BG Continue PT. No NSAIDs. AM labs prn. Daily weight.
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
== END 2020-12-22 13:30 | disposition home health service (06) | DRG 559 ==
LOC: 5TH 21:14
PROVIDERS: ADMIT Psychiatry & Neurology Neurology with Special Qualifications in Child Neurology; ATTEND Psychiatry & Neurology Neurology with Special Qualifications in Child Neurology
PROC: 5A1D70Z Performance of Urinary Filtration, Intermittent, Less than 6 Hours Per Day (ICD-10-PCS; principal; 2020-12-04)
DX: S32.82XD Multiple fractures of pelvis without disruption of pelvic ring, subsequent encounter for fracture with routine healing (principal); N18.6 End stage renal disease; I13.2 Hypertensive heart and chronic kidney disease with heart failure and with stage 5 chronic kidney disease, or end stage renal disease; I50.32 Chronic diastolic (congestive) heart failure; N25.81 Secondary hyperparathyroidism of renal origin; E44.0 Moderate protein-calorie malnutrition; L02.416 Cutaneous abscess of left lower limb; E11.22 Type 2 diabetes mellitus with diabetic chronic kidney disease; E87.5 Hyperkalemia; N25.0 Renal osteodystrophy; K59.01 Slow transit constipation; D63.1 Anemia in chronic kidney disease; B95.62 Methicillin resistant Staphylococcus aureus infection as the cause of diseases classified elsewhere; R60.9 Edema, unspecified; Z68.36 Body mass index [BMI] 36.0-36.9, adult; Z99.2 Dependence on renal dialysis; Z79.4 Long term (current) use of insulin; Z79.899 Other long term (current) drug therapy; Z20.822 Contact with and (suspected) exposure to COVID-19
CPT/HCPCS: 36415; 80048; 81001; 82040; 82607; 82746; 82947; 83540; 83735; 84134; 84466; 85025; 86317; 86705; 87070; 87077; 87086; 87088; 87186; 87205; 87340; 90935; 97110; 97112; 97116; 97161; 97530; 97542; 99251; J0696; J1644; J1815; Q5106; U0002; U0003

== ENCOUNTER 2021-07-14 07:04 | Day surgery (SDC) | payer OTHER ==
[2021-07-13 13:51] LABS: Potassium 3.8 mmol/L (3.5-5.1)
[2021-07-14] MEDS: NA CHLORIDE 0.9% 500 ML ONE ×2 (08:28→08:45)
[2021-07-14] MEDS: CEFAZOLIN/SWI 1gm 1 GM/10 ML SYR ONE ×2 (08:28→08:50)
[2021-07-14] MEDS ORDERED: LIDOCAINE 1% MPF 5 ML VIAL ONE (08:51)
[2021-07-14] MEDS ORDERED: propofoL 200 MG/20 ML VIAL IV ONE (08:51)
[2021-07-14] MEDS ORDERED: MIDAZOLAM HCL 2 MG/2 ML INJ ONE (08:51)
[2021-07-14] MEDS ORDERED: FENTANYL CITR 100 MCG/2 ML ONE (08:51)
[2021-07-14] MEDS ORDERED: BUPIVACAINE 0.5% PF 10 ML VIAL ONE (09:02)
[2021-07-14] MEDS ORDERED: dexAMETHasone 10 MG/ML VIAL ONE (09:26)
[2021-07-14] MEDS ORDERED: ONDANSETRON 4 MG/2 ML VIAL ONE (09:27)
[2021-07-14] MEDS ORDERED: KETOROLAC 30 MG/ML INJ ONE (09:27)
[2021-07-14] MEDS ORDERED: NA CHLORIDE 0.9% 500 ML ONE (09:52)
--- NOTE | 2021-07-14 10:26 | OP ---
Date of Procedure: 07/14/2021 Surgeon: Vinh Trent MD Assessment Consultant: Derrek Ramon, assisted sales representative certified. Preoperative Diagnosis: Nonhealing wound left medial thigh, hidradenitis suppurativa x2. Postoperative Diagnosis: Nonhealing wound left medial thigh, hidradenitis suppurativa x2. Procedure: Wide excision of left thigh, hidradenitis suppurativa wounds x2. The bigger one was 11.5 x 5.5 x 3 cm. The smaller one was 6 x 3 x 2 cm. Both were closed in a layered fashion. Estimated Blood Loss: Minimal. Specimen: Medial thigh wounds x2. Findings: As above. Anesthesia: General. Complications: None. Disposition: The patient tolerated the procedure in stable condition and taken to Recovery in good g eneral condition. Procedure In Detail: The patient was brought to the OR and placed in supine position. General anest hesia begun. The patient was placed in the frog-leg modified position and then prepped and draped in the usual sterile fashion. Marcaine 0.5% infiltrated locally. Then, 2 incisions were made surround ing the sinuses and chronically infected wounds present in the medial thigh. There were 2 distinct a reas. The first incision was 11.5 x 5.5 cm and 3 cm deep. The second wound was 6 x 3 cm in ellipse and then 2 cm deep. All of the wounds were excised and sent to Pathology as specimen after being sayda ropriately labeled. The wound was irrigated. Bleeding controlled with cautery. Flaps created. A 2 -0 chromic was used to approximate the deep and superficial subcutaneous tissue and arnoldo used to c lose the skin. Sterile dressing applied. The patient was awakened and taken to Recovery in good gen eral condition. Discharge Note: The patient will go to Day Surgery and home when stable. Disposition: Home. Condition: Stable. Discharge Instructions: Resume home medications and diet. Activity as tolerated. No heavy lifting. Remove outer dressing in 2 days. Shower. Keep wound clean and dry. Follow up in [facility] and my clinic in 2 weeks. Call for appointment. Tylenol No.3 one tablet p.o. q.4 p.r.n. pain, Cipro 500 mg p.o. q.12. /MODL Voice ID: [id number] Report ID: [id number]
[2021-07-14] MEDS ORDERED: MORPHINE 4 MG/ML SYR ONE (10:39)
[2021-07-14] MEDS ORDERED: PROMETHAZINE INJ 25 MG/ML AMP ONE (10:39)
[2021-07-14 11:03] VITALS: TEMP 97
[2021-07-14 11:11] VITALS: BP 165/87; O2SAT 97
[2021-07-14] MEDS ORDERED: CODEINE 30MG/APAP 300MG TAB ONE (11:49)
== END 2021-07-14 11:40 | disposition home or self-care (01) ==
LOC: OR 07:04
PROVIDERS: ATTEND Surgery
PROC: 0JBM0ZZ Excision of Left Upper Leg Subcutaneous Tissue and Fascia, Open Approach (ICD-10-PCS; principal; 2021-07-14 08:30)
DX: L73.2 Hidradenitis suppurativa (principal); T81.89XA Other complications of procedures, not elsewhere classified, initial encounter; S71.102A Unspecified open wound, left thigh, initial encounter
CPT/HCPCS: 11406 ×2; 80048; 36415; 81025; 82947 ×2; 88304; J2704; J2550; J2250; J3010; J1100; J0690; J7040 ×2; J2405; 88305

== ENCOUNTER 2021-11-17 07:31 | Day surgery (SDC) | payer BC, OTHER ==
[2021-11-15 11:16] LABS: Absolute Lymphocytes (CBC) 2.1 K/uL (0.7-4.9); Hematocrit 34.8 % (36.0-45.0); Lymphocytes % 18.9 % (15.3-44.8); MPV 8.6 fL (7.6-11.3); RBC Red Blood Cell Count 3.84 M/uL (3.86-4.86)
[2021-11-15 11:34] LABS: Potassium 4.3 mmol/L (3.5-5.1)
[2021-11-17] MEDS ORDERED: NA CHLORIDE 0.9% 500 ML ONE (07:50)
[2021-11-17] MEDS ORDERED: ONDANSETRON 4 MG/2 ML VIAL ONE ×2 (08:22→08:29)
[2021-11-17] MEDS ORDERED: LIDOCAINE 2% MPF 5 ML VIAL ONE (08:27)
[2021-11-17] MEDS ORDERED: FENTANYL CITR 100 MCG/2 ML ONE (08:27)
[2021-11-17] MEDS ORDERED: MIDAZOLAM HCL 2 MG/2 ML INJ ONE (08:27)
[2021-11-17] MEDS ORDERED: propofoL 200 MG/20 ML VIAL IV ONE (08:27)
[2021-11-17] MEDS ORDERED: GLYCOPYRROLATE 0.2 MG/ML SYR ONE ×2 (08:28→09:42)
[2021-11-17] MEDS ORDERED: dexAMETHasone 10 MG/ML VIAL ONE (08:29)
[2021-11-17] MEDS: CEFAZOLIN/NS 1gm 1 GM/50 ML BAG ONE ×2 (09:10→09:25)
[2021-11-17] MEDS ORDERED: ROCURONIUM 50 MG/5 ML VIAL IV ONE (09:14)
[2021-11-17] MEDS ORDERED: DIPHENHYDRAMINE 50 MG/ML VIAL ONE (09:26)
[2021-11-17] MEDS ORDERED: BUPIVACAINE 0.5% PF 10 ML VIAL SQ ONE (09:27)
[2021-11-17] MEDS ORDERED: NEOSTIGMINE 1 MG/ML -5 ML ONE (10:29)
[2021-11-17] MEDS: FENTANYL CITR 100 MCG/2 ML ONE ×3 (10:30→11:15)
[2021-11-17] MEDS ORDERED: BUPIVACAINE 0.5% PF 10 ML VIAL ONE (10:33)
[2021-11-17] MEDS: HYDRALAZINE HCL 20 MG/ML VIAL ONE ×5 (10:35→12:25)
[2021-11-17] MEDS: LABETALOL 20 MG/4ML SYRINGE IV ONE ×4 (10:50→11:20)
--- NOTE | 2021-11-17 11:23 | OP ---
Date of Procedure: 11/17/2021 Surgeon: Vinh Trent MD Diversity Manager: AMBIKA Griffith. Preoperative Diagnosis: Recurring infection right axilla, hidradenitis suppurativa. Postoperative Diagnosis: Recurring infection right axilla, hidradenitis suppurativa. Procedure: Wide excision of right axilla hidradenitis suppurativa 14 x 6 cm with layered closure. Estimated Blood Loss: Minimal. Specimen: Hidradenitis suppurativa. Findings: As above. Anesthesia: General. Complications: None. Disposition: The patient tolerated the procedure in stable condition and taken to Recovery in good g eneral condition. Procedure In Detail: The patient was brought to the OR and placed in supine position. General anest hesia begun. The patient was prepped and draped in the usual sterile fashion. Marcaine 0.5% infiltr ated locally. A 15 blade was used to make a 14 x 6 cm incision to include all of the area where the hidradenitis suppurativa was present and then wound irrigated, bleeding controlled with cautery. Fla ps created and then 2-0 chromic and 3-0 chromic used to approximate the subcutaneous tissue, and 4-0 nylon used to close the skin loosely. Sterile dressing applied. The patient was awakened and taken to Recovery in good general condition. Discharge Note: The patient will go to Day Surgery and home when stable. Disposition: Home. Condition: Stable. Discharge Instructions: Resume home medications and diet. Activity as tolerated. No heavy lifting. Remove outer dressing in 2 days. Shower. Keep wound clean and dry. Follow up in my office in [address] [place] [address] and in [facility]. Call for appointment. Cipro for 250 mg p.o. b.i.d., Tylenol No .3 one tablet p.o. q.4 p.r.n. pain. /MODL Voice ID: [id number] Report ID: [id number]
[2021-11-17] MEDS ORDERED: PROMETHAZINE INJ 25 MG/ML AMP ONE (12:03)
[2021-11-17 12:22] VITALS: O2SAT 99
[2021-11-17] MEDS ORDERED: METOCLOPRAMIDE 10 MG/2mL INJ ONE (13:01)
[2021-11-17] MEDS ORDERED: HYDROCODONE/APAP 7.5/325 MG TAB ONE (13:20)
[2021-11-17 13:21] VITALS: TEMP 97.9
[2021-11-17 14:27] VITALS: BP 173/79
== END 2021-11-17 14:15 | disposition home or self-care (01) ==
LOC: PRE 07:31
PROVIDERS: ATTEND Surgery
PROC: 0JBD0ZZ Excision of Right Upper Arm Subcutaneous Tissue and Fascia, Open Approach (ICD-10-PCS; principal; 2021-11-17 09:00)
DX: L73.2 Hidradenitis suppurativa (principal); Z20.822 Contact with and (suspected) exposure to COVID-19
CPT/HCPCS: 85025; 80048; 36415; 82947; 88304; 11450; U0003; J0360; J2704; J2765; J2550; J1200; J2250; J3010 ×2; J2710; J0690; J7040; J2405; 88305; J1100

== ENCOUNTER 2021-11-23 19:34 | Inpatient (IN) | payer BC, OTHER ==
--- OUTSIDE RECORDS SUMMARY | 2021-11-23 19:39 | XMS REPORT | Continuity of Care Document ---
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 [facility] Heart rate 2021-10-11 16:20:00 86 /min [facility]i [facility] Respiratory rate 2021-10-11 16:20:00 20 /min Univ ersity of [facility] Body height 2021-10-11 16:20:00 167.6 cm [facility] Body weight 2021-10-11 16:20:00 102.967 kg [facility] BMI 2021-10-11 16:20:00 36.64 kg/m2 [facility] Oxygen saturation in 2021-10-11 16:20:00 98 /min [facility] blood by [facility] Pulse oximetry Branch HEIGHT 2021-04-15 10:29:00 167.6 cm WEIGHT 2021-04-15 10:29:00 104.237 kg HEIGHT 2021-04-15 10:29:00 167.6 cm WEIGHT 2021-04-15 10:29:00 104.237 kg HEIGHT 2020-09-15 13:40:00 166.5 cm WEIGHT 2020-09-15 13:40:00 100.29 kg Procedures Procedure Date / Time Performed Performing Clinician Sour e POCT GLUCOSE 2021-11-22 18:31:00 Tammy Bailey [facility] (AUTOMATED) [facility] POCT GLUCOSE 2021-11-22 14:28:00 Tammy Bailey [facility] (AUTOMATED) [facility] PHOSPHORUS 2021-11-22 11:48:00 [facility] MAGNESIUM 2021-11-22 11:48:00 [facility] BASIC METABOLIC PANEL 2021-11-22 11:48:00 Zeke David [facility] (NA, K, CL, CO2, Medical Branch GLUCOSE, BUN, CREATININE, CA) CBC WITH DIFF 2021-11-22 11:48:00 [facility] VITAMIN D, 25-OH 2021-11-22 11:48[facility] 2021-11-22 03:06:00 Tammy Bailey [facility] (AUTOMATED) [facility] POCT GLUCOSE 2021-11-21 23:10:00 Tammy Bailey [facility] (AUTOMATED) [facility] POCT GLUCOSE 2021-11-21 17:57:00 Tammy Bailey [facility] (AUTOMATED) [facility] ALBUMIN 2021-11-21 10:19:00 Zeke [facility] FERRITIN SERUM 2021-11-21 10:19:00 Zeke [facility] IRON 2021-11-21 10:19:00 Zeke [facility] TOTAL IRON BINDING 2021-11-21 10:19:00 Zeke [facility] CAPACITY [facility] TROPONIN I 2021-11-21 10:19:00 Tammy Bailey [facility] DISCLOSURE AND 2021-11-21 06:01:00 Doctor Unassigned, No [facility] CONSENT, MEDICAL AND Name Medical [facility] SURGICAL PROCEDURES COVID-19 (ID NOW RAPID 2021-11-21 03:52:00 Tammy Bailey [facility] TESTING) [facility] XR CHEST 1 VW 2021-11-21 02:52:45 Tammy Bailey [facility] LIPASE 2021-11-21 02:40:00 Tammy Bailey [facility] MAGNESIUM 2021-11-21 02:40:00 Tammy Bailey [facility] TROPONIN I 2021-11-21 02:40:00 Tammy Bailey [facility] COMP. METABOLIC PANEL 2021-11-21 02:40:00 Tammy Bailey [facility] ([id number]) [facility] CBC WITH DIFF 2021-11-21 02:40:00 Tammy Bailey [facility] CONSENT/REFUSAL FOR 2021-11-21 02:00:28 Doctor Unassigned, No [facility] DIAGNOSIS AND Name [facility] TREATMENT EXTERNAL PROVIDER 2021-11-16 06:01:00 Doctor Unassigned, No [facility] RECORDS Name [facility] POCT HEMOGLOBIN A1C 2021-10-11 16:24:00 Jaylin Lacy [facility] TEST [facility] Plan of Care Planned Activity Planned Date Details Comments Source Encounters Start End Encounter Admission Attending Care Care Encounter Source Date/Time Date/Time Type Type Clinicians Facility Department ID 2022-02-14 2022-02-14 Outpatient [facility] [id number] [facility] 00:00:00 00:00:00 2022-02-08 2022-02-08 Outpatient R [facility] [id number] Univers 14:00:00 14:00:00 JAYLIN [id number] ity of [facility] 2021-11-23 2021-11-23 Transition ANI Gary [id number] Univers 00:00:00 00:00:00 of Care Aida BRUCE [id number] i ty [place] [id number] [facility] 403 Branch 2021-11-20 2021-11-22 Inpatient X AMAURI [facility] [id number] Univers 20:18:00 13:34:00 REGGIE ity of [facility] 2021-11-20 2021-11-22 [facility] Tammy Bailey [facility] 1.2.84 0.114 [id number] Univers 20:18:00 13:34:00 [facility] 350.1.13.10 ity of [place] 4.2.7.2.686 [place] [id number] [address] ([facility]) 2021-11-16 2021-11-16 Orders Doctor MARIE [id number] Univers 00:00:00 00:00:00 Only Unassigned, JENI 350.1.13.10 ity of [place] [facility] 4.2.7.2.686 Niraj as [phone] [place] [id number] Branch 2021-11-08 2021-11-08 Outpatient JYOTI VILLAVICENCIO [facility] [id number] [facility] 11:49:43 23:59:00 2021-11-08 2021-11-08 Outpatient CRISTIAN DUNHAM [facility] [id number] [facility] 09:17:04 09:17:04 2021-10-25 2021-10-25 Outpatient JANI MATOS [facility] [id number] [facility] 00:00:00 00:00:00 2021-10-25 2021-10-25 Outpatient JYOTI VILLAVICENCIO [facility] [id number] [facility] 00:00:00 00:00:00 2021-10-11 2021-10-11 [facility] 1.2.840.114 [id number] Univers 10:00:00 11:06:41 Visit [facility]ly [facility], [facility]1983 350.1.13.10 mariah castellanos [place] 4.2.7.2.686 Niraj as SASCHA?BLEA [phone] [facility] [address] MEDICAL OFFICE BUILDING 2021-10-11 2021-10-11 [facility] [id number] Univers 10:00:00 11:06:41 [facility] 2021-10-04 2021-10-04 Outpatient JYOTI VILLAVICENCIO [facility] [id number] [facility] 00:00:00 00:00:00 2021-10-04 2021-10-04 Outpatient [facility] [place] [id number] [facility] 00:00:00 00:00:00 2021-09-20 2021-09-20 Outpatient [facility] [id number] [place] 00:00:00 00:00:00 154 [address] ryanne 2021-09-20 2021-09-20 Outpatient [facility] [id number] [place] 00:00:00 00:00:00 359 Method i 2021-08-16 2021-08-16 Outpatient JYOTI VILLAVICENCIO [facility] [id number] [facility] 00:00:00 00:00:00 2021-08-16 2021-08-16 Outpatient EL [facility] [place] [id number] [facility] 00:00:00 00:00:00 2021-08-09 2021-08-09 Outpatient EL [facility] [id number] [facility] 00:00:00 00:00:00 2021-08-09 2021-08-09 Outpatient [facility] [id number] [place] 00:00:00 00:00:[address] 2021-07-12 2021-07-12 Outpatient [facility] [id number] [facility] 00:00:00 00:00:00 2021-07-12 2021-07-12 Outpatient [facility] [id number] [place] 00:00:00 00:00:00 CLEMENTINE [facility] 2021-07-07 2021-07-07 Outpatient [facility] [id number] [place] 00:00:00 00:00:00 CLEMENTINE 161 Method i 2021-07-07 2021-07-07 Outpatient WOJCIECHOWS [facility] [id number] [place] 00:00:00 00:00:00 KI, 993 Method i ЮЛИЯ 2021-06-21 2021-06-21 Outpatient JYOTI VILLAVICENCIO [facility] [id number] [facility] 00:00:00 00:00:00 2021-06-09 2021-06-09 Outpatient [facility] [id number] [place] 00:00:00 00:00:00 209 Method i 2021-05-19 2021-05-19 Outpatient [facility] [id number] [place] 00:00:00 00:00:00 884 Method i 2021-04-21 2021-04-21 Outpatient RADHA, [facility] [id number] [place] 00:00:00 00:00:00 CLEMENTINE 474 Method i 2021-04-15 2021-04-15 Outpatient JYOTI VILLAVICENCIO [facility] [id number] [facility] 00:00:00 00:00:00 2021-03-29 2021-03-29 Outpatient RADHA, [facility] [id number] [place] 00:00:00 00:00:00 CLEMENTINE 889 Method i 2021-03-28 2021-03-28 Outpatient RADHA, [facility] [id number] [place] 00:00:00 00:00:00 CLEMENTINE 469 Method i 2021-03-16 2021-03-16 Outpatient RADHA, [facility] [id number] [place] 00:00:00 00:00:00 CLEMENTINE 420 Method i 2021-02-10 2021-02-10 Outpatient GARCIA, [facility] [id number] [place] 00:00:00 00:00:00 CLEMENTINE [address] 2021-02-09 2021-02-09 Outpatient RADHA, [facility] [id number] [place] 00:00:00 00:00:00 CLEMENTINE 670 Method i 2021-02-09 2021-02-09 Outpatient RADHA, [facility] [id number] [place] 00:00:00 00:00:00 CLEMENTINE [address] 2021-01-21 2021-01-21 Outpatient RADHA [facility] [id number] [place] 00:00:00 00:00:00 CLEMENTINE [address] 2021-01-19 2021-01-19 Outpatient RADHA [facility] [id number] [place] 00:00:00 00:00:00 CLEMENTINE [address] 2021-01-19 2021-01-19 Outpatient WOJCIECHOWS [facility] [id number] [place] 00:00:00 00:00:00 KI, 101 Method i ЮЛИЯ 2020-11-03 2020-11-03 Outpatient RADHA [facility] [id number] [place] 00:00:00 00:00:00 CLEMENTINE [address] 2020-09-15 2020-09-15 Outpatient [facility]H [facility] [id number] [facility] 00:00:00 00:00:00 2020-09-15 2020-09-15 Outpatient EL [facility] [id number] [facility] 00:00:00 00:00:00 2020-09-15 2020-09-15 Outpatient SLEH [facility] [id number] [facility] 00:00:00 00:00:00 2020-08-11 2020-08-11 Outpatient SLEH [facility] [id number] [facility] 00:00:00 00:00:00 2020-08-11 2020-08-11 Outpatient SLEH [facility] [id number] [facility] 00:00:00 00:00:00 2020-08-11 2020-08-11 Outpatient EL [facility] [id number] [facility] 00:00:00 00:00:00 2020-07-14 2020-07-14 Outpatient EL [facility] [id number] [facility] 00:00:00 00:00:00 2020-06-23 2020-06-23 Outpatient EL [facility] [id number] [facility] 00:00:00 00:00:00 2020-05-19 2020-05-19 Outpatient EL [facility] [id number] [facility] 00:00:00 00:00:00 Results Test Description Test Time Test Comments Results Result Comments Source POCT GLUCOSE (AUTOMATED) 2021-11-22 18:35:56 Test Item Value Reference Range Interpretation Comme nts POCT GLU (test code = 1341977278) 210 mg/dL 70-110 H Lab Interpretation (test code = 43255-0) [facility]normal [facility], [id number] 18:28:57 Test Item Value Reference Range Interpretation Comments VIT D 25OH (test code = 26 ng/mL 25-80 72466-1) WILLIAMS (test code = WILLIAMS) Deficiency: <20 ng/mLInsufficiency : 20-24 ng/mLOptimal: 25-80 ng/mL Lab Interpretation (test Normal code = 89263-2) [facility]2021-11-22 14:30:21 Test Item Value Reference Range Interpretation Comments POCT GLU (test code = 8612057565) 185 mg/dL 70-110 H Lab Interpretation (test code = Abnormal 55388-8) [facility] PAN[facility] (NA, K, CL, CO2, GLUCOSE, BUN, CREATININE, CA)2021-11-22 12:44:52 Test Item Value Reference Range Interpretation Comments NA (test code = 129 mmol/L 135-145 L 0679749078) K (test code = 4.1 mmol/L 3.5-5.0 4255691737) CL (test code = 97 mmol/L 98-108 L 4386680934) CO2 TOTAL (test code = 23 mmol/L 23-31 9859529804) AGAP (test code = 2-16 2994510413) BUN (test code = 51 mg/dL 7-23 H 2295011820) GLUCOSE (test code = 187 mg/dL 70-110 H 5071440782) CREATININE (test code = 9.21 mg/dL 0.50-1.04 H 2573725276) CALCIUM (test code = 7.5 mg/dL 8.6-10.6 L 0071613394) eGFR (test code = mL/min/1.73m2 7317952159) WILLIAMS (test code = WILLIAMS) Association of Glomerular Filtration Rate (GFR) and Staging of Kidney Disease* + --+ --+ ------+| GFR (mL/min/1.73 m2) ?| With Kidney Damage ?| ?Without Kidney Damage+ --------+ --------+ +| ?>90 ?| ?Stage one ?| ? Normal ?+ ---+ ---+ -------+| ?60-89 ?| ?Stage two ?| ? Decreased GFR ? + --+ --+ ------+| ?30-59 ?| ?Stage three ?| ? Stage three ? + --+ --+ ------+| ?15-29 ?| ?Stage four ? | ? Stage four ?+ ---+ ---+ -------+| ?<15 (or dialysis) ? ?| ?Stage five ? | ? Stage five ?+ ---+ ---+ -------+ *Each stage assumes the associated GFR level has been in effect for at least three months. ?Stages 1 to 5, with or without kidney disease, indicate chronic kidney disease. Notes: Determination of stages one and two (with eGFR >59mL/min/1.73 m2) requires estimation of kidney damage for at least three months as defined by structural or functional abnormalities of the kidney, manifested by either:Pathological abnormalities or Markers of kidney damage (including abnormalities in the composition of the blood or urine or abnormalities in imaging tests). Lab Interpretation Abnormal (test code = 47382-1) [facility]2022-01-04 12:44:52 Test Item Value Reference Range Interpretation Comments MAGNESIUM (test code = 9660994334) 1.9 mg/dL 1.7-2.4 Lab Interpretation (test code = Normal 27010-0) [facility]2022-01-04 12:44:52 Test Item Value Reference Range Interpretation Comments PHOSPHORUS (test code = 3489612516) 5.7 mg/dL 2.5-5.0 H Lab Interpretation (test code = Abnormal 20707-1) [facility] WITH [id number] 12:11:49 Test Item Value Reference Range Interpretation Comments WBC (test code = See_Comment [Automated 6190-2) message] The sy stem which generated this result transmitted reference range : 4.30 - 11.10 10*3/?L. The reference range was not used to interpret this result as normal/abnormal . RBC (test code = See_Comment L [Automated 979-8) message] The sy stem which generated this result transmitted reference range : 3.93 - 5.25 10*6/?L. The reference range was not used to interpret this result as normal/abnormal . HGB (test code = 8.5 g/dL 11.6-15.0 L 718-7) HCT (test code = 26.4 % 35.7-45.2 L 4544-3) MCV (test code = 92.0 fL 80.6-95.5 787-2) MCH (test code = 29.6 pg 25.9-32.8 785-6) MCHC (test code = 32.2 g/dL 31.6-35.1 786-4) RDW-SD (test code = 42.4 fL 39.0-49.9 22720-2) RDW-CV (test code = 12.6 % 12.0-15.5 788-0) PLT (test code = See_Comment L [Automated 777-3) message] The sy stem which generated this result transmitted reference range : 166 - 358 10*3/ ?L. The reference r daniella was not used to interpret this result as normal/abnormal . MPV (test code = 11.4 fL 9.5-12.9 42356-8) NRBC/100 WBC (test See_Comment [Automat ed code = 7010144370) message] The system which generated this result transmitted reference range : 0.0 - 10.0 /100 WBCs. The refer ence range was not u sed to interpret th is result as normal/abnormal . NRBC x10^3 (test code <0.01 See_Comment [Auto mated = 0783340755) message] The s ystem which generated this result transmitted reference range : 10*3/?L. The reference range was not used to interpret this result as normal/abnormal . GRAN MAT (NEUT) % 70.6 % (test code = 770-8) IMM GRAN % (test code 0.70 % = 0291104876) LYMPH % (test code = 18.0 % 736-9) MONO % (test code = 10.3 % 5905-5) EOS % (test code = 0.2 % 713-8) BASO % (test code = 0.2 % 706-2) GRAN MAT x10^3(ANC) 4.11 10*3/uL 1.88-7.09 (test code = 5817539407) IMM GRAN x10^3 (test 0.04 10*3/uL 0.00-0.06 code = 5340028291) LYMPH x10^3 (test code 1.05 10*3/uL 1.32-3.29 L = 731-0) MONO x10^3 (test code 0.60 10*3/uL 0.33-0.92 = 742-7) EOS x10^3 (test code = <0.03 0.03-0.39 L 711-2) BASO x10^3 (test code <0.03 0.01-0.07 = 704-7) Lab Interpretation Abnormal (test code = 29742-4) [facility] GLUCOSE (AUTOMATED)2021-11-22 03:22:39 Test Item Value Reference Range Interpretation Comments POCT GLU (test code = 9963333621) 158 mg/dL 70-110 H Lab Interpretation (test code = Abnormal 27739-5) [facility]ERR[facility] [id number] 23:21:29 Test Item Value Reference Range Interpretation Comments FERRITIN (test code = 1730.0 ng/mL 6.0-137.0 H 6019940422) WILLIAMS (test code = WILLIAMS) Biotin has been reported to cause a negative bias, interpret results relative to patient's use of biotin. Lab Interpretation (test Abnormal code = 53690-6) [facility] GLUCOSE (AUTOMATED)2021-11-21 23:12:04 Test Item Value Reference Range Interpretation Comments POCT GLU (test code = 1042367008) 92 mg/dL 70-110 Lab Interpretation (test code = Normal 43394-1) [facility]IND[facility] [id number] 20:45:34 Test Item Value Reference Range Interpretation Comments TIBC (test code = 2931017362) 187 ug/dL 250-410 L % FE SAT (test code = 9073279044) 16 % 20-50 L Lab Interpretation (test code = Abnormal 25742-2) [facility]2022-01-03 20:36:26 Test Item Value Reference Range Interpretation Comments IRON (test code = 1288072367) 29 ug/dL 50-160 L Lab Interpretation (test code = Abnormal 56140-0) [facility]2022-01-03 20:33:48 Test Item Value Reference Range Interpretation Comments ALBUMIN (test code = 9984459153) 3.3 g/dL 3.5-5.0 L Lab Interpretation (test code = Abnormal 73568-6) [facility])2021-11-21 17:58:23 Test Item Value Reference Range Interpretation Comments POCT GLU (test code = 9282898079) 100 mg/dL 70-110 Lab Interpretation (test code = Normal 85599-3) [facility] [id number] 11:06:10 Test Item Value Reference Interpretation Comments Range TROPONIN I (test 0.036 ng/mL See_Comment H [Automated code = 5134972264) message] The system which generated this result transmitted reference range : <=0.034. The reference range was not used to interpret this result as normal/abnormal . WILLIAMS (test code = Reference (Normal) WILLIAMS) Range (defined by the 99th percentile reference limit): <= 0.034 ng/mL Note: Cardiac troponin begins to rise 3-4 hours after the onset of ischemia. Repeat in 4-6 hours if the sample was drawn within 3-4 hours of the onset of the symptom and found normal. Diagnosis of myocardial injury is made with acute changes in cTn concentrations with at least one serial sample above the 99th percentile upper reference limit (URL), taken together with the patient's clinical presentation. Biotin has been reported to cause a negative bias, interpret results relative to patient's use of biotin. Lab Interpretation Abnormal (test code = 59185-2) [facility] [id number] 03:25:04 Test Item Value Reference Interpretation Comments Range TROPONIN I (test 0.035 ng/mL See_Comment H [Automated code = 2688033515) message] The system which generated this result transmitted reference range : <=0.034. The reference range was not used to interpret this result as normal/abnormal . WILLIAMS (test code = Reference (Normal) WILLIAMS) Range (defined by the 99th percentile reference limit): <= 0.034 ng/mL Note: Cardiac troponin begins to rise 3-4 hours after the onset of ischemia. Repeat in 4-6 hours if the sample was drawn within 3-4 hours of the onset of the symptom and found normal. Diagnosis of myocardial injury is made with acute changes in cTn concentrations with at least one serial sample above the 99th percentile upper reference limit (URL), taken together with the patient's clinical presentation. Biotin has been reported to cause a negative bias, interpret results relative to patient's use of biotin. Lab Interpretation Abnormal (test code = 81306-4) [facility]2022-01-03 03:13:46 Test Item Value Reference Range Interpretation Comments MAGNESIUM (test code = 5755096580) 1.5 mg/dL 1.7-2.4 L Lab Interpretation (test code = Abnormal 50854-9) [facility]. METABOLIC PANEL (24001)2021-11-21 03:13:26 Test Item Value Reference Range Interpretation Comments NA (test code = 129 mmol/L 135-145 L 0706303375) K (test code = 5.8 mmol/L 3.5-5.0 H 9605326027) CL (test code = 97 mmol/L 98-108 L 8760240326) CO2 TOTAL (test code = 14 mmol/L 23-31 L 4454113052) AGAP (test code = 2-16 H 3009399942) BUN (test code = 71 mg/dL 7-23 H 2639992852) GLUCOSE (test code = 139 mg/dL 70-110 H 5662421333) CREATININE (test code = 12.55 mg/dL 0.50-1.04 H 4476128660) TOTAL BILI (test code = 0.7 mg/dL 0.1-1.7 9565800147) CALCIUM (test code = 7.6 mg/dL 8.6-10.6 L 0190519885) T PROTEIN (test code = 7.6 g/dL 6.3-8.2 5491923208) ALBUMIN (test code = 3.9 g/dL 3.5-5.0 9911695350) ALK PHOS (test code = 132 U/L 34-122 H 8655817272) ALTv (test code = 11 U/L 5-35 1742-6) AST(SGOT) (test code = 27 U/L 13-40 0413304697) eGFR (test code = mL/min/1.73m2 6742675158) WILLIAMS (test code = WILLIAMS) Association of Glomerular Filtration Rate (GFR) and Staging of Kidney Disease* + --+ --+ ------+| GFR (mL/min/1.73 m2) ?| With Kidney Damage ?| ?Without Kidney Damage+ --------+ --------+ +| ?>90 ?| ?Stage one ?| ? Normal ?+ ---+ ---+ -------+| ?60-89 ?| ?Stage two ?| ? Decreased GFR ? + --+ --+ ------+| ?30-59 ?| ?Stage three ?| ? Stage three ? + --+ --+ ------+| ?15-29 ?| ?Stage four ? | ? Stage four ?+ ---+ ---+ -------+| ?<15 (or dialysis) ? ?| ?Stage five ? | ? Stage five ?+ ---+ ---+ -------+ *Each stage assumes the associated GFR level has been in effect for at least three months. ?Stages 1 to 5, with or without kidney disease, indicate chronic kidney disease. Notes: Determination of stages one and two (with eGFR >59mL/min/1.73 m2) requires estimation of kidney damage for at least three months as defined by structural or functional abnormalities of the kidney, manifested by either:Pathological abnormalities or Markers of kidney damage (including abnormalities in the composition of the blood or urine or abnormalities in imaging tests). Lab Interpretation Abnormal (test code = 65636-8) [facility] 03:13:06 Test Item Value Reference Range Interpretation Comments LIPASE (test code = 3355921921) 49 U/L 0-220 Lab Interpretation (test code = Normal 82923-2) [facility] WITH [id number] 02:54:21 Test Item Value Reference Range Interpretation Comments WBC (test code = See_Comment [Automated 3490-2) message] The sy stem which generated this result transmitted reference range : 4.30 - 11.10 10*3/?L. The reference range was not used to interpret this result as normal/abnormal . RBC (test code = See_Comment L [Automated 259-8) message] The sy stem which generated this result transmitted reference range : 3.93 - 5.25 10*6/?L. The reference range was not used to interpret this result as normal/abnormal . HGB (test code = 10.8 g/dL 11.6-15.0 L 718-7) HCT (test code = 32.4 % 35.7-45.2 L 4544-3) MCV (test code = 92.0 fL 80.6-95.5 787-2) MCH (test code = 30.7 pg 25.9-32.8 785-6) MCHC (test code = 33.3 g/dL 31.6-35.1 786-4) RDW-SD (test code = 41.8 fL 39.0-49.9 31327-2) RDW-CV (test code = 12.3 % 12.0-15.5 788-0) PLT (test code = See_Comment [Automated 777-3) message] The sy stem which generated this result transmitted reference range : 166 - 358 10*3/ ?L. The reference r daniella was not used to interpret this result as normal/abnormal . MPV (test code = 10.8 fL 9.5-12.9 80312-0) NRBC/100 WBC (test See_Comment [Automat ed code = [id number]) message] The system which generated this result transmitted reference range : 0.0 - 10.0 /100 WBCs. The refer ence range was not u sed to interpret th is result as normal/abnormal . NRBC x10^3 (test code <0.01 See_Comment [Auto mated = [id number]) message] The s ystem which generated this result transmitted reference range : 10*3/?L. The reference range was not used to interpret this result as normal/abnormal . GRAN MAT (NEUT) % 81.2 % (test code = 770-8) IMM GRAN % (test code 0.40 % = 1222707728) LYMPH % (test code = 8.0 % 736-9) MONO % (test code = 10.2 % 5905-5) EOS % (test code = 0.0 % 713-8) BASO % (test code = 0.2 % 706-2) GRAN MAT x10^3(ANC) 7.78 10*3/uL 1.88-7.09 H (test code = 0028464653) IMM GRAN x10^3 (test 0.04 10*3/uL 0.00-0.06 code = 7596670700) LYMPH x10^3 (test code 0.77 10*3/uL 1.32-3.29 L = 731-0) MONO x10^3 (test code 0.98 10*3/uL 0.33-0.92 H = 742-7) EOS x10^3 (test code = <0.03 0.03-0.39 L 711-2) BASO x10^3 (test code <0.03 0.01-0.07 = 704-7) Lab Interpretation Abnormal (test code = 82160-5) [facility] [id number] 13:28:00 Referring: Dr. Viola Winchester transplant evaluation, risk factors for fatty liver. Performwith elastography.Reason for Exam:->fat[facility] liver [facility] 1975 Sex: FFINAL REPORT TECHNIQUE: Grayscale ultrasound of the abdomen with shear wave elastography assessment of liver tissue stiffness. INDICATION: 46-year-old woman with abnormal liver enzymes. COMPARISON: None. FINDINGS: MIDLINE VASCULATURE: Visualized inferior vena cava ispatent. Main portal vein is patent and measures 1 cm in diameter. Maximum visualized aortic diameteris 1.9 cm. LIVER: Liver liver appears prominent and measures 20.7 cm. Liver is normal in echogenicity with smooth contour. No focal lesion. 15 liver stiffness measurements were obtained using a point shear wave elastography method. Median liver stiffness value is 1.43 m/s. BILIARY:Gallbladder: No gallstones or sludge. No gallbladder wall thickening, pericholecystic fluid, or distention. Reported negative sonographic West sign.Common bile duct measures 0.5 cm, within normal limits. No intrahepatic biliary ductal dilatation. PANCREAS: Visualized portions of the pancreas are unremarkable. SPLEEN: No splenomegaly. PERITONEUM: No free fluid. KIDNEYS: Both kidneys are mildly echogenic. Right kidney measures 9.3 x 5.4 x 4.2 cm with cortical thickness of 1.7 cm. Left kidney measures 10.4 x 5.4 x 5.2 cm with cortical thickness of 1.7 cm. No hydronephrosis. No sonographically evident mass. Simple right renal cyst measures 1.7 x 1.6 x 1.3 cm. IMPRESSION:Liver appears prominent with normal echotexture. Liver elastography assessment: In the absence of other known clinical signs, compensated advanced chronic liver disease is excluded. If there are known clinical signs, further tests may be needed for confirmation.* Mildly echogenic kidneys, suggestive of medical renal disease. *Reference: Lorna Vick t al. Update to the Society of Radiologists in Ultrasound Liver Elastography Consensus Statement. Radiology. June 2020. Signed: Mak Benoit MDReport Verified Date/Time: 11/08/2021 13:28:40 POCT HEMOGLOBIN A1C [id number] 16:24:00 Test Item Value Reference Range Interpretation Comments POCT HBA1C (test code = 4548-4) 7.8 % 4-6 A Lab Interpretation (test code = Abnormal 37429-8) [facility] RNA [Presence] in Respiratory specimen by JEFFREY with probe [id number] 03:45:43 Test Item Value Reference Range Interpretation Comments SARS-CoV-2 (COVID-19) RNA Not detected Not-Detected [Presence] in Respiratory specimen by JEFFREY with probe detection (test code = 71123-3) Whether patient is employed in a healthcare setting (test code = 44243-8) Whether the patient has symptoms related to condition of interest (test code = 37399-2) Patient was hospitalized because of this condition (test code = 86497-8) Whether the patient was admitted to intensive care unit (ICU) for condition of interest (test code = 03596-5) Whether patient resides in a congregate care setting (test code = 11299-3) [id number] 14:50:00 Test Item Value Reference Range Interpretation Comments FERRITIN (BEAKER) (test code = 638.81 ng/mL 5.00-275.00 H 361) [facility] ID - ISHA DAVIDPATITIS B CORE ANTIBODY, [id number] 14:13:00 Test Item Value Reference Range Interpretation Comments HEPATITIS B CORE TOTAL ANTIBODY Nonreactive Nonreactive (BEAKER) (test code = 497) [facility] ID - BETITNA MHEPATITIS A ANTIBODY, [id number] 14:13:00 Test Item Value Reference Range Interpretation Comments HEPATITIS A IGG ANTIBODY (BEAKER) Nonreactive Nonreactive (test code = 2797) [facility] ID - BETTINA MBASIC METABOLIC [id number] 13:53:00 Test Item Value Reference Range Interpretation Comments SODIUM (BEAKER) 137 meq/L 136-145 (test code = 381) POTASSIUM (BEAKER) 3.4 meq/L 3.5-5.1 L (test code = 379) CHLORIDE (BEAKER) 98 meq/L 98-107 (test code = 382) CO2 (BEAKER) (test 29 meq/L 22-29 code = 355) BLOOD UREA NITROGEN 16 mg/dL 7-21 (BEAKER) (test code = 354) CREATININE (BEAKER) 4.54 mg/dL 0.57-1.25 H (test code = 358) GLUCOSE RANDOM 127 mg/dL 70-105 H (BEAKER) (test code = 652) CALCIUM (BEAKER) 9.0 mg/dL 8.4-10.2 (test code = 697) EGFR (BEAKER) (test 13 mL/min/1.73 ESTIMA REJI GFR IS code = 1092) sq m NOT ACCURATE CREATININE CLEARANCE IN PREDICTING GLOMERULAR FILTRATION RATE . ESTIMATED GFR I S NOT APPLICABLE FOR DIALYSIS PATIEN TS. [facility] ID - BETTINA EPATIC FUNCTION [id number] 13:52:00 Test Item Value Reference Range Interpretation Comments TOTAL PROTEIN (BEAKER) (test code = 8.7 gm/dL 6.0-8.3 H 770) ALBUMIN (BEAKER) (test code = 1145) 4.1 g/dL 3.5-5.0 BILIRUBIN TOTAL (BEAKER) (test code 0.6 mg/dL 0.2-1.2 = 377) BILIRUBIN DIRECT (BEAKER) (test 0.3 mg/dL 0.1-0.5 code = 706) ALKALINE PHOSPHATASE (BEAKER) (test 146 U/L 40-150 code = 346) AST (SGOT) (BEAKER) (test code = 13 U/L 5-34 353) ALT (SGPT) (BEAKER) (test code = 12 U/L 6-55 347) [facility] ID - BETTINA MGAMMA GLUTAMYL TRANSFERASE (GGT)2021-04-15 13:52:00 Test Item Value Reference Range Interpretation Comments GAMMA GLUTAMYL TRANSFERASE (BEAKER) 30 U/L 9-64 (test code = 364) [facility] ID - BETTINA SHARONDA, TIBC, % SAT. (WITHOUT FERRITIN)2021-04-15 13:46:00 Test Item Value Reference Range Interpretation Comments IRON (BEAKER) (test code = 547) 135.0 ug/dL 40.0-160.0 TOTAL IRON BINDING CAPACITY 241 ug/dL 250-450 L (BEAKER) (test code = 769) IRON % SATURATION (2) (BEAKER) 56 % 20-55 H (test code = 2590) [facility] ID - BETTINA MPROTHROMBIN [id number] 13:30:00 Test Item Value Reference Range Interpretation Comments PROTIME (BEAKER) 13.4 seconds 11.9-14.2 (test code = 759) INR (BEAKER) (test 1.05 See_Comment [Automat ed message] code = 370) The system [employer] generated this result transmitted ref erence range: <=5.90. The reference range was not used to int erpret this result as normal/abnormal . RECOMMENDED COUMADIN/WARFARIN INR THERAPY RANGESSTANDARD DOSE: 2.0 - 3.0 Includes: PROPHYLAXIS forvenous thrombosis, systemic embolization; TREATMENT for venous thrombosis and/or pulmonary embolus.HIGH RISK: Target INR is 2.5-3.5 for patients with mechanical heart valves.CBC W/PLT COUNT & AUTO DIFFERENTIAL 2021-04-15 13:23:00 Test Item Value Reference Range Interpretation Comments WHITE BLOOD CELL COUNT (BEAKER) 10.8 K/ L 3.5-10.5 H (test code = 775) RED BLOOD CELL COUNT (BEAKER) 3.77 M/ L 3.93-5.22 L (test code = 761) HEMOGLOBIN (BEAKER) (test code = 11.3 GM/DL 11.2-15.7 410) HEMATOCRIT (BEAKER) (test code = 33.6 % 34.1-44.9 L 411) MEAN CORPUSCULAR VOLUME (BEAKER) 89.1 fL 79.4-94.8 (test code = 753) MEAN CORPUSCULAR HEMOGLOBIN 30.0 pg 25.6-32.2 (BEAKER) (test code = 751) MEAN CORPUSCULAR HEMOGLOBIN CONC 33.6 GM/DL 32.2-35.5 (BEAKER) (test code = 752) RED CELL DISTRIBUTION WIDTH 12.6 % 11.7-14.4 (BEAKER) (test code = 412) PLATELET COUNT (BEAKER) (test 297 K/CU MM 150-450 code = 756) MEAN PLATELET VOLUME (BEAKER) 11.1 fL 9.4-12.3 (test code = 754) NUCLEATED RED BLOOD CELLS 0 /100 WBC 0-0 (BEAKER) (test code = 413) NEUTROPHILS RELATIVE PERCENT 69 % (BEAKER) (test code = 429) LYMPHOCYTES RELATIVE PERCENT 22 % (BEAKER) (test code = 430) MONOCYTES RELATIVE PERCENT 7 % (BEAKER) (test code = 431) EOSINOPHILS RELATIVE PERCENT 2 % (BEAKER) (test code = 432) BASOPHILS RELATIVE PERCENT 1 % (BEAKER) (test code = 437) NEUTROPHILS ABSOLUTE COUNT 7.41 K/ L 1.56-6.13 H (BEAKER) (test code = 670) LYMPHOCYTES ABSOLUTE COUNT 2.39 K/ L 1.18-3.74 (BEAKER) (test code = 414) MONOCYTES ABSOLUTE COUNT (BEAKER) 0.73 K/ L 0.24-0.36 H (test code = 415) EOSINOPHILS ABSOLUTE COUNT 0.17 K/ L 0.04-0.36 (BEAKER) (test code = 416) BASOPHILS ABSOLUTE COUNT (BEAKER) 0.09 K/ L 0.01-0.08 H (test code = 417) IMMATURE GRANULOCYTES-RELATIVE 0 % 0-1 PERCENT (BEAKER) (test code = 2801) SARS-CoV-2 (COVID-19) RNA [Presence] in Respiratory specimen by JEFFREY with probe [id number] 20:13:44 Test Item Value Reference Range Interpretation Comments SARS-CoV-2 (COVID-19) RNA Not detected Not-Detected [Presence] in Respiratory specimen by JEFFREY with probe detection (test code = 53366-4) Whether patient is employed in a healthcare setting (test code = 44786-8) Whether the patient has symptoms related to condition of interest (test code = 56175-4) Patient was hospitalized because of this condition (test code = 90183-6) Whether the patient was admitted to intensive care unit (ICU) for condition of interest (test code = 66217-0) Whether patient resides in a congregate care setting (test code = 62909-8) SARS-CoV-2 (COVID-19) RNA [Presence] in Respiratory specimen by JEFFREY with probe [id number] 20:33:27 Test Item Value Reference Range Interpretation Comments SARS-CoV-2 (COVID-19) RNA Not detected Not-Detected [Presence] in Respiratory specimen by JEFFREY with probe detection (test code = 72448-9) SARS-CoV-2 (COVID-19) RNA [Presence] in Respiratory specimen by JEFFREY with probe [id number] 18:00:37 Test Item Value Reference Range Interpretation Comments SARS-CoV-2 (COVID-19) RNA Not detected Not-Detected [Presence] in Respiratory specimen by JEFFREY with probe detection (test code = 88501-5) T SPOT [id number] 12:26:00 Test Item Value Reference Range Interpretation Comments T-SPOT TB (BEAKER) (test code = Negative 1683) NEG CONTROL SPOT COUNT (BEAKER) 0 (test code = 1684) PANEL A SPOT (BEAKER) (test code = 0 1685) PANEL B SPOT (BEAKER) (test code = 0 1686) POS CONTROL SPOT CT (BEAKER) (test 0 code = 1687) SCAN RESULT (test code = 2176416) 0 VARICELLA ZOSTER ANTIBODY, [id number] 11:47:00 Test Item Value Reference Range Interpretation Comments VARICELLA ZOSTER IGG (AL) (BEAKER) 3.4 (test code = 3197) VARICELLA ZOSTER RESULT INTERPRETATIONS: <=0.8 Al Nonreactive: Presumed non-immune to VZV 0.9-1.0 Al Equivocal >=1.1 Al Reactive: Presumed immune to VZVCYTOMEGALOVIRUS ANTIBODY, [id number] 11:03:00 Test Item Value Reference Range Interpretation Comments CYTOMEGALOVIRUS, IGG (BEAKER) Positive Negative, Equivocal A (test code = 3429) CMV IgG Result Interpretation: </= 0.8 Al Negative 0.9-1.0 Al Equivocal >/=1.1 Al PositiveCYTOMEGALOVIRUS ANTIBODY, [id number] 11:03:00 Test Item Value Reference Range Interpretation Comments CYTOMEGALOVIRUS IGM ANTIBODY Negative Negative, Equivocal (BEAKER) (test code = 3437) CMV IgM Result Interpretation: </= 0.8 Al Negative 0.9-1.0 Al Equivocal >/= 1.1 Al PositiveEBV ANTIBODY, [id number] 11:03:00 Test Item Value Reference Range Interpretation [...] Negative 0.9-1.0 Al Equivocal >/= 1.1 Al PositiveURINE [id number] 10:52:00 Test Item Value Reference Range Interpretation Comments CULTURE (BEAKER) (test code = 1095) No growth [id number] 11:49:00 Test Item Value Reference Range Interpretation Comments RPR SCREEN (BEAKER) (test code = Nonreactive Nonreactive 420) HEMOGLOBIN [id number] 14:32:00 Test Item Value Reference Range Interpretation Comments HEMOGLOBIN A1C (BEAKER) (test code = 8.7 % 4.3-6.1 H 368) URINALYSIS W/ [id number] 14:29:00 Test Item Value Reference Range Interpretation [...] code = 516) SOURCE(BEAKER) (test code = 5262) [facility] ID - [auto][facility] ID - techHEPATITIS B SURFACE [id number] 14:29:00 Test Item Value Reference Range Interpretation Comments HEPATITIS B SURFACE ANTIGEN (2) Nonreactive Nonreactive (BEAKER) (test code = 2585) Specimen is considered negative for HBsAg.HEPATITIS B SURFACE [id number] 14:29:00 Test Item Value Reference Range Interpretation Comments HEPATITIS B SURFACE ANTIBODY 125.4 mIU/mL <8.0 H (BEAKER) (test code = 647) [facility] ID - PIAYA LHEPATITIS B CORE ANTIBODY, [id number] 14:29:00 Test Item Value Reference Range Interpretation Comments HEPATITIS B CORE IGM ANTIBODY Nonreactive Nonreactive (BEAKER) (test code = 645) [facility] ID - PIAYA LHEPATITIS C [id number] 14:29:00 Test Item Value Reference Range Interpretation Comments HEPATITIS C ANTIBODY (BEAKER) Nonreactive Nonreactive (test code = 367) [facility] ID - PIAYA LHIV-1 ANTIGEN WITH HIV-1/2 [id number] 14:29:00 Test Item Value Reference Range Interpretation Comments HIV-1 ANTIGEN WITH HIV 1\\T\\2 Nonreactive Nonreactive ANTIBODY (2) (BEAKER) (test code = 2586) [facility] FRANKIE RODRIGUEZ LPTH, [id number] 14:13:00 Test Item Value Reference Range Interpretation Comments PARATHYROID HORMONE INTACT 1067.5 pg/mL 8.5-72.5 H (BEAKER) (test code = 577) [facility] ID Sascha RODRIGUEZ [id number] 14:09:00 Test Item Value Reference Range Interpretation [...] INR is2.5-3.5 for patients wiht mechanical heart valves.COMPREHENSIVE METABOLIC PANEL 2020-09-15 14:08:00 Test Item Value Reference Range [...] = 382) CO2 (BEAKER) (test 27 meq/L 22-29 code = 355) BLOOD UREA NITROGEN 41 [...] S NOT APPLICABLE FOR DIALYSIS PATIEN TS. [facility] ID - MICHAEL [id number] 14:07:00 Test Item Value Reference Range Interpretation Comments PHOSPHORUS (BEAKER) (test code = 5.6 mg/dL 2.3-4.7 H 604) [facility] ID - MICHAEL LURIC [id number] 14:07:00 Test Item Value Reference Range Interpretation Comments URIC ACID (BEAKER) (test code = 6.2 mg/dL 2.6-7.2 773) [facility] ID - MICHAEL LLIPID [id number] 14:07:00 Test Item Value Reference Range Interpretation [...] Borderline 130-159 High 160-189 Very High >=190 [facility] ID - BLANCAMMA GLUTAMYL TRANSFERASE (GGT)2020-09-15 14:07:00 Test Item Value Reference Range Interpretation Comments GAMMA GLUTAMYL TRANSFERASE (BEAKER) 33 U/L 9-64 (test code = 364) [facility] ID - PIAYA LCBC W/PLT COUNT & AUTO [id number] 13:50:00 Test Item Value Reference Range Interpretation [...] % 0-1 PERCENT (BEAKER) (test code = 2801)"
[2021-11-24 00:17] LABS: Absolute Lymphocytes (CBC) 1.5 K/uL (0.7-4.9); Hematocrit 25.9 % (36.0-45.0); Lymphocytes % 19.6 % (15.3-44.8); MPV 9.4 fL (7.6-11.3); RBC Red Blood Cell Count 2.87 M/uL (3.86-4.86)
[2021-11-24 00:20] LABS: Protime INR 0.92
[2021-11-24 00:42] LABS: ALT/SGPT 18 U/L (12-78); AST/SGOT 29 U/L (15-37); Albumin 2.4 g/dL (3.4-5.0); Alkaline Phosphatase 137 U/L (45-117); BUN Blood Urea Nitrogen 95 mg/dL (7-18); Bicarbonate 20 mmol/L (21-32); Bilirubin Direct < 0.1 mg/dL (0-0.2); Bilirubin Total 0.4 mg/dL (0.2-1.0); Glucose Level 268 mg/dL (74-106); Magnesium 2.4 mg/dL (1.8-2.4); NT PRO-BNP 9875 pg/mL (<125); Potassium 4.2 mmol/L (3.5-5.1); Protein, Total 7.6 g/dL (6.4-8.2); Sodium Level 131 mmol/L (136-145); Troponin (Emerg Dept Use Only) < 0.02 ng/mL (0.0-0.045)
[2021-11-24 01:27] LABS: Arterial Blood Carboxyhemoglob 2.2 % (0-1.5); Blood Gas Oxyhemoglobin 84.5 % (94-97); Blood O2 Saturation 87.2 % (92-98.5)
--- NOTE | 2021-11-24 02:46 | ER ---
Nurse's Notes [facility] Name: Sonia Song Age: 46 yrs Sex: Female : 1975 Arrival Date: 11/23/2021 Time: 19:39 Bed 18 Private MD: Diagnosis: Covid pneumonia. Hypoxia. Hemoptysis. Chronic renal disease. Missed dialysis Presentation: 11/23 20:18 Chief complaint: Patient states: COVID + - Blood in mucos, Black tarry stools started ld1 today. Coronavirus screen: Client presents with at least one sign or symptom that may indicate coronavirus-19. Standard/surgical mask placed on the client. Ebola Screen: No symptoms or risks identified at this time. Initial Sepsis Screen: Does the patient meet any 2 criteria? No. Patient's initial sepsis screen is negative. Does the patient have a suspected source of infection? No. Patient's initial sepsis screen is negative. Risk Assessment: Do you want to hurt yourself or someone else? Patient reports no desire to harm self or others. Onset of symptoms was November 23, 2021 at 20:22. 20:18 Method Of Arrival: Wheelchair ld1 20:18 Acuity: IAN 3 ld1 Triage Assessment: 20:22 General: Appears in no apparent distress. comfortable, Behavior is calm, cooperative, ld1 appropriate for age. Pain: Denies pain. Neuro: Level of Consciousness is awake, alert, obeys commands, Oriented to person, place, time, situation. Respiratory: Airway is patent Respiratory effort is even, unlabored, Respiratory pattern is regular, symmetrical. 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 - Social history:: Smoking status: Patient denies any tobacco usage or history of. Patient/guardian denies using alcohol. Screenin:06 Abuse screen: Denies threats or abuse. Denies injuries from another. Nutritional ic1 screening: No deficits noted. Tuberculosis screening: No symptoms or risk factors identified. Fall Risk None identified. Assessment: 23:06 General: Appears in no apparent distress. Behavior is calm, cooperative. Pain: Denies ic1 pain. Neuro: No deficits noted. Cardiovascular: No deficits noted. Respiratory: No deficits noted. Respiratory: Reports cough that is productive, States she is coughing up blood. Was diagnosed w Shawnid on Sunday and has since then been exp hemoptysis, rectal bleeding, and noticing bleeding when she blows her nose. GI: Reports diarrhea, rectal bleeding, bloody stool, Patient currently denies nausea, vomiting. : No deficits noted. EENT: No deficits noted. Derm: No deficits noted. Musculoskeletal: No deficits noted. 11/24 00:49 Reassessment: Pt transported to CT via stretcher. In NAD. Denies pain. Offered ic1 elimination to obtain urine specimen, pt refused. 02:51 Reassessment: Pt asleep. O2 sats decreased to 78%. MD Nate notified. Pt placed on O2 ic1 3.5L via NC. Vital Signs: 11/23 20:18 BP 150 / 69; Pulse 95; Resp 18; Temp 98.6(O); Pulse Ox 93% on R/A; Weight 99.79 kg; ld1 Height 5 ft. 6 in. (167.64 cm); Pain 0/10; 23:06 BP 155 / 57; Pulse 98; Resp 20; Pulse Ox 100% on R/A; ic1 11/24 00:19 BP 162 / 66; Pulse 96; Resp 18; Pulse Ox 94% on R/A; ic1 02:50 BP 147 / 56; Pulse 90; Resp 18; Pulse Ox 98% on 2 lpm NC; ic1 04:55 BP 134 / 49; Pulse 93; Resp 16; Pulse Ox 94% on 2 lpm NC; ic1 06:04 BP 147 / 74; Pulse 87; Resp 16; Pulse Ox 19% on 2 lpm NC; ic1 11/23 20:18 Body Mass Index 35.51 (99.79 kg, 167.64 cm) ld1 ED Course: 11/23 19:39 Patient arrived in ED. kc5 20:22 Triage completed. ld1 20:22 Arm band placed on right wrist. ld1 23:06 Patient has correct armband on for positive identification. Bed in low position. Call ic1 light in reach. Side rails up X2. 23:25 Remy Toledo MD is Attending Physician. pkl 23:52 CRP Sent. ic1 23:52 Basic Metabolic Panel Sent. ic1 23:52 Basic Metabolic Panel Sent. ic1 23:53 CBC with Diff Sent. ic1 23:53 LFT's Sent. ic1 23:53 Magnesium Sent. ic1 23:53 NT PRO-BNP Sent. ic1 23:53 PT-INR Sent. ic1 23:53 Troponin (emerg Dept Use Only) Sent. ic1 23:54 XRAY Chest (1 view) In Process Unspecified. EDMS 01/ 01:02 CT Chest Wo Con In Process Unspecified. EDMS 02:04 Inserted saline lock: 20 gauge in right antecubital area, using aseptic technique. ic1 Blood collected. 02:41 Marnie Anthony MD is Hospitalizing Provider. pkl 03:23 COVID-19/FLU A+B (Document "Date of Onset" if Symptomatic) Sent. ic1 03:23 Blood Culture Adult (2) Sent. ic1 07:25 Nelda Neri is Primary Nurse. jg9 Administered Medications: No medications were administered Outcome: 02:45 Decision to Hospitalize by Provider. pkl 15:46 Patient left the ED. jg9 Signatures: Dispatcher [employer] EDMS Remy Toledo MD MD pkl Shivani Bowers, RN RN ld1 Elizabeth Lewis kc5 Nelda Neri jg9 Jayla Barr, RN RN ic1 Corrections: (The following items were deleted from the chart) 11/23 20:24 20:22 PMHx: Hyperthyroidism; ld1 ld1 11/24 00:13 11/23 23:52 D-DIMER+COAG.LAB.BRZ drawn and sent. ic1 EDMS
--- NOTE | 2021-11-24 02:46 | EDPHYS ---
Physician Documentation [facility] Name: Sonia Song Age: 46 yrs Sex: Female : 1975 Arrival Date: 11/23/2021 Time: 19:39 Bed 18 Private MD: ED Physician Remy Toledo HPI: 11/23 23:45 This 46 yrs old Black Female presents to ER via Wheelchair with complaints of COUGHING pkl UP BLOOD, Black/Tarry Stools. 23:45 The patient or guardian reports cough, described as mild, with productive sputum, that pkl is bloody. Onset: The symptoms/episode began/occurred 3 day(s) ago. Patient said she was seen at [facility] ER 4 days ago. She was tested positive for Covid 19 and was transferred to [facility] in [place]. Patient was discharged on Sunday and was told she did not need to be in the hospital because she did not need oxygen. Patient said she passed tarry on Sunday and Sunday but not anymore today. Patient missed her dialysis appointment today. 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 - Social history:: Smoking status: Patient denies any tobacco usage or history of. Patient/guardian denies using alcohol. ROS: 23:59 Eyes: Negative for injury, pain, redness, and discharge, ENT: Negative for injury, pkl pain, and discharge, Neck: Negative for injury, pain, and swelling, Cardiovascular: Negative for chest pain, palpitations, and edema. 23:59 Respiratory: Positive for cough, bloody sputum. 23:59 Abdomen/GI: Positive for black/tarry stool. 23:59 Back: Negative for acute changes. 23:59 : Negative for urinary symptoms. 23:59 MS/extremity: Negative for acute changes. 23:59 Skin: Negative for rash. 23:59 Neuro: Negative for altered mental status, loss of consciousness. Exam: 23:59 Head/Face: Normocephalic, atraumatic. Eyes: Pupils equal round and reactive to light, pkl extra-ocular motions intact. Lids and lashes normal. Conjunctiva and sclera are non-icteric and not injected. Cornea within normal limits. Periorbital areas with no swelling, redness, or edema. ENT: Nares patent. No nasal discharge, no septal abnormalities noted. Tympanic membranes are normal and external auditory canals are clear. Oropharynx with no redness, swelling, or masses, exudates, or evidence of obstruction, uvula midline. Mucous membranes moist. Neck: Trachea midline, no thyromegaly or masses palpated, and no cervical lymphadenopathy. Supple, full range of motion without nuchal rigidity, or vertebral point tenderness. No Meningismus. Chest/axilla: Normal chest wall appearance and motion. Nontender with no deformity. No lesions are appreciated. Cardiovascular: Regular rate and rhythm with a normal S1 and S2. No gallops, murmurs, or rubs. Normal PMI, no JVD. No pulse deficits. Respiratory: Lungs have equal breath sounds bilaterally, clear to auscultation and percussion. No rales, rhonchi or wheezes noted. No increased work of breathing, no retractions or nasal flaring. 23:59 Abdomen/GI: Bowel sounds: normal, Palpation: abdomen is soft and non-tender, in all quadrants, Rectal exam: Stool: guaiac negative, the exam is chaperoned by the nurse. 23:59 Back: Exam negative for acute changes. 23:59 Musculoskeletal/extremity: Exam is negative for acute changes. 23:59 Skin: Exam negative for rash. 23:59 Neuro: Orientation: is normal, Mentation: is normal, Cranial nerves: grossly normal, Motor: is normal. Vital Signs: 20:18 BP 150 / 69; Pulse 95; Resp 18; Temp 98.6(O); Pulse Ox 93% on R/A; Weight 99.79 kg; ld1 Height 5 ft. 6 in. (167.64 cm); Pain 0/10; 23:06 BP 155 / 57; Pulse 98; Resp 20; Pulse Ox 100% on R/A; ic1 01/06 00:19 BP 162 / 66; Pulse 96; Resp 18; Pulse Ox 94% on R/A; ic1 02:50 BP 147 / 56; Pulse 90; Resp 18; Pulse Ox 98% on 2 lpm NC; ic1 04:55 BP 134 / 49; Pulse 93; Resp 16; Pulse Ox 94% on 2 lpm NC; ic1 06:04 BP 147 / 74; Pulse 87; Resp 16; Pulse Ox 19% on 2 lpm NC; ic1 11/23 20:18 Body Mass Index 35.51 (99.79 kg, 167.64 cm) ld1 MDM: 11/23 23:26 Patient medically screened. pkl 11/24 02:39 Data reviewed: vital signs, nurses notes, lab test result(s), EKG, radiologic studies. [facility] ED course: Talked to Dr. Anthony, admit. 02:45 ED course: Talked to Dr. Hernandez, will notify Dr. Snow to arrange for dialysis in [facility] the morning. 11/23 23:43 Order name: Basic Metabolic Panel [facility] 11/23 23:43 Order name: CBC with Diff; Complete Time: 00:41 pk 11/23 23:43 Order name: LFT's; Complete Time: 00:56 pk 11/23 23:43 Order name: Magnesium; Complete Time: 00:56 pk 11/23 23:43 Order name: NT PRO-BNP; Complete Time: 00:56 pk 11/23 23:43 Order name: PT-INR; Complete Time: 00:41 pk 11/23 23:43 Order name: Troponin (emerg Dept Use Only); Complete Time: 00:56 [facility] 11/23 23:43 Order name: Basic Metabolic Panel; Complete Time: 00:56 EDMS 11/23 23:44 Order name: ABG; Complete Time: 02:19 pk 11/23 23:44 Order name: CRP; Complete Time: 00:56 pk 11/24 00:13 Order name: D-Dimer; Complete Time: 00:41 EDMS 11/24 01:07 Order name: ABG pk 11/24 02:22 Order name: Blood Culture Adult (2) pk 11/23 23:43 Order name: XRAY Chest (1 view); Complete Time: 19:06 pk 11/23 23:43 Order name: EKG; Complete Time: 23:44 pk 11/23 23:43 Order name: Cardiac monitoring; Complete Time: 23:52 pkl 11/23 23:43 Order name: EKG - Nurse/Tech; Complete Time: 00:13 pkl 11/23 23:43 Order name: IV Saline Lock; Complete Time: 23:52 pkl 11/23 23:43 Order name: Labs collected and sent; Complete Time: 23:52 pkl 11/23 23:43 Order name: O2 Per Protocol; Complete Time: 23:52 pkl 11/23 23:43 Order name: O2 Sat Monitoring; Complete Time: 23:52 pkl 11/23 23:58 Order name: CT Chest Wo Con; Complete Time: 19:06 pkl 11/24 02:25 Order name: COVID-19/FLU A+B (Document "Date of Onset" if Symptomatic); Complete Time: pkl 19:11/24 03:16 Order name: CONS Physician Consult EDMS 11/24 03:16 Order name: Renal EDMS 11/24 07:48 Order name: Glucose, Ancillary Testing; Complete Time: 19:06 EDMS 11/24 12:01 Order name: Glucose, Ancillary Testing; Complete Time: 19:06 EDMS Administered Medications: No medications were administered Disposition Summary: 11/24/21 02:45 Hospitalization Ordered Hospitalization Status: Inpatient Admission pkl Provider: Marnie Anthony pkalex Condition: Stable pkl Problem: new pkl Symptoms: are unchanged pkl Bed/Room Type: Standard pkl Location: Telemetry/MedSurg (Inpatient)(11/24/21 14:51) as6 Room Assignment: [facility](11/24/21 14:51) as6 Diagnosis - Covid pneumonia. Hypoxia. Hemoptysis. Chronic renal disease. Missed dialysispkl Forms: - Medication Reconciliation Form pkl - SBAR form pkl Signatures: Dispatcher [employer] EDSD Remy Toledo MD MD pkl Makayla Yin RN RN ss Dibbern, Lauren, RN RN ld1 Rocky Crews RN RN as6 Corrections: (The following items were deleted from the chart) 11/23 20:24 20:22 PMHx: Hyperthyroidism; ld1 ld1 11/24 00:13 11/23 23:45 D-DIMER+COAG.LAB.BRZ ordered. EDSD EDMS 11/24 11:36 02:45 Telemetry/MedSurg (Inpatient) pkl ss 11:36 02:45 pkl ss 14: 11:36 BR ER HOLD ss as6 14:51 11:36 ss as6
[2021-11-24] MEDS ORDERED: MORPHINE 2 MG/ML SYR IV PRN (03:13)
[2021-11-24] MEDS ORDERED: ALBUTEROL 2.5 MG/3 ML NEB SOL NEB PRN (03:13)
[2021-11-24] MEDS ORDERED: ONDANSETRON 4 MG/2 ML VIAL IV PRN (03:13)
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
[2021-11-24] MEDS ORDERED: ACETAMINOPHEN 325 MG TABLET PO PRN (03:15)
[2021-11-24] MEDS ORDERED: BUMETANIDE 1 MG/4 ML VIAL IV ONE (03:17)
[2021-11-24] MEDS ORDERED: dexAMETHasone 4 MG TAB PO ONE (03:18)
[2021-11-24 04:21] LABS: SARS-COV-2 RT PCR POSITIVE (NEGATIVE)
[2021-11-24] MEDS: INSULIN -REGULAR HUMAN 50 UNIT/0.5 ML ML SQ SCH ×4 (07:30→23:04)
--- NOTE | 2021-11-24 07:54 | RAD REPORT ---
EXAM DESCRIPTION: Enrrique Single View11/23/2021 11:55 pm CLINICAL HISTORY: Hemoptysis COMPARISON: none FINDINGS: Moderate right and mild left pulmonary opacities. Heart is normal sized IMPRESSION: Moderate right and mild left pulmonary opacities probably pneumonia
[2021-11-24] MEDS ORDERED: INSULIN -REGULAR HUMAN 50 UNIT/0.5 ML ML ONE ×2 (08:10→12:04)
[2021-11-24] MEDS: ZINC SULFATE 220 MG CAP PO SCH (09:00)
[2021-11-24] MEDS: CEFTRIAXONE 1,000 MG in NA CHLORIDE 0.9% 50 ML IVPB SCH (09:00)
[2021-11-24] MEDS: dexAMETHasone 4 MG TAB PO SCH ×2 (09:00→23:03)
[2021-11-24] MEDS: ENOXAPARIN 30 MG/0.3 ML SQ SCH (09:00)
[2021-11-24] MEDS ORDERED: FAMOTIDINE 20 MG TAB PO SCH (09:00)
[2021-11-24] MEDS: ASPIRIN EC 81 MG TAB PO SCH (09:00)
--- NOTE | 2021-11-24 11:12 | RAD REPORT ---
EXAM DESCRIPTION: CT - Thorax Domingo Schroeder - 11/24/2021 4:38 am CLINICAL HISTORY: 46 years, Female, cough up blood COMPARISON: None FINDINGS: Multiple transaxial tomograms of the chest were obtained from the lung apices through the adrenal glands, utilizing 5 mm slice thickness at 5 mm interval reconstruction after the administrati on of 80 cc of Isovue-370 at a rate of 1.7 cc per second. Multiplanar reformats in the sagittal and coronal plane were generated and reviewed. This exam was performed according to our departmental dose-optimization protocol, which includes auto mated exposure control, adjustment of the mA and/or kV according to patient size and/or use of iterat nathan reconstruction technique. There is a right thyroid lobe nodule measuring 0.9 cm The lungs parenchyma demonstrate the presence b ilateral upper and lower lobe peripheral groundglass opacities within both lungs, suspicious for COVI D-19 pneumonia. No significant masses and/or nodules are identified. The trachea mainstem bronchus demonstrate to be normal. There is no significant pleural and/or perica rdial effusions. The heart is normal in size. There is mitral annular calcification. There are coronary artery calcifi cations. The thoracic aorta demonstrate intimal calcification. There is no significant mediastinal and/or hilar lymphadenopathy. The axillary regions demonstrate to be clear. The bone windows demonstrate no significant skeletal lesions. Grossly the unopacified portions of the upper abdomen demonstrate to be unremarkable. IMPRESSION: Commonly reported imaging features of COVID-19 pneumonia are present. Other processes [place] as influenza pneumonia and organizing pneumonia, as can be seen with drug toxicity and connective tissue disease, can cause a similar imaging pattern. (Reference: https://pubs.rsna.org/doi/full/10.11 48/ryct.3280002311). Coronary artery calcifications and atherosclerotic disease of the thoracic aorta. Right thyroid nodule. No follow-up imaging is recommended. Reference: J Am Donovan Radiol. 2015 Dec;12(2 ): 143-50 Electronically signed by: All Finn MD 11/24/2021 2:56 AM [facility] Due to temporary technical issues with the PACS/Fluency reporting system, reports are being signed by the in house radiologists without review as a courtesy to insure prompt reporting. The interpreting radiologist is fully responsible for the content of the report.
[2021-11-24] MEDS ORDERED: MANNITOL 25% 12.5 GM/50 ML VIAL IV PRN (11:34)
[2021-11-24] MEDS ORDERED: NA CHLORIDE 0.9% 1,000 ML IV PRN (11:34)
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
[2021-11-24] MEDS ORDERED: ALBUMIN HUMAN 25% 50 ML IV SCH (12:00)
[2021-11-24] MEDS ORDERED: ZINC SULFATE 220 MG CAP ONE (12:09)
[2021-11-24] MEDS ORDERED: CEFTRIAXONE 1000 MG/VIAL ONE (12:09)
[2021-11-24] MEDS ORDERED: dexAMETHasone 4 MG TAB ONE (12:09)
[2021-11-24] MEDS ORDERED: ASPIRIN EC 81 MG TAB PO ONE (12:09)
[2021-11-24] MEDS ORDERED: NA CHLORIDE 0.9% 50 ML ONE (12:10)
[2021-11-24] MEDS ORDERED: ENOXAPARIN 30 MG/0.3 ML SQ ONE (12:10)
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
--- NOTE | 2021-11-24 16:07 | P.PN ---
Date of Service: 11/24/21 Patient seen and examined on rounds this morning. Nursing report patient desaturated to high 70s while asleep, however when awake she is mid to high 90s on room air Patient denies any shortness of breath, reports she has been coughing up blood and has had black tarry stool Check Hemoccult On further questioning, patient reports she has been having a nosebleed for the last for 5 days and was much worse 4-5 days ago Suspect patient swallowed blood this is been what she is coughing up and led to some black stool. Hemoglobin seems to be at baseline or just below. Patient with chronic anemia secondary to her ESRD Continue treatment for COVID-19 Nephrology consulted, patient to have dialysis today Patient without nosebleed today, but did have some blood-tinged sputum this afternoon Monitor overnight, anticipate discharge tomorrow
[2021-11-24] MEDS ORDERED: LIDOCAINE JELLY 2%- 5 ML TUBE TOP ONE (19:00)
[2021-11-24] MEDS ORDERED: EPOETIN ALFA-EPBX 10,000 UNIT/ML VIAL SQ ONE (20:38)
[2021-11-24] MEDS ORDERED: METOPROLOL XL 25 MG TAB PO SCH (21:00)
[2021-11-24] MEDS: NEPRO SHAKE 237 ML CAN PO SCH (21:00)
[2021-11-24] MEDS: LORAZEPAM 0.5 MG TABLET PO PRN (23:04)
[2021-11-24] MEDS: guaiFENesin 100 MG/5 ML UCUP PO PRN (23:05)
[2021-11-24] MEDS: NIFEDIPINE XL 90 MG TABLET PO SCH (23:28)
[2021-11-24] MEDS: AMLODIPINE 10 MG TAB PO SCH (23:29)
[2021-11-25] MEDS: HYDRALAZINE HCL 20 MG/ML VIAL IV PRN (00:13)
[2021-11-25] MEDS ORDERED: LABETALOL 20 MG/4ML SYRINGE IV ONE (00:53)
[2021-11-25 04:27] VITALS: BMI 34.7
[2021-11-25 06:39] LABS: Absolute Lymphocytes (CBC) 0.4 K/uL (0.7-4.9); Hematocrit 22.4 % (36.0-45.0); Lymphocytes % 10.7 % (15.3-44.8); MPV 8.6 fL (7.6-11.3); RBC Red Blood Cell Count 2.52 M/uL (3.86-4.86)
[2021-11-25 07:03] LABS: Albumin 2.1 g/dL (3.4-5.0); Bilirubin Total 0.3 mg/dL (0.2-1.0); Phosphorus 4.1 mg/dL (2.5-4.9); Potassium 4.4 mmol/L (3.5-5.1); Protein, Total 7.2 g/dL (6.4-8.2)
[2021-11-25] MEDS: METOPROLOL XL 50 MG TAB PO SCH ×2 (07:12→08:31)
[2021-11-25] MEDS: INSULIN GLARGINE 100 UNIT/ML SQ SCH ×2 (07:12→08:31)
[2021-11-25] MEDS ORDERED: GLUCAGON 1 MG/VIAL IM PRN ×5 (07:49→17:10)
[2021-11-25] MEDS ORDERED: D50W 25 GM/50 ML SYRINGE IV PRN ×5 (07:49→17:10)
[2021-11-25] MEDS ORDERED: INSULIN -REGULAR HUMAN 50 UNIT/0.5 ML ML IV ONE ×5 (08:00→21:30)
[2021-11-25] MEDS: MULTIVITAMINS,THERAPEUT 1 TAB PO SCH (08:27)
[2021-11-25] MEDS: SEVELAMER CARBONATE 800 MG TABLET PO SCH ×3 (08:27→16:21)
[2021-11-25] MEDS: dexAMETHasone 4 MG TAB PO SCH (08:27)
[2021-11-25] MEDS: CALCITROL 0.25 MCG CAP PO SCH (08:27)
[2021-11-25] MEDS: ASPIRIN EC 81 MG TAB PO SCH (08:28)
[2021-11-25] MEDS: ZINC SULFATE 220 MG CAP PO SCH (08:28)
[2021-11-25] MEDS: CEFTRIAXONE 1,000 MG in NA CHLORIDE 0.9% 50 ML IVPB SCH (08:28)
[2021-11-25] MEDS: VITAMIN D 5,000 UNIT CAP PO SCH (08:28)
[2021-11-25] MEDS: ENOXAPARIN 30 MG/0.3 ML SQ SCH (08:29)
[2021-11-25] MEDS: NEPRO SHAKE 237 ML CAN PO SCH ×4 (08:30→21:00)
[2021-11-25] MEDS: INSULIN -REGULAR HUMAN 50 UNIT/0.5 ML ML SQ SCH ×4 (08:46→22:15)
[2021-11-25] MEDS ORDERED: INSULIN GLARGINE 100 UNIT/ML SQ ONE ×2 (12:27→21:31)
--- NOTE | 2021-11-25 14:51 | P.PN ---
Date of Service: 11/25/21 Subjective: Overall feeling better this morning Blood pressure significantly elevated overnight, even after dialysis Patient becoming more hypoglycemic, did not have her Tresiba yesterday Reports continues with some slight blood-tinged sputum Overnight had a bowel movement that was back to her normal color, no longer black ROS: 10 point ROS as noted above, otherwise negative Physical exam GEN: Alert, oriented, NAD HEENT: Normal conjunctiva, sclera anicteric CV: Regular rate and rhythm, trace edema Pulm: Nonlabored respirations on room air ABD: Soft, nontender, nondistended Neuro: Normal speech, normal affect, moves all extremities Problem List COVID-19 pneumonia Volume overload, acute pulmonary edema, missed dialysis Diabetes mellitus type 2, insulin-dependent. With steroid-induced hyperglycemia ESRD on HD Hypertension Epistaxis hemoptysis Status post hemodialysis 11/24 Weaned to room air, breathing comfortably Hemoglobin dropped further, received Epogen with dialysis, with some blood- tinged sputum No longer having any nosebleed or dark stool Suspected dark stools secondary to blood swallowed from a nosebleed earlier in the week. Reports significant nosebleed on Sunday/Sunday, and intermittent but less severe throughout the week Restart Lantus, titrate as needed, sliding scale insulin Steroid-induced hyperglycemia as well Pulmonology consulted, recommended low-dose steroids Nephrology consulted, plan for hemodialysis tomorrow Code: full Dispo: Anticipate DC home after dialysis tomorrow Time Spent Managing Pts Care (In Minutes): 35
[2021-11-25] MEDS ORDERED: INSULIN -REGULAR HUMAN 50 UNIT/0.5 ML ML SQ SCH (14:52)
[2021-11-25] MEDS ORDERED: NIFEDIPINE XL 90 MG TABLET PO SCH (21:00)
--- NOTE | 2021-11-25 21:42 | P.PN ---
Date of Service: 11/25/21 Vital Signs Temp Pulse Resp BP Pulse Ox 96.9 F 101 H 19 141/67 H 100 11/25/21 20:00 11/25/21 20:00 11/25/21 20:00 11/25/21 20:00 11/25/21 20:00 Medications Acetaminophen (Acetaminophen 325 Mg Tablet) 650 mg PO Q4H PRN PRN Reason: Pain scale 2-4 (Mild) Albuterol Sulfate (Albuterol 2.5 Mg/3 Ml Neb Roro) 2.5 mg NEB Q6HP PRN PRN Reason: SHORTNESS OF BREATH Amlodipine Besylate (Amlodipine 10 Mg Tab) 10 mg PO BEDTIME [facility] Last Admin: 11/24/21 23:29 Dose: 10 mg Documented by: Aspirin (Aspirin Ec 81 Mg Tab) 81 mg PO DAILY [facility] Last Admin: 11/25/21 08:28 Dose: 81 mg Documented by: Calcitriol (Calcitrol 0.25 Mcg Cap) 0.5 mcg PO DAILY [facility] Last Admin: 11/25/21 08:27 Dose: 0.5 mcg Documented by: Cholecalciferol (Vitamin D 5,000 Unit Cap) 5,000 unit PO DAILY [facility] Last Admin: 11/25/21 08:28 Dose: 5,000 unit Documented by: Dexamethasone (Dexamethasone 4 Mg Tab) 4 mg PO BID [facility] Dextrose (D50w 25 Gm/50 Ml Syringe) 12.5 gm IV PRN PRN; Protocol PRN Reason: HYPOGLYCEMIA Enteral Nutritional Formula (Nepro Shake 237 Ml Can) 237 ml PO TID [facility] Last Admin: 11/25/21 14:00 Dose: Not Given Documented by: Famotidine (Famotidine 20 Mg Tab) 20 mg PO AFTER EACH DIALYSIS [facility]; Protocol Last Admin: 11/24/21 23:06 Dose: 20 mg Documented by: Glucagon (Glucagon 1 Mg/Vial) 1 mg IM 1X PRN; Protocol PRN Reason: HYPOGLYCEMIA Guaifenesin (Guaifenesin 100 Mg/5 Ml Ucup) 200 mg PO QID PRN PRN Reason: COUGH Last Admin: 11/24/21 23:05 Dose: 200 mg Documented by: Heparin Sodium (Porcine) (Heparin 1,000 Unit/Ml Vial) 3,000 unit IV EVERY HD PRN PRN Reason: DIALYSIS Last Admin: 11/24/21 18:34 Dose: 3,000 unit Documented by: Hydralazine HCl (Hydralazine Hcl 20 Mg/Ml Vial) 10 mg IV Q6HP PRN PRN Reason: Titrate to SBP (MUST DEFINE) Last Admin: 11/25/21 00:13 Dose: 10 mg Documented by: Albumin Human (Albumin 25%) 50 mls @ 100 mls/hr IV EVERY HD [facility] Insulin Glargine (Insulin Glargine 100 Unit/Ml) 20 unit SQ DAILY [facility] Last Admin: 11/25/21 08:31 Dose: Not Given Documented by: Insulin Human Regular (Insulin -Regular Human 50 Unit/0.5 Ml Ml) 0 unit SQ ACHS [facility]; Protocol Last Admin: 11/25/21 16:08 Dose: 14 unit Documented by: Lorazepam (Lorazepam 0.5 Mg Tablet) 0.5 mg PO DAILY PRN PRN Reason: INSOMNIA Last Admin: 11/24/21 23:04 Dose: 0.5 mg Documented by: Mannitol (Mannitol 25% 12.5 Gm/50 Ml Vial) 12.5 gm IV EVERY HD PRN PRN Reason: Titrate to SBP (MUST DEFINE) Metoprolol Succinate (Metoprolol Xl 50 Mg Tab) 50 mg PO DAILY [facility] Last Admin: 11/25/21 08:31 Dose: Not Given Documented by: Morphine Sulfate (Morphine 2 Mg/Ml Syr) 2 mg IV Q4H PRN PRN Reason: Pain scale 5-7 (Moderate) Nifedipine (Nifedipine Xl 90 Mg Tablet) 90 mg PO BEDTIME [facility] Last Admin: 11/24/21 23:28 Dose: 90 mg Documented by: Ondansetron HCl (Ondansetron 4 Mg/2 Ml Vial) 4 mg IV Q8H PRN PRN Reason: NAUSEA / VOMITING Sevelamer Carbonate (Sevelamer Carbonate 800 Mg Tablet) 800 mg PO TIDWM [facility] Last Admin: 11/25/21 16:21 Dose: 800 mg Documented by: Sodium Chloride (Flush Normal Saline 10 Ml) 10 ml IV BID [facility] Last Admin: 11/25/21 08:30 Dose: 10 ml Documented by: Vitamin B Complex/Vit C/Folic Acid (Multivitamins,Therapeut 1 Tab) 1 tab PO DAILY [facility] Last Admin: 11/25/21 08:27 Dose: 1 tab Documented by: Zinc Sulfate (Zinc Sulfate 220 Mg Cap) 220 mg PO DAILY [facility] Last Admin: 11/25/21 08:28 Dose: 220 mg Documented by: Microbiology Results 11/24/21 03:15 Blood - Blood Aerobic Blood Culture - Preliminary No growth in 24 hours. 11/24/21 03:15 Blood - Blood Anaerobic Blood Culture - Preliminary No growth in 24 hours. 11/24/21 02:50 Blood - Blood Aerobic Blood Culture - Preliminary No growth in 24 hours. 11/24/21 02:50 Blood - Blood Anaerobic Blood Culture - Preliminary No growth in 24 hours. Assessment/ Plan: Nephrology No dyspnea No chest pain Feeling better No acute events overnight Vitals, medications, blood work and imaging reviewed in the chart General: In no apparent distress, Oriented x3, Cooperative HEENT: Atraumatic Neck: Supple Respiratory: Normal air movement Cardiovascular: No edema, Regular rate/rhythm Gastrointestinal: Soft and benign, Non-distended Musculoskeletal: No clubbing, No contractures Integumentary: No rashes, No cyanosis Neurological: Normal speech Laboratory Data (last 24 hrs) 11/23/21 23:50: PT 10.6, INR 0.92 11/23/21 23:50: WBC 7.60 D, Hgb 8.7 L D, Hct 25.9 L D, Plt Count 219 D 11/23/21 23:50: Sodium 131 L, Potassium 4.2, BUN 95 H D, Creatinine 11.00 H*, Glucose 268 H, Magnesium 2.4, Total Bilirubin 0.4, AST 29, ALT 18, Alkaline Phosphatase 137 H Imagings Data: EXAM DESCRIPTION: CT - [facility] - 11/24/2021 4:38 am CLINICAL HISTORY: 46 years, Female, cough up blood COMPARISON: None FINDINGS: Multiple transaxial tomograms of the chest were obtained from the lung apices through the adrenal glands, utilizing 5 mm slice thickness at 5 mm interval reconstruction after the administration of 80 cc of Isovue-370 at a rate of 1.7 cc per second. Multiplanar reformats in the sagittal and coronal plane were generated and reviewed. This exam was performed according to our departmental dose-optimization protocol, which includes automated exposure control, adjustment of the mA and/or kV according to patient size and/or use of iterative reconstruction technique. There is a right thyroid lobe nodule measuring 0.9 cm The lungs parenchyma demon strate the presence bilateral upper and lower lobe peripheral groundglass opacities within both lungs, suspicious for COVID-19 pneumonia. No significant masses and/or nodules are identified. The trachea mainstem bronchus demonstrate to be normal. There is no significant pleural and/or pericardial effusions. The heart is normal in size. There is mitral annular calcification. There are coronary artery calcifications. The thoracic aorta demonstrate intimal calcification. There is no significant mediastinal and/or hilar lymphadenopathy. The axillary regions demonstrate to be clear. The bone windows demonstrate no significant skeletal lesions. Grossly the unopacified portions of the upper abdomen demonstrate to be unremarkable. IMPRESSION: Commonly reported imaging features of COVID-19 pneumonia are present. Other processes such as influenza pneumonia and organizing pneumonia, as can be seen with drug toxicity and connective tissue disease, can cause a similar imaging pattern. (Reference: https://pubs.rsna.org/doi/full/10.1148/ryct.6536540455). Coronary artery calcifications and atherosclerotic disease of the thoracic aorta. Right thyroid nodule. No follow-up imaging is recommended. Reference: J Am Donovan Radiol. 2015 Dec;12(2): 143-50 EXAM DESCRIPTION: Enr[facility] Single View11/23/2021 11:55 pm CLINICAL HISTORY: Hemoptysis COMPARISON: none FINDINGS: Moderate right and mild left pulmonary opacities. Heart is normal sized IMPRESSION: Moderate right and mild left pulmonary opacities probably pneumonia Conclusions/Impression: ESRD -Acute HD tomorrow Hyponatremia -HD TIW HTN with CKD/ CHF -Continue Metoprolol Diastolic CHF, chronic -Low sodium diet -Continue Metoprolol DM II with CKD -RISS Moderate malnutrition -Continue Nepro Anemia in CKD -Retacrit X1 CKD MBD -Continue Vitamin D -Continue Renvela Case reviewed with Dr. Mai
[2021-11-25] MEDS: guaiFENesin 100 MG/5 ML UCUP PO PRN (22:16)
[2021-11-25] MEDS: AMLODIPINE 10 MG TAB PO SCH (22:17)
[2021-11-25] MEDS: LORAZEPAM 0.5 MG TABLET PO PRN (22:19)
[2021-11-25] MEDS: NIFEDIPINE XL 90 MG TABLET PO SCH (22:19)
[2021-11-25] MEDS ORDERED: AMLODIPINE 10 MG TAB PO SCH (22:40)
[2021-11-25] MEDS ORDERED: INSULIN -REGULAR HUMAN 50 UNIT/0.5 ML ML SQ ONE (23:46)
[2021-11-26] MEDS ORDERED: INSULIN -REGULAR HUMAN 50 UNIT/0.5 ML ML SQ ONE (02:17)
--- NOTE | 2021-11-26 06:10 | P.PN ---
Date of Service: 11/26/21 Subjective: ROS: 10 point ROS as noted above, otherwise negative Physical exam GEN: Alert, oriented, NAD HEENT: Normal conjunctiva, sclera anicteric CV: Regular rate and rhythm, trace edema Pulm: Nonlabored respirations on room air ABD: Soft, nontender, nondistended Neuro: Normal speech, normal affect, moves all extremities Problem List COVID-19 pneumonia Volume overload, acute pulmonary edema, missed dialysis Diabetes mellitus type 2, insulin-dependent. With steroid-induced hyperglycemia ESRD on HD Hypertension Epistaxis hemoptysis Status post hemodialysis 11/24 Weaned to room air, breathing comfortably Hemoglobin dropped further, received Epogen with dialysis, with some blood- tinged sputum No longer having any nosebleed or dark stool Suspected dark stools secondary to blood swallowed from a nosebleed earlier in the week. Reports significant nosebleed on Sunday/Sunday, and intermittent but less severe throughout the week Restart Lantus, titrate as needed, sliding scale insulin Steroid-induced hyperglycemia as well Pulmonology consulted, recommended low-dose steroids Nephrology consulted, plan for hemodialysis tomorrow Code: full Dispo: Anticipate DC home after dialysis tomorrow Time Spent Managing Pts Care (In Minutes): 35
[2021-11-26] MEDS: HYDRALAZINE HCL 20 MG/ML VIAL IV PRN (06:19)
[2021-11-26 06:21] LABS: Absolute Lymphocytes (CBC) 1.3 K/uL (0.7-4.9); Hematocrit 21.5 % (36.0-45.0); Lymphocytes % 17.2 % (15.3-44.8); MPV 8.8 fL (7.6-11.3)
[2021-11-26 06:52] LABS: C-Reactive Protein 50.9 mg/L (<3.00); Magnesium 2.4 mg/dL (1.8-2.4)
[2021-11-26] MEDS ORDERED: INSULIN GLARGINE 100 UNIT/ML SQ SCH (07:00)
[2021-11-26] MEDS ORDERED: INSULIN -REGULAR HUMAN 50 UNIT/0.5 ML ML SQ SCH (07:30)
[2021-11-26] MEDS: CALCITROL 0.25 MCG CAP PO SCH (07:50)
[2021-11-26] MEDS: dexAMETHasone 4 MG TAB PO SCH ×2 (07:50→09:00)
[2021-11-26] MEDS: ASPIRIN EC 81 MG TAB PO SCH (07:50)
[2021-11-26] MEDS: ZINC SULFATE 220 MG CAP PO SCH (07:50)
[2021-11-26] MEDS: VITAMIN D 5,000 UNIT CAP PO SCH (07:50)
[2021-11-26] MEDS: MULTIVITAMINS,THERAPEUT 1 TAB PO SCH (07:51)
[2021-11-26] MEDS: SEVELAMER CARBONATE 800 MG TABLET PO SCH ×2 (07:51→12:00)
[2021-11-26] MEDS: NEPRO SHAKE 237 ML CAN PO SCH ×2 (07:51→13:45)
[2021-11-26] MEDS: METOPROLOL XL 50 MG TAB PO SCH (08:06)
[2021-11-26] MEDS ORDERED: EPOETIN ALFA 10,000 UNIT/ML VIAL SQ SCH (09:00)
[2021-11-26] MEDS ORDERED: D50W 25 GM/50 ML SYRINGE IV PRN (09:15)
[2021-11-26] MEDS ORDERED: GLUCAGON 1 MG/VIAL IM PRN (09:15)
[2021-11-26] MEDS: INSULIN -REGULAR HUMAN 50 UNIT/0.5 ML ML SQ SCH ×2 (09:25→11:30)
[2021-11-26 09:53] VITALS: O2SAT 93
[2021-11-26 13:48] VITALS: BP 156/77; TEMP 97.1
--- NOTE | 2021-11-26 13:59 | P.PN ---
Date of Service: 11/26/21 Pt seen and examined during dialysis doing ok infiltrated and hence dialysis had to be stopped 50 min early she feels well otherwise Vitals, medications, blood work and imaging reviewed in the chart General: In no apparent distress, Oriented x3, Cooperative HEENT: Atraumatic Neck: Supple Respiratory: Normal air movement Cardiovascular: No edema, Regular rate/rhythm Gastrointestinal: Soft and benign, Non-distended Musculoskeletal: No clubbing, No contractures Integumentary: No rashes, No cyanosis Neurological: Normal speech Laboratory Data (last 24 hrs) 11/23/21 23:50: PT 10.6, INR 0.92 11/23/21 23:50: WBC 7.60 D, Hgb 8.7 L D, Hct 25.9 L D, Plt Count 219 D 11/23/21 23:50: Sodium 131 L, Potassium 4.2, BUN 95 H D, Creatinine 11.00 H*, Glucose 268 H, Magnesium 2.4, Total Bilirubin 0.4, AST 29, ALT 18, Alkaline Phosphatase 137 H Imagings Data: EXAM DESCRIPTION: CT - [facility] - 11/24/2021 4:38 am CLINICAL HISTORY: 46 years, Female, cough up blood COMPARISON: None FINDINGS: Multiple transaxial tomograms of the chest were obtained from the lung apices through the adrenal glands, utilizing 5 mm slice thickness at 5 mm interval reconstruction after the administration of 80 cc of Isovue-370 at a rate of 1.7 cc per second. Multiplanar reformats in the sagittal and coronal plane were generated and reviewed. This exam was performed according to our departmental dose-optimization pro tocol, which includes automated exposure control, adjustment of the mA and/or kV according to patient size and/or use of iterative reconstruction technique. There is a right thyroid lobe nodule measuring 0.9 cm The lungs parenchyma demonstrate the presence bilateral upper and lower lobe peripheral groundglass opacities within both lungs, suspicious for COVID-19 pneumonia. No significant masses and/or nodules are identified. The trachea mainstem bronchus demonstrate to be normal. There is no significant pleural and/or pericardial effusions. The heart is normal in size. There is mitral annular calcification. There are coronary artery calcifications. The thoracic aorta demonstrate intimal calcification. There is no significant mediastinal and/or hilar lymphadenopathy. The axillary regions demonstrate to be clear. The bone windows demonstrate no significant skeletal lesions. Grossly the unopacified portions of the upper abdomen demonstrate to be unremarkable. IMPRESSION: Commonly reported imaging features of COVID-19 pneumonia are present. Other processes such as influenza pneumonia and organizing pneumonia, as can be seen with drug toxicity and connective tissue disease, can cause a similar imaging pattern. (Reference: https://pubs.rsna.org/doi/full/10.1148/ryct.1707209303). Coronary artery calcifications and atherosclerotic disease of the thoracic aorta. Right thyroid nodule. No follow-up imaging is recommended. Reference: J Am Donovan Radiol. 2014;12(2): 143-50 EXAM DESCRIPTION: [facility] Single View11/23/2021 11:55 pm CLINICAL HISTORY: Hemoptysis COMPARISON: none FINDINGS: Moderate right and mild left pulmonary opacities. Heart is normal sized IMPRESSION: Moderate right and mild left pulmonary opacities probably pneumonia Conclusions/Impression: ESRD -Acute HD Hyponatremia -HD TIW HTN with CKD/ CHF -Continue Metoprolol Diastolic CHF, chronic -Low sodium diet -Continue Metoprolol DM II with CKD -RISS Moderate malnutrition -Continue Nepro Anemia in CKD -Retacrit X1 hold off on transfusion CKD MBD -Continue Vitamin D -Continue Renvela COVID 19 pneumonia : stable improving resp status no hypoxia noted Case reviewed with Dr. Mai
[2021-11-26] MEDS ORDERED: EPOETIN ALFA 10,000 UNIT/ML VIAL IV SCH (15:00)
--- NOTE | 2021-11-26 16:16 | P.DS ---
Admission Date: 11/24/21 Discharge Date: 11/26/21 Disposition: ROUTINE DISCHARGE Discharge Condition: GOOD Reason for Admission: Cough and shortness of breath Consultations: Nephrology - Dr. Johnson, Mary Pulmonology - Dr. Monge Procedures: CXR (11/23): FINDINGS: Moderate right and mild left pulmonary opacities. Heart is normal sized IMPRESSION: Moderate right and mild left pulmonary opacities probably pneumonia CT chest (11/23): FINDINGS: Multiple transaxial tomograms of the chest were obtained from the lung apices through the adrenal glands, utilizing 5 mm slice thickness at 5 mm interval reconstruction after the administration of 80 cc of Isovue-370 at a rate of 1.7 cc per second. Multiplanar reformats in the sagittal and coronal plane were generated and reviewed. This exam was performed according to our departmental dose-optimization protocol, which includes automated exposure control, adjustment of the mA and/or kV according to patient size and/or use of iterative reconstruction technique. There is a right thyroid lobe nodule measuring 0.9 cm The lungs parenchyma demonstrate the presence bilateral upper and lower lobe peripheral groundglass opacities within both lungs, suspicious for COVID-19 pneumonia. No significant masses and/or nodules are identified. The trachea mainstem bronchus demonstrate to be normal. There is no significant pleural and/or pericardial effusions. The heart is normal in size. There is mitral annular calcification. There are coronary artery calcifications. The thoracic aorta demonstrate intimal calcification. There is no significant mediastinal and/or hilar lymphadenopathy. The axillary regions demonstrate to be clear. The bone windows demonstrate no significant skeletal lesions. Grossly the unopacified portions of the upper abdomen demonstrate to be unremarkable. IMPRESSION: Commonly reported imaging features of COVID-19 pneumonia are present. Other processes such as influenza pneumonia and organizing pneumonia, as can be seen with drug toxicity and connective tissue disease, can cause a similar imaging pattern. (Reference: https://pubs.rsna.org/doi/full/10.1148/ryct.6079553887). Coronary artery calcifications and atherosclerotic disease of the thoracic aorta. Problem List COVID-19 pneumonia Volume overload, acute pulmonary edema, missed dialysis Diabetes mellitus type 2, insulin-dependent. With steroid-induced hyperglycemia ESRD on HD anemia, of chronic disease, with mild acute blood loss Hypertension Epistaxis hemoptysis Brief History of Present Illness: 46-year-old female with past medical history of hypertension, ESRD on HD MWF follows with Dr. nova, presented after developing cough with bloody sputum since the last 5 days. Patient states she was initially seen at [place] emergency room and transferred to [facility]. She was diagnosed with COVID- pneumonia. She is vaccinated. She received 2 doses of monoclonal antibody with sotrovimab and was discharged home. Patient states she was not discharged home on steroids. She states her cough continued. She denies any fever. She dev eloped worsening shortness of breath. She also states she has not had dialysis in the last 5 days due to the cough symptoms she was unable to go for her dialysis sessions. On presentation today chest x-ray shows alveolar infiltrates worrisome for COVID-pneumonia as well as elevated BNP of greater than 9000. BUN was at 95 and creatinine of 11. She has been admitted for COVID-pneumonia with missed dialysis and presumed superimposed pulmonary edema. She admitted to generalized body aches. She denies any headache or dizziness. Spouse in the room is helping with history Hospital Course: Patient was treated for her mild COVID-19 pneumonia with p.o. Decadron. Pulmonology was consulted. She did not require oxygen supplementation, and denied any further shortness of breath. Patient underwent hemodialysis on 11/24 and 11/26 per nephrology recommendations. She reported feeling back to her baseline and wanted to go home. She did not have any recurrent epistaxis or melanotic stools. She had 2 bowel movements which were her "normal brown color". She did have very mild blood- tinged sputum intermittently. She did reports moderate epistaxis on the Sunday and Sunday prior to admission, with further intermittent milder epistaxis the following days leading up to admission. Suspect patient swallowed some blood which led to the small episodes of dark stool. In the ER, patient was Hemoccult negative on exam. Patient's hemoglobin slowly down trended, her baseline hemoglobin appears to be in the mid eights. Slowly down trended to 7.5 and then 7.2. Suspect this is secondary to Covid pneumonia, missing hemodialysis/Procrit, and partly due to the epistaxis she had. She did not have hypotension, no tachycardia, denied any lightheadedness. Patient hospitalization complicated by severe hyperglycemia, secondary to steroid use. Patient says she is breathing comfortably on room air and did not want to continue with steroid use in the hospital. Insulin was uptitrated and her steroids were discontinued. She had improvement of blood glucose levels. She is discharged home to continue her home medications, also given a prescription for steroids if she does become more short of breath. She is to continue with hemodialysis as previously scheduled. Follow-up with PCP Can follow-up with pulmonology in 2 weeks Vital Signs/Physical Exam: Physical exam GEN: Alert, oriented, NAD HEENT: Normal conjunctiva, sclera anicteric CV: Regular rate and rhythm, trace edema Pulm: Nonlabored respirations on room air ABD: Soft, nontender, nondistended Neuro: Normal speech, normal affect, moves all extremities Temp Pulse Resp BP Pulse Ox 97.1 F 86 18 156/77 H 94 11/26/21 13:47 11/26/21 13:47 11/26/21 13:47 11/26/21 13:47 11/26/21 13:47 Laboratory Data at Discharge: WBC 7.60 K/uL (4.3-10.9) D 11/26/21 05:30 Hgb 7.2 g/dL (12.0-15.0) L 11/26/21 05:30 Hct 21.5 % (36.0-45.0) L 11/26/21 05:30 Plt Count 303 K/uL (152-406) D 11/26/21 05:30 PT 10.6 SECONDS (9.5-12.5) 11/23/21 23:50 INR 0.92 11/23/21 23:50 Sodium 129 mmol/L (136-145) L 11/26/21 05:30 Potassium 4.0 mmol/L (3.5-5.1) 11/26/21 05:30 BUN 70 mg/dL (7-18) H 11/26/21 05:30 Creatinine 8.42 mg/dL (0.55-1.3) H* D 11/26/21 05:30 Glucose 244 mg/dL (74-106) H 11/26/21 05:30 Phosphorus 4.1 mg/dL (2.5-4.9) 11/25/21 06:09 Magnesium 2.4 mg/dL (1.8-2.4) 11/26/21 05:30 Total Bilirubin 0.3 mg/dL (0.2-1.0) 11/25/21 06:09 AST 14 U/L (15-37) L 11/25/21 06:09 ALT 14 U/L (12-78) 11/25/21 06:09 Alkaline Phosphatase 124 U/L (45-117) H 11/25/21 06:09 Home Medications: Metoprolol Succinate 50 mg PO DAILY 12/03/20 Rosuvastatin Calcium [Crestor] 10 mg PO DAILY 12/03/20 Allopurinol 100 mg PO DAILY 06/03/21 Esomeprazole Magnesium [Nexium 24Hr] 20 mg PO DAILY 06/03/21 Insulin Degludec [Tresiba Flextouch U-100] 36 unit SQ DAILY 06/03/21 Insulin Lispro [Humalog Kwikpen U-100] 4 unit SQ TID 06/03/21 Loratadine [Claritin*] 10 mg PO Q48H 06/03/21 Aspirin 81 mg PO DAILY 11/10/21 Cinacalcet HCl [Sensipar*] 30 mg PO DAILY 11/10/21 NIFEdipine [Nifedipine ER] 90 mg PO BEDTIME 11/10/21 Amlodipine [Norvasc*] 10 mg PO BEDTIME 11/24/21 Cholecalciferol (Vitamin D3) [Vitamin D 5,000 IU Cap*] 5,000 unit PO EVERY 7TH DAY 11/24/21 dexAMETHasone [Decadron*] 4 mg PO BID 7 Days #14 tab 11/26/21 New Medications: dexAMETHasone [Decadron*] 4 mg PO BID 7 Days #14 tab Physician Discharge Instructions: Found to have mild COVID-19 pneumonia and fluid overload. You improved with dialysis. Continue home medications as previously prescribed. You were noted to be anemic, partly due to recent COVID-19 pneumonia, your chronic kidney disease / missing dialysis, and from your nose bleed. Your nosebleed is likely what contributed to the coughing up blood tinged sputum as well as recent covid pneumonia. Swallowing the blood from your nosebleed can cause the black stool you had prior to admission. You did not have any further black stool and reported normal brown color. You are discharged with a prescription for steroids. Recommend continuing to take them, but as discussed, you can picker the prescription if you begin to feel more short of breath. Diet: ADA Activity: Ad caron Followup: NONE,NONE [Primary Care Provider] - Time spent managing pt's care (in minutes): 45
== END 2021-11-26 15:09 | disposition home or self-care (01) | DRG 177 ==
LOC: ER 19:34 → ERHOLD 11-24 03:18 → OBSVTOIN 11-24 13:10 → 4TH 11-24 16:04
PROVIDERS: ADMIT Internal Medicine; ATTEND Internal Medicine
PROC: 5A1D70Z Performance of Urinary Filtration, Intermittent, Less than 6 Hours Per Day (ICD-10-PCS; principal; 2021-11-24)
PROC: 5A1D70Z Performance of Urinary Filtration, Intermittent, Less than 6 Hours Per Day (ICD-10-PCS; 2021-11-26)
DX: U07.1 COVID-19 (principal); J12.82 Pneumonia due to coronavirus disease 2019; N18.6 End stage renal disease; D62 Acute posthemorrhagic anemia; R04.2 Hemoptysis; E87.1 Hypo-osmolality and hyponatremia; I13.2 Hypertensive heart and chronic kidney disease with heart failure and with stage 5 chronic kidney disease, or end stage renal disease; I50.32 Chronic diastolic (congestive) heart failure; E11.22 Type 2 diabetes mellitus with diabetic chronic kidney disease; R04.0 Epistaxis; E09.65 Drug or chemical induced diabetes mellitus with hyperglycemia; T38.0X5A Adverse effect of glucocorticoids and synthetic analogues, initial encounter; Z99.2 Dependence on renal dialysis
CPT/HCPCS: 0240U; 36415; 71045; 71250; 80048; 80053; 80076; 82805; 82947; 83735; 83880; 84100; 84484; 85025; 85379; 85610; 86140; 87040; 90935; 93005; 94760; 99284; G0378; J0360; J1644; J1650; J8540; Q5105; Q5106

== ENCOUNTER 2021-12-06 01:49 | Emergency (ER) | payer BC, OTHER ==
--- OUTSIDE RECORDS SUMMARY | 2021-12-06 01:53 | XMS REPORT | Continuity of Care Document ---
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 2018-10-23 Completed [facility]it y of Vaccine Quad IM 00:00:00 [place] [facility] Multi-dose 6+ MO Branch Influenza Virus 2018-10-23 Completed Universit y of Vaccine (3+ yrs) 00:00:00 [facility] dical Branch Influenza Virus 2018-10-23 Completed Universit y of Vaccine Quad IM 00:00:00 [facility] ical Multi-dose 6+ MO Branch Influenza Virus 2018-10-23 Completed Universit y of Vaccine (3+ yrs) 00:00:00 [facility] dical Branch Influenza Virus 2018-10-23 Completed Universit y of Vaccine Quad IM 00:00:00 [place] [facility] Multi-dose 6+ MO Branch Influenza Virus 2018-10-23 Completed Universit y of Vaccine (3+ yrs) 00:00:00 [facility] dical [place] Vital Signs Vital Name Observation Time Observation Value Comments Source Systolic blood 2021-11-22 18:00:00 141 mm[Hg] Univer sity of pressure [facility] Diastolic blood 2021-11-22 18:00:00 69 mm[Hg] Unive rsity of pressure [facility] Heart rate 2021-11-22 18:00:00 91 /min Universi ty of [facility] Body temperature 2021-11-22 18:00:00 36.78 Melina Univ ersity of [facility] Respiratory rate 2021-11-22 18:00:00 19 /min Univ ersity of [facility] Body height 2021-11-22 18:00:00 167.6 cm Universi ty [facility] Body weight 2021-11-22 18:00:00 100.245 kg [facility]i [facility] BMI 2021-11-22 18:00:00 35.67 kg/m2 [facility] Oxygen saturation in 2021-11-22 18:00:00 90 /min University Arterial blood by [facility] Pulse oximetry Branch HEIGHT 2021-11-08 09:39:00 168 cm WEIGHT 2021-11-08 09:39:00 101.833 kg Systolic blood 2021-10-11 16:20:00 152 mm[Hg] Univer sity of pressure [facility] Diastolic blood 2021-10-11 16:20:00 87 mm[Hg] Unive rsity of pressure [facility] Heart rate 2021-10-11 16:20:00 86 /min [facility]i ty of [facility] Respiratory rate 2021-10-11 16:20:00 20 /min Univ ersity of [facility] Body height 2021-10-11 16:20:00 167.6 cm Universi ty of [facility] Body weight 2021-10-11 16:20:00 102.967 kg [facility]i ty of [facility] BMI 2021-10-11 16:20:00 36.64 kg/m2 [facility] [place] [facility] Oxygen saturation in 2021-10-11 16:20:00 98 /min University Arterial blood by [facility] Pulse oximetry Branch HEIGHT 2021-04-15 10:29:00 167.6 cm WEIGHT 2021-04-15 10:29:00 104.237 kg HEIGHT 2021-04-15 10:29:00 167.6 cm WEIGHT 2021-04-15 10:29:00 104.237 kg HEIGHT 2020-09-15 13:40:00 166.5 cm WEIGHT 2020-09-15 13:40:00 100.29 kg Procedures Procedure Date / Time Performed Performing Clinician Sourc e POCT GLUCOSE 2021-11-22 18:31:00 Tammy Bailey [facility] (AUTOMATED) [facility] POCT GLUCOSE 2021-11-22 14:28:00 Tammy Bailey [facility] (AUTOMATED) [facility] PHOSPHORUS 2021-11-22 11:48:00 [facility] MAGNESIUM 2021-11-22 11:48:00 [facility] BASIC METABOLIC PANEL 2021-11-22 11:48:00 [place] [facility] (NA, K, CL, CO2, Medical Branch GLUCOSE, BUN, CREATININE, CA) CBC WITH DIFF 2021-11-22 11:48:00 [facility] VITAMIN D, 25-OH 2021-11-22 11:48:00 [facility] POCT GLUCOSE 2021-11-22 03:06:00 Tammy Bailey [facility] (AUTOMATED) [facility] POCT GLUCOSE 2021-11-21 23:10:00 Tammy Bailey [facility] (AUTOMATED) [facility] POCT GLUCOSE 2021-11-21 17:57:00 Tammy Bailey [facility] (AUTOMATED) [facility] ALBUMIN 2021-11-21 10:19:00 [facility] FERRITIN SERUM 2021-11-21 10:19:00 [facility] IRON 2021-11-21 10:19:00 [facility] TOTAL IRON BINDING 2021-11-21 10:19:00 David Alanis [facility] CAPACITY [facility] TROPONIN I 2021-11-21 10:19:00 Tammy Bailey [facility] DISCLOSURE AND 2021-11-21 06:01:00 Doctor Unassigned, [facility] CONSENT, MEDICAL AND Name Medical [facility] SURGICAL PROCEDURES COVID-19 (ID NOW RAPID 2021-11-21 03:52:00 Tammy Bailey [facility] TESTING) Medical [place] XR CHEST 1 VW 2021-11-21 02:52:45 Tammy Bailey [facility] LIPASE 2021-11-21 02:40:00 Tammy Bailey [facility] MAGNESIUM 2021-11-21 02:40:00 Tammy Bailey [facility] TROPONIN I 2021-11-21 02:40:00 Tammy Bailey [facility] COMP. METABOLIC PANEL 2021-11-21 02:40:00 Tammy Bailey [facility] ([id number]) [facility] CBC WITH DIFF 2021-11-21 02:40:00 Tammy Bailey [facility] CONSENT/REFUSAL FOR 2021-11-21 02:00:28 [facility] TREATMENT EXTERNAL PROVIDER 2021-11-16 06:01:00 Doctor Unassigned, No [facility] RECORDS Name [facility] POCT HEMOGLOBIN A1C 2021-10-11 16:24:00 [facility] Encounters Start End Encounter Admission Attending Care Care Encounter Source Date/Time Date/Time Type Type Clinicians Facility Department ID 2022-02-14 2022-02-14 Outpatient EL SLE SLE [id number] [facility] 00:00:00 00:00:00 2022-02-08 2022-02-08 Outpatient R SAL [facility] [id number] Univers 14:00:00 14:00:00 JAYLIN [id number] [facility] 2021-11-30 2021-11-30 Outpatient R [facility] [id number] Univers 11:30:00 11:30:00 [id number] [facility] 2021-11-30 2021-11-30 Outpatient R PETE [facility] [id number] Univers 11:30:00 11:30:00 ANGELES corley o f [facility] 2021-11-30 2021-11-30 Laboratory Only, Ang Db Test [facility] 1.2.8 40.114 [id number] Univers 11:30:00 11:30:00 Only Angeles Quezada [facility] 350.1.13.10 ity of [place] 4.2.7.2.686 Niraj as SASCHA?BLEA [phone] [place] dical [address] MEDICAL OFFICE BUILDING 2021-11-23 2021-11-23 Transition ANI Gary 1.2.840.114 [id number] Univers 00:00:00 00:00:00 of Care Aida BRUCE 350.1.13.10 [place] [phone] [facility] 403 Branch 2021-11-20 2021-11-22 Inpatient X AMAURI [facility] [id number] Univers 20:18:00 13:34:00 REGGIE ity of [facility] 2021-11-20 2021-11-22 Hospital Tammy Bailey [facility] 1.2.84 [id number] [id number] Univers 20:18:00 13:34:00 [facility] [id number] ity of [place] 4.2.7.2.686 [place] [phone] [address] ([facility]) 2021-11-16 2021-11-16 Orders Doctor MARIE 1.2.840.114 [id number] Univers 00:00:00 00:00:00 Only Unassigned, JENI 350.1.13.10 ity of [place] [facility] 4.2.7.2.686 Niraj as [phone] [place] [address] Branch 2021-11-08 2021-11-08 Outpatient JYOTI VILLAVICENCIO [facility] [id number] [facility] 11:49:43 23:59:00 2021-11-08 2021-11-08 Outpatient CRISTIAN DUNHAM SLE SLE [id number] [facility] 09:17:04 09:17:04 2021-10-25 2021-10-25 Outpatient JOYTI VILLAVICENCIO SLE SLE [id number] [facility] 00:00:00 00:00:00 2021-10-25 2021-10-25 Outpatient EL SLEH SLE [id number] [facility] 00:00:00 00:00:00 2021-10-11 2021-10-11 [facility] 1.2.840.114 [id number] Univers 10:00:00 11:06:41 Visit Pending sale to [facility] 350.1.13.10 [facility] 4.2.7.2.686 Niraj as SASCHA?BLEA [phone] [address] MEDICAL OFFICE BUILDING 2021-10-11 2021-10-11 Outpatient R SAL [facility] [id number] Univers 10:00:00 11:06:41 [facility] 2021-10-04 2021-10-04 Outpatient JYOTI VILLAVICENCIO [facility] [id number] SLE[facility] 00:00:00 00:00:00 2021-10-04 2021-10-04 Outpatient [facility] [id number] [facility] 00:00:00 00:00:00 2021-09-20 2021-09-20 Outpatient [facility] [id number] [place] 00:00:00 00:00:[address] 2021-09-20 2021-09-20 Outpatient [facility] [id number] [place] 00:00:00 00:00:[address] 2021-08-16 2021-08-16 Outpatient JYOTI VILLAVICENCIO SLE SLE [id number] SLEH 00:00:00 00:00:00 2021-08-16 2021-08-16 Outpatient JANI SLE[facility] SLE [id number] SLEH 00:00:00 00:00:00 2021-08-09 2021-08-09 Outpatient EL SLEH SLE [id number] SLEH 00:00:00 00:00:00 2021-08-09 2021-08-09 Outpatient [facility] [id number] [place] 00:00:00 00:00:00 729 Method i 2021-07-12 2021-07-12 Outpatient [facility] [id number] [facility] 00:00:00 00:00:00 2021-07-12 2021-07-12 Outpatient RADHA, [facility] [id number] [place] 00:00:00 00:00:00 CLEMENTINE 483 Method i 2021-07-07 2021-07-07 Outpatient RADHA, [facility] [id number] [place] 00:00:00 00:00:00 CLEMENTINE 161 Method i 2021-07-07 2021-07-07 Outpatient WOJCIECHOWS [facility] [id number] [place] 00:00:00 00:00:00 KI, 993 Method i ЮЛИЯ 2021-06-21 2021-06-21 Outpatient JYOTI VILLAVICENCIO [facility] [id number] [facility] 00:00:00 00:00:00 2021-06-09 2021-06-09 Outpatient [facility] [id number] [place] 00:00:00 00:00:00 209 Method i 2021-05-19 2021-05-19 Outpatient [facility] [id number] [place] 00:00:00 00:00:00 884 Method i 2021-04-21 2021-04-21 Outpatient RADHA, [facility] [id number] [place] 00:00:00 00:00:00 CLEMENTINE 474 Method i 2021-04-15 2021-04-15 Outpatient JYOTI VILLAVICENCIO [facility] [id number] [facility] 00:00:00 00:00:00 2021-03-29 2021-03-29 Outpatient RADHA, [facility] [id number] [place] 00:00:00 00:00:00 CLEMENTINE 889 Method i 2021-03-28 2021-03-28 Outpatient RADHA, [facility] [id number] [place] 00:00:00 00:00:00 CLEMENTINE 469 Method i 2021-03-16 2021-03-16 Outpatient RADHA, [facility] [id number] [place] 00:00:00 00:00:00 CLEMENTINE [address] 2021-02-10 2021-02-10 Outpatient RADHA [facility] [id number] [place] 00:00:00 00:00:00 CLEMENTINE 854 Method i 2021-02-09 2021-02-09 Outpatient RADHA [facility] [id number] [place] 00:00:00 00:00:00 CLEMENTINE 670 Method i 2021-02-09 2021-02-09 Outpatient RADHA [facility] [id number] [place] 00:00:00 00:00:00 CLEMENTINE 297 Method i 2021-01-21 2021-01-21 Outpatient RADHA [facility] [id number] [place] 00:00:00 00:00:00 CLEMENTINE 731 Method i 2021-01-19 2021-01-19 Outpatient RADHA [facility] [id number] [place] 00:00:00 00:00:00 CLEMENTINE 825 Method i 2021-01-19 2021-01-19 Outpatient WOJCIECHOWS [facility] [id number] [place] 00:00:00 00:00:00 KI, 101 Method i ЮЛИЯ 2020-11-03 2020-11-03 Outpatient RADHA [facility] [id number] [place] 00:00:00 00:00:00 CLEMENTINE 975 Method i 2020-09-15 2020-09-15 Outpatient SLEH [facility] [id number] SLEH 00:00:00 00:00:00 2020-09-15 2020-09-15 Outpatient EL [facility]H SLEH [id number] SLEH 00:00:00 00:00:00 2020-09-15 2020-09-15 Outpatient SLEH SLEH [id number] SLEH 00:00:00 00:00:00 2020-08-11 2020-08-11 Outpatient SLEH SLEH [id number] SLEH 00:00:00 00:00:00 2020-08-11 2020-08-11 Outpatient SLEH SLEH [id number] SLEH 00:00:00 00:00:00 2020-08-11 2020-08-11 Outpatient EL SLEH SLEH [id number] SLEH 00:00:00 00:00:00 2020-07-14 2020-07-14 Outpatient EL SLEH SLEH [id number] SLE 00:00:00 00:00:00 2020-06-23 2020-06-23 Outpatient [facility] [id number] SLE 00:00:00 00:00:00 2020-05-19 2020-05-19 Outpatient [facility] [id number] SLE 00:00:00 00:00:00 Results Test Description Test Time Test Comments Results Result Comments Source POCT GLUCOSE (AUTOMATED) 2021-11-22 18:35:56 Test Item Value Reference Range Interpretation Comme nts POCT GLU (test code = 4238589461) 210 mg/dL 70-110 H Lab Interpretation (test code = 98730-2) [facility]normal [facility] [id number] 18:28:57 Test Item Value Reference Range Interpretation Comments VIT D 25OH (test code = 26 ng/mL 25-80 60596-5) WILLIAMS (test code = WILLIAMS) Deficiency: <20 ng/mLInsufficiency : 20-24 ng/mLOptimal: 25-80 ng/mL Lab Interpretation (test Normal code = 99037-0) [facility]2021-11-22 14:30:21 Test Item Value Reference Range Interpretation Comments POCT GLU (test code = 8901297881) 185 mg/dL 70-110 H Lab Interpretation (test code = Abnormal 73053-9) [facility]OL[facility] (NA, K, CL, CO2, GLUCOSE, BUN, CREATININE, CA)2021-11-22 12:44:52 Test Item Value Reference Range Interpretation Comments NA (test code = 129 mmol/L 135-145 L 7934054132) K (test code = 4.1 mmol/L 3.5-5.0 8829305058) CL (test code = 97 mmol/L 98-108 L 2143949305) CO2 TOTAL (test code = 23 mmol/L 23-31 4258096042) AGAP (test code = 2-16 3412711763) BUN (test code = 51 mg/dL 7-23 H 3794971074) GLUCOSE (test code = 187 mg/dL 70-110 H 1548561364) CREATININE (test code = 9.21 mg/dL 0.50-1.04 H 2412039955) CALCIUM (test code = 7.5 mg/dL 8.6-10.6 L 3669975495) eGFR (test code = mL/min/1.73m2 1106520197) WILLIAMS (test code = WILLIAMS) Association of [...] tests). Lab Interpretation Abnormal (test code = 62371-8) [facility]2022-[facility]-04 12:44:52 Test Item Value Reference Range Interpretation Comments MAGNESIUM (test code = 1189127265) 1.9 mg/dL 1.7-2.4 Lab Interpretation (test code = Normal 81327-6) [facility]2022-[facility]-04 12:44:52 Test Item Value Reference Range Interpretation Comments PHOSPHORUS (test code = 9565705887) 5.7 mg/dL 2.5-5.0 H Lab Interpretation (test code = Abnormal 97396-5) [facility] WITH [id number] 12:11:49 Test Item Value Reference Range Interpretation Comments WBC (test code = See_Comment [Automated 6690-2) message] The sy stem which generated this result transmitted reference range : 4.30 - 11.10 10*3/?L. The reference range was not used to interpret this result as normal/abnormal . RBC (test code = See_Comment L [Automated 789-8) message] The sy stem which generated this [...] RDW-SD (test code = 42.4 fL 39.0-49.9 79188-0) RDW-CV (test code = 12.6 % 12.0-15.5 788-0) PLT (test code = See_Comment L [Automated 777-3) message] The sy stem which generated this result transmitted reference range : 166 - 358 10*3/ ?L. The reference r daniella was not used to interpret this result as normal/abnormal . MPV (test code = 11.4 fL 9.5-12.9 93799-5) NRBC/100 WBC (test See_Comment [Automat ed code = 8803919122) message] The system which generated this result transmitted reference range : 0.0 - 10.0 /100 WBCs. The refer ence range was not u sed to interpret th is result as normal/abnormal . NRBC x10^3 (test code <0.01 See_Comment [Auto mated = 5241675205) message] The s ystem which generated this result transmitted reference range : 10*3/?L. The reference range was not used to interpret this result as normal/abnormal . GRAN MAT (NEUT) % 70.6 % (test code = 770-8) IMM GRAN % (test code 0.70 % = 5222318980) LYMPH % (test code = 18.0 % 736-9) MONO % (test code = 10.3 % 5905-5) EOS % (test code = 0.2 % 713-8) BASO % (test code = 0.2 % 706-2) GRAN MAT x10^3(ANC) 4.11 10*3/uL 1.88-7.09 (test code = 3778965045) IMM GRAN x10^3 (test 0.04 10*3/uL 0.00-0.06 code = 4395236936) LYMPH x10^3 (test code 1.05 10*3/uL 1.32-3.29 L = 731-0) MONO x10^3 (test code 0.60 10*3/uL 0.33-0.92 = 742-7) EOS x10^3 (test code = <0.03 0.03-0.39 L 711-2) BASO x10^3 (test code <0.03 0.01-0.07 = 704-7) Lab Interpretation Abnormal (test code = 74852-3) [facility] GLUCOSE (AUTOMATED)2021-11-22 03:22:39 Test Item Value Reference Range Interpretation Comments POCT GLU (test code = 8122715139) 158 mg/dL 70-110 H Lab Interpretation (test code = Abnormal 21421-6) [facility]ERR[facility] [id number] 23:21:29 Test Item Value Reference Range Interpretation Comments FERRITIN (test code = 1730.0 ng/mL 6.0-137.0 H 2131412131) WILLIAMS (test code = WILLIAMS) Biotin has been reported to cause a negative bias, interpret results relative to patient's use of biotin. Lab Interpretation (test Abnormal code = 95448-0) [facility] GLUCOSE (AUTOMATED)2021-11-21 23:12:04 Test Item Value Reference Range Interpretation Comments POCT GLU (test code = 2141762763) 92 mg/dL 70-110 Lab Interpretation (test code = Normal 62214-6) [facility] IRON BINDING [id number] 20:45:34 Test Item Value Reference Range Interpretation Comments TIBC (test code = 2238047248) 187 ug/dL 250-410 L % FE SAT (test code = 0709586667) 16 % 20-50 L Lab Interpretation (test code = Abnormal 36708-8) [facility]2022-[facility] 20:36:26 Test Item Value Reference Range Interpretation Comments IRON (test code = 4332233889) 29 ug/dL 50-160 L Lab Interpretation (test code = Abnormal 40428-6) [facility]IN2022-[facility]-03 20:33:48 Test Item Value Reference Range Interpretation Comments ALBUMIN (test code = 2850338055) 3.3 g/dL 3.5-5.0 L Lab Interpretation (test code = Abnormal 09154-5) [facility])2021-11-21 17:58:23 Test Item Value Reference Range Interpretation Comments POCT GLU (test code = 6176130571) 100 mg/dL 70-110 Lab Interpretation (test code = Normal 74540-1) [facility] [id number] 11:06:10 Test Item Value Reference Interpretation Comments Range TROPONIN I (test 0.036 ng/mL See_Comment H [Automated code = 1323164313) message] The system which generated this result [...] biotin. Lab Interpretation Abnormal (test code = 16362-1) [facility] [id number] 03:25:04 Test Item Value Reference Interpretation Comments Range TROPONIN I (test 0.035 ng/mL See_Comment H [Automated code = 5095937718) message] The system which generated this result [...] biotin. Lab Interpretation Abnormal (test code = 29411-3) [facility]2022-[facility]-03 03:13:46 Test Item Value Reference Range Interpretation Comments MAGNESIUM (test code = 9046990978) 1.5 mg/dL 1.7-2.4 L Lab Interpretation (test code = Abnormal 23267-1) [facility] CentralCOMP. METABOLIC PANEL (88080)2021-11-21 03:13:26 Test Item Value Reference Range Interpretation Comments NA (test code = 129 mmol/L 135-145 L 4830948178) K (test code = 5.8 mmol/L 3.5-5.0 H 9934950577) CL (test code = 97 mmol/L 98-108 L 4600331238) CO2 TOTAL (test code = 14 mmol/L 23-31 L 9578289125) AGAP (test code = 2-16 H 3147849703) BUN (test code = 71 mg/dL 7-23 H 0781204436) GLUCOSE (test code = 139 mg/dL 70-110 H 0445912165) CREATININE (test code = 12.55 mg/dL 0.50-1.04 H 5881935116) TOTAL BILI (test code = 0.7 mg/dL 0.1-1.8 6318476401) CALCIUM (test code = 7.6 mg/dL 8.6-10.6 L 7881601756) T PROTEIN (test code = 7.6 g/dL 6.3-8.2 6842634353) ALBUMIN (test code = 3.9 g/dL 3.5-5.0 5227994736) ALK PHOS (test code = 132 U/L 34-122 H 1747611611) ALTv (test code = 11 U/L 5-35 1742-6) AST(SGOT) (test code = 27 U/L 13-40 8169100002) eGFR (test code = mL/min/1.73m2 1655466783) WILLIAMS (test code = WILLIAMS) Association of [...] tests). Lab Interpretation Abnormal (test code = 23226-8) [facility]2022-[facility]-03 03:13:06 Test Item Value Reference Range Interpretation Comments LIPASE (test code = 0750732783) 49 U/L 0-220 Lab Interpretation (test code = Normal 94771-4) [facility] WITH [id number] 02:54:21 Test Item Value Reference Range Interpretation Comments WBC (test code = See_Comment [Automated 6690-2) message] The sy stem which generated this result transmitted reference range : 4.30 - 11.10 10*3/?L. The reference range was not used to interpret this result as normal/abnormal . RBC (test code = See_Comment L [Automated 789-8) message] The sy stem which generated this [...] RDW-SD (test code = 41.8 fL 39.0-49.9 32392-0) RDW-CV (test code = 12.3 % 12.0-15.5 788-0) PLT (test code = See_Comment [Automated 777-3) message] The sy stem which generated this result transmitted reference range : 166 - 358 10*3/ ?L. The reference r daniella was not used to interpret this result as normal/abnormal . MPV (test code = 10.8 fL 9.5-12.9 19384-7) NRBC/100 WBC (test See_Comment [Automat ed code = 6354961807) message] The system which generated this result transmitted reference range : 0.0 - 10.0 /100 WBCs. The refer ence range was not u sed to interpret th is result as normal/abnormal . NRBC x10^3 (test code <0.01 See_Comment [Auto mated = 2828517244) message] The s ystem which generated this result transmitted reference range : 10*3/?L. The reference range was not used to interpret this result as normal/abnormal . GRAN MAT (NEUT) % 81.2 % (test code = 770-8) IMM GRAN % (test code 0.40 % = 2003555370) LYMPH % (test code = 8.0 % 736-9) MONO % (test code = 10.2 % 5905-5) EOS % (test code = 0.0 % 713-8) BASO % (test code = 0.2 % 706-2) GRAN MAT x10^3(ANC) 7.78 10*3/uL 1.88-7.09 H (test code = 5146119327) IMM GRAN x10^3 (test 0.04 10*3/uL 0.00-0.06 code = 2235328766) LYMPH x10^3 (test code 0.77 10*3/uL 1.32-3.29 L = 731-0) MONO x10^3 (test code 0.98 10*3/uL 0.33-0.92 H = 742-7) EOS x10^3 (test code = <0.03 0.03-0.39 L 711-2) BASO x10^3 (test code <0.03 0.01-0.07 = 704-7) Lab Interpretation Abnormal (test code = 37267-1) [facility] BranchUS, ABDOMINAL, [id number] 13:28:00 Referring: Dr. Viola Winchester transplant evaluation, risk factors for fatty liver. Performwith elastography.Reason for Exam:->fatty liver [facility]ONG TIMOTHYELPIDIO NASCIMENTO : 1975 Sex: FFINAL REPORT TECHNIQUE: Grayscale [...] kidneys, suggestive of medical renal disease. *Reference: Jean Pierre, Lorna Sauer t al. Update to the Society of Radiologists in Ultrasound Liver Elastography Consensus Statement. Radiology. June 2020. Signed: Mak Benoit Verified Date/Time: 11/08/2021 13:28:40 POCT HEMOGLOBIN A1C [id number] 16:24:00 Test Item Value Reference Range Interpretation Comments POCT HBA1C (test code = 4548-4) 7.8 % 4-6 A Lab Interpretation (test code = Abnormal 10685-6) [facility] (COVID-19[facility] RNA [Presence] in Respiratory specimen by JEFFREY with probe [id number] 03:45:43 Test Item Value Reference Range Interpretation Comments SARS-CoV-2 (COVID-19) RNA Not detected Not-Detected [Presence] in Respiratory specimen by JEFFREY with probe detection (test code = 59184-7) Whether patient is employed in a healthcare setting (test code = 41439-0) Whether the patient has symptoms related to condition of interest (test code = 01489-8) Patient was hospitalized because of this condition (test code = 18103-3) Whether the patient was admitted to intensive care unit (ICU) for condition of interest (test code = 13205-5) Whether patient resides in a congregate care setting (test code = 94869-6) [id number] 14:50:00 Test Item Value Reference Range Interpretation Comments FERRITIN (BEAKER) (test code = 638.81 ng/mL 5.00-275.00 H 361) Top Hat Body Maker ID - ISHA CHEPATITIS B CORE ANTIBODY, [id number] 14:13:00 Test Item Value Reference Range Interpretation Comments HEPATITIS B CORE TOTAL ANTIBODY Nonreactive Nonreactive (BEAKER) (test code = 497) Top Hat Body Maker ID - BETTINA MHEPATITIS A ANTIBODY, [id number] 14:13:00 Test Item Value Reference Range Interpretation Comments HEPATITIS A IGG ANTIBODY (BEAKER) Nonreactive Nonreactive (test code = 2797) Top Hat Body Maker ID - BETTINA MBASIC METABOLIC [id number] 13:53:00 Test Item Value Reference Range Interpretation [...] S NOT APPLICABLE FOR DIALYSIS PATIEN TS. Top Hat Body Maker ID - BETTINA MHEPATIC FUNCTION [id number] 13:52:00 Test Item Value Reference Range Interpretation [...] (test code = 12 U/L 6-55 347) Top Hat Body Maker ID - BETTINA MGAMMA GLUTAMYL TRANSFERASE (GGT)2021-04-15 13:52:00 Test Item Value Reference Range Interpretation Comments GAMMA GLUTAMYL TRANSFERASE (BEAKER) 30 U/L 9-64 (test code = 364) Top Hat Body Maker ID - BETTINA SHARONDA, TIBC, % SAT. (WITHOUT FERRITIN)2021-04-15 13:46:00 Test Item Value Reference Range Interpretation Comments IRON (BEAKER) (test code = 547) 135.0 ug/dL 40.0-160.0 TOTAL IRON BINDING CAPACITY 241 ug/dL 250-450 L (BEAKER) (test code = 769) IRON % SATURATION (2) (BEAKER) 56 % 20-55 H (test code = 2590) Top Hat Body Maker ID - BETTINA MPROTHROMBIN [id number] 13:30:00 Test Item Value Reference Range Interpretation Comments PROTIME (BEAKER) 13.4 seconds 11.9-14.2 (test code = 759) INR (BEAKER) (test 1.05 See_Comment [Automat ed message] code = 370) The system [employer] generated this result transmitted ref erence range: [...] in Respiratory specimen by JEFFREY with probe [id number] 20:13:44 Test Item Value Reference Range Interpretation Comments SARS-CoV-2 (COVID-19) RNA Not detected Not-Detected [Presence] in Respiratory specimen by JEFFREY with probe detection (test code = 60436-1) Whether patient is employed in a healthcare setting (test code = 20888-7) Whether the patient has symptoms related to condition of interest (test code = 67851-2) Patient was hospitalized because of this condition (test code = 36861-3) Whether the patient was admitted to intensive care unit (ICU) for condition of interest (test code = 29523-6) Whether patient resides in a congregate care setting (test code = 73069-0) SARS-CoV-2 (COVID-19) RNA [Presence] in Respiratory specimen by JEFFREY with probe [id number] 20:33:27 Test Item Value Reference Range Interpretation Comments SARS-CoV-2 (COVID-19) RNA Not detected Not-Detected [Presence] in Respiratory specimen by JEFFREY with probe detection (test code = 65017-8) SARS-CoV-2 (COVID-19) RNA [Presence] in Respiratory specimen by JEFFREY with probe [id number] 18:00:37 Test Item Value Reference Range Interpretation Comments SARS-CoV-2 (COVID-19) RNA Not detected Not-Detected [Presence] in Respiratory specimen by JEFFREY with probe detection (test code = 78966-8) T SPOT [id number] 12:26:00 Test Item Value Reference Range Interpretation Comments T-SPOT TB (BEAKER) (test code = Negative 1683) NEG CONTROL SPOT COUNT (BEAKER) 0 (test code = 1684) PANEL A SPOT (BEAKER) (test code = 0 1685) PANEL B SPOT (BEAKER) (test code = 0 1686) POS CONTROL SPOT CT (BEAKER) (test 0 code = 1687) SCAN RESULT (test code = 7884207) 0 VARICELLA ZOSTER ANTIBODY, [id number] 11:47:00 Test Item Value Reference Range Interpretation Comments VARICELLA ZOSTER IGG (AL) (BEAKER) 3.4 (test code = 3197) VARICELLA ZOSTER RESULT INTERPRETATIONS: <=0.8 Al Nonreactive: Presumed non-immune to VZV 0.9-1.0 Al Equivocal >=1.1 Al Reactive: Presumed immune to VZVCYTOMEGALOVIRUS ANTIBODY, [id number] 11:03:00 Test Item Value Reference Range Interpretation Comments CYTOMEGALOVIRUS, IGG (BEAKER) Positive Negative, Equivocal A (test code = 3429) CMV IgG Result Interpretation: </= 0.8 Al Negative 0.9-1.0 Al Equivocal >/=1.1 Al PositiveCYTOMEGALOVIRUS ANTIBODY, [id number] 11:03:00 Test Item Value Reference Range Interpretation Comments CYTOMEGALOVIRUS IGM ANTIBODY Negative Negative, Equivocal (BEAKER) (test code = 3437) CMV IgM Result Interpretation: </= 0.8 Al Negative 0.9-1.0 Al Equivocal >/= 1.1 Al PositiveEBV ANTIBODY, [id number] 11:03:00 Test Item Value Reference Range Interpretation [...] 0.9-1.0 Al Equivocal >/= 1.1 Al PositiveURINE [id number] 10:52:00 Test Item Value Reference Range Interpretation Comments CULTURE (BEAKER) (test code = 1095) No growth [id number] 11:49:00 Test Item Value Reference Range Interpretation Comments RPR SCREEN (BEAKER) (test code = Nonreactive Nonreactive 420) HEMOGLOBIN [id number] 14:32:00 Test Item Value Reference Range Interpretation Comments HEMOGLOBIN A1C (BEAKER) (test code = 8.7 % 4.3-6.1 H 368) URINALYSIS W/ [id number] 14:29:00 Test Item Value Reference Range Interpretation [...] code = 516) SOURCE(BEAKER) (test code = 3640) Top Hat Body Maker ID - [auto]Top Hat Body Maker ID - techHEPATITIS B SURFACE [id number] 14:29:00 Test Item Value Reference Range Interpretation Comments HEPATITIS B SURFACE ANTIGEN (2) Nonreactive Nonreactive (BEAKER) (test code = 2585) Specimen is considered negative for HBsAg.HEPATITIS B SURFACE [id number] 14:29:00 Test Item Value Reference Range Interpretation Comments HEPATITIS B SURFACE ANTIBODY 125.4 mIU/mL <8.0 H (BEAKER) (test code = 647) Top Hat Body Maker ID Sascha RODRIGUEZ LHEPATITIS B CORE ANTIBODY, [id number] 14:29:00 Test Item Value Reference Range Interpretation Comments HEPATITIS B CORE IGM ANTIBODY Nonreactive Nonreactive (АНДРЕЙAKER) (test code = 645) Top Hat Body Maker ID Sascha RODRIGUEZ LHEPATITIS C [id number] 14:29:00 Test Item Value Reference Range Interpretation Comments HEPATITIS C ANTIBODY (АНДРЕЙAKER) Nonreactive Nonreactive (test code = 367) Top Hat Body Maker ID - MICHAEL NAVARRETEIV-1 ANTIGEN WITH HIV-1/2 [id number] 14:29:00 Test Item Value Reference Range Interpretation Comments HIV-1 ANTIGEN WITH HIV 1\\T\\2 Nonreactive Nonreactive ANTIBODY (2) (BEAKER) (test code = 2586) Top Hat Body Maker ID Sascha RODRIGUEZ LPTH, [id number] 14:13:00 Test Item Value Reference Range Interpretation Comments PARATHYROID HORMONE INTACT 1067.5 pg/mL 8.5-72.5 H (АНДРЕЙAKER) (test code = 577) Top Hat Body Maker FRANKIE RODRIGUEZ [id number] 14:09:00 Test Item Value Reference Range Interpretation [...] S NOT APPLICABLE FOR DIALYSIS PATIEN TS. Top Hat Body Maker ID - GUERDAXUAN [id number] 14:07:00 Test Item Value Reference Range Interpretation Comments PHOSPHORUS (BEAKER) (test code = 5.6 mg/dL 2.3-4.7 H 604) Top Hat Body Maker ID - MICHAEL LURIC [id number] 14:07:00 Test Item Value Reference Range Interpretation Comments URIC ACID (BEAKER) (test code = 6.2 mg/dL 2.6-7.2 773) Top Hat Body Maker ID - MICHAEL LLIPID [id number] 14:07:00 Test Item Value Reference Range Interpretation [...] Borderline 130-159 High 160-189 Very High >=190 Top Hat Body Maker ID - PIAYALGAMMA GLUTAMYL TRANSFERASE (GGT)2020-09-15 14:07:00 Test Item Value Reference Range Interpretation Comments GAMMA GLUTAMYL TRANSFERASE (BEAKER) 33 U/L 9-64 (test code = 364) Top Hat Body Maker ID - PIAYA LCBC W/PLT COUNT & AUTO [id number] 13:50:00 Test Item Value Reference Range Interpretation [...] % 0-1 PERCENT (BEAKER) (test code = 4713)"
[2021-12-06 03:02] LABS: Blood Gas Oxyhemoglobin 82.9 % (94-97); Blood O2 Saturation 86.3 % (92-98.5)
[2021-12-06 03:18] LABS: Absolute Lymphocytes (CBC) 0.5 K/uL (0.7-4.9); Hematocrit 25.3 % (36.0-45.0); Lymphocytes % 2.7 % (15.3-44.8); MPV 8.3 fL (7.6-11.3); RBC Red Blood Cell Count 2.65 M/uL (3.86-4.86)
[2021-12-06 03:21] LABS: Protime INR 0.96
[2021-12-06 03:44] LABS: Albumin 2.8 g/dL (3.4-5.0); Bilirubin Direct 0.1 mg/dL (0-0.2); Bilirubin Total 0.5 mg/dL (0.2-1.0); Magnesium 2.4 mg/dL (1.8-2.4); Potassium 5.4 mmol/L (3.5-5.1); Protein, Total 8.2 g/dL (6.4-8.2); Troponin High Sensitivity 48.8 pg/mL (<58.9)
[2021-12-06] MEDS ORDERED: INSULIN -REGULAR HUMAN 50 UNIT/0.5 ML ML ONE ×2 (04:21→06:18)
[2021-12-06 04:38] LABS: Blood Morphology Comment NOT SEEN (NOT SEEN); Platelet Estimate ADEQ
[2021-12-06] MEDS ORDERED: ALBUTEROL 2.5 MG/3 ML NEB SOL ONE (04:40)
[2021-12-06] MEDS ORDERED: IPRATROPIUM BROM 0.5MG/2.5ML ONE (04:40)
--- NOTE | 2021-12-06 06:25 | ER ---
Nurse's Notes [facility] Name: Sonia Song Age: 46 yrs Sex: Female : 1975 Arrival Date: 12/06/2021 Time: 01:51 Bed 13 Private MD: Diagnosis: Covid pneumonia. Moderate bilateral pleural effusions. Diabetes Presentation: 12/06 02:11 Chief complaint: Patient states: C/O difficulty breathing, states she was diagnosed ll3 with coved pneumonia last week, states she needs her stitches removed today because she had surgery 2 weeks ago on right underarm. Coronavirus screen: congestion, cough unrelated to allergies, difficulty breathing, Client presents with at least one sign or symptom that may indicate coronavirus-19. Standard/surgical mask placed on the client. Ebola Screen: No symptoms or risks identified at this time. Initial Sepsis Screen: Does the patient meet any 2 criteria? HR > 90 bpm. Yes Does the patient have a suspected source of infection? Yes: Productive cough/pneumonia. Risk Assessment: Do you want to hurt yourself or someone else? Patient reports no desire to harm self or others. Onset of symptoms is unknown. 02:11 Method Of Arrival: Ambulatory ll3 02:11 Acuity: IAN 3 ll3 Triage Assessment: 02:20 General: Appears in no apparent distress. uncomfortable, Behavior is calm, cooperative. ll3 Pain: Denies pain. Respiratory: Reports shortness of breath on exertion cough that is Respiratory effort is even, unlabored, Respiratory pattern is regular, symmetrical, Breath sounds with crackles bilaterally. Onset: The symptoms/episode began/occurred States she was diagnosed with covid pneumonia last week but her difficulty breathing started yesterday, the patient has moderate shortness of breath. 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 - Social history:: Smoking status: Patient denies any tobacco usage or history of. Screenin:30 Abuse screen: Denies threats or abuse. Nutritional screening: No deficits noted. vc1 Tuberculosis screening: No symptoms or risk factors identified. Fall Risk None identified. Assessment: 02:30 Cardiovascular: Rhythm is regular. Respiratory: Airway is patent Respiratory effort is vc1 even, unlabored. 02:37 General: Appears in no apparent distress. uncomfortable, Behavior is calm, cooperative, vc1 appropriate for age. Pain: Denies pain. Neuro: Level of Consciousness is awake, alert, obeys commands, Oriented to person, place, time, situation, Appropriate for age. Respiratory: Airway is patent Respiratory effort is even, unlabored. Respiratory: Reports shortness of breath at rest cough that is labored breathing since last night. GI: No signs and/or symptoms were reported involving the gastrointestinal system. 04:00 Reassessment: Patient and/or family updated on plan of care and expected duration. Pain vc1 level reassessed. Patient is alert, oriented x 3, equal unlabored respirations, skin warm/dry/pink. Patient denies pain at this time. 05:00 Reassessment: Patient and/or family updated on plan of care and expected duration. Pain vc1 level reassessed. Patient is alert, oriented x 3, equal unlabored respirations, skin warm/dry/pink. Patient denies pain at this time. 05:30 General: Appears in no apparent distress. uncomfortable, Behavior is calm, cooperative, vc1 appropriate for age. Neuro: Level of Consciousness is alert, obeys commands, Oriented to person, place, time, situation, Appropriate for age. Cardiovascular: Denies chest pain, Rhythm is sinus tachycardia. Vital Signs: 02:11 BP 138 / 60; Pulse 115; Resp 24; Temp 98.7(O); Pulse Ox 96% on R/A; Weight 99.79 kg ll3 (R); Height 5 ft. 6 in. (167.64 cm) (R); Pain 0/10; 03:00 BP 112 / 84; Pulse 112; Resp 26; Pulse Ox 91% on R/A; vc1 04:00 BP 95 / 70; Pulse 115; Resp 27; Pulse Ox 93% on R/A; vc1 05:00 BP 165 / 67; Pulse 117; Resp 25; Pulse Ox 91% on R/A; vc1 06:23 BP 165 / 73; Pulse 121; Resp 20; Pulse Ox 93% on R/A; Pain 0/10; vc1 02:11 Body Mass Index 35.51 (99.79 kg, 167.64 cm) ll3 ED Course: 01:51 Patient arrived in ED. es 02:02 Remy Toledo MD is Attending Physician. pkl 02:17 Triage completed. ll3 02:20 Arm band placed on. ll3 02:30 Patient has correct armband on for positive identification. Pulse ox on. NIBP on. vc1 02:36 Karla Evans, ZOILA is Primary Nurse. vc1 03:15 Basic Metabolic Panel Sent. vc1 03:15 CBC with Diff Sent. vc1 03:15 LFT's Sent. vc1 03:15 Magnesium Sent. vc1 03:15 XRAY Chest (1 view) Sent. vc1 03:19 XRAY Chest (1 view) In Process Unspecified. EDMS 03:47 Notified ED physician of a critical lab result(s). D-Dimer 1136, Glucose 644, bb Creatinine 9.33. Dr Toledo notified. 04:25 CT Chest Wo Con In Process Unspecified. EDMS 06:22 No provider procedures requiring assistance completed. vc1 06:44 IV discontinued, intact, bleeding controlled, No redness/swelling at site. Pressure vc1 dressing applied. Administered Medications: 04:30 Drug: Insulin Regular Human 10 units {Co-Signature: pilo1 (Marianna Hinton RN).} Route: IVP; vc1 Site: right antecubital; 05:29 Follow up: Response: No adverse reaction; Blood sugar is lowered vc1 04:30 Drug: Insulin Regular Human 10 units {Co-Signature: lp1 (Marianna Hinton RN).} Route: Sub-Q; vc1 Site: right upper arm; 05:29 Follow up: Response: Blood sugar is lowered; BGL 481 vc1 04:43 Drug: Albuterol - atroVENT (ipratropium) (3:1) (2.5 mg - 0.5 mg) 3 ml Route: Nebulizer; vc1 05:26 Follow up: Response: No adverse reaction; Wheezing diminished vc1 06:25 Drug: Insulin Regular Human 10 units {Co-Signature: patricia3 (Olya Polk RN).} Route: vc1 Sub-Q; Site: right lower abdomen; 06:32 Follow up: Response: No adverse reaction vc1 Intake: Outcome: 06:24 Discharge ordered by . heath 06:44 Discharged to home via wheelchair, with significant other. vc1 06:44 Condition: good 06:44 Discharge instructions given to patient, significant other, Instructed on discharge instructions, follow up and referral plans. medication usage, Demonstrated understanding of instructions, follow-up care, medications, Prescriptions given X 4. 06:44 Patient left the ED. vc1 Signatures: Dispatcher [employer] Remy Euceda MD MD pkl Salyer, Edna es Ballard, Brenda RN RN bb Ny Allen RN RN ll3 Karla Evans RN RN vc1 Marianna Hinton RN lp1 Olya Polk RN kd3
--- NOTE | 2021-12-06 06:25 | EDPHYS ---
Physician Documentation [facility] Name: Sonia Song Age: 46 yrs Sex: Female : 1975 Arrival Date: 12/06/2021 Time: 01:51 Bed 13 Private MD: ED Physician Remy Toledo HPI: 12/06 06:08 This 46 yrs old Black Female presents to ER via Ambulatory with complaints of Breathing pkl Difficulty. 06:08 The patient has shortness of breath at rest. Onset: The symptoms/episode began/occurred pkl yesterday. Patient was diagnosed with Covid 19 pneumonia about 2 weeks ago.. 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 - Social history:: Smoking status: Patient denies any tobacco usage or history of. ROS: 06:08 Eyes: Negative for injury, pain, redness, and discharge, ENT: Negative for injury, pkl pain, and discharge, Neck: Negative for injury, pain, and swelling. 06:08 Cardiovascular: Negative for chest pain, palpitations. 06:08 Respiratory: Positive for shortness of breath. 06:08 Abdomen/GI: Negative for abdominal pain, nausea, vomiting, and diarrhea. 06:08 Back: Negative for acute changes. 06:08 : Negative for urinary symptoms. 06:08 MS/extremity: Negative for acute changes. 06:08 Skin: Negative for rash. 06:08 Neuro: Negative for altered mental status, loss of consciousness. Exam: 06:08 Head/Face: Normocephalic, atraumatic. Eyes: Pupils equal round and reactive to light, pkl extra-ocular motions intact. Lids and lashes normal. Conjunctiva and sclera are non-icteric and not injected. Cornea within normal limits. Periorbital areas with no swelling, redness, or edema. ENT: Nares patent. No nasal discharge, no septal abnormalities noted. Tympanic membranes are normal and external auditory canals are clear. Oropharynx with no redness, swelling, or masses, exudates, or evidence of obstruction, uvula midline. Mucous membranes moist. Neck: Trachea midline, no thyromegaly or masses palpated, and no cervical lymphadenopathy. Supple, full range of motion without nuchal rigidity, or vertebral point tenderness. No Meningismus. Chest/axilla: Normal chest wall appearance and motion. Nontender with no deformity. No lesions are appreciated. Cardiovascular: Regular rate and rhythm with a normal S1 and S2. No gallops, murmurs, or rubs. Normal PMI, no JVD. No pulse deficits. 06:08 Respiratory: mild respiratory distress is noted, Respirations: labored breathing, that is mild, Breath sounds: rales, that are mild, are scattered, rhonchi, that are mild, are scattered. 06:08 Abdomen/GI: Bowel sounds: normal, Palpation: abdomen is soft and non-tender, in all quadrants. 06:08 Back: Exam negative for acute changes. 06:08 : Exam negative for acute changes. 06:08 Musculoskeletal/extremity: Exam is negative for acute changes. 06:08 Skin: Exam negative for rash. 06:08 Neuro: Orientation: is normal, Mentation: is normal, Cranial nerves: grossly normal, Motor: is normal. Vital Signs: 02:11 BP 138 / 60; Pulse 115; Resp 24; Temp 98.7(O); Pulse Ox 96% on R/A; Weight 99.79 kg ll3 (R); Height 5 ft. 6 in. (167.64 cm) (R); Pain 0/10; 03:00 BP 112 / 84; Pulse 112; Resp 26; Pulse Ox 91% on R/A; vc1 04:00 BP 95 / 70; Pulse 115; Resp 27; Pulse Ox 93% on R/A; vc1 05:00 BP 165 / 67; Pulse 117; Resp 25; Pulse Ox 91% on R/A; vc1 06:23 BP 165 / 73; Pulse 121; Resp 20; Pulse Ox 93% on R/A; Pain 0/10; vc1 02:11 Body Mass Index 35.51 (99.79 kg, 167.64 cm) ll3 MDM: 02:03 Patient medically screened. pkl 06:08 Data reviewed: vital signs, nurses notes, lab test result(s), EKG, radiologic studies, pkl CT scan, plain films. ED course: Patient feeling better. Discussed lab, EKG and imaging studies with patient .Patient does not want to be admitted. Want to go home. Patient said she will return if she feel worse. 12/06 02:37 Order name: Basic Metabolic Panel pkl 12/06 02:37 Order name: CBC with Diff pkl 12/06 02:37 Order name: LFT's pkl 12/06 02:37 Order name: Magnesium pkl 12/06 02:37 Order name: NT PRO-BNP; Complete Time: 03:54 pkl 12/06 02:37 Order name: PT-INR; Complete Time: 03:54 pkl 12/06 02:37 Order name: Troponin HS; Complete Time: 03:54 pkl 12/06 02:37 Order name: D-Dimer; Complete Time: 03:54 pkl 12/06 02:37 Order name: Blood Culture Adult (2) pkl 12/06 02:37 Order name: Lactate; Complete Time: 03:54 pkl 12/06 02:37 Order name: Procalcitonin; Complete Time: 06:25 pkl 12/06 02:37 Order name: ABG; Complete Time: 03:22 pkl 12/06 02:37 Order name: Basic Metabolic Panel; Complete Time: 03:54 EDMS 12/06 02:38 Order name: CBC with Automated Diff; Complete Time: 06:25 EDMS 12/06 02:37 Order name: XRAY Chest (1 view) pkl 12/06 02:37 Order name: EKG; Complete Time: 02:38 pkl 12/06 02:37 Order name: Cardiac monitoring; Complete Time: 03:15 pkl 12/06 02:37 Order name: EKG - Nurse/Tech; Complete Time: 03:15 pkl 12/06 02:37 Order name: IV Saline Lock; Complete Time: 03:15 pkl 12/06 02:37 Order name: Labs collected and sent; Complete Time: 03:15 pkl 12/06 02:38 Order name: Liver (Hepatic) Function; Complete Time: 03:54 EDMS 12/06 02:38 Order name: Magnesium; Complete Time: 03:54 EDMS 12/06 03:45 Order name: Manual Differential; Complete Time: 06:25 EDMS 12/06 03:56 Order name: CT Chest Wo Con pkl 12/06 05:37 Order name: Glucose, Ancillary Testing; Complete Time: 06:25 EDMS 12/06 06:24 Order name: Glucose, Ancillary Testing; Complete Time: 06:34 EDMS 12/06 02:37 Order name: O2 Per Protocol; Complete Time: 03:15 pkl 12/06 02:37 Order name: O2 Sat Monitoring; Complete Time: 03:15 pkl 12/06 02:37 Order name: Urine Dipstick-Ancillary (obtain specimen); Complete Time: 03:15 pkl 12/06 04:24 Order name: Accucheck: q hourly x 2; Complete Time: 06:32 pkl Administered Medications: 04:30 Drug: Insulin Regular Human 10 units {Co-Signature: pilo1 (Marianna Hinton RN).} Route: IVP; vc1 Site: right antecubital; 05:29 Follow up: Response: No adverse reaction; Blood sugar is lowered vc1 04:30 Drug: Insulin Regular Human 10 units {Co-Signature: lp1 (Marianna Hinton RN).} Route: Sub-Q; vc1 Site: right upper arm; 05:29 Follow up: Response: Blood sugar is lowered; BGL 481 vc1 04:43 Drug: Albuterol - atroVENT (ipratropium) (3:1) (2.5 mg - 0.5 mg) 3 ml Route: Nebulizer; vc1 05:26 Follow up: Response: No adverse reaction; Wheezing diminished vc1 06:25 Drug: Insulin Regular Human 10 units {Co-Signature: kd3 (Olya Polk RN).} Route: vc1 Sub-Q; Site: right lower abdomen; 06:32 Follow up: Response: No adverse reaction vc1 Disposition Summary: 12/06/21 06:24 Discharge Ordered Location: Home pkl Problem: new pkl Symptoms: have improved pkl Condition: Stable pkl Diagnosis - Covid pneumonia. Moderate bilateral pleural effusions. Diabetes pkl Followup: pkl - With: Private Physician - When: 1 - 2 days - Reason: Re-evaluation by your physician Discharge Instructions: - Discharge Summary Sheet pkl Forms: - Medication Reconciliation Form pkl - Thank You Letter pkl - Antibiotic Education pkl - Prescription Opioid Use pkl Prescriptions: - albuterol sulfate 90 mcg/actuation Inhalation HFA aerosol inhaler - inhale 1 puff by INHALATION route every 4 hours q 4 to 6 hourly; 1 pkl canister; Refills: 0, Product Selection Permitted - Albuterol Sulfate 2.5 mg /3 mL (0.083 %) Inhalation Solution for Nebulization - inhale 1 unit by NEBULIZATION route every 8 hours As needed; 1 box; Refills: 0, pkl Product Selection Permitted - Zithromax Z-Naveen 250 mg Oral Tablet - take 1 tablet by ORAL route as directed for 5 days Day 1 - take two (2) tablets pkl one time. Day 2, 3, 4 , 5 take one (1) tablet once daily.; 6 tablet; Refills: 0, Product Selection Permitted Signatures: Dispatcher [employer] EDRemy Menezes MD MD pkl Finn Esquviel, TOBACCO EDUCATOR-C TOBACCO EDUCATOR-Cla1 Ny Allen RN RN ll3 Karla Evans RN RN vc1 Marianna Hinton RN lp1 Olya Polk RN kd3
[2021-12-06 06:50] VITALS: TEMP 98.7
[2021-12-06 06:57] VITALS: BP 165/73; O2SAT 93
--- NOTE | 2021-12-06 07:41 | RAD REPORT ---
EXAM DESCRIPTION: RAD - Chest Single View - 12/06/2021 3:18 am CLINICAL HISTORY: Cough;Dyspnea COMPARISON: Chest Single View dated 11/23/2021; Thorax Wo Con dated 12/06/2021; Thorax Wo Con dated 11/24 FINDINGS: Lines: None. Lungs: Moderate bilateral airspace disease. Lung volumes are improved. Pleural: Small bilateral effusions Cardiac: The heart size is within normal limits. Bones: No acute fractures. Other: IMPRESSION: Moderate airspace disease bilaterally consistent with multifocal pneumonia. Reference [place] bsequent chest CT.
--- NOTE | 2021-12-06 10:47 | RAD REPORT ---
EXAM DESCRIPTION: CT - Thorax Wo Alexandre - 12/06/2021 6:30 am COMPARISON: CT chest November 23, 2020 CLINICAL HISTORY: [facility] MAIN SOB TECHNIQUE: CT images through the chest without IV contrast. Multiplanar reformats. Automated expos ure control was utilized on this examination as a dose lowering technique. FINDINGS: Heart and mediastinum: Heart size is normal. Small mediastinal lymph nodes are likely reac tive. Bilateral axillary lymph nodes are also likely reactive. Vascular: Mild atherosclerosis. Thyroid gland: Visualized portions are normal. Lungs: Multifocal groundglass opacities are present. These have progressed in some areas such as the left upper lobe and have improved in areas such as the right lower lobe. Airways: No filling defects. No bronchiectasis. Pleura: No pneumothorax. Moderate bilateral pleural effusions. Subphrenic structures: Within normal limits. Musculoskeletal and soft tissues: Within normal limits for age. IMPRESSION 1. Multifocal pneumonia, similar to November 24. Moderate bilateral pleural effusions hav e developed. 2. Mediastinal and axillary lymph nodes are likely reactive. Electronically signed by: Reinier Wilkerson MD 12/06/2021 5:20 AM CRM MANAGER Due to temporary technical issues with the PACS/Fluency reporting system, reports are being signed by the in house radiologists without review as a courtesy to insure prompt reporting. The interpreting radiologist is fully responsible for the content of the report.
--- NOTE | 2021-12-07 07:27 | EKG ---
Test Date: 2021-12-06 Test Time: 03:13:26 Applications Programmer Analyst: CROW MEASUREMENT RESULTS: Intervals: Rate: 106 OR: 140 QRSD: 84 QT: 326 QTc: 433 [place]: P: 47 OR: 140 QRS: 51 T: 51 INTERPRETIVE STATEMENTS: Sinus tachycardia Possible Left atrial enlargement Borderline ECG Compared to ECG 11/24/2021 00:06:33 Sinus rhythm no longer present Electronically Signed On 12-07-21 07:26:10 BINDERY MACHINE SETTER/SET UP OPERATOR by Stuart Mckee
== END 2021-12-06 06:44 | disposition home or self-care (01) ==
LOC: ER 01:49
DX: U07.1 COVID-19 (principal); J12.82 Pneumonia due to coronavirus disease 2019; J90 Pleural effusion, not elsewhere classified; E11.9 Type 2 diabetes mellitus without complications; I10 Essential (primary) hypertension; Z88.5 Allergy status to narcotic agent
CPT/HCPCS: 36415; 71045; 71250; 80048; 80076; 82805; 82947; 83605; 83735; 83880; 84145; 84484; 85025; 85379; 85610; 87040; 93005

== ENCOUNTER 2021-12-29 07:39 | Day surgery (SDC) | payer BC, OTHER ==
[2021-12-28 14:23] LABS: Absolute Lymphocytes (CBC) 1.7 K/uL (0.7-4.9); Hematocrit 28.8 % (36.0-45.0); Lymphocytes % 15.6 % (15.3-44.8); MPV 7.8 fL (7.6-11.3)
--- NOTE | 2021-12-28 14:39 | RAD REPORT ---
EXAM DESCRIPTION: RAD - Chest Pa And Lat (2 Views) - 12/28/2021 2:28 pm CLINICAL HISTORY: pre op COMPARISON: Chest Single View dated 12/06/2021; Chest Single View dated 11/23/2021; Thorax Wo Con dated 12/06/2021 FINDINGS: Lines: None. Lungs: Improved aeration of the lungs bilaterally with only minimal residual bilateral opacities . Pleural: No significant pleural effusions or pneumothorax. Cardiac: The heart size is within normal limits. Bones: No acute fractures. Other: IMPRESSION: Improved aeration of the lungs bilaterally with some minimal residual scattered opacitie s remaining.
[2021-12-28 14:47] LABS: Potassium 3.8 mmol/L (3.5-5.1)
[2021-12-29] MEDS ORDERED: CEFAZOLIN/NS 1gm 1 GM/50 ML BAG ONE (07:44)
[2021-12-29] MEDS ORDERED: MIDAZOLAM HCL 2 MG/2 ML INJ ONE (07:52)
[2021-12-29] MEDS ORDERED: propofoL 200 MG/20 ML VIAL IV ONE (07:52)
[2021-12-29] MEDS ORDERED: FENTANYL CITR 100 MCG/2 ML ONE (07:52)
[2021-12-29] MEDS ORDERED: LIDOCAINE 2% MPF 5 ML VIAL ONE (07:53)
[2021-12-29] MEDS ORDERED: ONDANSETRON 4 MG/2 ML VIAL ONE (07:53)
[2021-12-29] MEDS ORDERED: dexAMETHasone 10 MG/ML VIAL ONE (07:54)
[2021-12-29] MEDS ORDERED: ACETAMINOPHEN 500 MG TAB ONE (08:14)
[2021-12-29] MEDS ORDERED: BUPIVACAINE 0.5% PF 10 ML VIAL ONE ×2 (08:14→08:17)
[2021-12-29] MEDS: NA CHLORIDE 0.9% 500 ML ONE (08:45)
[2021-12-29] MEDS ORDERED: HYDROCODONE/APAP 7.5/325 MG TAB ONE (10:24)
[2021-12-29 10:33] VITALS: BP 150/75; TEMP 97; O2SAT 95
--- NOTE | 2021-12-29 13:36 | OP ---
Date of Procedure: 12/29/2021 Surgeon: Vinh Trent MD Inclusion Specialist: Derrek Maddox, surgical corsetier certified. Preoperative Diagnosis: Left axillary abscess and cellulitis. Postoperative Diagnosis: Left axillary abscess and cellulitis. Procedure: Wide excision of left axillary infected cyst 5 x 2 cm with layered closure. Estimated Blood Loss: Minimal. Specimen: Pus and cyst. Findings: As above. Anesthesia: General. Complications: None. Disposition: The patient tolerated the procedure in stable condition and taken to Recovery in good g eneral condition. Procedure In Detail: The patient was brought to the OR and placed in prone position. General anesth esia begun. The patient was prepped and draped in usual sterile fashion. Marcaine 0.5% was infiltra pj locally. A 15-blade was used to make a 5 x 2 cm incision to excise the infected cyst in the left axilla. Subcutaneous tissue divided and the entire cyst in toto excised and then opened and there w as purulence. Cultures were done. Wound irrigated. Bleeding controlled with cautery. Flaps create d and then 3-0 chromic used to reapproximate the subcutaneous tissue and then 4-0 nylon used to loose ly close the skin allowing for drainage. Sterile dressing applied. The patient was awakened and emily en to Recovery in good general condition. Discharge Note: The patient will go to Day Surgery and home when stable. Disposition: Home. Condition: Stable. Discharge Instructions: Resume home medications and diet. Activity as tolerated. No heavy lifting. Remove outer dressing in a.m. Shower. Dry gauze to wound daily. Follow up in [facility]aling Abiel ledbetter in 1 week. Cipro 250 mg p.o. b.i.d. The patient has pain medicines at home. /MODL Voice ID: [id number] Report ID: [id number]
== END 2021-12-29 11:04 | disposition home or self-care (01) ==
LOC: OR 07:39
PROVIDERS: ATTEND Surgery
PROC: 0JBF0ZZ Excision of Left Upper Arm Subcutaneous Tissue and Fascia, Open Approach (ICD-10-PCS; principal; 2021-12-29 09:00)
DX: L72.0 Epidermal cyst (principal); L03.112 Cellulitis of left axilla
CPT/HCPCS: 87070; 85025; 80048; 36415; 87205; 82947 ×2; 88304; 71046; 11406; J2704; J2250; J3010; J0690; J7040; J2405; J1100